=== PATIENT | male | born 1945 | race Caucasian/White ===

== ENCOUNTER → 2018-02-11 15:31 | Outpatient (CLI) | payer MEDICARE, SELFPAY ==
[2018-02-11 16:36] LABS: INR 3.2 (1.0-3.5); Prothrombin Time 30.4 sec (9.3-10.8)
[2018-02-11 17:18] LABS: Hemoglobin A1C 7.3 % (4.5-6.2)
== END ==
PROVIDERS: PCP Family Medicine; Visit Provider Family Medicine
DX: E11.9 Type 2 diabetes mellitus without complications (principal); I26.99 Other pulmonary embolism without acute cor pulmonale; Z79.01 Long term (current) use of anticoagulants
CPT/HCPCS: 36415; 83036; 85610

== ENCOUNTER → 2018-02-18 11:54 | Outpatient (CLI) | payer MEDICARE, SELFPAY ==
[2018-02-18 12:41] LABS: INR 2.5 (1.0-3.5); Prothrombin Time 23.3 sec (9.3-10.8)
== END ==
PROVIDERS: PCP Family Medicine; Visit Provider Family Medicine
DX: I26.99 Other pulmonary embolism without acute cor pulmonale (principal); Z79.01 Long term (current) use of anticoagulants
CPT/HCPCS: 36415; 85610

== ENCOUNTER 2018-05-06 13:40 | Emergency (ER) | payer MEDICARE, SELFPAY ==
[2018-05-06] VITALS (13 sets, daily range): BP systolic 100–131; BP diastolic 53–96; PULSE 79–85; RESP 10–29; TEMP 38.3–38.6; O2SAT 90–94
--- NOTE | 2018-05-06 13:57 | DI.RAD_ITS ---
SYMPTOMS/DIAGNOSIS: COUGH, FEVER PA AND LATERAL CHEST: A region of left lower lobe infiltration is demonstrated. The right lung is clear. There is no pleural effusion. The cardiovascular structures are intact in this patient who is status post CABG. SUMMARY: Findings consistent with a left lower lobe pneumonitis.
--- NOTE | 2018-05-06 14:09 | W.ED.GENAD ---
Discharge Plan Disposition Patient Disposition: HOME Condition: Stable Discharge Details Chief Complaint: SOB Clinical Impression: Community acquired pneumonia Primary Care Provider: Gianni Gannon ED Provider: Ashu Ravi Home Meds and New Rx's Prescriptions: New levofloxacin 750 mg tablet 750 mg PO DAILY Qty: 6 RF: 0 No Action metformin [Glucophage] 850 mg tablet 850 mg PO TID Qty: 270 RF: 4 magnesium oxide 400 mg (241.3 mg magnesium) tablet 400 mg PO DAILY Qty: 90 RF: 3 terazosin 1 mg capsule 1 mg PO .QHS Qty: 90 RF: 3 inhalational spacing device [Space Chamber Plus] 1 EACH spacer 1 ea Miscellaneous PRN Qty: 1 RF: 0 lancets [FreeStyle Lancets] 1 EACH misc 1 ea Sub-Q BID Qty: 100 RF: 4 potassium chloride [Klor-Con] 20 MEQ packet 20 meq PO BID RF: 0 nebulizers [Aeroeclipse Reusable BAN] 1 EACH misc 1 ea Miscellaneous DAILY PRNQty: 1 RF: 0 albuterol sulfate [ProAir HFA] 8.5 GM HFA aerosol inhaler 1 - 2 puff Inhalation Q6H PRN Qty: 2 RF: 3 fluticasone-salmeterol [Advair Diskus] 1 EACH blister with device 1 ea Inhalation BID Qty: 1 RF: 11 pen needle, diabetic 1 EACH needle 1 ea Sub-Q DIRECTED Qty: 300 RF: 4 albuterol sulfate 3 ML solution for nebulization 3 ml Inhalation Q4H PRNQty: 30 RF: 4 rosuvastatin [Crestor] 10 MG tablet 1 tab PO DAILY Qty: 90 RF: 4 warfarin [Coumadin] 5 MG tablet 10 mg PO as directed Qty: 180 RF: 3 Metoprolol Succinate 25 MG TAB.ER.24H 25 mg PO DAILY Qty: 90 RF: 3 lisinopril 20 MG tablet 20 mg PO DAILY Qty: 90 RF: 3 blood sugar diagnostic [FreeStyle Lite Strips] 1 EACH strip 1 ea Miscellaneous BID Qty: 180 RF: 1 furosemide 20 MG tablet 20 mg PO DAILY Qty: 90 RF: 3 fluticasone-salmeterol [Advair Diskus] 1 EACH blister with device 1 puff Inhalation BID RF: 0 tiotropium-olodaterol [Stiolto Respimat] 4 GM mist 2 puff Inhalation DAILY RF: 0 insulin glargine [Lantus Solostar U-100 Insulin] 100 UNIT/1 ML insulin pen 40 unit SQ HS Qty: 3 RF: 4 pantoprazole 20 MG tablet,delayed release (DR/EC) 20 mg PO DAILY@0730 Qty: 90 RF: 3 nitroglycerin [Nitrostat] 0.4 MG tablet, sublingual 1 tab Sublingual DIRECTED RF: 0 Discharge Instructions Instructions: Community Acquired Pneumonia (ED) Additional Instructions: you have a follow up appointment at your primary care office on 05/12 at 11am if you have worsening trouble breathing return to the emergency department Medical Decision Making 73 yo male comes in with cough for a week and fevers/chills for a few days. Denies chset pain or pressure, recent travel. Is noted to be febrile here though appears well systemically and is speaking in full setnences in no distress. Will evaluate for pna with xray, cbc lactate and obtain influenza swab labs show leukocytosis otherwise unremarkable, xray on my read shows small right infiltrate. Irecommended admission but pt declined as he feels well and can return if he is worsening. I arranged for f/u on 05/12 with his pcp's office and he was given strict return precautions as well Differential Diagnosis uri, influenza, pna Imaging Data Radiologic Study: Attestation: I personally reviewed and interpreted this imaging study as follows: Imaging: X-Ray Lab Data Lab results reviewed: Yes I reviewed the patient's lab results. ECG Data Attestation: I personally reviewed and interpreted this ECG (s) as follows: Prior ECG tracings: not available for review Interpretation: sinus rhythm, rate of 91, normal axis, HPI General Mode of arrival: ambulatory. Date/Time Provider Initiated Documentation: 05/06/18 13:49. Limitations to Documentation: no limitations. Information obtained by: patient. History of Present Illness 73 year old M presents to the emergency department with the chief complaint of cough, described as moderate, Patient started experiencing this week(s) (1) and it has been constant. No relieving factors improve symptom(s), No exacerbating factors reported . Patient notes fever/chills. Patient did receive the following treatments prior to arrival, none Related Data Home Medications Medication Instructions Recorded Confirmed inhalational spacing device [Space #1 03/13/14 03/26/18 Chamber Plus] lancets [FreeStyle Lancets] #100 ea 04/03/14 03/26/18 potassium chloride [Klor-Con] 20 meq PO BID packet 08/14/15 05/06/18 nebulizers [Aeroeclipse Reusable #1 ea 04/09/16 03/26/18 BAN] nitroglycerin [Nitrostat] 1 tab SUBLINGUAL DIRECTED 06/07/16 05/06/18 albuterol sulfate [ProAir HFA] 1 - 2 puff INHALATION Q6H PRN #2 01/06/17 05/06/18 inhaler fluticasone-salmeterol [Advair 1 ea INHALATION BID #1 disk 04/10/17 03/26/18 Diskus] pen needle, diabetic #300 ea 04/15/17 03/26/18 albuterol sulfate 3 ml INHALATION Q4H PRN #30 vial 05/04/17 05/06/18 rosuvastatin [Crestor] 1 tab PO DAILY #90 tab-cap 06/17/17 05/06/18 warfarin [Coumadin] 10 mg PO as directed #180 tab-cap 07/06/17 05/06/18 lisinopril 20 mg PO DAILY #90 tab-cap 08/07/17 05/06/18 blood sugar diagnostic [Freestyle #180 strip 08/12/17 03/26/18 Lite Strips] furosemide 20 mg PO DAILY #90 tab 08/12/17 05/06/18 fluticasone-salmeterol [Advair 1 puff INHALATION BID disk 09/25/17 05/06/18 500/50 Diskus] tiotropium-olodaterol [Stiolto 2 puff INHALATION DAILY 09/25/17 05/06/18 Respimat] insulin glargine [Lantus Solostar] 40 unit SQ HS #3 box 01/08/18 05/06/18 pantoprazole 20 mg PO DAILY@0730 #90 tablet. 02/22/18 05/06/18 magnesium oxide 400 mg (241.3 mg 400 mg PO DAILY #90 tab 03/26/18 05/06/18 magnesium) tablet metformin 850 mg tablet 850 mg PO TID #270 tab-cap 18 05/06/18 terazosin 1 mg capsule 1 mg PO .QHS #90 cap 18 05/06/18 levofloxacin 750 mg PO DAILY #6 tab 05/06/18 Previous Rx's Medication Instructions Recorded fluticasone-salmeterol [Advair 1 ea INHALATION BID #1 disk 04/10/17 Diskus] pen needle, diabetic #300 ea 04/15/17 rosuvastatin [Crestor] 1 tab PO DAILY #90 tab-cap 06/17/17 warfarin [Coumadin] 10 mg PO as directed #180 tab-cap 07/06/17 lisinopril 20 mg PO DAILY #90 tab-cap 08/07/17 blood sugar diagnostic [Freestyle #180 strip 08/12/17 Lite Strips] furosemide 20 mg PO DAILY #90 tab 08/12/17 insulin glargine [Lantus Solostar] 40 unit SQ HS #3 box 01/08/18 pantoprazole 20 mg PO DAILY@0730 #90 tablet. 02/22/18 magnesium oxide 400 mg (241.3 mg 400 mg PO DAILY #90 tab 03/26/18 magnesium) tablet metformin 850 mg tablet 850 mg PO TID #270 tab-cap 03/26/18 terazosin 1 mg capsule 1 mg PO .QHS #90 cap 03/26/18 levofloxacin 750 mg PO DAILY #6 tab 05/06/18 Allergies Allergy/AdvReac Type Severity Reaction Status Date / Time venom-honey bee Allergy Severe Swelling/Ed Verified 05/06/18 13:54 [bee venom (honey bee)] lida General Stated Complaint: SOB ODESSA: 2 Review of Systems Review of Systems All systems reviewed & are unremarkable except as noted in HPI and below Constitutional Reports chills and Reports fever(s) Eyes Denies loss of vision ENT Denies change in voice Cardiovascular Denies chest pain Gastrointestinal Denies abdominal pain, Denies nausea and Denies vomiting Genitourinary Denies dysuria Musculoskeletal Denies joint swelling Integumentary/Breasts Denies rash Neurologic Denies loss of vision Psychiatric Denies depression Endocrine Denies cold intolerance and Denies heat intolerance Allergic/Immunologic Denies urticaria PFSH Medical History BPH (benign prostatic hyperplasia) COPD (chronic obstructive pulmonary disease) Diabetes type 2, controlled Hypertension Prostate cancer Pulmonary embolus Social History Smoking/Tobacco Use Status: Current every day tobacco type: cigarettes passive smoking exposure: No second hand exposure: No alcohol intake: current alcohol intake frequency: holidays/special occasions only substance use type: does not use Surgical History Arthroplasty Colonoscopy - IV Sedation (~2006) Extraction of cataract (~07/2012) Prostate Biopsy (11/13/14) Repair of inguinal hernia (~2002) Exam Const General: no acute distress Orientation: alert HENMT Head: normal to inspection Ears: external ears normal General nose exam: external nose normal Mouth: moist mucous membranes Eyes General: appearance normal, both eyes and all related structures Neck Neck: normal visual inspection Resp Effort & Inspection: normal respiratory effort and able to speak in complete sentences Cardio Rate: regular rate Skin General skin exam: no rashes or lesions noted Neuro General: alert and oriented x3 Extrem General: normal to inspection Psych Mental Status: mental status grossly normal Course Vital Signs Temperature 38.6 C H 05/06/18 13:52 Pulse 85 05/06/18 13:52 Respiratory Rate 20 05/06/18 13:52 Blood Pressure 131/96 H 05/06/18 13:52 Pulse Oximetry 94 L 05/06/18 13:52 Temperature 38.6 C H 05/06/18 13:52 Temperature Source Temporal Artery Scan 05/06/18 13:52 Pulse 85 05/06/18 13:52 Respiratory Rate 20 05/06/18 13:52 Respiratory Effort Non-Labored 05/06/18 14:07 Blood Pressure 131/96 H 05/06/18 13:52 Blood Pressure Position Supine 05/06/18 13:52 Pulse Oximetry 94 L 05/06/18 13:52 Oxygen Delivery Method Room Air 05/06/18 13:52 Oxygen Flow Rate 0 05/06/18 13:52 Pain Level 0 05/06/18 13:52 Lab/Test Results Lab/Test Results: 05/06/18 14:00 Nasopharynx Influenza Types A,B Antigen - Pending 05/06/18 13:56 Blood Blood Culture - Pending 05/06/18 13:56 Blood Blood Culture - Pending
[2018-05-06 14:20] LABS: Lactate-non-spesis 1.3 mmol/L (0.6-1.4)
[2018-05-06 14:25] LABS: Abs Immature Grans 0.06 k/cumm (0.0-0.09); Absolute Basophil Count 0.03 k/cumm (0.0-0.2); Absolute Monocyte Count 1.95 k/cumm (0.11-0.7); Basophils % 0.2; Eosinophils % 0.8; HCT 32.4 % (40.0-50.0); HGB 10.3 g/dL (13.5-17.5); Immature Grans % 0.4; Lymphocytes % 11.8; Mean Corp. HGB Concentration 31.8 g/dL (32.0-36.0); Mean Corpuscular Hemoglobin 21.4 pg (27.0-33.0); Mean Corpuscular Volume 67.2 fL (80-95); Mean Platelet Volume 9.4 fL (8.0-11.0); Monocytes % 11.7; Neutrophils % 75.1; Platelet Count 317 x1000/uL (130-400); RBC 4.82 m/cumm (4.50-6.00); RBC Distribution Width 17.5 % (11.8-14.1); White Blood Cell Count 16.64 k/cumm (4.4-10.8)
[2018-05-06 14:29] LABS: Absolute Eosinophil Count 0.13 k/cumm (0.0-0.7); Absolute Lymphocyte Count 1.96 k/cumm (1.2-3.4)
[2018-05-06 14:35] LABS: ALT 17 U/L (12-78); AST 12 U/L (15-37); Albumin 3.2 g/dL (3.4-5.0); Alkaline Phosphatase 95 U/L (46-116); Anion Gap 9.6 mmol/L (3-11); BUN 16 mg/dL (7-18); Bilirubin, Direct 0.13 mg/dL (0.00-0.20); Bilirubin, Total 0.6 mg/dL (0.2-1.0); CO2 26.4 mmol/L (21.0-32.0); CREATININE 1.03 mg/dL (0.70-1.30); Calcium 8.3 mg/dL (8.5-10.1); Chloride 97 mmol/L (98-107); Glucose 107 mg/dL (70-100); Magnesium 1.3 mg/dL (1.8-2.4); Potassium 4.1 mmol/L (3.5-5.1); Sodium 133 mmol/L (136-145); Total Protein 6.8 g/dL (6.4-8.2)
[2018-05-06 14:38] LABS: Anisocytosis 1+; Basophilic Stippling Present; Diff Comment Agrees w/ Instrument; Hypochromasia 3+; Microcytosis 3+; Ovalocytes 2+; Polychromasia Present
[2018-05-06 14:39] LABS: Poikilocytes 1+
--- NOTE | 2018-05-06 14:49 | NUR.NOTE ---
Nursing Note: Appt. made for pt with Shyann Gonzalez NP at [facility], @ 11:00 am. Gianna Mejia.
[2018-05-06] MEDS: LEVOFLOXACIN 500 MG, LEVOFLOXACIN 250 MG 750 MG PO (14:55)
== END 2018-05-06 15:26 | disposition home or self-care (01) ==
PROVIDERS: Emergency Provider Emergency Medicine; PCP Family Medicine
DX: J18.9 Pneumonia, unspecified organism (principal); E11.9 Type 2 diabetes mellitus without complications; Z79.4 Long term (current) use of insulin; I10 Essential (primary) hypertension; J44.9 Chronic obstructive pulmonary disease, unspecified; F17.210 Nicotine dependence, cigarettes, uncomplicated; Z79.01 Long term (current) use of anticoagulants
CPT/HCPCS: 36415; 80053; 80076; 87040; 87449; 93005; 99285; 71046; 83605; 83735; 85025; 93010

== ENCOUNTER 2018-05-06 21:59 | Inpatient (IN) | payer MEDICARE, SELFPAY ==
[2018-05-06] VITALS (13 sets, daily range): BP systolic 99–119; BP diastolic 40–68; PULSE 87–95; RESP 14–32; TEMP 37.2; O2SAT 89–100
[2018-05-06] MEDS: Albuterol/Ipratropium 3 ML UPD VIAL (22:15)
--- NOTE | 2018-05-06 22:31 | ED.GENADUL_ITS ---
Discharge Plan Disposition Patient Disposition: [facility] INPATIENT Condition: Stable Discharge Details Chief Complaint: SOB Clinical Impression: Pneumonia, Hypoxia Reason For Visit: PNEUMONIA Admit Date/Time: 05/06/18 23:46 Admit Provider: Nato Mccormack Attending Provider: Nato Mccormack Primary Care Provider: Gianni Gannon ED Provider: Vickie Sharp Medical Decision Making 73yo M w/ a h/o COPD, tobacco smoker, DM, HTN, CAD, CHF with a complaint of cough and shortness of breath for the past month, worse over the past few days associated with fever and chills who was diagnosed with pneumonia here today but refused admission and was treated with PO levaquin returns for worsening shortness of breath. Denies chest pain. WBC count today on labs of 16. Chest x-ray noted a left lower lobe pneumonia. O2 sat 89% on RA. Pt mildly tachypneic but able to speak in full sentences and does not appear to be in acute respiratory distress. EKG notes a rate of 92, sinus, right bundle branch block, no acute ST elevation or depression, QTc 463. QRS 114. No acute change from Due to worsening symptoms, will replete labs and imaging. Will give a DuoNeb, followed by 5 mg albuterol neb, as well as 125 mg Solu-Medrol IV. Patient was already given a dose of p.o. Levaquin today and will hold on this at this time. Will admit patient for worsening respiratory status associated with pneumonia in a patient with multiple comorbidities for observation, IV antibiotics, IV steroids and continue neb treatment. 2310 --labs and imaging reviewed. White blood cell count 17. Hemoglobin 9.6, earlier today was 10.3. Sodium 131. Calcium 8.1. Magnesium 1.2. BNP 532. Troponin negative. Chest x-ray notes left lower lobe pneumonia but no other acute significant change from previous today. Will replete magnesium. 2330 -- d/w Dr. Mccormack - accepts pt for admission. 0005 -- Pt states he feels 50% better. Breath sounds improved. Declines another neb treatment. O2 sat on room air 95%. Patient states he has been on Coumadin since 2000 since diagnosed with a pulmonary embolism due to factor V Leyden. Patient states he has not missed any recent Coumadin doses. States he did miss his last INR check and is a month late. He denies any recent antibiotic use. Denies any recent hospital admissions in the past 3 months. INR therapeutic at 2.9. HPI General Mode of arrival: ambulatory . Date/Time Provider Initiated Documentation: 05/06/18 22:05 . Limitations to Documentation: no limitations . Information obtained by: patient . HPI Narrative: Patient is a 73-year-old male with a history of COPD, diabetes, pulmonary embolism in 2000 on Coumadin, history of factor V Leiden, CAD, CHF who presents with shortness of breath and cough for 1 month, worse recently. States his cough was productive but is now dry. He admits to recent fever and chills and fatigue. He states he has been eating normally. He denies chest pain. Patient was seen here earlier today for the same symptoms and was diagnosed with pneumonia and offered admission but refused. Patient is here tonight as his symptoms became worse over the past 2-hours. He did not use any neb treatments this evening when his symptoms became worse. He was given a dose of p.o. Levaquin here in the ED today. Past medical history: COPD, hypertension, diabetes, COPD, prostate cancer, CHF, BPH, Factor V Leiden Surgical history: Cataract surgery, Hernia repair Social history: Smokes tobacco, occasional alcohol, denies drugs Meds: Coumadin, See list Allergies: NKDA Related Data Home Medications Medication Instructions Recorded Confirmed inhalational spacing device [Space #1 03/13/14 05/06/18 Chamber Plus] lancets [FreeStyle Lancets] #100 ea 04/03/14 05/06/18 potassium chloride [Klor-Con] 20 meq PO BID packet 08/14/15 05/06/18 nebulizers [Aeroeclipse Reusable #1 ea 04/09/16 05/06/18 BAN] nitroglycerin [Nitrostat] 1 tab SUBLINGUAL DIRECTED 06/07/16 05/06/18 albuterol sulfate [ProAir HFA] 1 - 2 puff INHALATION Q6H PRN #2 01/06/17 inhaler fluticasone-salmeterol [Advair 1 ea INHALATION BID #1 disk 04/10/17 05/06/18 Diskus] pen needle, diabetic #300 ea 04/15/17 05/06/18 albuterol sulfate 3 ml INHALATION Q4H PRN #30 vial 05/04/17 05/06/18 rosuvastatin [Crestor] 1 tab PO DAILY #90 tab-cap 06/17/17 05/06/18 warfarin [Coumadin] 10 mg PO as directed #180 tab-cap 07/06/17 05/06/18 lisinopril 20 mg PO DAILY #90 tab-cap 08/07/17 05/06/18 blood sugar diagnostic [Freestyle #180 strip 08/12/17 05/06/18 Lite Strips] furosemide 20 mg PO DAILY #90 tab 08/12/17 05/06/18 fluticasone-salmeterol [Advair 1 puff INHALATION BID disk 09/25/17 05/06/18 500/50 Diskus] tiotropium-olodaterol [Stiolto 2 puff INHALATION DAILY 09/25/17 05/06/18 Respimat] insulin glargine [Lantus Solostar] 40 unit SQ HS #3 box 01/08/18 05/06/18 pantoprazole 20 mg PO DAILY@0730 #90 tablet.dr 02/22/18 05/06/18 magnesium oxide 400 mg (241.3 mg 400 mg PO DAILY #90 tab 03/26/18 05/06/18 magnesium) tablet metformin 850 mg tablet 850 mg PO TID #270 tab-cap 03/26/18 05/06/18 terazosin 1 mg capsule 1 mg PO .QHS #90 cap 03/26/18 05/06/18 levofloxacin 750 mg PO DAILY #6 tab 05/06/18 05/06/18 Previous Rx's Medication Instructions Recorded fluticasone-salmeterol [Advair 1 ea INHALATION BID #1 disk 04/10/17 Diskus] pen needle, diabetic #300 ea 04/15/17 rosuvastatin [Crestor] 1 tab PO DAILY #90 tab-cap 06/17/17 warfarin [Coumadin] 10 mg PO as directed #180 tab-cap 07/06/17 lisinopril 20 mg PO DAILY #90 tab-cap 08/07/17 blood sugar diagnostic [Freestyle #180 strip 08/12/17 Lite Strips] furosemide 20 mg PO DAILY #90 tab 08/12/17 insulin glargine [Lantus Solostar] 40 unit SQ HS #3 box 01/08/18 pantoprazole 20 mg PO DAILY@0730 #90 tablet. 02/22/18 magnesium oxide 400 mg (241.3 mg 400 mg PO DAILY #90 tab 03/26/18 magnesium) tablet metformin 850 mg tablet 850 mg PO TID #270 tab-cap 03/26/18 terazosin 1 mg capsule 1 mg PO .QHS #90 cap 03/26/18 levofloxacin 750 mg PO DAILY #6 tab 05/06/18 Allergies Allergy/AdvReac Type Severity Reaction Status Date / Time venom-honey bee Allergy Severe Swelling/Ed Verified 05/06/18 22:12 [bee venom (honey bee)] lida General Stated Complaint: SOB ODESSA: 3 Review of Systems Review of Systems All systems reviewed & are unremarkable except as noted in HPI and below Constitutional Denies chills, Denies excessive sweating, Denies fatigue, Reports fever(s), Denies weakness and Denies weight loss Eyes Reports system reviewed and no additional complaints, except as docu and Denies blurry vision ENT Denies vertigo, Denies dizziness, Denies otalgia, Denies nasal congestion, Denies sore throat and Denies throat swelling Cardiovascular Denies chest pain, Denies syncope, Denies rapid heart rate and Reports dyspnea Respiratory Reports cough and Reports dyspnea Gastrointestinal Denies abdominal pain, Denies diarrhea and Denies vomiting Genitourinary Denies hematuria, Denies dysuria and Denies flank pain Musculoskeletal Denies back pain and Denies joint swelling Integumentary/Breasts Denies lesions and Denies rash Neurologic Denies behavioral changes, Denies confusion, Denies vertigo, Denies dizziness, Denies syncope and Denies weakness Psychiatric Denies behavioral changes, Denies confusion and Denies depression Endocrine Denies excessive sweating and Denies fatigue Hematologic/Lymphatic Denies easy bruising and Denies lymphadenopathy Allergic/Immunologic Denies throat swelling [facility] Medical History BPH (benign prostatic hyperplasia) COPD (chronic obstructive pulmonary disease) Diabetes type 2, controlled Hypertension Prostate cancer Pulmonary embolus Social History Smoking/Tobacco Use Status: Current every day tobacco type: cigarettes passive smoking exposure: No second hand exposure: No alcohol intake: current alcohol intake frequency: holidays/special occasions only substance use type: does not use Surgical History Arthroplasty Colonoscopy - IV Sedation (~2006) Extraction of cataract (~07/2012) Prostate Biopsy (11/13/14) Repair of inguinal hernia (~2002) Exam Const General: cooperative and no acute distress Orientation: alert, awake and oriented x3 HENMT Head: normal to inspection Ears: hearing grossly normal bilaterally and external ears normal General nose exam: external nose normal Face and sinus: normal facial exam Eyes General: appearance normal, both eyes and all related structures Eyelids: eyelids normal EOM: EOM intact bilaterally Neck Neck: normal visual inspection Lymphatic: no lymphadenopathy noted Chest Chest: normal inspection of the chest Resp Effort & Inspection: normal respiratory effort and able to speak in complete sentences Auscultation: crackles (b/l bases, worse on Left), diminished lung sounds ( bilateral, worse at bases) and wheezes scattered wheezes Cardio Rate: regular rate Rhythm: regular rhythm GI Inspection: normal to inspection Palpation: soft, not firm, no guarding, no hepatosplenomegaly, no masses and nontender Auscultation: normal bowel sounds Skin General skin exam: no rashes or lesions noted Neuro General: alert and awake Cognition: normal cognition Speech: speech normal Gait: normal gait Motor: muscle tone normal throughout Sensory Exam: no sensory deficits noted Extrem General: normal to inspection, full ROM, normal capillary refill and no edema Psych Appearance: grossly normal Mental Status: mental status grossly normal Speech and Movement: speech and movement normal Affect: normal affect Thought Process: normal Course Laboratory Tests Range/Units 05/06/18 05/06/18 22:40 22:40 WBC (4.4-10.8) k/cumm 17.02 H RBC (4.50-6.00) m/cumm 4.53 Hgb (13.5-17.5) g/dL 9.6 L Hct (40.0-50.0) % 30.2 L MCV (80-95) fL 66.7 L MCH (27.0-33.0) pg 21.2 L MCHC (32.0-36.0) g/dL 31.8 L RDW (11.8-14.1) % 17.4 H Plt Count (130-400) x1000/uL 280 MPV (8.0-11.0) fL 9.6 Immature Gran % 0.3 Neutrophils % 72.7 Lymphocytes % 12.6 Monocytes % 13.7 Eosinophils % 0.6 Basophils % 0.1 Absolute Neutrophils (1.2-6.7) k/cumm 12.37 H Absolute Lymphocytes (1.2-3.4) k/cumm 2.14 Absolute Monocytes (0.11-0.7) k/cumm 2.33 H Absolute Eosinophils (0.0-0.7) k/cumm 0.10 Absolute Basophils (0.0-0.2) k/cumm 0.02 Differential Comment Rbc morph reviewed RBC Morphology See below Poikilocytosis 1+ Anisocytosis 2+ Microcytosis 3+ Sodium (136-145) mmol/L 131 L Potassium (3.5-5.1) mmol/L 4.3 Chloride (98-107) mmol/L 95 L Carbon Dioxide (21.0-32.0) mmol/L 24.8 Anion Gap (3-11) mmol/L 11.2 H BUN (7-18) mg/dL 21 H Creatinine (0.70-1.30) mg/dL 1.28 Estimated GFR/1.73 m2 (mL/min/1.73m2) 54.79 Glucose (70-100) mg/dL 153 H Calcium (8.5-10.1) mg/dL 8.1 L Magnesium (1.8-2.4) mg/dL 1.2 L Total Bilirubin (0.2-1.0) mg/dL 0.6 AST (15-37) U/L 12 L ALT (12-78) U/L 15 Alkaline Phosphatase (46-116) U/L 88 Troponin I (0.00-0.06) ng/mL < 0.02 NT-Pro-B Natriuret Pep ( - 299) pg/mL 532 H Total Protein (6.4-8.2) g/dL 6.4 Albumin (3.4-5.0) g/dL 2.9 L Vital Signs Temperature 99.0 F 05/06/18 22:09 Pulse 95 H 05/06/18 22:09 Respiratory Rate 20 05/06/18 22:09 Blood Pressure 119/68 05/06/18 22:09 Pulse Oximetry 89 L 05/06/18 22:09 Temperature 99.0 F 05/06/18 22:09 Temperature Source Temporal Artery Scan 05/06/18 22:09 Pulse 95 H 05/06/18 22:09 Respiratory Rate 20 05/06/18 22:09 Respiratory Effort 05/06/18 22:09 Blood Pressure 119/68 05/06/18 22:09 Blood Pressure Position Sitting 05/06/18 22:09 Pulse Oximetry 89 L 05/06/18 22:09 Oxygen Delivery Method Room Air 05/06/18 22:09 Oxygen Flow Rate 0 05/06/18 22:09 Pain Level 0 05/06/18 22:09
[2018-05-06] MEDS: Albuterol 2.5 MG/3 ML INH SOLN VIAL 5 MG UPD (22:36)
[2018-05-06] MEDS: methylPREDNISolone SUCC 125 MG VIAL IVP (22:36)
[2018-05-06 22:52] LABS: Abs Immature Grans 0.05 k/cumm (0.0-0.09); Absolute Basophil Count 0.02 k/cumm (0.0-0.2); Absolute Lymphocyte Count 2.14 k/cumm (1.2-3.4); Absolute Monocyte Count 2.33 k/cumm (0.11-0.7); Absolute Neutrophil Count 12.37 k/cumm (1.2-6.7); Basophils % 0.1; Eosinophils % 0.6; HCT 30.2 % (40.0-50.0); HGB 9.6 g/dL (13.5-17.5); Immature Grans % 0.3; Lymphocytes % 12.6; Mean Corp. HGB Concentration 31.8 g/dL (32.0-36.0); Mean Corpuscular Hemoglobin 21.2 pg (27.0-33.0); Mean Corpuscular Volume 66.7 fL (80-95); Mean Platelet Volume 9.6 fL (8.0-11.0); Monocytes % 13.7; Neutrophils % 72.7; Platelet Count 280 x1000/uL (130-400); RBC 4.53 m/cumm (4.50-6.00); RBC Distribution Width 17.4 % (11.8-14.1); White Blood Cell Count 17.02 k/cumm (4.4-10.8)
[2018-05-06 23:12] LABS: ALT 15 U/L (12-78); AST 12 U/L (15-37); Albumin 2.9 g/dL (3.4-5.0); Alkaline Phosphatase 88 U/L (46-116); Anion Gap 11.2 mmol/L (3-11); BUN 21 mg/dL (7-18); Bilirubin, Total 0.6 mg/dL (0.2-1.0); CO2 24.8 mmol/L (21.0-32.0); CREATININE 1.28 mg/dL (0.70-1.30); Calcium 8.1 mg/dL (8.5-10.1); Chloride 95 mmol/L (98-107); Estimated GFR 54.79 (mL/min/1.73m2); Glucose 153 mg/dL (70-100); Magnesium 1.2 mg/dL (1.8-2.4); NT-proBNP 532 pg/mL; Potassium 4.3 mmol/L (3.5-5.1); Sodium 131 mmol/L (136-145); Total Protein 6.4 g/dL (6.4-8.2); Troponin I < 0.02 ng/mL (0.00-0.06)
[2018-05-06 23:15] LABS: Anisocytosis 2+; Diff Comment RBC Morph Reviewed; Microcytosis 3+
[2018-05-06 23:16] LABS: Poikilocytes 1+
--- NOTE | 2018-05-06 23:20 | DI.RAD_ITS ---
SYMPTOMS/DIAGNOSIS: COUGH, INCREASING SHORTNESS OF BREATH, PNEUMONIA ON CXR, ? WORSENING PNEUMONIA CHEST X-RAY, FRONTAL AND LATERAL VIEWS: Comparison is 07/10/17 and 05/06/18. The heart size and pulmonary vasculature are stable. The sternal wires are in place. There is again seen an infiltrate in the left lower lobe. No effusions or pneumothoraces are identified. The lungs appear hyperinflated consistent with underlying COPD. Degenerative changes are seen in the spine. IMPRESSION: Stable left lower lobe pneumonia.
--- NOTE | 2018-05-06 23:28 | DI.VRAD_ITS ---
EXAM: XR Chest, 2 Views EXAM DATE/TIME: 05/06/2018 10:29 PM CLINICAL HISTORY: 73 years old, male; Signs and symptoms; Cough and shortness of breath; Prior surgery; Surgery date: 6+ months; Surgery type: Bypass 3 years ago; Patient HX: Very SOB TECHNIQUE: XR of the chest, 2 views. COMPARISON: CR XR CHEST 2V PA LATERAL 05/06/2018 2:26 PM FINDINGS: Lungs: Lungs are hyperinflated compatible with obstructive physiology with chronic pleural-parenchymal changes throughout. Bibasilar platelike atelectasis. Left lower lobe infiltrate suggest pneumonitis/pneumonia. Appearance similar to earlier same day exam. Pleural space: Unremarkable. No pleural effusion. No pneumothorax. Heart/Mediastinum: Median sternotomy wires and surgical clips from prior CABG Vasculature: Atherosclerotic calcification within the aorta without aneurysm. Bones/joints: Degenerative changes noted throughout the spine. IMPRESSION: Hyperinflation with suspected left lower lobe pneumonia/pneumonitis. Similar appearance to previous. Dictated and Authenticated by: Rudy Valentine MD. Ordering:YONI SILVERMAN MD
[2018-05-07] VITALS (70 sets, daily range): BP systolic 83–143; BP diastolic 37–66; PULSE 61–93; RESP 10–94; TEMP 35.8–36.3; O2SAT 92–99
[2018-05-07 01:22] LABS: INR 2.9 (1.0-3.5); PTT Activated 50.2 sec (21.0-31.4); Prothrombin Time 27.6 sec (9.3-10.8)
[2018-05-07] MEDS: MAGNESIUM SULFATE 2 GM/50 ML BAG IVPB (01:58)
--- NOTE | 2018-05-07 02:08 | W.PM.HP.N ---
Date of service: 05/07/18 Time of Service: 01:00 Assessment and Plan (1) Community acquired pneumonia: Current visit: No Status: Acute because of his warfarin, Levaquin is not the best choice d/t elevated INR. However he has no allergy to PCN/cephalosporin and therefore I am going to put him on Rocephin 2 gm IVPB daily along w/ doxycycline 100 mg bid to cover for atypicals. I have also added iv solumedrol along w/ his aerosol treatments. he indicated that he is up todate on his pnemonia vaccine and [facility] [place] [facility]. (2) Diabetes mellitus, type II, insulin dependent: Current visit: No Status: Acute continue home dose of metformin and monitor glucose AC/HS and cover w/ sliding scale insulin. continue his home dose of Lantus (3) COPD (chronic obstructive pulmonary disease): Current visit: No Status: Chronic continue his Advair Diskus and use DuoNeb treatments prn acute bronchospasm; treat COPD and pneumonia w/ antibiotics and steroids as outlined above History of Present Illness Chief Complaint: short of breath Narrative: 73 yr old male smoker w/ COPD, DM, HTN, CAD, CHF, remote PE but chronically anticoaguled w/ warfarin d/t Leiden Factor mutation, now presented earlier in the day to the ER w/ c/o of 1 month hx of having a cold in which he has had increased cough and worsening WALLER along w/ chills and sweats. He was seen in the ER by Dr. Ravi who gave him oral Levaquin and steroids and advised him to be admitted overnight for further treatment of pneumonia. Patient decided to return home but was only home for about one hour when he says that his dyspnea got worse and he was severely short of breath even at rest. He denies any chest pain or pressure. He has cough that has become productive of thick white mucous but no hemoptysis. He has felt feverish and complains of chills and sweats. CXR today demonstrated LLL infiltrates and COPD. Labs revealed leukocytosis of 17,000. He also has an anemia w/ HB of 9.6 gm with microcytic indices. His INR is therapeutic at 2.9. Troponin was negative and his BNP was eleavated at 532 however he has had no pedal edema and no signs of CHF on his CXR. He is now being admitted for treatment of his CAP and COPD. Further testing will be done in the a.m. regarding his anemia including iron studies, stool for O.B.. Review of Systems Constitutional Reports chills, Reports fatigue, Reports fever(s) and Reports night sweats Eyes Reports system reviewed and no additional complaints, except as docu ENT Reports system reviewed and no additional complaints, except as docu, Denies nasal congestion, Denies nasal discharge and Denies sore throat Cardiovascular Reports system reviewed and no additional complaints, except as docu, Denies chest pain, Denies chest pain with activity, Denies pedal edema, Denies edema, Denies palpitations, Reports dyspnea and Reports dyspnea on exertion Respiratory Reports change in phlegm color, Reports chest congestion, Reports cough, Denies hemoptysis, Reports excessive phlegm production, Reports dyspnea and Reports dyspnea on exertion Gastrointestinal Denies abdominal pain, Denies melena and Denies hematochezia Genitourinary Reports system reviewed and no additional complaints, except as docu Musculoskeletal Reports system reviewed and no additional complaints, except as docu Integumentary/Breasts Reports system reviewed and no additional complaints, except as docu Neurologic Reports system reviewed and no additional complaints, except as docu Psychiatric Reports system reviewed and no additional complaints, except as docu Endocrine Reports fatigue and Denies palpitations Hematologic/Lymphatic Reports easy bruising [facility] Medical History BPH (benign prostatic hyperplasia) COPD (chronic obstructive pulmonary disease) Diabetes type 2, controlled Hypertension Prostate cancer Pulmonary embolus Social History Smoking/Tobacco Use Status: Current every day tobacco type: cigarettes passive smoking exposure: No second hand exposure: No alcohol intake: current alcohol intake frequency: holidays/special occasions only substance use type: does not use Surgical History Arthroplasty Colonoscopy - IV Sedation (~2006) Extraction of cataract (~07/2012) Prostate Biopsy (11/13/14) Repair of inguinal hernia (~2002) Meds Home Medications Medication Instructions Recorded Confirmed Type inhalational spacing device [Space #1 03/13/14 05/06/18 History Chamber Plus] lancets [FreeStyle Lancets] #100 ea 10/06/14 11/08/18 History potassium chloride [Klor-Con] 20 meq PO BID packet 08/14/15 05/06/18 History nebulizers [Aeroeclipse Reusable #1 ea 04/09/16 05/06/18 History BAN] nitroglycerin [Nitrostat] 1 tab SUBLINGUAL DIRECTED 06/07/16 05/06/18 History albuterol sulfate [ProAir HFA] 1 - 2 puff INHALATION Q6H PRN #2 01/06/17 05/06/18 History inhaler pen needle, diabetic #300 ea 04/15/17 05/06/18 Rx albuterol sulfate 3 ml INHALATION Q4H PRN #30 vial 05/04/17 05/06/18 History rosuvastatin [Crestor] 1 tab PO DAILY #90 tab-cap 06/17/17 05/06/18 Rx Metoprolol Succinate 25 mg PO DAILY #90 tab-cap 07/06/17 05/06/18 Clinic warfarin [Coumadin] 10 mg PO as directed #180 tab-cap 07/06/17 05/06/18 Rx lisinopril 20 mg PO DAILY #90 tab-cap 08/07/17 05/06/18 Rx blood sugar diagnostic [FreeStyle #180 strip 08/12/17 05/06/18 Rx Lite Strips] furosemide 20 mg PO DAILY #90 tab 08/12/17 05/06/18 Rx fluticasone-salmeterol [Advair 1 puff INHALATION BID disk 09/25/17 05/06/18 History 500/50 Diskus] tiotropium-olodaterol [Stiolto 2 puff INHALATION DAILY 09/25/17 05/06/18 History Respimat] insulin glargine [Lantus Solostar 40 unit SQ HS #3 box 01/08/18 05/06/18 Rx U-100 Insulin] pantoprazole 20 mg PO DAILY@0730 #90 tablet. 02/22/18 05/06/18 Rx magnesium oxide 400 mg (241.3 mg 400 mg PO DAILY #90 tab 03/26/18 05/06/18 Rx magnesium) tablet metformin 850 mg tablet 850 mg PO TID #270 tab-cap 03/26/18 05/06/18 Rx terazosin 1 mg capsule 1 mg PO .QHS #90 cap 03/26/18 05/06/18 Rx dextromethorphan-guaifenesin 10 ml PO Q4H PRN PRN #200 ml 05/10/18 Rx nicotine 21 mg TRANSDERMAL DAILY PRN PRN 05/10/18 Rx #30 ea prednisone 50 mg PO DAILY #2 tab 05/10/18 Rx Allergies Allergy/AdvReac Type Severity Reaction Status Date / Time venom-honey bee Allergy Severe Swelling/Ed Verified 05/06/18 22:12 [bee venom (honey bee)] lida Exam Const General: cooperative, comfortable, no acute distress, well developed and ill appearing chronically Nutritional Appearance: overweight Orientation: alert, awake and oriented x3 HENMT Head: normal to inspection, no palpable skull fracture, normocephalic and atraumatic Ears: external ears normal and TM's normal bilaterally General nose exam: external nose normal Face and sinus: normal facial exam Eyes General: appearance normal, both eyes and all related structures Visual Rivera: normal visual rivera by confrontation Alignment and Position: alignment normal Periorbital: periorbital findings normal Eyelids: eyelids normal Conjunctivae: conjunctivae normal Sclera: sclerae normal Cornea: corneas normal Pupils: PERRL and normal by confrontation EOM: EOM intact bilaterally Neck Neck: normal visual inspection, full ROM, no lymphadenopathy and trachea midline Thyroid: thyroid normal Carotids: normal carotid upstroke Lymphatic: no lymphadenopathy noted Resp Effort & Inspection: normal respiratory effort, able to speak in complete sentences and cough Auscultation: rhonchi left lower and wheezes expiratory wheezes and scattered wheezes Cardio Jugular venous pressure: no JVD Palpation: normal PMI Rate: regular rate Rhythm: regular rhythm Heart Sounds: S1 normal, S2 normal, normal, physiologic split S2, no gallops and murmur systolic holo, blowing, harsh, III/, at the apex and at the left sternal border Bruits: no abdominal aortic bruits and no carotid bruits Pulses: normal peripheral pulses GI Inspection: obesity Palpation: soft, no hepatosplenomegaly, no guarding and nontender Percussion: normal to percussion Auscultation: normal bowel sounds Back/Spine/Pelvis Back: no CVA tenderness Cervical Spine: normal cervical lordosis Thoracic/Lumbar Spine: thoracic and lumbar spine normal to inspection Skin General skin exam: no rashes or lesions noted Neuro General: alert, awake, oriented x3, moves all extremities, normal light touch, pain and propioception and no focal motor deficits Cognition: normal cognition Speech: speech normal Motor: muscle tone normal throughout, strength 5/5 throughout and no movement abnormalities noted Sensory Exam: no sensory deficits noted Extrem General: normal to inspection, full ROM, normal capillary refill, no joint enlargement, no clubbing, cyanosis or edema, no pedal edema and no calf tenderness Psych Appearance: grossly normal and well kempt Mental Status: mental status grossly normal Speech and Movement: speech and movement normal Mood: congruent mood Affect: normal affect Attitude: cooperative Thought Process: normal Thought Content: normal Insight: insight good Judgment: judgment good Results Labs : 05/09/18 11:15 05/08/18 05:47 Laboratory Results - last 24 hr 05/06/18 05/06/18 05/07/18 22:40 22:40 00:01 WBC 17.02 H RBC 4.53 Hgb 9.6 L Hct 30.2 L MCV 66.7 L MCH 21.2 L MCHC 31.8 L RDW 17.4 H Plt Count 280 MPV 9.6 Immature Gran % 0.3 Neutrophils % 72.7 Lymphocytes % 12.6 Monocytes % 13.7 Eosinophils % 0.6 Basophils % 0.1 Absolute Neutrophils 12.37 H Absolute Lymphocytes 2.14 Absolute Monocytes 2.33 H Absolute Eosinophils 0.10 Absolute Basophils 0.02 Differential Comment Rbc morph reviewed RBC Morphology See below Poikilocytosis 1+ Anisocytosis 2+ Microcytosis 3+ PT 27.6 H INR 2.9 APTT 50.2 H Sodium 131 L Potassium 4.3 Chloride 95 L Carbon Dioxide 24.8 Anion Gap 11.2 H BUN 21 H Creatinine 1.28 Estimated GFR/1.73 m2 54.79 Glucose 153 H Calcium 8.1 L Magnesium 1.2 L Total Bilirubin 0.6 AST 12 L ALT 15 Alkaline Phosphatase 88 Troponin I < 0.02 NT-Pro-B Natriuret Pep 532 H Total Protein 6.4 Albumin 2.9 L Last Vital Signs Temp 37.2 C 05/06/18 22:09 Pulse 78 05/07/18 01:46 Resp 19 05/07/18 01:50 BP 125/47 L 05/07/18 01:46 Pulse Ox 96 05/07/18 01:50
[2018-05-07] MEDS: Doxycycline Hyclate 100 MG CAP PO (06:10)
[2018-05-07] MEDS: methylPREDNISolone SUCC 125 MG VIAL 80 MG IVP ×2 (06:11→14:43)
[2018-05-07] MEDS: Normal Saline 100 ML ×2 (06:13→06:14)
[2018-05-07] MEDS: cefTRIAXone 1 GM VIAL (06:14)
[2018-05-07 07:14] LABS: Abs Immature Grans 0.07 k/cumm (0.0-0.09); Absolute Basophil Count 0.01 k/cumm (0.0-0.2); Absolute Lymphocyte Count 0.89 k/cumm (1.2-3.4); Basophils % 0.1; HCT 29.6 % (40.0-50.0); HGB 9.6 g/dL (13.5-17.5); Immature Grans % 0.5; Lymphocytes % 6.3; Mean Corp. HGB Concentration 32.4 g/dL (32.0-36.0); Mean Corpuscular Volume 67.9 fL (80-95); Mean Platelet Volume 9.6 fL (8.0-11.0); Monocytes % 1.8; Neutrophils % 91.3; Platelet Count 272 x1000/uL (130-400); RBC 4.36 m/cumm (4.50-6.00); RBC Distribution Width 17.2 % (11.8-14.1); White Blood Cell Count 14.17 k/cumm (4.4-10.8)
[2018-05-07] MEDS: Normal Saline Flush 10 ML SYR IVP ×2 (07:16→21:46)
[2018-05-07 07:23] LABS: Absolute Monocyte Count 0.26 k/cumm (0.11-0.7); Absolute Neutrophil Count 12.94 k/cumm (1.2-6.7)
[2018-05-07 07:27] LABS: INR 3.2 (1.0-3.5); Prothrombin Time 30.1 sec (9.3-10.8)
[2018-05-07 07:34] LABS: Anion Gap 12.3 mmol/L (3-11); BUN 22 mg/dL (7-18); CO2 21.7 mmol/L (21.0-32.0); Calcium 8.2 mg/dL (8.5-10.1); Chloride 97 mmol/L (98-107); Estimated GFR 59.02 (mL/min/1.73m2); Glucose 280 mg/dL (70-100); Magnesium 1.9 mg/dL (1.8-2.4); Potassium 4.3 mmol/L (3.5-5.1); Sodium 131 mmol/L (136-145)
[2018-05-07 07:37] LABS: Troponin I < 0.02 ng/mL (0.00-0.06)
--- NOTE | 2018-05-07 07:41 | PDOC.CMIN ---
- If Service Date Differs Date of service: 05/07/18 Time of Service: 07:41 Care Management Initial Assess REASON FOR HOSPITALIZATION:: Pneumonia. PAST MEDICAL HISTORY/PAST SURGICAL HISTORY:: BPH, COPD, Diabetes type II, Hypertension, Prostate CA, PE. Surgical hx: Arthroplasty, colonoscopy, extraction of cataract, prostate biopsy, inguinal hernia repair. PREVIOUS FUNCTIONAL STATUS/SOCIAL/FAMILY SUPPORTS:: Rufino resides in [place] with his , Carol, their adult son, his girlfriend, and his two grandchildren. 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 Rufino reports that he is independent with his ADLs and though he had hip surgery several years ago and has a walker, he does not use any ambulatory devices. He reports that he did drive until last spring when his car went to the dump but he will be driving again as soon as prices on cars comes down. Presently, Rufino relies on his and children for transporation. CURRENT FUNCTIONAL STATUS:: Rufino is sitting in his chair in the ICU when visits this morning. He is engaged in conversation, makes good eye contact, and is talkative. One of Rufino's four sons is visiting at the time stops in. Rufino reports he is feeling ok and wants to go home. He uses a CPAP at home and his , Carol, has been asked to bring it to the hospital. He does not use home O2 during the days and he has not required supplemental O2 while at [facility]. Rufino had an ECHO this morning. He has been discharged from PT services. ADVANCE DIRECTIVES:: On file at [facility]. Carol Peña; Health Care Agent. Has patient been provided with information about the portal?: Yes Did the patient sign up for the portal?: No CODE STATUS:: Full Code INSURANCE COVERAGE / FINANCIAL ISSUES:: AARP, Medicare. CURRENT HOME/COMMUNITY SERVICES/EQUIPMENT:: No current home or community services. Rufino has a home CPAP. He owns a walker but does not use it. PRIMARY CARE PHYSICIAN:: Gianni Gannon. POTENTIAL DISCHARGE NEEDS:: Follow up appointment with PCP. PATIENT/FAMILY EDUCATION NEEDS:: Discharge education, any limitations, and follow up plan of care. Ask Me Three discussion. ANTICIPATED BARRIERS TO DISCHARGE:: No anticipated barriers to discharge. TRANSPORTATION:: Rufino will transport via private vehicle with his , Carol, or one of his sons. PLAN:: Rufino will discharge home when medically ready per MD. Anticipate patient will discharge with no services and follow up with his PCP. CM will continue offer support to patient and care team regarding discharge planning and disposition.
--- NOTE | 2018-05-07 07:46 | INITIAL_ITS ---
- If Service Date Differs Date of service: 05/07/18 Time of Service: 07:41 Care Management Initial Assess REASON FOR HOSPITALIZATION:: Pneumonia. PAST MEDICAL HISTORY/PAST SURGICAL HISTORY:: BPH, COPD, Diabetes type II, Hypertension, Prostate CA, PE. Surgical hx: Arthroplasty, colonoscopy, extraction of cataract, prostate biopsy, inguinal hernia repair. PREVIOUS FUNCTIONAL STATUS/SOCIAL/FAMILY SUPPORTS:: Rufino resides in [place] with his , Carol, their adult son, his girlfriend, and his two grandchildren. 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 Rufino reports that he is independent with his ADLs and though he had hip surgery several years ago and has a walker, he does not use any ambulatory devices. He reports that he did drive until last spring when his car went to the dump but he will be driving again as soon as prices on cars comes down. Presently, Rufino relies on his and children for transporation. CURRENT FUNCTIONAL STATUS:: Rufino is sitting in his chair in the ICU when visits this morning. He is engaged in conversation, makes good eye contact, and is talkative. One of Rufino's four sons is visiting at the time stops in. Rufino reports he is feeling ok and wants to go home. He uses a CPAP at home and his , Carol, has been asked to bring it to the hospital. He does not use home O2 during the days and he has not required supplemental O2 while at [facility]. Rufino had an ECHO this morning. He has been discharged from PT services. ADVANCE DIRECTIVES:: On file at [facility]. Carol Peña; Health Care Agent. Has patient been provided with information about the portal?: Yes Did the patient sign up for the portal?: No CODE STATUS:: Full Code INSURANCE COVERAGE / FINANCIAL ISSUES:: AARP, Medicare. CURRENT HOME/COMMUNITY SERVICES/EQUIPMENT:: No current home or community services. Rufino has a home CPAP. He owns a walker but does not use it. PRIMARY CARE PHYSICIAN:: Gianni Gannon. POTENTIAL DISCHARGE NEEDS:: Follow up appointment with PCP. PATIENT/FAMILY EDUCATION NEEDS:: Discharge education, any limitations, and follow up plan of care. Ask Me Three discussion. ANTICIPATED BARRIERS TO DISCHARGE:: No anticipated barriers to discharge. TRANSPORTATION:: Rufino will transport via private vehicle with his , Carol , or one of his sons. PLAN:: Rufino will discharge home when medically ready per MD. Anticipate patient will discharge with no services and follow up with his PCP. CM will continue offer support to patient and care team regarding discharge planning and disposition.
[2018-05-07] MEDS: Pantoprazole 20 MG TABCR PO (08:25)
[2018-05-07] MEDS: Rosuvastatin 10 MG TAB PO (08:25)
[2018-05-07] MEDS: Metoprolol CR 25 MG TABCR PO (08:25)
[2018-05-07] MEDS: Lisinopril 20 MG TAB PO (08:25)
[2018-05-07] MEDS: Magnesium Oxide 400 MG TAB PO ×2 (08:25→20:52)
[2018-05-07] MEDS: Furosemide 20 MG TAB PO (08:25)
[2018-05-07] MEDS: Budesonide/Formoterol 160/4.5 6 GM 60 PUFF INH IH ×2 (08:49→20:55)
--- NOTE | 2018-05-07 09:05 | PHARADMIT ---
Addendum entered by Haresh Echeverria III 05/09/18 09:28: Pharmacy Note Subjective MD determined blood culture, strep species was a contaminant. Vancomycin dc'd. Objective VS-OK H&H-pending INR-2.7 Wgt-96.9 kg Had BM yesterday. Assessment Vancomycin dc'd, IV steroids to Prednisone, Insulins adjusted by MD. Rocephin continues. Plan Watch INR for Warfarin restart Original Note: Addendum entered by Haresh Echeverria III 05/08/18 12:31: Pharmacy Note Subjective Community acquired Pneumonia, has COPD, CAD h/o PE Objective VS-OK, INR- 3.3 Na-133, K+4.5 SCr-1.06 WBC-25.8, FSBS-310 Wgt-98.2 kg No BM yet Assessment Vancomycin, Rocephin continues. Vanco trough in AM. Wargarin held, On IV steroids. Plan Watch for Warfarin restart. Original Note: Admission Pharmacy Clinical Review PNEUMONIA Code Status Full Code Current Weight Wgt-98 kg Renally Cleared and Narrow Therapeutic Index Meds CrCl~ 54 mL/min Meds-OK QTc Value / Action Taken QTc-463 (Lasix, BP Control, Fever BP- 103/51 Tmax-37.2C Electrolytes reviewed Na- 131 K+4.3 Mag- 1.9 DVT Prophylaxis Warfarin-Held Opiate Usage / Scheduled Bowel Regimen Ordered No Yes Plt/SCr for Heparin / Enoxaparin Plts- 272 SCr-1.20 INR for Warfarin inr-3.2 H/H stable, WBC/Bands H&H- 9.6/29.6 WBC- 14.17 Antibiotic appropriateness Rocephin, Doxycycline po Cultures and Sensitivities none Surgical ABX d/c within 24 hr na DM control / Insulin Dosing BG- 280 Lantus,Aspart Heart Failure (Check EF%) (VIMAL's, B-Block, Diuretics) Lisinopril. Toprol-XL, Lasix,NTG IV to PO Switch No Home Meds Reviewed Yes Home Meds Not Ordered Advair to Symbicort, Metformin, Stiolyo Comments
--- NOTE | 2018-05-07 09:29 | OTIE_ITS ---
Occupational Therapy Notes Inpatient Occupational Therapy Evaluation Date: 05/07/18 Referring Doctor:Monica Oviedo MD OT Orders: Eval and treat Precautions: Standard Precautions. PATIENT PROFILE/ADMITTING DIAGNOSIS: Pt is a 73 year old male admitted to [facility] for a dx of pneumonia. Past Medical History: Hx UTI, benign prostatis hyperplasia, CAD, COPD, HTN, hyperlipidemia, hypomagnesemia, hx of pulmonary embolism, CHF, DM II. Social History/Home Situation: Pt reports that he lives in a 13 bedroom farm house in [place] with his , son, daughter in law and two grandchildren ages 1 and 6. He reports that he has no stairs to enter the home and that his living space is on the first floor. His bathroom is a tub/shower combination which pt reports that he performs showers in the standing position. His PLOF for functional ADLs is that he is able to (I) perform dressing, grooming, bating, toileting. He reports that he doesn't feel like he will need OT services because he is still able to perform all of this, and can get assistance from his as needed. Pt presents at his baseline for ADLs in the hospital setting at this time. Equipment owned/DME: SUBJECTIVE: Pt was sitting in chair when OT arrived. He is agreeable to OT consult. OBJECTIVE: General Observation: Telemetry, (L) UE IV, Oxygen nasal canal Mental Status: A&Ox3 Pain: no c/o pain ROM: RUE AROM WNL L UE AROM WNL STRENGTH: RUE 5/5 throughout LUE 5/5 throughout SENSATION: Pt intact to light touch and sensation in (B) UE. Pt reports that he has performed his daily ADLs prior to OT consult but feels that he is (I) in them and his is there to assist him as needed. Dynamically pt is able to perform functional movements within normal limits, with (I) in touching (B) feet, back of his head, shoulders and reaching for items on his table and lifting items up off his table. BALANCE: Static sitting normal Dynamic Sitting normal SPECIAL TESTS: Daily Activity Limitations Standardized Measure [facility] AM -PAC ?6 clicks? Daily Activity Inpatient Short Form: Raw score: 23 Standardized score: 51.12 CMS score: 15.86 % CMS modifier: CI INFORMED CONSENT/EDUCATION: Pt instructed in purpose of OT Consult and plan of care. ASSESSMENT: Patient is a 73 year old male admitted to [facility] for pneumonia and seen for OT consult today in setting of hx UTI, benign prostatis hyperplasia, CAD, COPD, HTN, hyperlipidemia, hypomagnesemia, hx of pulmonary embolism, CHF, DM II. Through examination pt presents with ideal AROM, strength and (I) in ADL routine. He reports that he is at his baseline and able to perform ADLs without an issue and his and son who live in the home with him will help him as needed. Pt does not require skilled OT services at this time. OT recommends that pt return home when medically cleared. AMPAC score 23, CMS score 15.86% Patient is assessed as a Moderate 33621 complexity based on the following: History: See Above Examination: See Above Presentation: Evolving Decision Making: AMPAC score 23, CMS score 15.86% GOALS N/A PLAN OF CARE/TREATMENT PLAN: OT consult only DISCHARGE RECOMMENDATIONS Home when medically cleared. TREATMENT TIME/MINUTES/CODES 27 min IE, 09:00 G Codes in the area of self- : washing oneself, toileting, dressing, eating and drinking, current status GO [id number] CI projected status GO [id number]. Discharge status GO [id number] Radha Gilliland OTR/L
[2018-05-07 10:40] LABS: Bilirubin Negative (Negative); Blood Trace-intact (Negative); Clarity Clear; Glucose >=1000 mg/dL (Negative); Ketones Negative (Negative); Leukocyte Esterase Negative (Negative); Nitrite Negative (Negative); Specific Gravity <= 1.005 (1.005-1.025); Urobilinogen 0.2 EU/dL (Up TO 0.2); pH 5.5 (5-8)
[2018-05-07 10:53] LABS: Epithelial Cells Negative HPF (Negative); RBC 0-2 (0-2); WBC 0-2 HPF (0-5)
[2018-05-07 10:54] LABS: Bacteria Rare HPF (Negative); C & S Indicated? C&S Done As Ordered; Casts Negative LPF (Negative); Crystals Negative HPF (Negative); Mucus Negative (Negative); Other Cells Few Transitional (Negative)
--- NOTE | 2018-05-07 10:54 | MERGE_ITS ---
*[facility]* *[facility]* [address] [place] [address] Date of study: 05/07/2018 Transthoracic Echocardiography M-mode, complete 2D, complete spectral Doppler, and color Doppler *STUDY CONCLUSIONS* Impressions: No evidence of endocarditis. Although this cannot be completely excluded on the basis of this study. Summary: 1. Left ventricle: The cavity size was normal. Wall thickness was at the upper limits of normal. Systolic function was normal. The estimated ejection fraction was 55-60%. Wall motion was normal; there were no regional wall motion abnormalities. 2. Right ventricle: The cavity size was normal. Systolic function was normal. 3. Left atrium: The atrium was moderately dilated. 4. Aortic valve: Probably trileaflet; moderately thickened, moderately calcified leaflets. Valve mobility was restricted. Transvalvular velocity was increased. There was moderate stenosis. There was mild to moderate regurgitation. Peak velocity (S): 3.5m/sec. VTI ratio of LVOT to aortic valve: 0.47. Valve area (VTI): 1.3cm^2. 5. Inferior vena cava: The vessel was normal in size. The respirophasic diameter changes were in the normal range (greater than or equal to 50%), consistent with normal central venous pressure. *PATIENT PRESENTATION* Height: 177.8cm ((70in) ) S/D Pressure: 103 / 51 Weight: 98kg ((215.5lb) ) BSA: 2.23m^2 Test start time: 10:50 AM. Test stop time: 12:00 PM. PERFORMING Unknown SMELLER Jocelin Foy Yelena A REFERRING Kogan, Yelena A *PROCEDURE DATA* Procedure information: This study was interpreted by [facility]. Pertinent images and digital data are archived for permanent storage and are available for subsequent review. Comparison was made to the study of 08/11/2016. Study status: Routine. Transthoracic echocardiography. M-mode, complete 2D, complete spectral Doppler, and color Doppler. A Transthoracic Echocardiogram was performed. Scanning was performed from the parasternal, apical, subcostal, and suprasternal notch acoustic windows. Images were obtained using an [employer]Game[employer] SC 2000 cardiac ultrasound machine. Image quality was adequate. Study completion: The patient tolerated the procedure well. There were no complications. History: PMH: Positive blood cultures, r/o endocarditis *CARDIAC ANATOMY* Left ventricle: The cavity size was normal. Wall thickness was at the upper limits of normal. Systolic function was normal. The estimated ejection fraction was 55-60%. Wall motion was normal; there were no regional wall motion abnormalities. Aortic valve: Probably trileaflet; moderately thickened, moderately calcified leaflets. Valve mobility was restricted. Doppler: Transvalvular velocity was increased. There was moderate stenosis. There was mild to moderate regurgitation. VTI ratio of LVOT to aortic valve: 0.47. Valve area (VTI): 1.3cm^2. Indexed valve area (VTI): 0.6cm^2/m^2. Peak velocity ratio of LVOT to aortic valve: 0.39. Valve area (Vmax): 1cm^2. Indexed valve area (Vmax): 0.5cm^2/m^2. Mean velocity ratio of LVOT to aortic valve: 0.35. Valve area (Vmean): 0.9cm^2. Indexed valve area (Vmean): 0.4cm^2/m^2. Mean gradient (S): 28.4mm Hg. Peak gradient (S): 48mm Hg. Aorta: Aortic root: The aortic root was normal in size. Ascending aorta: The ascending aorta was normal in size. Mitral valve: Mildly calcified annulus. Mildly thickened leaflets. Mobility was not restricted. Doppler: Transvalvular velocity was within the normal range. There was no evidence for stenosis. There was trivial regurgitation. Valve area by pressure half-time: 4.3cm^2. Indexed valve area by pressure half-time: 1.9cm^2/m^2. Peak gradient (D): 5.8mm Hg. Left atrium: The atrium was moderately dilated. Right ventricle: The cavity size was normal. Systolic function was normal. Pulmonic valve: The pulmonary valve appears to be grossly normal. Doppler: Transvalvular velocity was within the normal range. There was no evidence for stenosis. There was no significant regurgitation. Tricuspid valve: Structurally normal valve. Doppler: Transvalvular velocity was within the normal range. There was no evidence for stenosis. There was trivial regurgitation. Pulmonary artery: The main pulmonary artery was normal-sized. Systolic pressure could not be accurately estimated. Right atrium: The atrium was dilated. Pericardium: There was no pericardial effusion. Systemic veins: Inferior vena cava: The vessel was normal in size. The respirophasic diameter changes were in the normal range (greater than or equal to 50%), consistent with normal central venous pressure. Measurements Left ventricle Value 08/11/2016 Reference LV ID, ED, PLAX 5.2 cm 5.1 3.5 - 6.0 LV ID, ES, PLAX 3.4 cm 3.1 2.1 - 4.0 LV PW thickness, ED, PLAX 1.0 cm 1.2 LV end-diastolic volume, 149 ml 1-p A2C LV ejection fraction, 1-p 57 % 64 A2C LV end-diastolic volume, 149 ml 1-p A4C LV ejection fraction, 1-p 52 % 63 A4C LV e', lateral 0.098 m/sec LV E/e', lateral 12 LV e', medial 0.088 m/sec LV E/e', medial 14 LV e', average 0.093 m/sec LV E/e', average 13 Ventricular septum Value 08/11/2016 Reference IVS thickness, ED, PLAX 1.1 cm 1.2 LVOT Value 08/11/2016 Reference LVOT ID, A-P 1.8 cm 1.9 LVOT area 2.7 cm^2 2.9 LVOT peak velocity, S 1.35 m/sec 1.34 LVOT mean velocity, S 0.87 m/sec LVOT VTI, S 33.0 cm 32.2 LVOT peak gradient, S 7.3 mm Hg 7.2 LVOT mean gradient, S 3.7 mm Hg 3.6 Stroke volume (SV), LVOT 88 ml DP Stroke index (SV/bsa), 40 ml/m^2 LVOT DP Aortic valve Value 08/11/2016 Reference Aortic valve peak 3.5 m/sec velocity, S Aortic valve mean 2.53 m/sec velocity, S Aortic valve VTI, S 70.0 cm Aortic mean gradient, S 28.4 mm Hg 22 Aortic peak gradient, S 48 mm Hg 43 VTI ratio, LVOT/AV 0.47 0.41 Aortic valve area, VTI 1.3 cm^2 1.2 Velocity ratio, peak, 0.39 LVOT/AV Aortic valve area, peak 1 cm^2 1.2 velocity Velocity ratio, mean, 0.35 LVOT/AV Aortic valve area, mean 0.9 cm^2 velocity Aortic valve area/bsa, 0.4 cm^2/m^2 mean velocity Aortic regurg deceleration 299 cm/s^2 355 Aortic regurg pressure 346 ms 266 half-time Aorta Value 08/11/2016 Reference Aortic root ID, ED 3.4 cm Ascending aorta ID, A-P, S 2.9 cm Left atrium Value 08/11/2016 Reference LA ID, A-P, ES 4.2 cm LA ID/bsa, A-P 1.9 cm/m^2 <=2.2 LA area, ES, A4C (H) 25.4 cm^2 22 8.8 - 23.4 LA area, ES, A2C 25 cm^2 LA volume, ES, 2-p 92 ml LA volume/bsa, ES, 2-p 41 ml/m^2 LA/aortic root ratio 1.25 1.19 Mitral valve Value 08/11/2016 Reference Mitral E-wave peak 1.21 m/sec 0.99 velocity Mitral A-wave peak 1.09 m/sec 0.68 velocity Mitral deceleration time 176 ms 150 - 230 Mitral pressure half-time 51 ms 48 Mitral peak gradient, D 5.8 mm Hg 3.9 Mitral E/A ratio, peak 1.11 1.45 Mitral valve area, PHT, DP 4.3 cm^2 4.6 Right atrium Value 08/11/2016 Reference RA area, ES, A4C (H) 20.3 cm^2 17 8.3 - 19.5 Legend: (L) and (H) yue values outside specified reference range. I have personally reviewed the images and have reviewed and edited the reported findings. Electronically signed by Sofia Lincoln 05/07/2018 12:50
--- NOTE | 2018-05-07 10:57 | PT.INDS ---
Date of service: 05/07/18 Time of Service: 10:57 PT Notes Date: 05/07/18 Referring Doctor: Monica Oviedo PT Orders: PT Consult: eval/treat Precautions: standard Patient Profile/Admitting Diagnosis: Patient is a 73 year old male admitted with pneumonia PMHX: prostate cancer, history of pulmonary embolus (2000), post-op congestive heart failure, post-op atrial fibrillation, coronary artery disease, chronic obstructive pulmonary disease, diabetes mellitus 2, hypertension, hyperlipidemia, colonoscopy (2014), history of tobacco use, history of falls, history of hypotensive syncope, urinary frequency, sepsis Social History/Home Situation: Patient lives in a 2 story home in [place] with his , son and grandson. He lives on the main floor with his while the rest of his family lives upstairs. There are no stairs to enter the home. Patient was independent with all ADLs and functional mobility with no device prior to his admission. 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 Equipment owned/DME: FWW, 2 single point canes, wheelchair SUBJECTIVE: Patient sitting in chair, alert and agreeable to PT consult. States his legs felt weak yesterday but they feel good today. OBJECTIVE Mental Status: A&Ox3 Pain: no complaints Vital Signs: SpO2 on room air Pre-ambulation: 98% ambulation: 94-95% ROM: RUE: AROM WNL L UE: AROM WNL R LE: AROM WNL L LE: AROM WNL STRENGTH: R UE: 5/5 throughout L UE: 5/5 throughout R LE: 5/5 throughout L LE: 5/5 throughout BED MOBILITY/TRANSFERS: Sit-stand: independent Stand-sit: independent GAIT: supervision gait with no device 100ft, pt demonstrates good pacing and energy conservation. ( see vital signs for 02 sats). Pt returned to chair after session completed. BALANCE: Static sitting: Normal Dynamic Sitting: Normal Static Standing: good Dynamic Standing: good SPECIAL TESTS: [facility] AM-PAC 6 clicks raw score 24, standardized 61.14, CMS 0% and modifier CH INFORMED CONSENT/EDUCATION: Patient was informed of purpose of PT Consult and plan of care and was in agreement with plan. ASSESSMENT: Patient is a 73 year old male admitted with pneumonia. Presents on evaluation at baseline of independent mobility gait with no device around unit, 02 sats 94-95% on room air with gait and 98% on room air at rest. Skilled PT services not indicated at this time as patient at baseline level of functional mobility. Pt is a low complexity [id number] history: see above examination: see above presentation: stable decision making: [facility] GOALS not applicable PLAN OF CARE/TREATMENT PLAN: PT eval only DISCHARGE RECOMMENDATIONS Home TREATMENT TIME/MINUTES/CODES 25 IE 10:50 G codes in the area of walking and moving around current status: S5740-PJ, projected status I9656-HQ with dicharge status M6737-XE based on [facility] scores Selena Zuniga PT
--- NOTE | 2018-05-07 11:08 | INDS_ITS ---
Date of service: 05/07/18 Time of Service: 10:57 PT Notes Date: 05/07/18 Referring Doctor: Monica Oviedo PT Orders: PT Consult: eval/treat Precautions: standard Patient Profile/Admitting Diagnosis: Patient is a 73 year old male admitted with pneumonia PMHX: prostate cancer, history of pulmonary embolus (2000), post-op congestive heart failure, post-op atrial fibrillation, coronary artery disease, chronic obstructive pulmonary disease, diabetes mellitus 2, hypertension, hyperlipidemia , colonoscopy (2014), history of tobacco use, history of falls, history of hypotensive syncope, urinary frequency, sepsis Social History/Home Situation: Patient lives in a 2 story home in [place] with his , son and grandson. He lives on the main floor with his while the rest of his family lives upstairs. There are no stairs to enter the home. Patient was independent with all ADLs and functional mobility with no device prior to his admission. 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 Equipment owned/DME: FWW, 2 single point canes, wheelchair SUBJECTIVE: Patient sitting in chair, alert and agreeable to PT consult. States his legs felt weak yesterday but they feel good today. OBJECTIVE Mental Status: A&Ox3 Pain: no complaints Vital Signs: SpO2 on room air Pre-ambulation: 98% ambulation: 94-95% ROM: RUE: AROM WNL L UE: AROM WNL R LE: AROM WNL L LE: AROM WNL STRENGTH: R UE: 5/5 throughout L UE: 5/5 throughout R LE: 5/5 throughout L LE: 5/5 throughout BED MOBILITY/TRANSFERS: Sit-stand: independent Stand-sit: independent GAIT: supervision gait with no device 100ft, pt demonstrates good pacing and energy conservation. ( see vital signs for 02 sats). Pt returned to chair after session completed. BALANCE: Static sitting: Normal Dynamic Sitting: Normal Static Standing: good Dynamic Standing: good SPECIAL TESTS: [facility] AM-PAC 6 clicks raw score 24, standardized 61.14, CMS 0% and modifier CH INFORMED CONSENT/EDUCATION: Patient was informed of purpose of PT Consult and plan of care and was in agreement with plan. ASSESSMENT: Patient is a 73 year old male admitted with pneumonia. Presents on evaluation at baseline of independent mobility gait with no device around unit, 02 sats 94-95% on room air with gait and 98% on room air at rest. Skilled PT services not indicated at this time as patient at baseline level of functional mobility. Pt is a low complexity [id number] history: see above examination: see above presentation: stable decision making: [facility] GOALS not applicable PLAN OF CARE/TREATMENT PLAN: PT eval only DISCHARGE RECOMMENDATIONS Home TREATMENT TIME/MINUTES/CODES 25 IE 10:50 G codes in the area of walking and moving around current status: I6690-[id number], projected status F0128-CE with dicharge status G5550-AT based on [facility] scores Selena Zuniga PT
[2018-05-07] MEDS: VANCOMYCIN 1,250 MG in Normal Saline 250 ML 167 MG IV (12:06)
[2018-05-07] MEDS: Insulin Aspart 300 UNITS/3 ML PEN SC ×3 (12:14→21:43)
[2018-05-07 14:03] LABS: C-Reactive Protein 20.71 mg/dL (0.0-0.3)
[2018-05-07 14:43] LABS: ESR 52 MM/HR (1-20)
--- NOTE | 2018-05-07 15:38 | CHAPLAIN ---
Rufino was sitting up in his chair when I visited. 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 He wasn't sure if any family members would in to visit. He is listed on our zoroastrianism roster as being [facility] of [facility] and said yes when I asked if he wanted me to let the pbx repairer there know he is here. Later in our conversation, Rufino said he hadn't ever met the pbx repairer, Rev. Jos Finn. I spoke with Rev. Finn later in the day. He is familiar with the [facility] family and will stop by to visit Rufino. Rufino seemed comfortable being here.
--- NOTE | 2018-05-07 18:03 | W.PM.PROGNOT ---
Date of Service Date of service: 05/07/18 Time of Service: 15:00 Assessment and Plan (1) Community acquired pneumonia: Current visit: No Status: Acute with sepsis and now positive blood culture (?contaminant vs real - awaiting speciation). Antibiotics upgraded to Vancomycin/rocephin. Doxycycline d/c'ed. Starting to taper solumedrol. Echo without any evidence of valvular pathology other than the known aortic stenosis. (2) COPD (chronic obstructive pulmonary disease): Current visit: No Status: Chronic in acute exacerbation due to above. Continue inhaled corticosteroids/long acting beta agonist, nebs; steroids are starting to be tapered. On PPI. (3) Diabetes mellitus, type II, insulin dependent: Current visit: No Status: Acute with steroid induced hyperglycemia. Continue basal insulin; I have added a sliding scale as well as scheduled prandial insulin. Metformin on hold. Long acting insulin will likely need titration. (4) CAD (coronary artery disease): Current visit: No Status: Chronic Stable. No evidence of ACS. (5) Personal history of pulmonary embolism: Current visit: No Status: Chronic Coumadin held tonight due to supratherapeutic INR. (6) Discharge planning issues: Current visit: Yes Status: Acute Full code (7) DVT prophylaxis: Current visit: Yes Status: Acute On therapeutic coumadin Subjective Interval history since last seen: Already feels a lot better. Breathing is better - still gets short of breath on exertion, but this is much better when he first came in. Continues to cough. Denies dizziness, chest pain, nausea. Exam Narrative Exam Narrative: General: Very pleasant elderly male, sitting in a chair, conversant, not wearing oxygen, not short of breath after multiple long sentences Neurological: A&Ox3, no focal deficits Psychiatric: appropriate speech pattern/content Skin: Intact HEENT: EOMI, MMM Cardiovascular: RRR, +JEF Lungs: wheezing on expiration B Gastrointestinal: abdomen soft, nontender, nondistended Extremities: no edema, clubbing or cyanosis of BLE's Objective Objective Clinical Data: Abnormal lab results 05/06/18 05/06/18 05/07/18 Range/Units 22:40 22:40 00:01 WBC 17.02 H (4.4-10.8) k/cumm RBC (4.50-6.00) m/cumm Hgb 9.6 L (13.5-17.5) g/dL Hct 30.2 L (40.0-50.0) % MCV 66.7 L (80-95) fL MCH 21.2 L (27.0-33.0) pg MCHC 31.8 L (32.0-36.0) g/dL RDW 17.4 H (11.8-14.1) % Absolute Neutrophils 12.37 H (1.2-6.7) k/cumm Absolute Lymphocytes (1.2-3.4) k/cumm Absolute Monocytes 2.33 H (0.11-0.7) k/cumm ESR (1-20) MM/HR PT 27.6 H (9.3-10.8) sec APTT 50.2 H (21.0-31.4) sec Sodium 131 L (136-145) mmol/L Chloride 95 L (98-107) mmol/L Anion Gap 11.2 H (3-11) mmol/L BUN 21 H (7-18) mg/dL Glucose 153 H (70-100) mg/dL Calcium 8.1 L (8.5-10.1) mg/dL Magnesium 1.2 L (1.8-2.4) mg/dL AST 12 L (15-37) U/L C-Reactive Protein (0.0-0.3) mg/dL NT-Pro-B Natriuret Pep 532 H ( - 299) pg/mL Albumin 2.9 L (3.4-5.0) g/dL Urine Blood (Negative) Urine Glucose (Negative) mg/dL 05/07/18 05/07/18 05/07/18 Range/Units 06:45 06:45 06:45 WBC 14.17 H (4.4-10.8) k/cumm RBC 4.36 L (4.50-6.00) m/cumm Hgb 9.6 L (13.5-17.5) g/dL Hct 29.6 L (40.0-50.0) % MCV 67.9 L (80-95) fL MCH 22.0 L (27.0-33.0) pg MCHC (32.0-36.0) g/dL RDW 17.2 H (11.8-14.1) % Absolute Neutrophils 12.94 H (1.2-6.7) k/cumm Absolute Lymphocytes 0.89 L (1.2-3.4) k/cumm Absolute Monocytes (0.11-0.7) k/cumm ESR (1-20) MM/HR PT 30.1 H (9.3-10.8) sec APTT (21.0-31.4) sec Sodium 131 L (136-145) mmol/L Chloride 97 L (98-107) mmol/L Anion Gap 12.3 H (3-11) mmol/L BUN 22 H (7-18) mg/dL Glucose 280 H D (70-100) mg/dL Calcium 8.2 L (8.5-10.1) mg/dL Magnesium (1.8-2.4) mg/dL AST (15-37) U/L C-Reactive Protein (0.0-0.3) mg/dL NT-Pro-B Natriuret Pep ( - 299) pg/mL Albumin (3.4-5.0) g/dL Urine Blood (Negative) Urine Glucose (Negative) mg/dL 05/07/18 05/07/18 05/07/18 Range/Units 10:20 13:44 13:44 WBC (4.4-10.8) k/cumm RBC (4.50-6.00) m/cumm Hgb (13.5-17.5) g/dL Hct (40.0-50.0) % MCV (80-95) fL MCH (27.0-33.0) pg MCHC (32.0-36.0) g/dL RDW (11.8-14.1) % Absolute Neutrophils (1.2-6.7) k/cumm Absolute Lymphocytes (1.2-3.4) k/cumm Absolute Monocytes (0.11-0.7) k/cumm ESR 52 H (1-20) MM/HR PT (9.3-10.8) sec APTT (21.0-31.4) sec Sodium (136-145) mmol/L Chloride (98-107) mmol/L Anion Gap (3-11) mmol/L BUN (7-18) mg/dL Glucose (70-100) mg/dL Calcium (8.5-10.1) mg/dL Magnesium (1.8-2.4) mg/dL AST (15-37) U/L C-Reactive Protein 20.71 H (0.0-0.3) mg/dL NT-Pro-B Natriuret Pep ( - 299) pg/mL Albumin (3.4-5.0) g/dL Urine Blood Trace-intact H (Negative) Urine Glucose >=1000 H (Negative) mg/dL Vital Signs Temperature 36.1 C L 05/07/18 16:00 Temperature Source Temporal Artery Scan 05/07/18 16:00 Pulse 61 05/07/18 15:44 Pulse Rhythm Regular 05/07/18 16:00 Pulse 62 05/07/18 16:00 Respiratory Rate 94 H 05/07/18 16:00 Respiratory Effort 05/07/18 16:00 Respiratory Depth Normal 05/07/18 16:00 Respiratory Pattern Normal 05/07/18 16:00 Blood Pressure 106/39 L 05/07/18 15:44 Blood Pressure Mean 56 05/07/18 15:44 Blood Pressure Position Sitting 05/06/18 22:09 Pulse Oximetry 95 05/07/18 15:44 Oxygen Delivery Method Room Air 05/07/18 16:00 Oxygen Flow Rate 0 05/07/18 16:00 Pain Level 0 05/07/18 16:00 Intake & Output 05/06/18 05/07/18 05/07/18 23:59 11:59 23:59 Intake Total 1291.667 / 1291.667 250 / 250 Output Total 1675 / 1675 700 / 700 Balance -383.333 / -383.333 -450 / -450 Weight 92.079 kg 98 kg Intake: IV 71.667 / 71.667 250 / 250 Oral 1220 / 1220 Output: Urine 1675 / 1675 700 / 700 Other: Urine Color Pale Pale Yellow Yellow Urine Appearance Clear Clear Urine Odor None None Voiding Methods Urinal Urinal Laboratory Results WBC 14.17 k/cumm (4.4-10.8) H 05/07/18 06:45 RBC 4.36 m/cumm (4.50-6.00) L 05/07/18 06:45 Hgb 9.6 g/dL (13.5-17.5) L 05/07/18 06:45 Hct 29.6 % (40.0-50.0) L 05/07/18 06:45 MCV 67.9 fL (80-95) L 05/07/18 06:45 MCH 22.0 pg (27.0-33.0) L 05/07/18 06:45 MCHC 32.4 g/dL (32.0-36.0) 05/07/18 06:45 RDW 17.2 % (11.8-14.1) H 05/07/18 06:45 Plt Count 272 x1000/uL (130-400) 05/07/18 06:45 MPV 9.6 fL (8.0-11.0) 05/07/18 06:45 Immature Gran % 0.5 05/07/18 06:45 Neutrophils % 91.3 05/07/18 06:45 Lymphocytes % 6.3 05/07/18 06:45 Monocytes % 1.8 05/07/18 06:45 Eosinophils % 0.0 05/07/18 06:45 Basophils % 0.1 05/07/18 06:45 Absolute Neutrophils 12.94 k/cumm (1.2-6.7) H 05/07/18 06:45 Absolute Lymphocytes 0.89 k/cumm (1.2-3.4) L 05/07/18 06:45 Absolute Monocytes 0.26 k/cumm (0.11-0.7) 05/07/18 06:45 Absolute Eosinophils 0.00 k/cumm (0.0-0.7) 05/07/18 06:45 Absolute Basophils 0.01 k/cumm (0.0-0.2) 05/07/18 06:45 Differential Comment Rbc morph reviewed 05/06/18 22:40 RBC Morphology See below 05/06/18 22:40 Poikilocytosis 1+ 05/06/18 22:40 Anisocytosis 2+ 05/06/18 22:40 Microcytosis 3+ 05/06/18 22:40 ESR 52 MM/HR (1-20) H 05/07/18 13:44 PT 30.1 sec (9.3-10.8) H 05/07/18 06:45 INR 3.2 (1.0-3.5) 05/07/18 06:45 APTT 50.2 sec (21.0-31.4) H 05/07/18 00:01 Sodium 131 mmol/L (136-145) L 05/07/18 06:45 Potassium 4.3 mmol/L (3.5-5.1) 05/07/18 06:45 Chloride 97 mmol/L (98-107) L 05/07/18 06:45 Carbon Dioxide 21.7 mmol/L (21.0-32.0) 05/07/18 06:45 Anion Gap 12.3 mmol/L (3-11) H 05/07/18 06:45 BUN 22 mg/dL (7-18) H 05/07/18 06:45 Creatinine 1.20 mg/dL (0.70-1.30) 05/07/18 06:45 Estimated GFR/1.73 m2 59.02 (mL/min/1.73m2) 05/07/18 06:45 Glucose 280 mg/dL (70-100) H D 05/07/18 06:45 Calcium 8.2 mg/dL (8.5-10.1) L 05/07/18 06:45 Magnesium 1.9 mg/dL (1.8-2.4) 05/07/18 06:45 Total Bilirubin 0.6 mg/dL (0.2-1.0) 05/06/18 22:40 AST 12 U/L (15-37) L 05/06/18 22:40 ALT 15 U/L (12-78) 05/06/18 22:40 Alkaline Phosphatase 88 U/L (46-116) 05/06/18 22:40 Troponin I < 0.02 ng/mL (0.00-0.06) 05/07/18 06:45 C-Reactive Protein 20.71 mg/dL (0.0-0.3) H 05/07/18 13:44 NT-Pro-B Natriuret Pep 532 pg/mL (-299) H 05/06/18 22:40 Total Protein 6.4 g/dL (6.4-8.2) 05/06/18 22:40 Albumin 2.9 g/dL (3.4-5.0) L 05/06/18 22:40 Urine Color Yellow (Yellow) 05/07/18 10:20 Urine Clarity Clear 05/07/18 10:20 Urine pH 5.5 (5-8) 05/07/18 10:20 Ur Specific [place] <= 1.005 (1.005-1.025) 05/07/18 10:20 Urine Protein Negative mg/dL (Negative) 05/07/18 10:20 Urine Ketones Negative mg/dL (Negative) 05/07/18 10:20 Urine Blood Trace-intact (Negative) H 05/07/18 10:20 Urine Nitrite Negative (Negative) 05/07/18 10:20 Urine Bilirubin Negative (Negative) 05/07/18 10:20 Urine Urobilinogen 0.2 EU/dL (Up TO 0.2) 05/07/18 10:20 Ur Leukocyte Esterase Negative (Negative) 05/07/18 10:20 Urine RBC 0-2 (0-2) 05/07/18 10:20 Urine WBC 0-2 HPF (0-5) 05/07/18 10:20 Ur Epithelial Cells Negative HPF (Negative) 05/07/18 10:20 Urine Crystals Negative HPF (Negative) 05/07/18 10:20 Urine Bacteria Rare HPF (Negative) 05/07/18 10:20 Urine Casts Negative LPF (Negative) 05/07/18 10:20 Urine Mucus Negative (Negative) 05/07/18 10:20 Urine Other Few transitional (Negative) 05/07/18 10:20 Ur Culture Indicated? C&s done as ordered 05/07/18 10:20 Urine Glucose >=1000 mg/dL (Negative) H 05/07/18 10:20 Blood cx 05/06/18: GPC in pairs in one anaerobic bottle (1 bottle out of 4)
[2018-05-07] MEDS: methylPREDNISolone SUCC 125 MG VIAL 60 MG IVP (21:42)
[2018-05-07] MEDS: Insulin Glargine 300 UNITS/3 ML PEN 40 UNITS SC (21:45)
[2018-05-07] MEDS: VANCOMYCIN 1,250 MG in Normal Saline 250 ML 250 MG IV (23:27)
[2018-05-08] VITALS (25 sets, daily range): BP systolic 110–137; BP diastolic 46–70; PULSE 58–80; RESP 13–29; TEMP 36–36.8; O2SAT 94–98
[2018-05-08] MEDS: methylPREDNISolone SUCC 125 MG VIAL 60 MG IVP ×3 (05:24→22:20)
[2018-05-08 06:12] LABS: Abs Immature Grans 0.13 k/cumm (0.0-0.09); Absolute Lymphocyte Count 1.21 k/cumm (1.2-3.4); HCT 29.6 % (40.0-50.0); HGB 9.4 g/dL (13.5-17.5); Immature Grans % 0.5; Lymphocytes % 4.7; Mean Corp. HGB Concentration 31.8 g/dL (32.0-36.0); Mean Corpuscular Hemoglobin 21.4 pg (27.0-33.0); Mean Corpuscular Volume 67.3 fL (80-95); Mean Platelet Volume 9.7 fL (8.0-11.0); Monocytes % 4.3; Neutrophils % 90.5; Platelet Count 299 x1000/uL (130-400); RBC Distribution Width 17.3 % (11.8-14.1)
[2018-05-08 06:14] LABS: Absolute Monocyte Count 1.11 k/cumm (0.11-0.7); Absolute Neutrophil Count 23.35 k/cumm (1.2-6.7)
[2018-05-08 06:20] LABS: Anion Gap 11.4 mmol/L (3-11); BUN 33 mg/dL (7-18); CO2 21.6 mmol/L (21.0-32.0); CREATININE 1.06 mg/dL (0.70-1.30); Calcium 8.3 mg/dL (8.5-10.1); Chloride 100 mmol/L (98-107); Glucose 293 mg/dL (70-100); Potassium 4.5 mmol/L (3.5-5.1); Sodium 133 mmol/L (136-145)
[2018-05-08 06:21] LABS: C-Reactive Protein 14.07 mg/dL (0.0-0.3); INR 3.3 (1.0-3.5); Magnesium 2.1 mg/dL (1.8-2.4); Prothrombin Time 31.3 sec (9.3-10.8)
[2018-05-08] MEDS: Pantoprazole 20 MG TABCR PO (06:40)
[2018-05-08 06:46] LABS: Diff Comment Agrees w/ Instrument
[2018-05-08 06:51] LABS: Hypochromasia 2+; Microcytosis 2+; Ovalocytes 2+
[2018-05-08 06:52] LABS: ESR 48 MM/HR (1-20)
[2018-05-08] MEDS: Budesonide/Formoterol 160/4.5 6 GM 60 PUFF INH IH ×3 (08:33→20:02)
[2018-05-08] MEDS: Rosuvastatin 10 MG TAB PO (09:09)
[2018-05-08] MEDS: Metoprolol CR 25 MG TABCR PO (09:10)
[2018-05-08] MEDS: Furosemide 20 MG TAB PO (09:10)
[2018-05-08] MEDS: Lisinopril 20 MG TAB PO (09:10)
[2018-05-08] MEDS: Magnesium Oxide 400 MG TAB PO ×2 (09:10→20:01)
[2018-05-08] MEDS: Insulin Aspart 300 UNITS/3 ML PEN SC ×7 (09:11→22:16)
--- NOTE | 2018-05-08 11:26 | W.PM.PROGNOT ---
Date of Service Date of service: 05/08/18 Time of Service: 11:26 Assessment and Plan (1) Community acquired pneumonia: Current visit: No Status: Acute Continue IV Vancomycin and Rocephin. Blood cultures growing strep species, possibly a contaminant. Sputum cultures pending. Solumedrol seems to be helping with wheezing and SOB. Currently on 60 mg IVP Q8H. Would then plan to lower to 40 mg IV Q8H. Could likely transition to oral prednisone tomorrow. ECHO showes normal LV function, moderate with peak velocity of 3.5 m/sec. Should repeat ECHO every 1-2 years or if symptomatic. (2) COPD (chronic obstructive pulmonary disease): Current visit: No Status: Chronic Continue inhaled corticosteroids/long acting beta agonist, nebs; steroids are starting to be tapered. On PPI. (3) Diabetes mellitus, type II, insulin dependent: Current visit: No Status: Acute Steroid induced hyperglycemia, improving some. Continue basal insulin, sliding scale and scheduled prandial insulin. Metformin on hold. (4) CAD (coronary artery disease): Current visit: No Status: Chronic Stable. No evidence of ACS. (5) Personal history of pulmonary embolism: Current visit: No Status: Chronic INR remains supra-therapeutic, warfarin on hold (6) Discharge planning issues: Current visit: Yes Status: Acute Full code. Will return home. (7) DVT prophylaxis: Current visit: Yes Status: Acute Coumadin currently being held. Will resume when INR is therapeutic. Subjective Patient reports: no new complaints, feels better and afebrile Interval history since last seen: Rufino is a pleasant 73-year-old gentleman with multiple medical comorbidities notable for diabetes, hypertension, CAD, CHF, remote history of PE chronically anticoagulated with Coumadin secondary to factor V Leiden mutation, COPD who is currently admitted due to worsening shortness of breath and left lower lobe infiltrate. Yesterday his antibiotic regimen was advanced from Rocephin and doxycycline to vancomycin and Rocephin due to evidence of sepsis and positive blood cultures. It remains unclear if blood cultures were positive due to contamination or not. Continue awaiting for speciation. Overall Rufino reports feeling significant improvement. Continues to have some wheezing, however this is significantly less. Is able to expectorate a good amount of sputum. Is moving around his room okay without significant shortness of breath. Has no other complaints or concerns. Exam Narrative Exam Narrative: General: Very pleasant elderly male, sitting in a chair, conversant, not wearing oxygen, able to speak without SOB. NAD. Neurological: A&Ox3, no focal deficits Psychiatric: appropriate speech pattern/content Skin: Intact HEENT: NC/AT. Conjunctiva clear, sclera non-icteric. PERRL. EOMI. MMM. Oropharynx clear. Neck supple, no JVD Cardiovascular: RRR, 2/6 systolic murmur heard best at R and L USB, radiates to carotids Lungs: Chest expansion symmetrical, respirations unlabored. Lungs with LLL crackles, scattered expiratory wheezing Gastrointestinal: abdomen soft, nontender, nondistended Extremities: no edema, clubbing or cyanosis of BLE's HENMT Head: normal to inspection, no palpable skull fracture, normocephalic and atraumatic Ears: hearing grossly normal bilaterally, external ears normal and TM's normal bilaterally General nose exam: external nose normal Face and sinus: normal facial exam Eyes General: appearance normal, both eyes and all related structures Visual Dodson: normal visual dodson by confrontation Alignment and Position: alignment normal Periorbital: periorbital findings normal Eyelids: eyelids normal Conjunctivae: conjunctivae normal Sclera: sclerae normal Cornea: corneas normal Pupils: PERRL and normal by confrontation EOM: EOM intact bilaterally Neck Neck: normal visual inspection, full ROM, no lymphadenopathy and trachea midline Thyroid: thyroid normal Carotids: normal carotid upstroke Lymphatic: no lymphadenopathy noted Chest Chest: normal inspection of the chest Resp Effort & Inspection: normal respiratory effort, able to speak in complete sentences and cough Auscultation: clear to auscultation bilaterally, crackles (b/l bases, worse on Left), diminished lung sounds (bilateral, worse at bases), rhonchi left lower and wheezes scattered wheezes Cardio Jugular venous pressure: no JVD Palpation: normal PMI Rate: regular rate Rhythm: regular rhythm Heart Sounds: S1 normal, S2 normal, normal, physiologic split S2, no gallops and murmur systolic Bruits: no abdominal aortic bruits and no carotid bruits Pulses: normal peripheral pulses GI Inspection: normal to inspection and obesity Palpation: soft, no hepatosplenomegaly, not firm, no guarding, no hepatosplenomegaly, no masses and nontender Percussion: normal to percussion Auscultation: normal bowel sounds Back/Spine/Pelvis Back: no CVA tenderness Cervical Spine: normal cervical lordosis Thoracic/Lumbar Spine: thoracic and lumbar spine normal to inspection Skin General skin exam: no rashes or lesions noted Neuro General: alert, awake, oriented x3, moves all extremities, normal light touch, pain and propioception and no focal motor deficits Cognition: normal cognition Speech: speech normal Gait: normal gait Motor: muscle tone normal throughout, strength 5/5 throughout and no movement abnormalities noted Sensory Exam: no sensory deficits noted Extrem General: normal to inspection, full ROM, normal capillary refill, no joint enlargement, no clubbing, cyanosis or edema, no pedal edema, no calf tenderness and no edema Psych Appearance: grossly normal and well kempt Mental Status: mental status grossly normal Speech and Movement: speech and movement normal Mood: congruent mood Affect: normal affect Attitude: cooperative Thought Process: normal Thought Content: normal Insight: insight good Judgment: judgment good Objective Objective Clinical Data: Abnormal lab results 05/07/18 05/07/18 05/08/18 Range/Units 13:44 13:44 05:47 WBC (4.4-10.8) k/cumm RBC (4.50-6.00) m/cumm Hgb (13.5-17.5) g/dL Hct (40.0-50.0) % MCV (80-95) fL MCH (27.0-33.0) pg MCHC (32.0-36.0) g/dL RDW (11.8-14.1) % Absolute Neutrophils (1.2-6.7) k/cumm Absolute Monocytes (0.11-0.7) k/cumm ESR 52 H (1-20) MM/HR PT 31.3 H (9.3-10.8) sec Sodium (136-145) mmol/L Anion Gap (3-11) mmol/L BUN (7-18) mg/dL Glucose (70-100) mg/dL Calcium (8.5-10.1) mg/dL C-Reactive Protein 20.71 H (0.0-0.3) mg/dL 05/08/18 05/08/18 05/08/18 Range/Units 05:47 05:47 05:47 WBC 25.80 H* D (4.4-10.8) k/cumm RBC 4.40 L (4.50-6.00) m/cumm Hgb 9.4 L (13.5-17.5) g/dL Hct 29.6 L (40.0-50.0) % MCV 67.3 L (80-95) fL MCH 21.4 L (27.0-33.0) pg MCHC 31.8 L (32.0-36.0) g/dL RDW 17.3 H (11.8-14.1) % Absolute Neutrophils 23.35 H (1.2-6.7) k/cumm Absolute Monocytes 1.11 H (0.11-0.7) k/cumm ESR 48 H (1-20) MM/HR PT (9.3-10.8) sec Sodium 133 L (136-145) mmol/L Anion Gap 11.4 H (3-11) mmol/L BUN 33 H D (7-18) mg/dL Glucose 293 H (70-100) mg/dL Calcium 8.3 L (8.5-10.1) mg/dL C-Reactive Protein 14.07 H (0.0-0.3) mg/dL Vital Signs Temperature 36.5 C 05/08/18 08:49 Temperature Source Temporal Artery Scan 05/08/18 08:49 Pulse 66 05/08/18 08:50 Pulse Rhythm Regular 05/08/18 08:49 Pulse 71 05/08/18 08:50 Respiratory Rate 19 05/08/18 08:50 Respiratory Effort 05/08/18 08:49 Respiratory Depth Normal 05/08/18 08:49 Respiratory Pattern Normal 05/08/18 08:49 Blood Pressure 110/70 05/08/18 08:50 Blood Pressure Mean 78 05/08/18 08:50 Blood Pressure Position Sitting 05/06/18 22:09 Pulse Oximetry 94 L 05/08/18 08:49 Oxygen Delivery Method Room Air 05/08/18 08:49 Oxygen Flow Rate 0 05/08/18 08:49 Pain Level 0 05/08/18 08:49 Intake & Output 05/07/18 05/07/18 05/08/18 11:59 23:59 11:59 Intake Total 1291.667 / 1291.667 250 / 250 1505 / 1505 Output Total 1675 / 1675 1675 / 1675 950 / 950 Balance -383.333 / -383.333 -1425 / -1425 555 / 555 Weight 98 kg 98.2 kg Intake: IV 71.667 / 71.667 250 / 250 25 / 25 Oral 1220 / 1220 1480 / 1480 Output: Urine 1675 / 1675 1675 / 1675 950 / 950 Other: Urine Color Pale Pale Yellow Yellow Yellow Urine Appearance Clear Clear Clear Urine Odor None None None Voiding Methods Urinal Urinal Urinal Laboratory Results WBC 25.80 k/cumm (4.4-10.8) H* D 05/08/18 05:47 RBC 4.40 m/cumm (4.50-6.00) L 05/08/18 05:47 Hgb 9.4 g/dL (13.5-17.5) L 05/08/18 05:47 Hct 29.6 % (40.0-50.0) L 05/08/18 05:47 MCV 67.3 fL (80-95) L 05/08/18 05:47 MCH 21.4 pg (27.0-33.0) L 05/08/18 05:47 MCHC 31.8 g/dL (32.0-36.0) L 05/08/18 05:47 RDW 17.3 % (11.8-14.1) H 05/08/18 05:47 Plt Count 299 x1000/uL (130-400) 05/08/18 05:47 MPV 9.7 fL (8.0-11.0) 05/08/18 05:47 Immature Gran % 0.5 05/08/18 05:47 Neutrophils % 90.5 05/08/18 05:47 Lymphocytes % 4.7 05/08/18 05:47 Monocytes % 4.3 05/08/18 05:47 Eosinophils % 0.0 05/08/18 05:47 Basophils % 0.0 05/08/18 05:47 Absolute Neutrophils 23.35 k/cumm (1.2-6.7) H 05/08/18 05:47 Absolute Lymphocytes 1.21 k/cumm (1.2-3.4) 05/08/18 05:47 Absolute Monocytes 1.11 k/cumm (0.11-0.7) H 05/08/18 05:47 Absolute Eosinophils 0.00 k/cumm (0.0-0.7) 05/08/18 05:47 Absolute Basophils 0.00 k/cumm (0.0-0.2) 05/08/18 05:47 Differential Comment Agrees w/ instrument 05/08/18 05:47 RBC Morphology See below 05/08/18 05:47 Hypochromasia 2+ 05/08/18 05:47 Poikilocytosis 1+ 05/06/18 22:40 Anisocytosis 2+ 05/06/18 22:40 Microcytosis 2+ 05/08/18 05:47 Ovalocytes 2+ 05/08/18 05:47 ESR 48 MM/HR (1-20) H 05/08/18 05:47 PT 31.3 sec (9.3-10.8) H 05/08/18 05:47 INR 3.3 (1.0-3.5) 05/08/18 05:47 APTT 50.2 sec (21.0-31.4) H 05/07/18 00:01 Sodium 133 mmol/L (136-145) L 05/08/18 05:47 Potassium 4.5 mmol/L (3.5-5.1) 05/08/18 05:47 Chloride 100 mmol/L (98-107) 05/08/18 05:47 Carbon Dioxide 21.6 mmol/L (21.0-32.0) 05/08/18 05:47 Anion Gap 11.4 mmol/L (3-11) H 05/08/18 05:47 BUN 33 mg/dL (7-18) H D 05/08/18 05:47 Creatinine 1.06 mg/dL (0.70-1.30) 05/08/18 05:47 Estimated GFR/1.73 m2 >= 60.00 (mL/min/1.73m2) 05/08/18 05:47 Glucose 293 mg/dL (70-100) H 05/08/18 05:47 Calcium 8.3 mg/dL (8.5-10.1) L 05/08/18 05:47 Magnesium 2.1 mg/dL (1.8-2.4) 05/08/18 05:47 Total Bilirubin 0.6 mg/dL (0.2-1.0) 05/06/18 22:40 AST 12 U/L (15-37) L 05/06/18 22:40 ALT 15 U/L (12-78) 05/06/18 22:40 Alkaline Phosphatase 88 U/L (46-116) 05/06/18 22:40 Troponin I < 0.02 ng/mL (0.00-0.06) 05/07/18 06:45 C-Reactive Protein 14.07 mg/dL (0.0-0.3) H 05/08/18 05:47 NT-Pro-B Natriuret Pep 532 pg/mL (-299) H 05/06/18 22:40 Total Protein 6.4 g/dL (6.4-8.2) 05/06/18 22:40 Albumin 2.9 g/dL (3.4-5.0) L 05/06/18 22:40 Urine Color Yellow (Yellow) 05/07/18 10:20 Urine Clarity Clear 05/07/18 10:20 Urine pH 5.5 (5-8) 05/07/18 10:20 Ur Specific [place] <= 1.005 (1.005-1.025) 05/07/18 10:20 Urine Protein Negative mg/dL (Negative) 05/07/18 10:20 Urine Ketones Negative mg/dL (Negative) 05/07/18 10:20 Urine Blood Trace-intact (Negative) H 05/07/18 10:20 Urine Nitrite Negative (Negative) 05/07/18 10:20 Urine Bilirubin Negative (Negative) 05/07/18 10:20 Urine Urobilinogen 0.2 EU/dL (Up TO 0.2) 05/07/18 10:20 Ur Leukocyte Esterase Negative (Negative) 05/07/18 10:20 Urine RBC 0-2 (0-2) 05/07/18 10:20 Urine WBC 0-2 HPF (0-5) 05/07/18 10:20 Ur Epithelial Cells Negative HPF (Negative) 05/07/18 10:20 Urine Crystals Negative HPF (Negative) 05/07/18 10:20 Urine Bacteria Rare HPF (Negative) 05/07/18 10:20 Urine Casts Negative LPF (Negative) 05/07/18 10:20 Urine Mucus Negative (Negative) 05/07/18 10:20 Urine Other Few transitional (Negative) 05/07/18 10:20 Ur Culture Indicated? C&s done as ordered 05/07/18 10:20 Urine Glucose >=1000 mg/dL (Negative) H 05/07/18 10:20
[2018-05-08] MEDS: VANCOMYCIN 1,250 MG in Normal Saline 250 ML 250 MG IV ×2 (12:21→23:59)
--- NOTE | 2018-05-08 13:39 | PDOC.CMPRO ---
Care Management Progress Note s/o: Casey was sitting up in his recliner watching TV. Smiling and talkative. States he feels much better. A: 73 y.o. male admitted for pneumonia. Receiving IV Antibiotics. Remains acute. P: Casey will return home when medically cleared for discharge. No home services needed at this time. Family will transport.
[2018-05-08] MEDS: Normal Saline Flush 10 ML SYR IVP (14:04)
[2018-05-08] MEDS: Insulin Glargine 300 UNITS/3 ML PEN 40 UNITS SC (22:18)
[2018-05-09] VITALS (15 sets, daily range): BP systolic 109–143; BP diastolic 54–67; PULSE 37–84; RESP 14–18; TEMP 36.1–36.8; O2SAT 95–97
[2018-05-09] MEDS: methylPREDNISolone SUCC 125 MG VIAL 60 MG IVP (05:39)
[2018-05-09 06:07] LABS: INR 2.7 (1.0-3.5); Prothrombin Time 25.4 sec (9.3-10.8)
[2018-05-09] MEDS: Pantoprazole 20 MG TABCR PO (06:48)
[2018-05-09] MEDS: Insulin Aspart 300 UNITS/3 ML PEN SC ×3 (07:57→12:12)
[2018-05-09] MEDS: Magnesium Oxide 400 MG TAB PO ×2 (08:10→19:57)
[2018-05-09] MEDS: Metoprolol CR 25 MG TABCR PO (08:10)
[2018-05-09] MEDS: Lisinopril 20 MG TAB PO (08:10)
[2018-05-09] MEDS: Rosuvastatin 10 MG TAB PO (08:10)
[2018-05-09] MEDS: Furosemide 20 MG TAB PO (08:10)
[2018-05-09] MEDS: Budesonide/Formoterol 160/4.5 6 GM 60 PUFF INH IH ×2 (08:59→19:59)
--- NOTE | 2018-05-09 09:20 | W.PM.PROGNOT ---
Date of Service Date of service: 05/09/18 Time of Service: 09:20 Assessment and Plan (1) Community acquired pneumonia: Current visit: No Status: Acute Continue IV Rocephin, stop vancomycin as blood cultures growing strep species. Not speciated yet, pneumococcus or possibly a contaminant. Sputum cultures not growing pathogens. If patient clinically worsens, would reconsider covering for MRSA. Blood cell count high yesterday morning, corresponding to steroid initiation. We will repeat it today. Clinically he is improving, so I do not think this is reflective of worsening infection. (2) COPD (chronic obstructive pulmonary disease): Current visit: No Status: Chronic Continue inhaled corticosteroids/long acting beta agonist, nebs; I am changing steroids to oral today. On PPI. (3) Diabetes mellitus, type II, insulin dependent: Current visit: No Status: Acute Steroid induced hyperglycemia, still quite pronounced over the last 24 hours. Increase basal insulin, sliding scale and scheduled prandial insulin and monitor blood sugars closely as overall steroid dose is going down at this point.. Metformin on hold. (4) CAD (coronary artery disease): Current visit: No Status: Chronic Stable. No evidence of ACS. (5) Personal history of pulmonary embolism: Current visit: No Status: Chronic INR now at goal, resume warfarin. (6) Discharge planning issues: Current visit: Yes Status: Acute Full code. Will return home. (7) DVT prophylaxis: Current visit: Yes Status: Acute Resuming warfarin Subjective Patient reports: feels better and tolerating a regular diet; denies diarrhea, nausea and fever Interval history since last seen: Mr. Peña states he is feeling a little better. His breathing is somewhat deeper, and he is spitting up more thick yellow sputum. He requests Mucinex, which works for him at home. He is eating well and has not been feverish overnight or this morning. Exam Narrative Exam Narrative: General: Very pleasant, sitting in a chair, conversant, not wearing oxygen, able to speak without SOB. NAD. Neurological: A&O, no focal deficits Psychiatric: appropriate speech pattern/content Skin: Intact, no rash HEENT: NC/AT. Conjunctiva clear, sclera non-icteric. PERRL. EOMI. MMM. Oropharynx clear. Neck supple, no JVD Cardiovascular: RRR, 2/6 systolic murmur heard best at R and L USB, radiates to carotids Lungs: Chest expansion symmetrical, respirations unlabored. Lungs clear (no crackles or expiratory wheezing) Gastrointestinal: abdomen soft, nontender, nondistended Extremities: no edema, clubbing or cyanosis of BLE's Objective Objective Clinical Data: Abnormal lab results 05/09/18 Range/Units 05:42 PT 25.4 H (9.3-10.8) sec Vital Signs Temperature 36.8 C 05/09/18 03:15 Temperature Source Temporal Artery Scan 05/09/18 03:15 Pulse 68 05/09/18 08:01 Pulse Rhythm Regular 05/09/18 08:18 Pulse 68 05/09/18 08:01 Respiratory Rate 18 05/09/18 08:01 Respiratory Effort 05/09/18 08:18 Respiratory Depth Normal 05/09/18 08:18 Respiratory Pattern Normal 05/09/18 08:18 Blood Pressure 136/54 L 05/09/18 08:01 Blood Pressure Mean 76 05/09/18 08:01 Blood Pressure Position Sitting 05/06/18 22:09 Pulse Oximetry 96 05/09/18 03:15 Oxygen Delivery Method Nasal Cannula 05/09/18 03:15 Oxygen Flow Rate 2 05/09/18 03:15 Pain Level 0 05/09/18 03:15 Intake & Output 05/08/18 05/08/18 05/09/18 11:59 23:59 11:59 Intake Total 1805 / 1805 1540 / 1540 250 / 250 Output Total 1400 / 1400 1100 / 1100 1200 / 1200 Balance 405 / 405 440 / 440 -950 / -950 Weight 98.2 kg 96.9 kg Intake: IV 325 / 325 280 / 280 250 / 250 Oral 1480 / 1480 1260 / 1260 Output: Urine 1400 / 1400 1100 / 1100 1200 / 1200 Other: Urine Color Yellow Yellow Yellow Urine Appearance Clear Clear Clear Urine Odor None Strong Normal Comment mixed with stool in the commode Stool Occult Blood Negative Negative Stool Size Small Small Stool Characteristics Soft Formed Voiding Methods Urinal Urinal Urinal Laboratory Results WBC 25.80 k/cumm (4.4-10.8) H* D 05/08/18 05:47 RBC 4.40 m/cumm (4.50-6.00) L 05/08/18 05:47 Hgb 9.4 g/dL (13.5-17.5) L 05/08/18 05:47 Hct 29.6 % (40.0-50.0) L 05/08/18 05:47 MCV 67.3 fL (80-95) L 05/08/18 05:47 MCH 21.4 pg (27.0-33.0) L 05/08/18 05:47 MCHC 31.8 g/dL (32.0-36.0) L 05/08/18 05:47 RDW 17.3 % (11.8-14.1) H 05/08/18 05:47 Plt Count 299 x1000/uL (130-400) 05/08/18 05:47 MPV 9.7 fL (8.0-11.0) 05/08/18 05:47 Immature Gran % 0.5 05/08/18 05:47 Neutrophils % 90.5 05/08/18 05:47 Lymphocytes % 4.7 05/08/18 05:47 Monocytes % 4.3 05/08/18 05:47 Eosinophils % 0.0 05/08/18 05:47 Basophils % 0.0 05/08/18 05:47 Absolute Neutrophils 23.35 k/cumm (1.2-6.7) H 05/08/18 05:47 Absolute Lymphocytes 1.21 k/cumm (1.2-3.4) 05/08/18 05:47 Absolute Monocytes 1.11 k/cumm (0.11-0.7) H 05/08/18 05:47 Absolute Eosinophils 0.00 k/cumm (0.0-0.7) 05/08/18 05:47 Absolute Basophils 0.00 k/cumm (0.0-0.2) 05/08/18 05:47 Differential Comment Agrees w/ instrument 05/08/18 05:47 RBC Morphology See below 05/08/18 05:47 Hypochromasia 2+ 05/08/18 05:47 Poikilocytosis 1+ 05/06/18 22:40 Anisocytosis 2+ 05/06/18 22:40 Microcytosis 2+ 05/08/18 05:47 Ovalocytes 2+ 05/08/18 05:47 ESR 48 MM/HR (1-20) H 05/08/18 05:47 PT 25.4 sec (9.3-10.8) H 05/09/18 05:42 INR 2.7 (1.0-3.5) D 05/09/18 05:42 APTT 50.2 sec (21.0-31.4) H 05/07/18 00:01 Sodium 133 mmol/L (136-145) L 05/08/18 05:47 Potassium 4.5 mmol/L (3.5-5.1) 05/08/18 05:47 Chloride 100 mmol/L (98-107) 05/08/18 05:47 Carbon Dioxide 21.6 mmol/L (21.0-32.0) 05/08/18 05:47 Anion Gap 11.4 mmol/L (3-11) H 05/08/18 05:47 BUN 33 mg/dL (7-18) H D 05/08/18 05:47 Creatinine 1.06 mg/dL (0.70-1.30) 05/08/18 05:47 Estimated GFR/1.73 m2 >= 60.00 (mL/min/1.73m2) 05/08/18 05:47 Glucose 293 mg/dL (70-100) H 05/08/18 05:47 Calcium 8.3 mg/dL (8.5-10.1) L 05/08/18 05:47 Magnesium 2.1 mg/dL (1.8-2.4) 05/08/18 05:47 Total Bilirubin 0.6 mg/dL (0.2-1.0) 05/06/18 22:40 AST 12 U/L (15-37) L 05/06/18 22:40 ALT 15 U/L (12-78) 05/06/18 22:40 Alkaline Phosphatase 88 U/L (46-116) 05/06/18 22:40 Troponin I < 0.02 ng/mL (0.00-0.06) 05/07/18 06:45 C-Reactive Protein 14.07 mg/dL (0.0-0.3) H 05/08/18 05:47 NT-Pro-B Natriuret Pep 532 pg/mL (-299) H 05/06/18 22:40 Total Protein 6.4 g/dL (6.4-8.2) 05/06/18 22:40 Albumin 2.9 g/dL (3.4-5.0) L 05/06/18 22:40 Urine Color Yellow (Yellow) 05/07/18 10:20 Urine Clarity Clear 05/07/18 10:20 Urine pH 5.5 (5-8) 05/07/18 10:20 Ur Specific [place] <= 1.005 (1.005-1.025) 05/07/18 10:20 Urine Protein Negative mg/dL (Negative) 05/07/18 10:20 Urine Ketones Negative mg/dL (Negative) 05/07/18 10:20 Urine Blood Trace-intact (Negative) H 05/07/18 10:20 Urine Nitrite Negative (Negative) 05/07/18 10:20 Urine Bilirubin Negative (Negative) 05/07/18 10:20 Urine Urobilinogen 0.2 EU/dL (Up TO 0.2) 05/07/18 10:20 Ur Leukocyte Esterase Negative (Negative) 05/07/18 10:20 Urine RBC 0-2 (0-2) 05/07/18 10:20 Urine WBC 0-2 HPF (0-5) 05/07/18 10:20 Ur Epithelial Cells Negative HPF (Negative) 05/07/18 10:20 Urine Crystals Negative HPF (Negative) 05/07/18 10:20 Urine Bacteria Rare HPF (Negative) 05/07/18 10:20 Urine Casts Negative LPF (Negative) 05/07/18 10:20 Urine Mucus Negative (Negative) 05/07/18 10:20 Urine Other Few transitional (Negative) 05/07/18 10:20 Ur Culture Indicated? C&s done as ordered 05/07/18 10:20 Urine Glucose >=1000 mg/dL (Negative) H 05/07/18 10:20 Vancomycin Trough Cancelled 05/08/18 11:00
--- NOTE | 2018-05-09 09:52 | PDOC.CMPRO ---
Care Management Progress Note S/O: Sitting up watching TV. Alert and cheerful. 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 Tested positive and received VA benefits for Agent [place] exposure. 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 States he took a loss because the prices had fallen so low for dairy cattle. Says he is hoping to get back home this week. Has all the equipment he needs at home including a new CPAP machine. A: 73 y.o. male admitted for pneumonia. Remains in acute status. Switching from IV Solumedrol to PO Prednisone today. P: Rufino will return home with no new services needed when medically cleared for discharge. Family will transport.
[2018-05-09 11:26] LABS: Absolute Lymphocyte Count 1.19 k/cumm (1.2-3.4); HCT 31.7 % (40.0-50.0); HGB 10.3 g/dL (13.5-17.5); Immature Grans % 0.4; Lymphocytes % 5.2; Mean Corp. HGB Concentration 32.5 g/dL (32.0-36.0); Mean Corpuscular Hemoglobin 21.9 pg (27.0-33.0); Mean Corpuscular Volume 67.3 fL (80-95); Mean Platelet Volume 9.6 fL (8.0-11.0); Monocytes % 3.4; RBC 4.71 m/cumm (4.50-6.00); RBC Distribution Width 17.6 % (11.8-14.1); White Blood Cell Count 22.89 k/cumm (4.4-10.8)
[2018-05-09 11:48] LABS: Absolute Monocyte Count 0.78 k/cumm (0.11-0.7); Absolute Neutrophil Count 20.83 k/cumm (1.2-6.7)
[2018-05-09 11:51] LABS: Anisocytosis 2+; Diff Comment Manual Differential; Platelet Count 337 x1000/uL (130-400)
[2018-05-09 11:52] LABS: Hypochromasia 2+; Microcytosis 2+; Ovalocytes 2+; Polychromasia Present
[2018-05-09 11:53] LABS: Poikilocytes 2+
[2018-05-09] MEDS: Insulin Aspart 300 UNITS/3 ML PEN 10 UNITS SC ×2 (12:11→17:02)
[2018-05-09] MEDS: WARFARIN 5 MG, WARFARIN 2.5 MG 7.5 MG PO (19:57)
[2018-05-09] MEDS: Normal Saline Flush 10 ML SYR IVP (19:57)
[2018-05-09] MEDS: guaiFENesin/D-METHORPHAN HB 5 ML CUP 10 ML PO (21:14)
[2018-05-09] MEDS: Insulin Glargine 300 UNITS/3 ML PEN 50 UNITS SC (21:15)
[2018-05-10] MEDS: Normal Saline Flush 10 ML SYR IVP (06:06)
[2018-05-10 07:01] LABS: INR 2.1 (1.0-3.5); Prothrombin Time 19.9 sec (9.3-10.8)
[2018-05-10 07:12] VITALS: BP 139/70; PULSE 56; RESP 19; TEMP 36; O2SAT 96
[2018-05-10 07:25] VITALS: PULSE 54
[2018-05-10 07:35] VITALS: PULSE 46
[2018-05-10] MEDS: Metoprolol CR 25 MG TABCR PO (07:49)
[2018-05-10] MEDS: Rosuvastatin 10 MG TAB PO (07:49)
[2018-05-10] MEDS: Magnesium Oxide 400 MG TAB PO (07:49)
[2018-05-10] MEDS: Furosemide 20 MG TAB PO (07:49)
[2018-05-10] MEDS: Lisinopril 20 MG TAB PO (07:50)
[2018-05-10] MEDS: Insulin Aspart 300 UNITS/3 ML PEN 10 UNITS SC ×2 (07:50→11:45)
[2018-05-10] MEDS: Pantoprazole 20 MG TABCR PO (07:50)
[2018-05-10] MEDS: guaiFENesin/D-METHORPHAN HB 5 ML CUP 10 ML PO (08:01)
[2018-05-10 08:45] VITALS: O2SAT 95
[2018-05-10] MEDS: Budesonide/Formoterol 160/4.5 6 GM 60 PUFF INH IH (08:45)
--- NOTE | 2018-05-10 10:20 | PDOC.CMPRO ---
- If Service Date Differs Date of service: 05/10/18 Time of Service: 10:20 Care Management Progress Note S/O: Casey is sitting on the edge of his bed when CM visits this morning. He is engaged in conversation, makes good eye contact and is talkative. Casey reports that he feels ready to go home and that the steroids they gave me made me sweat and feel better. Rufino continues to receive IV antibiotics and PO prednisone. A: 73 y.o. male admitted for pneumonia. P: Casey will return home when medically cleared for discharge. Anticipate patient will discharge with no services and follow up with his PCP. Casey will transport via private vehicle with his family. CM will continue to offer support to patient, family, and care team regarding discharge planning and disposition.
[2018-05-10 11:32] VITALS: BP 102/61; PULSE 63; RESP 20; TEMP 36.9; O2SAT 98
--- NOTE | 2018-05-10 13:35 | W.PM.DS.N ---
Date of service: 05/10/18 Time of Service: 13:36 DS: Diagnosis Discharge Diagnosis (1) Community acquired pneumonia: Status: Acute (2) COPD (chronic obstructive pulmonary disease): Status: Chronic (3) Diabetes mellitus, type II, insulin dependent: Status: Acute (4) CAD (coronary artery disease): Status: Chronic (5) Personal history of pulmonary embolism: Status: Chronic (6) Discharge planning issues: Status: Acute (7) DVT prophylaxis: Status: Acute Discharge Plan Disposition Condition: Stable Discharge Details Reason For Visit: PNEUMONIA Admit Date/Time: 05/08/18 10:30 Admit Provider: Nato Mccormack Attending Provider: Nato Mccormack Primary Care Provider: Gianni Gannon Hospital Course Hospital Course: 73-year-old male smoker history of coronary artery disease, CHF, type 2 diabetes, on Coumadin due to history of pulmonary embolus related to factor V Leiden mutation, and COPD who presented with fevers and cough for a month that had recently worsened. Chest x-ray was consistent with pneumonia in the left lower lobe. He was initially started on Levaquin, but this was changed to ceftriaxone and azithromycin due to his warfarin therapy. Steroids and bronchodilators were also used. He was transferred to oral steroids the day prior to discharge, continue to improve. He will finish a 5-day course of azithromycin and prednisone. But sugars were elevated on steroids. Increased insulin was given, but he was discharged at his home dose, to restart his metformin so as to avoid hypoglycemia. His warfarin was held after his INR increased, presumably secondary to the dose of levofloxacin he received. His INR came down to therapeutic, and he was discharged on his outpatient dose of 10 mg a day. Smoking cessation was emphasized and he was sent home with the patch. Home Meds and New Rx's Prescriptions: New dextromethorphan-guaifenesin 10-100 mg/5 mL Syrup 10 ml PO Q4H PRN PRNQty: 200 RF: 0 nicotine 21 mg/24 hr Patch 24 Hour 21 mg Transdermal DAILY PRN PRNQty: 30 RF: 2 prednisone 50 mg tablet 50 mg PO DAILY Qty: 2 RF: 0 azithromycin 250 mg tablet 250 mg PO DAILY 2 Days Qty: 2 RF: 0 Continue metformin [Glucophage] 850 mg tablet 850 mg PO TID Qty: 270 RF: 4 magnesium oxide 400 mg (241.3 mg magnesium) tablet 400 mg PO DAILY Qty: 90 RF: 3 terazosin 1 mg capsule 1 mg PO .QHS Qty: 90 RF: 3 inhalational spacing device [Space Chamber Plus] 1 EACH spacer 1 ea Miscellaneous PRN Qty: 1 RF: 0 lancets [FreeStyle Lancets] 1 EACH misc 1 ea Sub-Q BID Qty: 100 RF: 4 potassium chloride [Klor-Con] 20 MEQ packet 20 meq PO BID RF: 0 nebulizers [Aeroeclipse Reusable BAN] 1 EACH misc 1 ea Miscellaneous DAILY PRNQty: 1 RF: 0 albuterol sulfate [ProAir HFA] 8.5 GM HFA aerosol inhaler 1 - 2 puff Inhalation Q6H PRN Qty: 2 RF: 3 pen needle, diabetic 1 EACH needle 1 ea Sub-Q DIRECTED Qty: 300 RF: 4 albuterol sulfate 3 ML solution for nebulization 3 ml Inhalation Q4H PRNQty: 30 RF: 4 rosuvastatin [Crestor] 10 MG tablet 1 tab PO DAILY Qty: 90 RF: 4 warfarin [Coumadin] 5 MG tablet 10 mg PO as directed Qty: 180 RF: 3 Metoprolol Succinate 25 MG TAB.ER.24H 25 mg PO DAILY Qty: 90 RF: 3 lisinopril 20 MG tablet 20 mg PO DAILY Qty: 90 RF: 3 blood sugar diagnostic [FreeStyle Lite Strips] 1 EACH strip 1 ea Miscellaneous BID Qty: 180 RF: 1 furosemide 20 MG tablet 20 mg PO DAILY Qty: 90 RF: 3 fluticasone-salmeterol [Advair Diskus] 1 EACH blister with device 1 puff Inhalation BID RF: 0 tiotropium-olodaterol [Stiolto Respimat] 4 GM mist 2 puff Inhalation DAILY RF: 0 insulin glargine [Lantus Solostar U-100 Insulin] 100 UNIT/1 ML insulin pen 40 unit SQ HS Qty: 3 RF: 4 pantoprazole 20 MG tablet,delayed release (DR/EC) 20 mg PO DAILY@0730 Qty: 90 RF: 3 nitroglycerin [Nitrostat] 0.4 MG tablet, sublingual 1 tab Sublingual DIRECTED RF: 0 Discontinued fluticasone-salmeterol [Advair Diskus] 1 EACH blister with device 1 ea Inhalation BID Qty: 1 RF: 11 levofloxacin 750 mg tablet 750 mg PO DAILY Qty: 6 RF: 0 Discharge Instructions Instructions: Community Acquired Pneumonia (DC) Additional Instructions: chart picker your medication and take the prednisone and azithromycin tomorrow 05/11/18 and the next day Use your nebulizer as needed Activity:: Activity as Tolerated Equipment/Supplies:: No Equipment Needed Diet:: Carb Counting DS: Summary Time spent discussing smoking cessation with patient: 3 to 10 minutes Exam Narrative Exam Narrative: General: Very pleasant, sitting in a chair, conversant, not wearing oxygen, able to speak without SOB. NAD. Neurological: A&O, no focal deficits Psychiatric: appropriate speech pattern/content Skin: Intact, no rash HEENT: NC/AT. Conjunctiva clear, sclera non-icteric. PERRL. EOMI. MMM. Oropharynx clear. Neck supple, no JVD Cardiovascular: RRR, 2/6 systolic murmur heard best at R and L USB, radiates to carotids Lungs: Chest expansion symmetrical, respirations unlabored. Lungs without rales. Some slightly diffuse expiratory wheezing Gastrointestinal: abdomen soft, nontender, nondistended Extremities: no edema, clubbing or cyanosis of BLE's DS: Data Vitals/I&O Vitals and I&O: Vital Signs Temperature 36.9 C 05/10/18 11:32 Temperature Source Tympanic 05/10/18 11:32 Pulse 63 05/10/18 11:32 Pulse Rhythm Regular 05/10/18 07:55 Pulse 68 05/09/18 08:01 Respiratory Rate 20 05/10/18 11:32 Respiratory Effort Non-Labored 05/10/18 07:55 Respiratory Depth Normal 05/10/18 07:55 Respiratory Pattern Normal 05/10/18 07:55 Blood Pressure 102/61 05/10/18 11:32 Blood Pressure Mean 76 05/09/18 08:01 Blood Pressure Position Sitting 05/06/18 22:09 Pulse Oximetry 98 05/10/18 11:32 Oxygen Delivery Method Room Air 05/10/18 11:32 Oxygen Flow Rate 0 05/10/18 11:32 Pain Level 0 05/09/18 15:36 Intake & Output 05/09/18 05/10/18 05/10/18 23:59 11:59 23:59 Intake Total 1120 / 1120 150 / 150 Output Total 1300 / 1300 1450 / 1450 Balance -180 / -180 -1300 / -1300 Weight 96.2 kg Intake: IV 50 / 50 Oral 1120 / 1120 100 / 100 Output: Urine 1300 / 1300 1450 / 1450 Other: Urine Color Pale Yellow Yellow Urine Appearance Clear Clear Urine Odor None Voiding Methods Urinal Urinal Labs on day of discharge: Labs from last 24 hours 05/10/18 06:15 PT 19.9 H D INR 2.1 D Preliminary micro results at discharge 05/08/18 07:00 Sputum Culture - Preliminary Sputum Normal Yanet YEAST 05/07/18 13:44 Blood Culture - Preliminary Blood NO GROWTH 48 HOURS 05/07/18 13:37 Blood Culture - Preliminary Blood NO GROWTH 48 HOURS
[2018-05-10 14:00] VITALS: PULSE 64
--- NOTE | 2018-05-10 14:10 | PDOC.CMDIS ---
- If Service Date Differs Date of service: 05/10/18 Time of Service: 14:10 LACE Index Scoring Tool - Questions: Length of Stay (in days): 3 Acuity (Admit via E.D.?): Yes Comorbidities: Diabetes w/o Complication, Chronic Pulmonary Disease E.D. Visits: 2 - Answers: Total Score: 11 Risk of Readmission: High Risk Care Management Discharge Reason for Hospitalization: Pneumonia. Discharge Plan: Rufino will discharge home when medically ready per MD. Anticipate patient will discharge with no services and follow up with his PCP. Rufino will transport via private vehicle with his family. Patient/Family Education Needs: Discharge education, any limitations, and follow up plan of care. Ask Me Three discussion.
== END 2018-05-10 14:47 | disposition home or self-care (01) | DRG 190 ==
LOC: ER 05-07 01:47 → ICU 05-07 02:22 → MS 05-10 13:51 → ICU 06-16 09:56
PROVIDERS: Internal Medicine; Admitting Provider Internal Medicine; Emergency Provider Physician Assistant; PCP Family Medicine; Visit Provider Family Medicine
DX: J44.0 Chronic obstructive pulmonary disease with (acute) lower respiratory infection (principal); J18.9 Pneumonia, unspecified organism; D68.51 Activated protein C resistance; I25.10 Atherosclerotic heart disease of native coronary artery without angina pectoris; Z79.01 Long term (current) use of anticoagulants; Z86.711 Personal history of pulmonary embolism; R79.1 Abnormal coagulation profile; T36.8X5A Adverse effect of other systemic antibiotics, initial encounter; E11.65 Type 2 diabetes mellitus with hyperglycemia; T38.0X5A Adverse effect of glucocorticoids and synthetic analogues, initial encounter; Z79.84 Long term (current) use of oral hypoglycemic drugs; N40.0 Benign prostatic hyperplasia without lower urinary tract symptoms; I10 Essential (primary) hypertension; F17.210 Nicotine dependence, cigarettes, uncomplicated; I35.1 Nonrheumatic aortic (valve) insufficiency
CPT/HCPCS: 36410; 36415; 80048; 80053; 80076; 85652; 87040; 87449; 93005; 93306; 94640; 96365; 96375; 97161; 97166; 99223; 99232; 99233; 99239; 99285; NC; 71046; 80202; 81003; 81015; 82565; 83605; 83735; 83880; 84484; 85025; 85610; 85730; 86140; 87070; 87086; 87205; 93010; 94667; G0378; J0696; J2930; J7512; J7613; J7620

== ENCOUNTER 2018-05-14 13:31 | Outpatient (CLI) | payer MEDICARE, SELFPAY ==
[2018-05-14 14:03] LABS: Prothrombin Time 18.8 sec (9.3-10.8)
[2018-05-14 15:07] LABS: Hemoglobin A1C 7.9 % (4.5-6.2)
== END 2018-05-14 13:51 ==
PROVIDERS: PCP Family Medicine; Visit Provider Family Medicine
DX: E11.9 Type 2 diabetes mellitus without complications (principal); I26.99 Other pulmonary embolism without acute cor pulmonale; Z79.01 Long term (current) use of anticoagulants
CPT/HCPCS: 36415; 83036; 85610

== ENCOUNTER 2018-06-03 12:04 | Outpatient (CLI) | payer MEDICARE, SELFPAY ==
[2018-06-03 12:58] LABS: HCT 34.6 % (40.0-50.0)
[2018-06-03 13:04] LABS: HGB 10.6 g/dL (13.5-17.5); Mean Corp. HGB Concentration 30.6 g/dL (32.0-36.0); Mean Corpuscular Hemoglobin 20.9 pg (27.0-33.0); Mean Corpuscular Volume 68.4 fL (80-95); Mean Platelet Volume 9.2 fL (8.0-11.0); Platelet Count 321 x1000/uL (130-400); RBC 5.06 m/cumm (4.50-6.00); RBC Distribution Width 18.6 % (11.8-14.1); White Blood Cell Count 7.67 k/cumm (4.4-10.8)
[2018-06-03 13:23] LABS: Prothrombin Time 19.5 sec (9.3-10.8)
[2018-06-03 13:43] LABS: ALT 21 U/L (12-78); AST 13 U/L (15-37); Albumin 3.5 g/dL (3.4-5.0); Alkaline Phosphatase 101 U/L (46-116); Anion Gap 8.7 mmol/L (3-11); BUN 13 mg/dL (7-18); Bilirubin, Direct 0.09 mg/dL (0.00-0.20); Bilirubin, Total 0.3 mg/dL (0.2-1.0); CO2 28.3 mmol/L (21.0-32.0); CREATININE 0.84 mg/dL (0.70-1.30); Calcium 8.4 mg/dL (8.5-10.1); Chloride 104 mmol/L (98-107); Glucose 90 mg/dL (70-100); Potassium 4.5 mmol/L (3.5-5.1); Sodium 141 mmol/L (136-145); Total Protein 6.3 g/dL (6.4-8.2)
== END 2018-06-03 12:24 ==
PROVIDERS: Internal Medicine; PCP Family Medicine; Visit Provider Family Medicine
DX: I26.99 Other pulmonary embolism without acute cor pulmonale (principal); Z79.01 Long term (current) use of anticoagulants; G47.61 Periodic limb movement disorder
CPT/HCPCS: 36415; 80048; 80076; 85027; 82728; 83540; 83550; 85610

== ENCOUNTER 2018-06-17 01:19 | Outpatient (CLI) | payer MEDICARE, SELFPAY ==
--- NOTE | 2018-06-17 10:20 | DI.RAD_ITS ---
SYMPTOM/DIAGNOSIS: F/U LLL INFILTRATE, J44.9, COPD PA AND LATERAL CHEST: The lungs are free of infiltrate. There is no pleural effusion. The cardiovascular structures are intact. The patient is status post median sternotomy in connection with a CABG procedure. Atherosclerotic changes involving the aorta are noted. There is no evidence of a hilar or mediastinal mass, or adenopathy. SUMMARY: No evidence of acute cardiopulmonary disease.
== END 2018-06-17 01:39 ==
PROVIDERS: PCP Family Medicine; Visit Provider Internal Medicine
DX: J44.9 Chronic obstructive pulmonary disease, unspecified (principal); R91.8 Other nonspecific abnormal finding of lung field; Z95.1 Presence of aortocoronary bypass graft
CPT/HCPCS: 71046

== ENCOUNTER 2018-06-23 00:20 | Outpatient (CLI) | payer MEDICARE, SELFPAY ==
--- NOTE | 2018-06-23 13:09 | DI.RAD_ITS ---
SYMPTOMS/DIAGNOSIS: F/U LEFT LOWER LOBE INFILTRATE, J44.9, COPD PA AND LATERAL CHEST: There are multiple sternal sutures and mediastinal vascular clips consistent with previous CABG surgery. Lungs appear generally clear. Cardiac size is within normal limits. No pleural effusion is seen. CONCLUSION: No evidence of acute disease.
== END 2018-06-23 00:40 ==
PROVIDERS: PCP Family Medicine; Visit Provider Internal Medicine
DX: J44.9 Chronic obstructive pulmonary disease, unspecified (principal); Z95.1 Presence of aortocoronary bypass graft
CPT/HCPCS: 71046

== ENCOUNTER 2018-06-25 11:16 | Outpatient (CLI) | payer MEDICARE, SELFPAY ==
[2018-06-25 13:22] LABS: Iron 22 ug/dL (50-175)
[2018-06-25 13:28] LABS: Hemoglobin A1C 8.3 % (4.5-6.2)
[2018-06-25 13:36] LABS: Ferritin 10 ng/mL (8-388)
[2018-07-01 14:09] LABS: Testosterone, Free 8.42 ng/dL (3.08-11.3); Testosterone, Total 351 ng/dL (240-950)
== END 2018-06-25 11:36 ==
PROVIDERS: PCP Family Medicine; Visit Provider Family Medicine
DX: D64.9 Anemia, unspecified (principal); E11.9 Type 2 diabetes mellitus without complications; R53.83 Other fatigue
CPT/HCPCS: 36415; 84402; 84403; 82728; 83036; 83540

== ENCOUNTER 2018-06-27 07:04 | Inpatient (IN) | payer MEDICARE, SELFPAY ==
[2018-06-27] VITALS (52 sets, daily range): BP systolic 82–123; BP diastolic 38–86; PULSE 66–99; RESP 4–34; TEMP 36.1–37.9; O2SAT 91–97
--- NOTE | 2018-06-27 07:39 | ED.GENADUL_ITS ---
Discharge Plan Disposition Patient Disposition: [facility] INPATIENT Condition: Serious Discharge Details Chief Complaint: SOB Clinical Impression: COPD exacerbation, Influenza A, Bronchitis, Hypomagnesemia Primary Care Provider: Gianni Gannon ED Provider: Braulio Heredia Home Meds and New Rx's Prescriptions: No Action furosemide 20 mg tablet 20 mg PO DAILY Qty: 90 RF: 3 Stiolto Respimat 2.5-2.5 mcg/actuation mist 2 puff Inhalation DAILY Qty: 4 RF: 11 Advair Diskus 500-50 mcg/dose blister with device 1 inh Inhalation BID Qty: 60 RF: 5 metoprolol succinate 25 mg tablet extended release 24 hr 25 mg PO DAILY Qty: 90 RF: 3 rosuvastatin [Crestor] 10 mg tablet 10 mg PO DAILY Qty: 90 RF: 4 warfarin [Coumadin] 5 mg tablet 10 mg PO as directed Qty: 180 RF: 3 metformin [Glucophage] 850 mg tablet 850 mg PO TID Qty: 270 RF: 4 magnesium oxide 400 mg (241.3 mg magnesium) tablet 400 mg PO DAILY Qty: 90 RF: 3 terazosin 1 mg capsule 1 mg PO .QHS Qty: 90 RF: 3 Space Chamber Plus 1 EACH spacer 1 ea Miscellaneous PRN Qty: 1 RF: 0 lancets [FreeStyle Lancets] 1 EACH misc 1 ea Sub-Q BID Qty: 100 RF: 4 potassium chloride [Klor-Con] 20 MEQ packet 20 meq PO BID RF: 0 Aeroeclipse Reusable BAN 1 EACH misc 1 ea Miscellaneous DAILY PRNQty: 1 RF: 0 ProAir HFA 8.5 GM HFA aerosol inhaler 1 - 2 puff Inhalation Q6H PRN Qty: 2 RF: 3 pen needle, diabetic 1 EACH needle 1 ea Sub-Q DIRECTED Qty: 300 RF: 4 lisinopril 20 MG tablet 20 mg PO DAILY Qty: 90 RF: 3 Lantus Solostar U-100 Insulin 100 UNIT/1 ML insulin pen 40 unit SQ HS Qty: 3 RF: 4 pantoprazole 20 MG tablet,delayed release (DR/EC) 20 mg PO DAILY@0730 Qty: 90 RF: 3 albuterol sulfate 2.5 mg /3 mL (0.083 %) solution for nebulization 2.5 mg Inhalation Q4H PRN (Reason: bronchospasm) Qty: 30 RF: 5 ferrous sulfate 325 mg (65 mg iron) tablet 325 mg PO BID Qty: 180 RF: 3 FreeStyle Lite Strips strip 1 ea Miscellaneous BID Qty: 180 RF: 3 nitroglycerin [Nitrostat] 0.4 MG tablet, sublingual 1 tab Sublingual DIRECTED RF: 0 dextromethorphan-guaifenesin 10-100 mg/5 mL Syrup 10 ml PO Q4H PRN PRNQty: 200 RF: 0 Medical Decision Making <Ashu Ravi MD - Last Filed: 06/27/18 07:42> 73 yo male with hx of PE on coumadin, hld, copd and continued smoker, dm, who comes in with 2 days of worsening productive cough and general weakness and chills and does have a fever here. Denies chest pain, abd pain, rashes, recent travel, headaches, neck pain/stiffness. Is speaking in full sentences but has diffuse wheezing on exam, will treat as copd exacerbation with nebs and steroids and also abx given increased cough. Will obtain chest xray to eval for infiltrate and also eval for influenza. pt will be signed out to oncoming provider Dr. Heredia pending lab work and imaging and ultimate disposition Differential Diagnosis copd exacerbation, pna, influenza HPI <Ashu Ravi MD - Last Filed: 06/27/18 07:42> General Mode of arrival: wheelchair . Date/Time Provider Initiated Documentation: 06/27/18 07:07 . Limitations to Documentation: no limitations . Information obtained by: patient . History of Present Illness 73 year old M presents to the emergency department with the chief complaint of cough and general weakness, described as moderate, with intensity rated at 6. Patient reports no radiation. Patient started experiencing this day(s) (2) and it has been constant. No relieving factors improve symptom(s), No exacerbating factors reported . Patient notes fever/chills. Patient did receive the following treatments prior to arrival, none Related Data Home Medications Medication Instructions Recorded Confirmed Space Chamber Plus #1 03/13/14 06/25/18 lancets [FreeStyle Lancets] #100 ea 04/03/14 06/25/18 potassium chloride [Klor-Con] 20 meq PO BID packet 08/14/15 06/27/18 Aeroeclipse Reusable BAN #1 ea 04/09/16 06/25/18 nitroglycerin [Nitrostat] 1 tab SUBLINGUAL DIRECTED 06/07/16 06/27/18 ProAir HFA 1 - 2 puff INHALATION Q6H PRN #2 01/06/17 06/27/18 inhaler pen needle, diabetic #300 ea 04/15/17 06/25/18 lisinopril 20 mg PO DAILY #90 tab-cap 08/07/17 06/27/18 Lantus Solostar U-100 Insulin 40 unit SQ HS #3 box 01/08/18 06/27/18 pantoprazole 20 mg PO DAILY@0730 #90 tablet. 02/22/18 06/27/18 magnesium oxide 400 mg (241.3 mg 400 mg PO DAILY #90 tab 03/26/18 06/27/18 magnesium) tablet metformin 850 mg tablet 850 mg PO TID #270 tab-cap 03/26/18 06/27/18 terazosin 1 mg capsule 1 mg PO .QHS #90 cap 03/26/18 06/27/18 dextromethorphan-guaifenesin 10 ml PO Q4H PRN PRN #200 ml 05/10/18 06/27/18 fluticasone 500 mcg-salmeterol 50 1 inh INHALATION BID #60 each 05/14/18 06/27/18 mcg/dose blistr powdr for inhalation metoprolol succinate ER 25 mg 25 mg PO DAILY #90 tab 05/14/18 06/27/18 tablet,extended release 24 hr rosuvastatin 10 mg tablet 10 mg PO DAILY #90 tab-cap 05/14/18 06/27/18 warfarin 5 mg tablet 10 mg PO as directed #180 tab-cap 05/14/18 06/27/18 albuterol sulfate 2.5 mg/3 mL 2.5 mg INHALATION Q4H PRN #30 vial 05/25/18 06/27/18 (0.083 %) solution for nebulization blood sugar diagnostic strips #180 strip 06/25/18 ferrous sulfate 325 mg (65 mg 325 mg PO BID #180 tab 06/25/18 06/27/18 iron) tablet furosemide 20 mg tablet 20 mg PO DAILY #90 tab 06/25/18 06/27/18 tiotropium 2.5 mcg-olodaterol 2.5 2 puff INHALATION DAILY #4 gm 06/25/18 1 mcg/actuation mist for inhalation Previous Rx's Medication Instructions Recorded pen needle, diabetic #300 ea 04/15/17 lisinopril 20 mg PO DAILY #90 tab-cap 08/07/17 Lantus Solostar U-100 Insulin 40 unit SQ HS #3 box 01/08/18 pantoprazole 20 mg PO DAILY@0730 #90 tablet. 02/22/18 magnesium oxide 400 mg (241.3 mg 400 mg PO DAILY #90 tab 03/26/18 magnesium) tablet metformin 850 mg tablet 850 mg PO TID #270 tab-cap 03/26/18 terazosin 1 mg capsule 1 mg PO .QHS #90 cap 03/26/18 dextromethorphan-guaifenesin 10 ml PO Q4H PRN PRN #200 ml 05/10/18 fluticasone 500 mcg-salmeterol 50 1 inh INHALATION BID #60 each 05/14/18 mcg/dose blistr powdr for inhalation metoprolol succinate ER 25 mg 25 mg PO DAILY #90 tab 05/14/18 tablet,extended release 24 hr rosuvastatin 10 mg tablet 10 mg PO DAILY #90 tab-cap 05/14/18 warfarin 5 mg tablet 10 mg PO as directed #180 tab-cap 05/14/18 albuterol sulfate 2.5 mg/3 mL 2.5 mg INHALATION Q4H PRN #30 vial 05/25/18 (0.083 %) solution for nebulization blood sugar diagnostic strips #180 strip 06/25/18 ferrous sulfate 325 mg (65 mg 325 mg PO BID #180 tab 06/25/18 iron) tablet furosemide 20 mg tablet 20 mg PO DAILY #90 tab 06/25/18 tiotropium 2.5 mcg-olodaterol 2.5 2 puff INHALATION DAILY #4 gm 06/25/18 mcg/actuation mist for inhalation Allergies Allergy/AdvReac Type Severity Reaction Status Date / Time venom-honey bee Allergy Severe Swelling/Ed Verified 06/25/18 10:47 [bee venom (honey bee)] lida General Stated Complaint: SOB ODESSA: 2 Review of Systems <Ashu Ravi MD - Last Filed: 06/27/18 07:42> Review of Systems All systems reviewed & are unremarkable except as noted in HPI and below Eyes Denies loss of vision ENT Denies change in voice Cardiovascular Denies chest pain Gastrointestinal Denies abdominal pain, Denies nausea and Denies vomiting Genitourinary Denies dysuria Integumentary/Breasts Denies rash Neurologic Denies loss of vision Endocrine Denies cold intolerance PFSH <Ashu Ravi MD - Last Filed: 06/27/18 07:42> Medical History BPH (benign prostatic hyperplasia) COPD (chronic obstructive pulmonary disease) Diabetes type 2, controlled Hypertension Prostate cancer Pulmonary embolus Social History Smoking/Tobacco Use Status: Current every day tobacco type: cigarettes passive smoking exposure: No second hand exposure: No alcohol intake: current alcohol intake frequency: holidays/special occasions only substance use type: does not use Exam <Ashu Ravi MD - Last Filed: 06/27/18 07:42> Const General: no acute distress Orientation: alert [facility] Head: normal to inspection Ears: external ears normal General nose exam: external nose normal Mouth: moist mucous membranes Eyes General: appearance normal, both eyes and all related structures Neck Neck: normal visual inspection Resp Effort & Inspection: normal respiratory effort and able to speak in complete sentences Cardio Rate: regular rate Skin General skin exam: no rashes or lesions noted Neuro General: alert and oriented x3 Extrem General: normal to inspection Psych Mental Status: mental status grossly normal Course <Ashu Ravi MD - Last Filed: 06/27/18 07:42> Vital Signs Temperature 37.9 C H 06/27/18 07:24 Pulse 98 H 06/27/18 07:24 Respiratory Rate 20 06/27/18 07:24 Blood Pressure 93/68 L 06/27/18 07:24 Pulse Oximetry 95 06/27/18 07:24 Temperature 37.9 C H 06/27/18 07:24 Temperature Source Temporal Artery Scan 06/27/18 07:24 Pulse 98 H 06/27/18 07:24 Respiratory Rate 20 06/27/18 07:24 Blood Pressure 93/68 L 06/27/18 07:24 Blood Pressure Position Sitting 06/27/18 07:24 Pulse Oximetry 95 06/27/18 07:24 Oxygen Delivery Method Room Air 06/27/18 07:24 Oxygen Flow Rate 0 06/27/18 07:24 Pain Level 0 06/27/18 07:24 Lab/Test Results Lab/Test Results: 06/27/18 07:29 Blood Blood Culture - Pending 06/27/18 07:29 Blood Blood Culture - Pending Sign Out <Ashu Ravi MD - Last Filed: 06/27/18 07:42> Sign Out Data: Sign Out Comment: follow up on imaging results, response to meds and lab work Last updated by Ashu Ravi MD at 06/27/18 07:43 Post-Handoff Eval: 10:40 -- Received signout at 9am, plan to follow-up diagnostics and reassess. Labs reviewed: +Flu A. Tamiflu 75mg given. Hypomag noted - will give mag 2g IV. cxr reviewed and interpreted by radiology: Bronchitis, right basilar discoid atelectasis. No consolidation. Patient reassessed at 10a. He was hypotensive with SBP in 80s but feeling much better. Additional 1L IVF bolus given and patient reassessed and improved with SBP 110s. Care transitioned to Dr. Jaffe who accepts the patient in admission.
[2018-06-27] MEDS: Normal Saline 1,000 ML 1000 ML IV ×2 (07:40→09:59)
[2018-06-27] MEDS: methylPREDNISolone SUCC 125 MG VIAL IVP (07:45)
[2018-06-27] MEDS: Acetaminophen 500 MG TAB 1000 MG PO (07:45)
[2018-06-27 07:50] LABS: Lactate-non-spesis 1.4 mmol/L (0.6-1.4)
[2018-06-27] MEDS: Albuterol/Ipratropium 3 ML UPD VIAL UPD ×2 (07:50→14:20)
[2018-06-27 07:51] LABS: Abs Immature Grans 0.03 k/cumm (0.0-0.09); Absolute Basophil Count 0.05 k/cumm (0.0-0.2); Absolute Eosinophil Count 0.01 k/cumm (0.0-0.7); Absolute Lymphocyte Count 1.54 k/cumm (1.2-3.4); Absolute Monocyte Count 1.45 k/cumm (0.11-0.7); Absolute Neutrophil Count 5.06 k/cumm (1.2-6.7); Basophils % 0.6; Eosinophils % 0.1; HCT 31.6 % (40.0-50.0); HGB 10.1 g/dL (13.5-17.5); Immature Grans % 0.4; Lymphocytes % 18.9; Mean Corpuscular Hemoglobin 21.7 pg (27.0-33.0); Mean Corpuscular Volume 67.8 fL (80-95); Mean Platelet Volume 9.2 fL (8.0-11.0); Monocytes % 17.8; Neutrophils % 62.2; Platelet Count 243 x1000/uL (130-400); RBC 4.66 m/cumm (4.50-6.00); RBC Distribution Width 18.5 % (11.8-14.1); White Blood Cell Count 8.14 k/cumm (4.4-10.8)
[2018-06-27 08:02] LABS: ALT 23 U/L (12-78); AST 21 U/L (15-37); Albumin 3.3 g/dL (3.4-5.0); Alkaline Phosphatase 92 U/L (46-116); Anion Gap 10.1 mmol/L (3-11); BUN 18 mg/dL (7-18); Bilirubin, Total 0.3 mg/dL (0.2-1.0); CO2 24.9 mmol/L (21.0-32.0); Calcium 8.4 mg/dL (8.5-10.1); Chloride 96 mmol/L (98-107); Glucose 116 mg/dL (70-100); Magnesium 1.3 mg/dL (1.8-2.4); Potassium 4.1 mmol/L (3.5-5.1); Sodium 131 mmol/L (136-145); Total Protein 6.6 g/dL (6.4-8.2)
[2018-06-27 08:06] LABS: Anisocytosis 2+; Diff Comment RBC Morph Reviewed; Hypochromasia 3+; Microcytosis 3+; Ovalocytes 2+; Poikilocytes 1+; Polychromasia Present
[2018-06-27 08:08] LABS: INR 1.8 (1.0-3.5); PTT Activated 32.4 sec (21.0-31.4); Prothrombin Time 17.8 sec (9.3-11.0)
[2018-06-27] MEDS: AZITHROMYCIN 500 MG in Normal Saline 250 ML 250 MG IVPB (08:45)
[2018-06-27 08:55] LABS: Bilirubin Negative (Negative); Blood Negative (Negative); Clarity Clear; Glucose Negative (Negative); Ketones Negative (Negative); Leukocyte Esterase Negative (Negative); Nitrite Negative (Negative); Specific Gravity 1.015 (1.005-1.025); Urobilinogen 0.2 EU/dL (Up TO 0.2); pH 5.5 (5-8)
--- NOTE | 2018-06-27 08:58 | DI.RAD_ITS ---
SYMPTOM/DIAGNOSIS: COUGH, FEVER PA AND LATERAL CHEST: The heart size is normal. The patient is status post CABG. There is minimal linear atelectasis at the right lung base. No infiltrate, effusion or pulmonary edema is seen. IMPRESSION: No acute abnormality.
--- NOTE | 2018-06-27 09:13 | DI.VRAD_ITS ---
EXAM: XR Chest, 2 Views EXAM DATE/TIME: 06/27/2018 7:30 AM CLINICAL HISTORY: 73 years old, male; Signs and symptoms; Cough and fever; Patient HX: Cough, fever. TECHNIQUE: XR of the chest, 2 views. COMPARISON: CR XR CHEST 2V PA LATERAL 06/23/2018 1:03 PM FINDINGS: Lungs: There is bilateral bronchial wall thickening compatible with bronchitis given the history. No focal peripheral lung consolidation, air bronchogram formation, or silhouette sign. There is right basilar discoid atelectasis. Pleural space: No pleural effusion or pneumothorax. Heart/Mediastinum: The heart is not enlarged. Prior CABG. The mediastinal contours are normal. Bones/joints: Prior median sternotomy. No acute osseous abnormality. IMPRESSION: 1. Bronchitis. 2. Right basilar discoid atelectasis. Dictated and Authenticated by: Thor Tinajero MD. Ordering:MORGAN Wakefield MD
[2018-06-27] MEDS: Oseltamivir 75 MG CAP PO ×2 (09:50→20:53)
[2018-06-27] MEDS: MAGNESIUM SULFATE 2 GM/50 ML BAG IVPB (09:54)
--- NOTE | 2018-06-27 12:48 | W.PM.HP.N ---
Date of service: 06/27/18 Time of Service: 12:48 Assessment and Plan (1) Influenza A: Current visit: Yes Status: Acute Rapid influenza screen positive for influenza A. Started on Tamiflu. With his underlying respiratory problems, COPD, CHF, there is concern he may decompensate from a respiratory point of view. Currently satting well on room air. Mild wheezes. He appears well compensated. (2) Other pulmonary embolism and infarction: Current visit: Yes Status: Chronic INR is 1.8. Continue on warfarin. No evidence of recurrent PE (3) Hyponatremia: Current visit: Yes Status: Chronic Chronic hyponatremia. His sodium is 131. He appears well compensated (4) History of tobacco use: Current visit: Yes Status: Acute Ongoing tobacco use 5-10 cigarettes/day. Strongly encouraged to quit smoking. (5) Diabetes mellitus: Current visit: Yes Status: Deleted Blood sugar 160 in the emergency room. Holding his metformin. Continue correction insulin dosing and monitor sugars closely. (6) Chronic obstructive lung disease: Current visit: Yes Status: Chronic Mild wheezing. No real evidence of respiratory decompensation at this time. Holding on steroids because of underlying diabetes. Continue with updrafts and Pulmicort nebs. (7) Anticoagulated on warfarin: Current visit: Yes Status: Chronic Continue on warfarin (8) CAD (coronary artery disease): Current visit: No Status: Chronic No chest pain. No evidence of congestive heart failure causing any respiratory compromise. (9) Aortic stenosis: Current visit: Yes Status: Chronic He has a murmur of aortic stenosis but appears well compensated. (10) Discharge planning issues: Current visit: Yes Status: Acute We discussed CODE STATUS. He has not given it much thought. He would like an attempt at CPR and resuscitation but does not want to be a vegetable. We will keep him as a full code. His would be his agent. History of Present Illness Chief Complaint: Influenza A/COPD exacerbation/CHF Narrative: This is a 73-year-old man who lives at home in [place] with his . He describes a 2-day history of worsening productive cough and generalized weakness. Yesterday he was bedridden with severe body ache weakness and stomach upset. He has had some low-grade fevers. He was hospitalized in April 2018 with a community acquired pneumonia. He has recently been diagnosed with mild aortic stenosis. In the emergency room rapid flu was positive for influenza A, the chest x-ray showed some right basilar discoid atelectasis. He was started on Tamiflu with updrafts. He did not require oxygen supplementation. Steroids were held because of his history of diabetes. Review of Systems Constitutional Reports chills, Denies excessive sweating, Reports fever(s), Denies frequent falls, Denies headache(s), Reports night sweats and Reports weakness Comments: Sick for the past 2 days. ENT Denies headache(s) and Denies throat swelling Cardiovascular Denies chest pain, Denies edema, Denies dyspnea, Denies dyspnea on exertion and Denies orthopnea Respiratory Reports cough (Productive of some grayish to green sputum), Denies dyspnea and Denies dyspnea on exertion Gastrointestinal Denies diarrhea, Denies nausea and Denies vomiting Comments: [place] sick to his stomach yesterday but better today Genitourinary Reports change in libido (Problems with impotence), Denies urinary frequency and Denies urinary incontinence Musculoskeletal Denies back pain, Denies deformity and Reports muscle weakness Integumentary/Breasts Denies rash, Denies sores and Denies wounds Neurologic Denies confusion, Denies frequent falls, Denies headache(s) and Reports weakness Psychiatric Reports change in libido (Problems with impotence), Denies confusion, Denies depression and Denies suicidal ideation Endocrine Reports change in libido (Problems with impotence) and Denies excessive sweating Hematologic/Lymphatic Denies easy bleeding and Denies easy bruising Allergic/Immunologic Denies urticaria and Denies throat swelling [facility] Medical History BPH (benign prostatic hyperplasia) COPD (chronic obstructive pulmonary disease) Diabetes type 2, controlled Hypertension Prostate cancer Pulmonary embolus Social History household members: spouse and children Smoking/Tobacco Use Status: Current every day tobacco type: cigarettes passive smoking exposure: No second hand exposure: No alcohol intake: current alcohol intake frequency: holidays/special occasions only details: History of heavy alcohol use substance use type: does not use additional social history: , lives on a farm in [place]. His youngest son lives with him as well as 2 grandchildren. 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 Meds Home Medications Medication Instructions Recorded Confirmed Type Space Chamber Plus #1 03/13/14 06/25/18 History lancets [FreeStyle Lancets] #100 ea 04/03/14 06/25/18 History potassium chloride [Klor-Con] 20 meq PO BID packet 08/14/15 06/27/18 History Aeroeclipse Reusable BAN #1 ea 04/09/16 06/25/18 History nitroglycerin [Nitrostat] 1 tab SUBLINGUAL DIRECTED 06/07/16 06/27/18 History ProAir HFA 1 - 2 puff INHALATION Q6H PRN #2 01/06/17 06/27/18 History inhaler pen needle, diabetic #300 ea 04/15/17 06/25/18 Rx lisinopril 20 mg PO DAILY #90 tab-cap 08/07/17 06/27/18 Rx Lantus Solostar U-100 Insulin 40 unit SQ HS #3 box 01/08/18 06/27/18 Rx pantoprazole 20 mg PO DAILY@0730 #90 tablet.dr 02/22/18 06/27/18 Rx magnesium oxide 400 mg (241.3 mg 400 mg PO DAILY #90 tab 03/26/18 06/27/18 Rx magnesium) tablet metformin 850 mg tablet 850 mg PO TID #270 tab-cap 03/26/18 06/27/18 Rx terazosin 1 mg capsule 1 mg PO .QHS #90 cap 03/26/18 06/27/18 Rx dextromethorphan-guaifenesin 10 ml PO Q4H PRN PRN #200 ml 05/10/18 06/27/18 Rx fluticasone 500 mcg-salmeterol 50 1 inh INHALATION BID #60 each 05/14/18 06/27/18 Rx mcg/dose blistr powdr for inhalation metoprolol succinate ER 25 mg 25 mg PO DAILY #90 tab 05/14/18 06/27/18 Rx tablet,extended release 24 hr rosuvastatin 10 mg tablet 10 mg PO DAILY #90 tab-cap 05/14/18 06/27/18 Rx warfarin 5 mg tablet 10 mg PO as directed #180 tab-cap 05/14/18 06/27/18 Rx albuterol sulfate 2.5 mg/3 mL 2.5 mg INHALATION Q4H PRN #30 vial 05/25/18 06/27/18 Rx (0.083 %) solution for nebulization blood sugar diagnostic strips #180 strip 06/25/18 Rx ferrous sulfate 325 mg (65 mg 325 mg PO BID #180 tab 06/25/18 06/27/18 Rx iron) tablet furosemide 20 mg tablet 20 mg PO DAILY #90 tab 06/25/18 06/27/18 Rx tiotropium 2.5 mcg-olodaterol 2.5 2 puff INHALATION DAILY #4 gm 06/25/18 06/27/18 Rx mcg/actuation mist for inhalation Allergies Allergy/AdvReac Type Severity Reaction Status Date / Time venom-honey bee Allergy Severe Swelling/Ed Verified 06/25/18 10:47 [bee venom (honey bee)] lida Exam Narrative Exam Narrative: Generally pleasant in no apparent Const General: cooperative, comfortable and no acute distress Nutritional Appearance: obese Orientation: alert, awake and oriented x3 HENMT Head: normal to inspection Ears: hearing grossly normal bilaterally General nose exam: external nose normal Face and sinus: face symmetric Mouth: oropharynx normal Eyes General: appearance normal, both eyes and all related structures Neck Neck: normal visual inspection Thyroid: symmetrical Carotids: normal carotid upstroke Lymphatic: no lymphadenopathy noted Chest Chest: normal inspection of the chest Resp Effort & Inspection: normal respiratory effort Auscultation: clear to auscultation bilaterally and wheezes (Mild diffuse wheezes) Cardio Jugular venous pressure: no JVD Rate: regular rate Rhythm: regular rhythm Heart Sounds: S1 normal, S2 normal and murmur (3/6 harsh systolic murmur right upper sternal) GI Inspection: normal to inspection Palpation: soft, no hepatosplenomegaly and nontender Auscultation: normal bowel sounds Male General Exam: Yes normal external exam Back/Spine/Pelvis Back: no CVA tenderness Cervical Spine: normal cervical lordosis Thoracic/Lumbar Spine: thoracic and lumbar spine normal to inspection Skin General skin exam: no rashes or lesions noted Wounds: no wounds Neuro General: alert, awake, oriented x3, moves all extremities and no focal motor deficits Cranial Nerves: CN's II-XI intact bilaterally Cognition: normal cognition Speech: speech normal Extrem General: normal to inspection and no clubbing, cyanosis or edema Psych Appearance: grossly normal Mental Status: mental status grossly normal Speech and Movement: speech and movement normal Mood: congruent mood Affect: normal affect Attitude: cooperative Thought Process: normal Thought Content: normal Insight: insight good Results Imaging Chest x-ray: image reviewed (Generally clear, official reading questions right basilar discoid atelectasis) Labs : 06/27/18 07:40 06/27/18 07:40 Laboratory Results - last 24 hr 06/27/18 06/27/18 06/27/18 07:40 07:40 07:40 WBC 8.14 RBC 4.66 Hgb 10.1 L Hct 31.6 L MCV 67.8 L MCH 21.7 L MCHC 32.0 RDW 18.5 H Plt Count 243 MPV 9.2 Immature Gran % 0.4 Neutrophils % 62.2 Lymphocytes % 18.9 Monocytes % 17.8 Eosinophils % 0.1 Basophils % 0.6 Absolute Neutrophils 5.06 Absolute Lymphocytes 1.54 Absolute Monocytes 1.45 H Absolute Eosinophils 0.01 Absolute Basophils 0.05 Differential Comment Rbc morph reviewed RBC Morphology See below Polychromasia Present Hypochromasia 3+ Poikilocytosis 1+ Anisocytosis 2+ Microcytosis 3+ Ovalocytes 2+ PT INR APTT Sodium 131 L Potassium 4.1 Chloride 96 L Carbon Dioxide 24.9 Anion Gap 10.1 BUN 18 Creatinine 1.10 Estimated GFR/1.73 m2 >= 60.00 Glucose 116 H Lactate 1.4 Calcium 8.4 L Magnesium 1.3 L Total Bilirubin 0.3 AST 21 ALT 23 Alkaline Phosphatase 92 Total Protein 6.6 Albumin 3.3 L Urine Color Urine Clarity Urine pH Ur Specific [place] Urine Protein Urine Ketones Urine Blood Urine Nitrite Urine Bilirubin Urine Urobilinogen Ur Leukocyte Esterase Urine Glucose 06/27/18 06/27/18 07:40 08:50 WBC RBC Hgb Hct MCV MCH MCHC RDW Plt Count MPV Immature Gran % Neutrophils % Lymphocytes % Monocytes % Eosinophils % Basophils % Absolute Neutrophils Absolute Lymphocytes Absolute Monocytes Absolute Eosinophils Absolute Basophils Differential Comment RBC Morphology Polychromasia Hypochromasia Poikilocytosis Anisocytosis Microcytosis Ovalocytes PT 17.8 H INR 1.8 APTT 32.4 H Sodium Potassium Chloride Carbon Dioxide Anion Gap BUN Creatinine Estimated GFR/1.73 m2 Glucose Lactate Calcium Magnesium Total Bilirubin AST ALT Alkaline Phosphatase Total Protein Albumin Urine Color Yellow Urine Clarity Clear Urine pH 5.5 Ur Specific [place] 1.015 Urine Protein Negative Urine Ketones Negative Urine Blood Negative Urine Nitrite Negative Urine Bilirubin Negative Urine Urobilinogen 0.2 Ur Leukocyte Esterase Negative Urine Glucose Negative Last Vital Signs Temp 36.1 C L 06/27/18 12:06 Pulse 76 06/27/18 12:06 Resp 22 06/27/18 12:06 BP 112/51 L 06/27/18 12:06 Pulse Ox 94 L 06/27/18 12:06
[2018-06-27] MEDS: Insulin Aspart 300 UNITS/3 ML PEN SC ×2 (13:08→17:26)
[2018-06-27] MEDS: Lactobacillus Acidophilus CAP 1 CAP PO ×2 (13:09→20:53)
[2018-06-27] MEDS: Budesonide/Formoterol 160/4.5 6 GM 60 PUFF INH IH (20:51)
[2018-06-27] MEDS: Budesonide 0.5 MG/2 ML UPD VIAL UPD (20:52)
[2018-06-27] MEDS: Ferrous Sulfate 325 MG TAB PO (20:52)
[2018-06-27] MEDS: Warfarin 5 MG TAB 10 MG PO (20:53)
[2018-06-27] MEDS: Potassium Chloride Liquid 20 MEQ PKT PO (20:56)
[2018-06-27] MEDS: Insulin Glargine 300 UNITS/3 ML PEN 40 UNITS SC (20:57)
[2018-06-28 00:14] VITALS: BP 115/60; PULSE 67; RESP 20; TEMP 36; O2SAT 93
[2018-06-28 07:34] LABS: Abs Immature Grans 0.03 k/cumm (0.0-0.09); Absolute Basophil Count 0.01 k/cumm (0.0-0.2); Absolute Neutrophil Count 6.57 k/cumm (1.2-6.7); Basophils % 0.1; HCT 30.3 % (40.0-50.0); HGB 9.5 g/dL (13.5-17.5); Immature Grans % 0.3; Lymphocytes % 15.6; Mean Corp. HGB Concentration 31.4 g/dL (32.0-36.0); Mean Corpuscular Hemoglobin 21.3 pg (27.0-33.0); Mean Corpuscular Volume 67.9 fL (80-95); Mean Platelet Volume 9.5 fL (8.0-11.0); Monocytes % 15.6; Neutrophils % 68.4; RBC 4.46 m/cumm (4.50-6.00); RBC Distribution Width 18.9 % (11.8-14.1); White Blood Cell Count 9.61 k/cumm (4.4-10.8)
[2018-06-28 07:40] VITALS: BP 126/68; PULSE 73; RESP 20; TEMP 36; O2SAT 92
[2018-06-28 07:48] LABS: Anion Gap 9.9 mmol/L (3-11); BUN 24 mg/dL (7-18); CO2 24.1 mmol/L (21.0-32.0); CREATININE 0.86 mg/dL (0.70-1.30); Calcium 8.2 mg/dL (8.5-10.1); Chloride 104 mmol/L (98-107); Glucose 143 mg/dL (70-100); Potassium 4.4 mmol/L (3.5-5.1); Sodium 138 mmol/L (136-145)
[2018-06-28 07:50] LABS: INR 1.8 (1.0-3.5); Platelet Count 246 x1000/uL (130-400); Prothrombin Time 18.4 sec (9.3-11.0)
[2018-06-28] MEDS: Pantoprazole 20 MG TABCR PO (08:01)
[2018-06-28] MEDS: Magnesium Oxide 400 MG TAB PO (08:01)
[2018-06-28] MEDS: Lactobacillus Acidophilus CAP 1 CAP PO ×3 (08:01→20:44)
[2018-06-28] MEDS: Metoprolol CR 25 MG TABCR PO (08:01)
[2018-06-28] MEDS: Lisinopril 20 MG TAB PO (08:01)
[2018-06-28] MEDS: Furosemide 20 MG TAB PO (08:01)
[2018-06-28] MEDS: Oseltamivir 75 MG CAP PO ×2 (08:01→20:45)
[2018-06-28] MEDS: Ferrous Sulfate 325 MG TAB PO ×2 (08:01→20:46)
[2018-06-28] MEDS: Rosuvastatin 10 MG TAB PO (08:01)
[2018-06-28] MEDS: Normal Saline Flush 10 ML SYR IVP (08:02)
[2018-06-28] MEDS: Potassium Chloride Liquid 20 MEQ PKT PO ×2 (08:02→20:46)
--- NOTE | 2018-06-28 08:04 | PDOC.CMIN ---
- If Service Date Differs Date of service: 06/28/18 Time of Service: 08:04 Care Management Initial Assess REASON FOR HOSPITALIZATION:: Influenza, bronchitis, pneumonia. PAST MEDICAL HISTORY/PAST SURGICAL HISTORY:: BPH, CAD, COPD, UTI hx., diabetes type II, essential hypertension, HCAP, hyperlipidemia, hyponatremia, impotence of organic origin, osteoarthritis, PE, prostate CA. Surgical hx: arthroplasty, colonoscopy, extraction of cataract, CABG, prostate biopsy, inguinial hernia repair, WINTER (2017). PREVIOUS FUNCTIONAL STATUS/SOCIAL/FAMILY SUPPORTS:: Rufino resides in [place] with his , Carol, their adult son, his girlfriend, and his two grandchildren. 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 Rufino reports that he is independent with his ADLs and though he had hip surgery several years ago and has a walker, he does not use any ambulatory devices. He reports that he did drive until last spring when his car went to the dump but he will be driving again as soon as prices on cars comes down. Presently, Rufino relies on his and children for transporation. CURRENT FUNCTIONAL STATUS:: Rufino is sitting on the edge of his bed when visits this afternoon. He is engaged in conversation, makes good eye contact, and is talkative. Rufino is upbeat and very personable and reports that he is feeling better than yesterday but remains SOB. He is sating 92% on RA and is receiving IV antibiotics and a 5 day course of Tamiflu. Rufino admits that he continues to smoke (at home). His , Carol, will be bringing his home CPAP in for him as he reports that hospital's equipment is too cumbersome. ADVANCE DIRECTIVES:: On file at [facility]. Health Care Agent: Carol Peña. Has patient been provided with information about the portal?: Yes Did the patient sign up for the portal?: No CODE STATUS:: Full Code INSURANCE COVERAGE / FINANCIAL ISSUES:: AARP [employer], Medicare. CURRENT HOME/COMMUNITY SERVICES/EQUIPMENT:: CPAP. PRIMARY CARE PHYSICIAN:: Gianni Gannon. POTENTIAL DISCHARGE NEEDS:: Follow up appointment with PCP. PATIENT/FAMILY EDUCATION NEEDS:: Discharge education, any limitations, and follow up plan of care. Ask Me Three discussion. ANTICIPATED BARRIERS TO DISCHARGE:: No anticipated barriers to discharge. TRANSPORTATION:: Rufino will transport via private vehicle with family. PLAN:: Rufino will discharge home when medically ready per MD. Anticipate patient will discharge with no services and follow up with his PCP. CM will continue to offer support to patient and care team regarding discharge planning and disposition.
[2018-06-28] MEDS: AZITHROMYCIN 500 MG in Normal Saline 250 ML 250 MG IVPB (08:07)
--- NOTE | 2018-06-28 08:14 | INITIAL_ITS ---
- If Service Date Differs Date of service: 06/28/18 Time of Service: 08:04 Care Management Initial Assess REASON FOR HOSPITALIZATION:: Influenza, bronchitis, pneumonia. PAST MEDICAL HISTORY/PAST SURGICAL HISTORY:: BPH, CAD, COPD, UTI hx., diabetes type II, essential hypertension, HCAP, hyperlipidemia, hyponatremia, impotence of organic origin, osteoarthritis, PE, prostate CA. Surgical hx: arthroplasty, colonoscopy, extraction of cataract, CABG, prostate biopsy, inguinial hernia repair, WINTER (2017). PREVIOUS FUNCTIONAL STATUS/SOCIAL/FAMILY SUPPORTS:: Rufino resides in [place] with his , Carol, their adult son, his girlfriend, and his two grandchildren. 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 Rufino reports that he is independent with his ADLs and though he had hip surgery several years ago and has a walker, he does not use any ambulatory devices. He reports that he did drive until last spring when his car went to the dump but he will be driving again as soon as prices on cars comes down. Presently, Rufino relies on his and children for transporation. CURRENT FUNCTIONAL STATUS:: Rufino is sitting on the edge of his bed when visits this afternoon. He is engaged in conversation, makes good eye contact, and is talkative. Rufino is upbeat and very personable and reports that he is feeling better than yesterday but remains SOB. He is sating 92% on RA and is receiving IV antibiotics and a 5 day course of Tamiflu. Rufino admits that he continues to smoke (at home). His , Carol, will be bringing his home CPAP in for him as he reports that hospital's equipment is too cumbersome. ADVANCE DIRECTIVES:: On file at [facility]. Health Care Agent: Carol Peña. Has patient been provided with information about the portal?: Yes Did the patient sign up for the portal?: No CODE STATUS:: Full Code INSURANCE COVERAGE / FINANCIAL ISSUES:: AARP [employer], Medicare. CURRENT HOME/COMMUNITY SERVICES/EQUIPMENT:: CPAP. PRIMARY CARE PHYSICIAN:: Gianni Gannon. POTENTIAL DISCHARGE NEEDS:: Follow up appointment with PCP. PATIENT/FAMILY EDUCATION NEEDS:: Discharge education, any limitations, and follow up plan of care. Ask Me Three discussion. ANTICIPATED BARRIERS TO DISCHARGE:: No anticipated barriers to discharge. TRANSPORTATION:: Rufino will transport via private vehicle with family. PLAN:: Rufino will discharge home when medically ready per MD. Anticipate patient will discharge with no services and follow up with his PCP. CM will continue to offer support to patient and care team regarding discharge planning and disposition.
[2018-06-28] MEDS: Budesonide/Formoterol 160/4.5 6 GM 60 PUFF INH IH ×2 (09:55→20:44)
[2018-06-28] MEDS: Budesonide 0.5 MG/2 ML UPD VIAL UPD ×2 (10:26→20:46)
[2018-06-28 15:58] VITALS: BP 113/60; PULSE 66; RESP 20; TEMP 36.4; O2SAT 93
--- NOTE | 2018-06-28 16:06 | W.INDIABCONS ---
Date of service: 06/28/18 Time of Service: 16:06 Diabetes Inpatient Consult DESCRIPTION/ASSESSMENT: Appreciate diabetes consult for Mr. Peña who is hospitalized with Influenza A complicated by chronic COPD and CHF. A1c 8.3 up from the 7's throughout 2018. Blood sugars here today 132-137, at admission yesterday 160-292 taking 40units Glargine and moderate mealtime insulin correction. He had 25grams carbohydrate at the one meal recorded. He states he manages his diabetes with 40u Glargine and Metformin 850 TID. States his blood sugars are well controlled at home testing a few times a week. He states his PCP is pleased with his control. 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 He does admit to food indiscretions that are reflected in hyperglycemia and is able to identify this as a problem. INTERVENTION: Since being treated for the flu his blood sugars have corrected well and are at goal with basal insulin. No further intervention suggested at this time. PLAN: Will follow blood sugars and he knows to call if he has concerns re: his diabetes self management. Time Spent in Nutritional Counseling and Treatment: 20 minutes face to face inpatient No charge
--- NOTE | 2018-06-28 16:07 | PHARADMIT ---
Admission Pharmacy Clinical Review Influenza, bronchitis Code Status Full Code Current Weight 97.35 kg Renally Cleared and Narrow Therapeutic Index Meds Crcl ~76.00 mL/min current meds okay QTc Value / Action Taken n/a BP Control, Fever BP 113/60 afebrile Electrolytes reviewed within normal limits DVT Prophylaxis on warfarin Opiate Usage / Scheduled Bowel Regimen Ordered no/prn Plt/SCr for Heparin / Enoxaparin plt 246 SCr 0.86 INR for Warfarin INR 1.8 H/H stable, WBC/Bands h/h 9.5/30.3 wbc 9.61 Antibiotic appropriateness azithromycin Cultures and Sensitivities blood cultures no growth at 24 hours rapid flu positive for Flu A Surgical ABX d/c within 24 hr n/a DM control / Insulin Dosing BG 143 scheduled glargine and sliding scale aspart Heart Failure (Check EF%) (VIMAL's, B-Block, Diuretics) furosemide, lisinopril, metoprolol, IV to PO Switch n/a Home Meds Reviewed -multiple long acting beta2 agonists should be avoided due to risk for toxicity -tiotopium may increase the ulcerogenic effect of potassium chloride Home Meds Not Ordered albuterol (has duonebs ordered), advair (has symbicort ordered), metformin Comments MD aware of multiple beta2 agonists ordered/duplicate respiratory meds and plans on looking at those has oseltamivir ordered
[2018-06-28] MEDS: Insulin Aspart 300 UNITS/3 ML PEN SC (16:50)
--- NOTE | 2018-06-28 19:10 | W.PM.PROGNOT ---
Date of Service Date of service: 06/28/18 Time of Service: 19:21 Assessment and Plan (1) Influenza A: (2) Other pulmonary embolism and infarction: (3) Hyponatremia: (4) History of tobacco use: (5) Diabetes mellitus: (6) Chronic obstructive lung disease: (7) CAD (coronary artery disease): Appears quiescent. Continue beta-keenan, as needed nitroglycerin, and high potency statin. Also on VIMAL inhibitor therapy. No aspirin in the setting of chronic anticoagulation with Coumadin (8) Aortic stenosis: Noted. Last echo in April shows moderate stenosis, with a normal LVEF.
[2018-06-28] MEDS: Warfarin 5 MG TAB 10 MG PO (20:45)
[2018-06-28 20:55] VITALS: BP 117/66; PULSE 62; RESP 18; TEMP 36.2; O2SAT 94
[2018-06-28] MEDS: guaiFENesin/D-METHORPHAN HB 5 ML CUP 10 ML PO (21:05)
[2018-06-28] MEDS: Insulin Glargine 300 UNITS/3 ML PEN 40 UNITS SC (21:06)
[2018-06-29 00:09] VITALS: BP 103/63; PULSE 57; RESP 20; TEMP 36; O2SAT 93
[2018-06-29] MEDS: Budesonide/Formoterol 160/4.5 6 GM 60 PUFF INH IH (07:33)
[2018-06-29 07:45] VITALS: BP 127/67; PULSE 61; RESP 18; TEMP 36.6; O2SAT 94
[2018-06-29] MEDS: Potassium Chloride Liquid 20 MEQ PKT PO (08:01)
[2018-06-29] MEDS: AZITHROMYCIN 500 MG in Normal Saline 250 ML 250 MG IVPB (08:01)
[2018-06-29] MEDS: Rosuvastatin 10 MG TAB PO (08:02)
[2018-06-29] MEDS: Pantoprazole 20 MG TABCR PO (08:02)
[2018-06-29] MEDS: Metoprolol CR 25 MG TABCR PO (08:02)
[2018-06-29] MEDS: Lisinopril 20 MG TAB PO (08:02)
[2018-06-29] MEDS: Oseltamivir 75 MG CAP PO (08:02)
[2018-06-29] MEDS: Furosemide 20 MG TAB PO (08:02)
[2018-06-29] MEDS: Magnesium Oxide 400 MG TAB PO ×2 (08:02→11:08)
[2018-06-29] MEDS: Lactobacillus Acidophilus CAP 1 CAP PO ×2 (08:02→13:34)
[2018-06-29] MEDS: Ferrous Sulfate 325 MG TAB PO (08:02)
[2018-06-29] MEDS: Normal Saline Flush 10 ML SYR IVP (08:03)
[2018-06-29 08:23] LABS: Abs Immature Grans 0.02 k/cumm (0.0-0.09); Absolute Basophil Count 0.03 k/cumm (0.0-0.2); Absolute Eosinophil Count 0.11 k/cumm (0.0-0.7); Absolute Lymphocyte Count 1.57 k/cumm (1.2-3.4); Absolute Monocyte Count 1.05 k/cumm (0.11-0.7); Basophils % 0.4; Eosinophils % 1.6; HCT 30.1 % (40.0-50.0); HGB 9.6 g/dL (13.5-17.5); Immature Grans % 0.3; Lymphocytes % 22.2; Mean Corp. HGB Concentration 31.9 g/dL (32.0-36.0); Mean Corpuscular Hemoglobin 21.8 pg (27.0-33.0); Mean Corpuscular Volume 68.4 fL (80-95); Mean Platelet Volume 9.7 fL (8.0-11.0); Monocytes % 14.8; Neutrophils % 60.7; Platelet Count 232 x1000/uL (130-400); RBC Distribution Width 18.9 % (11.8-14.1); White Blood Cell Count 7.08 k/cumm (4.4-10.8)
[2018-06-29 08:35] LABS: Anion Gap 10.3 mmol/L (3-11); BUN 21 mg/dL (7-18); CO2 24.7 mmol/L (21.0-32.0); CREATININE 0.89 mg/dL (0.70-1.30); Calcium 8.2 mg/dL (8.5-10.1); Chloride 103 mmol/L (98-107); Glucose 67 mg/dL (70-100); Magnesium 1.7 mg/dL (1.8-2.4); Potassium 3.9 mmol/L (3.5-5.1); Sodium 138 mmol/L (136-145)
[2018-06-29 08:40] LABS: INR 2.1 (1.0-3.5); Prothrombin Time 20.9 sec (9.3-11.0)
[2018-06-29] MEDS: Potassium Chloride 10 MEQ TABCR PO (11:08)
--- NOTE | 2018-06-29 13:55 | DSE_ITS ---
Date of service: 06/29/18 Time of Service: 13:50 DS: Diagnosis Discharge Diagnosis (1) Influenza A: Status: Acute (2) Diabetes mellitus: Status: Deleted (3) Chronic obstructive lung disease: Status: Chronic Discharge Plan Disposition Patient Disposition: HOME Condition: Serious Discharge Details Reason For Visit: INFLUENZA, BRONCHITIS Admit Date/Time: 06/27/18 10:21 Admit Provider: Sincere Jaffe Attending Provider: Sincere Jaffe Primary Care Provider: Gianni Gannon Hospital Course Hospital Course: CC: Dyspnea HPI: Influenza A/COPD exacerbation/CHF Narrative: This is a 73-year-old man who lives at home in [place] with his . He describes a 2-day history of worsening productive cough and generalized weakness. Yesterday he was bedridden with severe body ache weakness and stomach upset. He has had some low-grade fevers. He was hospitalized in April 2018 with a community acquired pneumonia. He has recently been diagnosed with mild aortic stenosis. In the emergency room rapid flu was positive for influenza A, the chest x-ray showed some right basilar discoid atelectasis. He was started on Tamiflu with updrafts. He did not require oxygen supplementation. He was referred for admission. Hospital Course: 1. Influenza - Currently on Tamiflu, with three days left in treatment. Vastly improved both subjectively and clinically. Was also initiated on Azithromycin due to concurrent 'bronchitis' - will conclude a short course. Continue to avoid steroids as adjunct in setting of active influenza infection. 2. Hx PE - Continue on home regimen of coumadin. INR therapeutic. 3. Hyponatremia - Mild, chronic, and unchanged, in setting of chronic underlying pulmonary disease. 4. COPD - Minimal wheezing essentially resolved. Continue home inhaler therapy. 5. CAD - Appears quiescent. Continue beta-keenan, as needed nitroglycerin, and high potency statin. Also on VIMAL inhibitor therapy. No aspirin in the setting of chronic anticoagulation with Coumadin. 6. DM - Continue Metformin, Insulin. Home Meds and New Rx's Prescriptions: New oseltamivir [Tamiflu] 75 mg Capsule 75 mg PO BID Qty: 6 RF: 0 azithromycin 250 mg tablet 250 mg PO DAILY Qty: 3 RF: 0 Continued furosemide 20 mg tablet 20 mg PO DAILY Qty: 90 RF: 3 Stiolto Respimat 2.5-2.5 mcg/actuation mist 2 puff Inhalation DAILY Qty: 4 RF: 11 Advair Diskus 500-50 mcg/dose blister with device 1 inh Inhalation BID Qty: 60 RF: 5 metoprolol succinate 25 mg tablet extended release 24 hr 25 mg PO DAILY Qty: 90 RF: 3 rosuvastatin [Crestor] 10 mg tablet 10 mg PO DAILY Qty: 90 RF: 4 warfarin [Coumadin] 5 mg tablet 10 mg PO as directed Qty: 180 RF: 3 metformin [Glucophage] 850 mg tablet 850 mg PO TID Qty: 270 RF: 4 magnesium oxide 400 mg (241.3 mg magnesium) tablet 400 mg PO DAILY Qty: 90 RF: 3 terazosin 1 mg capsule 1 mg PO .QHS Qty: 90 RF: 3 Space Chamber Plus 1 EACH spacer 1 ea Miscellaneous PRN Qty: 1 RF: 0 lancets [FreeStyle Lancets] 1 EACH misc 1 ea Sub-Q BID Qty: 100 RF: 4 potassium chloride [Klor-Con] 20 MEQ packet 20 meq PO BID RF: 0 Aeroeclipse Reusable BAN 1 EACH misc 1 ea Miscellaneous DAILY PRNQty: 1 RF: 0 ProAir HFA 8.5 GM HFA aerosol inhaler 1 - 2 puff Inhalation Q6H PRN Qty: 2 RF: 3 pen needle, diabetic 1 EACH needle 1 ea Sub-Q DIRECTED Qty: 300 RF: 4 lisinopril 20 MG tablet 20 mg PO DAILY Qty: 90 RF: 3 Lantus Solostar U-100 Insulin 100 UNIT/1 ML insulin pen 40 unit SQ HS Qty: 3 RF: 4 pantoprazole 20 MG tablet,delayed release (DR/EC) 20 mg PO DAILY@0730 Qty: 90 RF: 3 albuterol sulfate 2.5 mg /3 mL (0.083 %) solution for nebulization 2.5 mg Inhalation Q4H PRN (Reason: bronchospasm) Qty: 30 RF: 5 ferrous sulfate 325 mg (65 mg iron) tablet 325 mg PO BID Qty: 180 RF: 3 FreeStyle Lite Strips strip 1 ea Miscellaneous BID Qty: 180 RF: 3 nitroglycerin [Nitrostat] 0.4 MG tablet, sublingual 1 tab Sublingual DIRECTED RF: 0 dextromethorphan-guaifenesin 10-100 mg/5 mL Syrup 10 ml PO Q4H PRN PRNQty: 200 RF: 0 Discharge Instructions Additional Instructions: Please see you primary care physician in one week Activity:: No strenuous activity Equipment/Supplies:: No Equipment Needed Diet:: Carb Counting Discharge Orders Discharge Orders: Discharge Order (Routine); Ordered 06/29/18 Ordered By: Sincere Jaffe Exam Narrative Exam Narrative: General: Patient appears comfortable, AAOX3, NAD Neck: Supple CV: Regular, nontachycardic, S1S2, No rubs, murmurs, or gallops. Pulmonary: Diminished breath sounds with mild diffuse wheezing, but overall with good air entry Abdomen: + Bowel Sounds, soft, nontender, nondistended Vascular: No lower extremity edema Psych: Normal mood and affect. General: Patient appears comfortable, AAOX3, NAD DS: Data Vitals/I&O Vitals and I&O: Vital Signs Temperature 36.6 C 06/29/18 07:45 Temperature Source Tympanic 06/29/18 07:45 Pulse 61 06/29/18 07:45 Pulse Rhythm Regular 06/29/18 08:00 Pulse 66 06/27/18 11:40 Respiratory Rate 18 06/29/18 07:45 Respiratory Effort 06/29/18 08:00 Respiratory Depth Normal 06/29/18 08:00 Respiratory Pattern Normal 06/29/18 08:00 Blood Pressure 127/67 06/29/18 07:45 Blood Pressure Mean 69 06/27/18 11:30 Blood Pressure Position Sitting 06/27/18 07:24 Pulse Oximetry 94 L 06/29/18 07:45 Oxygen Delivery Method Room Air 06/29/18 07:45 Oxygen Flow Rate 0 06/29/18 07:45 Pain Level 0 06/29/18 07:45 Comment 06/27/18 12:00 Intake & Output 06/28/18 06/29/18 06/29/18 23:59 11:59 23:59 Intake Total 1200 / 1950 1710 / 1710 Output Total 1200 / 1200 Balance 1200 / 1850 510 / 510 Intake: IV 270 / 270 Oral 1200 / 1680 1440 / 1440 Output: Urine 1200 / 1200 Other: Urine Color Yellow Urine Appearance Clear Comment Pt voids independently in bathroom. Pt voids independently in bathroom. Voiding Methods Toilet Completed studies during hospitalization [Text1]: EXAM: XR Chest, 2 Views EXAM DATE/TIME: 06/27/2018 7:30 AM CLINICAL HISTORY: 73 years old, male; Signs and symptoms; Cough and fever; Patient HX: Cough, fever. TECHNIQUE: XR of the chest, 2 views. COMPARISON: CR XR CHEST 2V PA LATERAL 06/23/2018 1:03 PM FINDINGS: Lungs: There is bilateral bronchial wall thickening compatible with bronchitis given the history. No focal peripheral lung consolidation, air bronchogram formation, or silhouette sign. There is right basilar discoid atelectasis. Pleural space: No pleural effusion or pneumothorax. Heart/Mediastinum: The heart is not enlarged. Prior CABG. The mediastinal contours are normal. Bones/joints: Prior median sternotomy. No acute osseous abnormality. IMPRESSION: 1. Bronchitis. 2. Right basilar discoid atelectasis. R chest 2V PA & lateral SYMPTOM/DIAGNOSIS: COUGH, FEVER PA AND LATERAL CHEST: 06/27/2018 The heart size is normal. The patient is status post CABG. There is minimal linear atelectasis at the right lung base. No infiltrate, effusion or pulmonary edema is seen. IMPRESSION: No acute abnormality. Labs on day of discharge: Labs from last 24 hours 06/29/18 06/29/18 06/29/18 07:22 07:22 07:22 WBC 7.08 RBC 4.40 L Hgb 9.6 L Hct 30.1 L MCV 68.4 L MCH 21.8 L MCHC 31.9 L RDW 18.9 H Plt Count 232 MPV 9.7 Immature Gran % 0.3 Neutrophils % 60.7 Lymphocytes % 22.2 Monocytes % 14.8 Eosinophils % 1.6 Basophils % 0.4 Absolute Neutrophils 4.30 Absolute Lymphocytes 1.57 Absolute Monocytes 1.05 H Absolute Eosinophils 0.11 Absolute Basophils 0.03 PT 20.9 H INR 2.1 Sodium 138 Potassium 3.9 Chloride 103 Carbon Dioxide 24.7 Anion Gap 10.3 BUN 21 H Creatinine 0.89 Estimated GFR/1.73 m2 >= 60.00 Glucose 67 L D Calcium 8.2 L Magnesium 1.7 L Preliminary micro results at discharge 12/30/18 08:14 Blood Culture - Preliminary Blood NO GROWTH 48 HOURS 06/27/18 07:40 Blood Culture - Preliminary Blood NO GROWTH 48 HOURS [facility], [facility] Medical History Influenza A (Acute ~06/27/18) Prostate cancer (Resolved) 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) Osteoarthritis of right hip (Resolved 03/12/17) Impotence of organic origin (Chronic) Hyponatremia (Chronic 04/13/17) Hyperlipidemia (Chronic) History of tobacco use (Acute) HCAP (healthcare-associated pneumonia) (Resolved 04/17/17) Essential hypertension (Chronic 07/26/12) Chronic obstructive lung disease (Chronic) Benign prostatic hyperplasia without lower urinary tract symptoms (Chronic) Anticoagulated on warfarin (Chronic) Discharge planning issues (Acute) Complicated UTI (urinary tract infection) (Resolved 10/25/15) CAD (coronary artery disease) (Chronic) HTN (hypertension) (Chronic) Hyperlipidemia (Chronic) BPH (benign prostatic hyperplasia) COPD (chronic obstructive pulmonary disease) Diabetes type 2, controlled Hypertension Prostate cancer Pulmonary embolus Surgical History H/O surgical procedure (Chronic) Arthroplasty Colonoscopy - IV Sedation (~2006) Extraction of cataract (~07/2012) Prostate Biopsy (11/13/14) Repair of inguinal hernia (~2002) Social History household members: spouse and children Smoking/Tobacco Use Status: Current every day tobacco type: cigarettes passive smoking exposure: No second hand exposure: No alcohol intake: current alcohol intake frequency: holidays/special occasions only details: History of heavy alcohol use substance use type: does not use additional social history: , [place] in [place]. His youngest son lives with him as well as 2 grandchildren. 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
--- NOTE | 2018-06-29 14:30 | PDOC.CMDIS ---
- If Service Date Differs Date of service: 06/29/18 Time of Service: 14:30 LACE Index Scoring Tool - Questions: Length of Stay (in days): 4 - 6 E.D. Visits: 3 Care Management Discharge Reason for Hospitalization: Influenza, bronchitis, pneumonia. Discharge Plan: Rufino is being discharged home today he will follow up with primary care. CM requested he make an apppointment for follow up with as today is a holiday. He feels that he is ready for discharge. He states he slept well last evening. He understand he will be discharged on tamiflu and antibiotics CM reviewed importance of completing medication even if he feels better. He will transport home via private car with son at time of discharge. Patient/Family Education Needs: Discharge education, limitations and follow up plan of care including ask me three discussion and self management. Services Needed at Discharge: DME Agency
== END 2018-06-29 15:57 | disposition home or self-care (01) | DRG 153 ==
LOC: ER 11:14 → MS 11:54
PROVIDERS: Emergency Medicine; Admitting Provider Internal Medicine; Emergency Provider Student in an Organized Health Care Education/Training Program; PCP Family Medicine; Visit Provider Internal Medicine
DX: J11.1 Influenza due to unidentified influenza virus with other respiratory manifestations (principal); J98.11 Atelectasis; E87.1 Hypo-osmolality and hyponatremia; J20.9 Acute bronchitis, unspecified; J44.9 Chronic obstructive pulmonary disease, unspecified; F17.210 Nicotine dependence, cigarettes, uncomplicated; E83.42 Hypomagnesemia; E11.9 Type 2 diabetes mellitus without complications; Z79.4 Long term (current) use of insulin; I11.0 Hypertensive heart disease with heart failure; I50.9 Heart failure, unspecified; I25.10 Atherosclerotic heart disease of native coronary artery without angina pectoris; E78.5 Hyperlipidemia, unspecified; I35.0 Nonrheumatic aortic (valve) stenosis; Z86.711 Personal history of pulmonary embolism; Z79.01 Long term (current) use of anticoagulants; Z71.3 Dietary counseling and surveillance
CPT/HCPCS: 36415; 36416; 80048; 80053; 82962; 87040; 87449; 94640; 96361; 96365; 96366; 96367; 96375; 99222; 99233; 99239; 99285; 71046; 81003; 83605; 83735; 85025; 85610; 85730; 94660; J0456; J2930; J7620; J7626

== ENCOUNTER 2018-08-04 09:47 | Outpatient (CLI) | payer MEDICARE, SELFPAY ==
[2018-08-04 10:31] LABS: INR 2.9 (0.9-1.1); Prothrombin Time 29.7 sec (9.3-11.0)
== END 2018-08-04 10:07 ==
PROVIDERS: PCP Family Medicine; Visit Provider Family Medicine
DX: I26.99 Other pulmonary embolism without acute cor pulmonale (principal); Z79.01 Long term (current) use of anticoagulants
CPT/HCPCS: 36415; 85610

== ENCOUNTER 2018-09-14 12:01 | Outpatient (CLI) | payer MEDICARE, SELFPAY ==
[2018-09-14 12:50] LABS: INR 1.5 (0.9-1.1); Prothrombin Time 15.2 sec (9.3-11.0)
== END 2018-09-14 12:21 ==
PROVIDERS: PCP Family Medicine; Visit Provider Family Medicine
DX: I26.99 Other pulmonary embolism without acute cor pulmonale (principal); Z79.01 Long term (current) use of anticoagulants
CPT/HCPCS: 36415; 85610

== ENCOUNTER 2018-09-22 12:37 | Outpatient (CLI) | payer MEDICARE, SELFPAY ==
[2018-09-22 13:12] LABS: Prothrombin Time 30.4 sec (9.3-11.0)
== END 2018-09-22 12:57 ==
PROVIDERS: Family Medicine; PCP Family Medicine; Visit Provider Family Medicine
DX: I26.99 Other pulmonary embolism without acute cor pulmonale (principal); Z79.01 Long term (current) use of anticoagulants
CPT/HCPCS: 36415; 85610

== ENCOUNTER 2018-09-23 00:19 | Outpatient (CLI) | payer MEDICARE, SELFPAY ==
--- NOTE | 2018-09-23 13:50 | DI.CTLCSR_ITS ---
SYMPTOMS/DIAGNOSIS: CURRENT SMOKER, F17.210, COPD, J44.[address] FOR LUNG CANCER SCREENING: The examination was carried out according to the usual protocol. Emphysematous changes are noted in the lungs. No nodules are identified. There is no infiltrate or pleural effusion. The heart is not enlarged. Note is made of coronary artery calcification in this patient who is status post CABG. There is no pericardial effusion. There is no evidence of gross adenopathy. There are atherosclerotic changes involving the aorta without evidence of an aneurysm. SUMMARY: No pulmonary nodules are identified in this patient with COPD. Follow-up surveillance with a repeat chest CT in one year is recommended. Lung-RAD Category: 1- Negative Lung- RAD Management of Findings: Continue annual LDCT screening in 12 months
== END 2018-09-23 00:39 ==
PROVIDERS: PCP Family Medicine; Visit Provider Internal Medicine
DX: Z12.2 Encounter for screening for malignant neoplasm of respiratory organs (principal); F17.210 Nicotine dependence, cigarettes, uncomplicated; J44.9 Chronic obstructive pulmonary disease, unspecified; Z95.1 Presence of aortocoronary bypass graft
CPT/HCPCS: G0297

== ENCOUNTER 2018-10-01 14:48 | Emergency (ER) | payer MEDICARE, SELFPAY ==
[2018-10-01] VITALS (22 sets, daily range): BP systolic 110–142; BP diastolic 47–68; PULSE 56–72; RESP 12–22; TEMP 36.7–37; O2SAT 93–98
--- NOTE | 2018-10-01 15:16 | ED.GENADUL_ITS ---
Discharge Plan Disposition Patient Disposition: HOME Condition: Improving Discharge Details Chief Complaint: SOB Clinical Impression: COPD with acute exacerbation Primary Care Provider: Gianni Gannon ED Provider: Vickie Sharp Home Meds and New Rx's Prescriptions: New prednisone 20 mg tablet See Rx Instructions .ROUTE .COMPLEX Qty: 12 RF: 0 doxycycline hyclate 100 mg tablet 100 mg PO BID 7 Days Qty: 14 RF: 0 Continued furosemide 20 mg tablet 20 mg PO DAILY Qty: 90 RF: 3 Stiolto Respimat 2.5-2.5 mcg/actuation mist 2 puff Inhalation DAILY Qty: 4 RF: 11 fluticasone propion-salmeterol [Advair Diskus] 500-50 mcg/dose blister with device 1 inh Inhalation BID Qty: 60 RF: 5 metoprolol succinate 25 mg tablet extended release 24 hr 25 mg PO DAILY Qty: 90 RF: 3 rosuvastatin [Crestor] 10 mg tablet 10 mg PO DAILY Qty: 90 RF: 4 warfarin [Coumadin] 5 mg tablet 10 mg PO as directed Qty: 180 RF: 3 metformin [Glucophage] 850 mg tablet 850 mg PO TID Qty: 270 RF: 4 magnesium oxide 400 mg (241.3 mg magnesium) tablet 400 mg PO DAILY Qty: 90 RF: 3 terazosin 1 mg capsule 1 mg PO .QHS Qty: 90 RF: 3 Space Chamber Plus 1 EACH spacer 1 ea Miscellaneous PRN Qty: 1 RF: 0 lancets [FreeStyle Lancets] 1 EACH misc 1 ea Sub-Q BID Qty: 100 RF: 4 potassium chloride [Klor-Con] 20 MEQ packet 20 meq PO BID RF: 0 Aeroeclipse Reusable BAN 1 EACH misc 1 ea Miscellaneous DAILY PRNQty: 1 RF: 0 albuterol sulfate [ProAir HFA] 8.5 GM HFA aerosol inhaler 1 - 2 puff Inhalation Q6H PRN Qty: 2 RF: 3 pen needle, diabetic 1 EACH needle 1 ea Sub-Q DIRECTED Qty: 300 RF: 4 Lantus Solostar U-100 Insulin 100 UNIT/1 ML insulin pen 40 unit SQ HS Qty: 3 RF: 4 pantoprazole 20 MG tablet,delayed release (DR/EC) 20 mg PO DAILY@0730 Qty: 90 RF: 3 albuterol sulfate 2.5 mg /3 mL (0.083 %) solution for nebulization 2.5 mg Inhalation Q4H PRN (Reason: bronchospasm) Qty: 30 RF: 5 ferrous sulfate 325 mg (65 mg iron) tablet 325 mg PO BID Qty: 180 RF: 3 FreeStyle Lite Strips strip 1 ea Miscellaneous BID Qty: 180 RF: 3 lisinopril 20 mg tablet 20 mg PO DAILY Qty: 90 RF: 3 nitroglycerin [Nitrostat] 0.4 MG tablet, sublingual 1 tab Sublingual DIRECTED RF: 0 Discharge Instructions Instructions: COPD (Chronic Obstructive Pulmonary Disease) (ED) Additional Instructions: Use your inhalers that you have at home as needed and directed. Take the steroids until finished. If you have no relief or worsening of symptoms in the next 2 days, you may start the antibiotics. Follow-up with your primary care doctor next week for reevaluation and for recheck of your INR in the next 1-2 weeks. Return immediately to the emergency department with any worsening or new concerning symptoms. Discharge Data Discharge Physician: Vickie Sharp Medical Decision Making 73-year-old male with a history of cough with green sputum and shortness of breath for the past 3 days. He denies fevers or chest pain. Vitals within normal limits. Oxygen saturation 96-97% on room air. Patient is speaking in full sentences and in no respiratory distress. Minimal scattered wheezing throughout. No rhonchi or rales.. Due to patient's age and history, will do a cardiac workup, chest x-ray, and give DuoNeb and solu-medrol. EKG notes a rate of 61, sinus, right bundle branch block and no acute ST findings. 1615 --patient feels better after DuoNeb. Oxygen saturation 96% on room air. He has scattered wheezing throughout but improvement in breath sounds. He is declining any further neb treatment at this time. Labs and imaging reviewed. White blood cell count 11. Magnesium 1.6. Troponin negative. BNP 328. INR 3.2. Patient states he has been taking his Coumadin as directed. 1720 -- CXR negative. Patient feels much better and is declined to go home. Will patient has plenty of his inhalers at home. We will send home with a prescription for prednisone. Will also send home with a prescription for antibiotics due to his history of COPD and complaint of green sputum. He is instructed to call his primary care doctor on Thursday to schedule a follow-up appointment for reevaluation and for recheck of his INR in the next 1-2 weeks. Medical Records Medical records reviewed: Yes I reviewed the patient's medical records. Imaging Data Radiologic Study: Radiologist's impression: XR Chest, 2 Views EXAM DATE/TIME: 10/01/2018 4:20 PM FINDINGS: Lungs: Status post CABG. Mildly hyperexpanded lungs consistent with COPD. No pulmonary consolidation. Pleural space: No pleural effusion or pneumothorax. Heart/Mediastinum: Unremarkable. No cardiomegaly. Bones/joints: Unremarkable. IMPRESSION: No acute abnormality. Lab Data Lab results reviewed: Yes I reviewed the patient's lab results. Laboratory Tests Range/Units 10/01/18 10/01/18 10/01/18 15:05 15:05 15:05 WBC (4.4-10.8) k/cumm 11.73 H RBC (4.50-6.00) m/cumm 5.05 Hgb (13.5-17.5) g/dL 11.1 L Hct (40.0-50.0) % 35.4 L MCV (80-95) fL 70.1 L MCH (27.0-33.0) pg 22.0 L MCHC (32.0-36.0) g/dL 31.4 L RDW (11.8-14.1) % 21.1 H Plt Count (130-400) x1000/uL 328 MPV (8.0-11.0) fL 9.6 Immature Gran % 0.5 Neutrophils % 64.0 Lymphocytes % 22.7 Monocytes % 9.9 Eosinophils % 2.7 Basophils % 0.2 Absolute Neutrophils (1.2-6.7) k/cumm 7.51 H Absolute Lymphocytes (1.2-3.4) k/cumm 2.66 Absolute Monocytes (0.11-0.7) k/cumm 1.16 H Absolute Eosinophils (0.0-0.7) k/cumm 0.32 Absolute Basophils (0.0-0.2) k/cumm 0.02 Differential Comment Rbc morph reviewed RBC Morphology See below Anisocytosis 2+ Microcytosis 2+ PT (9.3-11.0) sec 32.6 H INR (0.9-1.1) 3.2 H APTT (21.0-31.4) sec 41.1 H Sodium (136-145) mmol/L 136 Potassium (3.5-5.1) mmol/L 4.3 Chloride (98-107) mmol/L 100 Carbon Dioxide (21.0-32.0) mmol/L 27.0 Anion Gap (3-11) mmol/L 9.0 BUN (7-18) mg/dL 12 Creatinine (0.70-1.30) mg/dL 0.94 Estimated GFR/1.73 m2 (mL/min/1.73m2) >= 60.00 Glucose (70-100) mg/dL 122 H Calcium (8.5-10.1) mg/dL 8.3 L Magnesium (1.8-2.4) mg/dL 1.6 L Total Bilirubin (0.2-1.0) mg/dL 0.3 AST (15-37) U/L 12 L ALT (12-78) U/L 19 Alkaline Phosphatase (46-116) U/L 108 Troponin I (0.00-0.06) ng/mL < 0.02 NT-Pro-B Natriuret Pep ( - 299) pg/mL 328 H Total Protein (6.4-8.2) g/dL 6.8 Albumin (3.4-5.0) g/dL 3.4 ECG Data Attestation: I personally reviewed and interpreted this ECG (s) as follows: Interpretation: Rate of 61, sinus. First-degree AV block. Right bundle branch block seen in previous EKG. QTc 409. QRS 112. HPI General Mode of arrival: ambulatory . Date/Time Provider Initiated Documentation: 10/01/18 14:55 . Limitations to Documentation: no limitations . Information obtained by: patient . HPI Narrative: Patient is a 73-year-old male with history of diabetes, COPD, CAD, hypertension, hyperlipidemia, pulmonary embolism on Coumadin who presents with cough and shortness of breath the past 3 days. He admits to minimal green sputum. He states he has been eating and drinking normally. He admits to good urine output. He does admit to occasional diarrhea which has been watery and brown for the past week. He states he was admitted here in June for pneumonia and that was the last time he was on steroids and antibiotics. He denies any fever, vomiting or chest pain. Related Data Home Medications Medication Instructions Recorded Confirmed Space Chamber Plus #1 03/13/14 09/24/18 lancets [FreeStyle Lancets] #100 ea 04/03/14 09/24/18 potassium chloride [Klor-Con] 20 meq PO BID packet 08/14/15 09/24/18 Aeroeclipse Reusable BAN #1 ea 04/09/16 09/24/18 nitroglycerin [Nitrostat] 1 tab SUBLINGUAL DIRECTED 06/07/16 09/24/18 albuterol sulfate [ProAir HFA] 1 - 2 puff INHALATION Q6H PRN #2 01/06/17 09/24/18 inhaler pen needle, diabetic #300 ea 04/15/17 09/24/18 Lantus Solostar U-100 Insulin 40 unit SQ HS #3 box 01/08/18 09/24/18 pantoprazole 20 mg PO DAILY@0730 #90 tablet.dr 02/22/18 09/24/18 magnesium oxide 400 mg (241.3 mg 400 mg PO DAILY #90 tab 03/26/18 09/24/18 magnesium) tablet metformin 850 mg tablet 850 mg PO TID #270 tab-cap 03/26/18 09/24/18 terazosin 1 mg capsule 1 mg PO .QHS #90 cap 03/26/18 09/24/18 fluticasone 500 mcg-salmeterol 50 1 inh INHALATION BID #60 each 05/14/18 09/24/18 mcg/dose blistr powdr for inhalation metoprolol succinate ER 25 mg 25 mg PO DAILY #90 tab 05/14/18 09/24/18 tablet,extended release 24 hr rosuvastatin 10 mg tablet 10 mg PO DAILY #90 tab-cap 05/14/18 09/24/18 warfarin 5 mg tablet 10 mg PO as directed #180 tab-cap 05/14/18 09/24/18 albuterol sulfate 2.5 mg/3 mL 2.5 mg INHALATION Q4H PRN #30 vial 05/25/18 09/24/18 (0.083 %) solution for nebulization blood sugar diagnostic strips #180 strip 06/25/18 09/24/18 ferrous sulfate 325 mg (65 mg 325 mg PO BID #180 tab 06/25/18 09/24/18 iron) tablet furosemide 20 mg tablet 20 mg PO DAILY #90 tab 06/25/18 09/24/18 tiotropium 2.5 mcg-olodaterol 2.5 2 puff INHALATION DAILY #4 gm 06/25/18 09/24/18 mcg/actuation mist for inhalation lisinopril 20 mg tablet 20 mg PO DAILY #90 tab-cap 08/24/18 09/24/18 doxycycline hyclate 100 mg PO BID 7 Days #14 tab 10/01/18 prednisone See Rx Instructions .ROUTE 10/01/18 .COMPLEX #12 tab Previous Rx's Medication Instructions Recorded pen needle, diabetic #300 ea 04/15/17 Lantus Solostar U-100 Insulin 40 unit SQ HS #3 box 01/08/18 pantoprazole 20 mg PO DAILY@0730 #90 tablet. 02/22/18 magnesium oxide 400 mg (241.3 mg 400 mg PO DAILY #90 tab 03/26/18 magnesium) tablet metformin 850 mg tablet 850 mg PO TID #270 tab-cap 03/26/18 terazosin 1 mg capsule 1 mg PO .QHS #90 cap 03/26/18 fluticasone 500 mcg-salmeterol 50 1 inh INHALATION BID #60 each 05/14/18 mcg/dose blistr powdr for inhalation metoprolol succinate ER 25 mg 25 mg PO DAILY #90 tab 05/14/18 tablet,extended release 24 hr rosuvastatin 10 mg tablet 10 mg PO DAILY #90 tab-cap 05/14/18 warfarin 5 mg tablet 10 mg PO as directed #180 tab-cap 05/14/18 albuterol sulfate 2.5 mg/3 mL 2.5 mg INHALATION Q4H PRN #30 vial 05/25/18 (0.083 %) solution for nebulization blood sugar diagnostic strips #180 strip 06/25/18 ferrous sulfate 325 mg (65 mg 325 mg PO BID #180 tab 06/25/18 iron) tablet furosemide 20 mg tablet 20 mg PO DAILY #90 tab 06/25/18 tiotropium 2.5 mcg-olodaterol 2.5 2 puff INHALATION DAILY #4 gm 06/25/18 mcg/actuation mist for inhalation lisinopril 20 mg tablet 20 mg PO DAILY #90 tab-cap 08/24/18 doxycycline hyclate 100 mg PO BID 7 Days #14 tab 10/01/18 prednisone See Rx Instructions .ROUTE 10/01/18 .COMPLEX #12 tab Allergies Allergy/AdvReac Type Severity Reaction Status Date / Time venom-honey bee Allergy Severe Swelling/Ed Verified 09/24/18 12:54 [bee venom (honey bee)] lida General Stated Complaint: SOB ODESSA: 2 Review of Systems Review of Systems All systems reviewed & are unremarkable except as noted in HPI and below Constitutional Reports as per HPI, Denies chills and Denies fever(s) Eyes Denies blurry vision ENT Denies dizziness, Denies sore throat and Denies throat swelling Cardiovascular Denies chest pain and Reports dyspnea Respiratory Reports cough and Reports dyspnea Gastrointestinal Denies abdominal pain, Denies diarrhea and Denies vomiting Genitourinary Denies hematuria and Denies dysuria Musculoskeletal Denies back pain and Denies numbness Integumentary/Breasts Denies lesions and Denies rash Neurologic Denies dizziness, Denies focal weakness and Denies numbness Allergic/Immunologic Denies throat swelling [facility] Medical History Influenza A (Acute ~06/27/18) Prostate cancer (Resolved) 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) Osteoarthritis of right hip (Resolved 03/12/17) Impotence of organic origin (Chronic) Hyponatremia (Chronic 04/13/17) Hyperlipidemia (Chronic) History of tobacco use (Acute) HCAP (healthcare-associated pneumonia) (Resolved 04/17/17) Essential hypertension (Chronic 07/26/12) Chronic obstructive lung disease (Chronic) Benign prostatic hyperplasia without lower urinary tract symptoms (Chronic) Anticoagulated on warfarin (Chronic) Discharge planning issues (Acute) Complicated UTI (urinary tract infection) (Resolved 10/25/15) CAD (coronary artery disease) (Chronic) HTN (hypertension) (Chronic) Hyperlipidemia (Chronic) BPH (benign prostatic hyperplasia) COPD (chronic obstructive pulmonary disease) Diabetes type 2, controlled Hypertension Prostate cancer Pulmonary embolus Surgical History H/O surgical procedure (Chronic) Arthroplasty Colonoscopy - IV Sedation (~2006) Extraction of cataract (~07/2012) Prostate Biopsy (11/13/14) Repair of inguinal hernia (~2002) Social History Smoking/Tobacco Use Status: Current every day Tobacco Type: cigarettes Second Hand Exposure: No Alcohol Intake: current Alcohol Intake frequency: holidays/special occasions only Details: History of heavy alcohol use Drug use: Never Substance use type: does not use Household members: spouse and children Do you feel safe in your relationship?: Yes Additional Social history: , lives on [place] in [place]. His youngest son lives with him as well as 2 grandchildren. 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 Exam Const General: cooperative and no acute distress Orientation: alert, awake and oriented x3 HENMT Head: normal to inspection Ears: hearing grossly normal bilaterally, external ears normal and TM's normal bilaterally General nose exam: external nose normal Face and sinus: normal facial exam Mouth: oral mucosae normal Teeth and gingiva: dentition normal Throat: posterior oropharynx normal Eyes General: appearance normal, both eyes and all related structures Eyelids: eyelids normal EOM: EOM intact bilaterally Neck Neck: normal visual inspection Lymphatic: no lymphadenopathy noted Chest Chest: normal inspection of the chest Resp Effort & Inspection: normal respiratory effort and able to speak in complete sentences Auscultation: no crackles, no rales, no rhonchi and wheezes scattered wheezes Cardio Rate: regular rate Rhythm: regular rhythm GI Inspection: normal to inspection Palpation: soft, not firm, no guarding, no hepatosplenomegaly, no masses and nontender Auscultation: normal bowel sounds Skin General skin exam: no rashes or lesions noted Neuro General: alert and awake Cognition: normal cognition Speech: speech normal Gait: normal gait Motor: muscle tone normal throughout Sensory Exam: no sensory deficits noted Extrem General: no edema Psych Appearance: grossly normal Mental Status: mental status grossly normal Speech and Movement: speech and movement normal Affect: normal affect Thought Process: normal Course Vital Signs Temperature 98.6 F 10/01/18 14:56 Pulse 72 10/01/18 14:56 Respiratory Rate 15 10/01/18 14:56 Blood Pressure 142/62 H 10/01/18 14:56 Pulse Oximetry 98 10/01/18 14:56 Temperature 98.6 F 10/01/18 14:56 Temperature Source Skin 10/01/18 14:56 Pulse 72 10/01/18 14:56 Respiratory Rate 15 10/01/18 14:56 Blood Pressure 142/62 H 10/01/18 14:56 Pulse Oximetry 98 10/01/18 14:56 Oxygen Delivery Method Room Air 10/01/18 14:56 Oxygen Flow Rate 0 10/01/18 14:56 Pain Level 0 10/01/18 14:56
[2018-10-01] MEDS: methylPREDNISolone SUCC 125 MG VIAL IVP (15:30)
[2018-10-01] MEDS: Albuterol/Ipratropium 3 ML UPD VIAL UPD (15:31)
[2018-10-01] MEDS: Normal Saline Flush 10 ML SYR IVP (15:31)
[2018-10-01 15:35] LABS: Abs Immature Grans 0.06 k/cumm (0.0-0.09); Absolute Basophil Count 0.02 k/cumm (0.0-0.2); Absolute Eosinophil Count 0.32 k/cumm (0.0-0.7); Absolute Lymphocyte Count 2.66 k/cumm (1.2-3.4); Absolute Monocyte Count 1.16 k/cumm (0.11-0.7); Absolute Neutrophil Count 7.51 k/cumm (1.2-6.7); Basophils % 0.2; Eosinophils % 2.7; HCT 35.4 % (40.0-50.0); HGB 11.1 g/dL (13.5-17.5); Immature Grans % 0.5; Lymphocytes % 22.7; Mean Corp. HGB Concentration 31.4 g/dL (32.0-36.0); Mean Corpuscular Volume 70.1 fL (80-95); Mean Platelet Volume 9.6 fL (8.0-11.0); Monocytes % 9.9; Platelet Count 328 x1000/uL (130-400); RBC 5.05 m/cumm (4.50-6.00); RBC Distribution Width 21.1 % (11.8-14.1); White Blood Cell Count 11.73 k/cumm (4.4-10.8)
[2018-10-01 15:54] LABS: ALT 19 U/L (12-78); AST 12 U/L (15-37); Albumin 3.4 g/dL (3.4-5.0); Alkaline Phosphatase 108 U/L (46-116); BUN 12 mg/dL (7-18); Bilirubin, Total 0.3 mg/dL (0.2-1.0); CREATININE 0.94 mg/dL (0.70-1.30); Calcium 8.3 mg/dL (8.5-10.1); Chloride 100 mmol/L (98-107); Glucose 122 mg/dL (70-100); Magnesium 1.6 mg/dL (1.8-2.4); NT-proBNP 328 pg/mL; Potassium 4.3 mmol/L (3.5-5.1); Sodium 136 mmol/L (136-145); Total Protein 6.8 g/dL (6.4-8.2)
[2018-10-01 15:56] LABS: Troponin I < 0.02 ng/mL (0.00-0.06)
[2018-10-01 16:02] LABS: Anisocytosis 2+; Diff Comment RBC Morph Reviewed
[2018-10-01 16:04] LABS: Microcytosis 2+
--- NOTE | 2018-10-01 16:19 | DI.RAD_ITS ---
SYMPTOM/DIAGNOSIS: COUGH, SOB PA AND LATERAL CHEST: Comparison is made with 06/27/18. Heart size is within normal limits. The patient is status post CABG. Pulmonary vasculature is within normal limits. The lungs are hyperinflated with flattened diaphragms suggesting underlying COPD. No focal infiltrates, effusions or pneumothoraces are identified. Age appropriate degenerative changes are seen in the spine. IMPRESSION: No acute pulmonary process.
--- NOTE | 2018-10-01 16:29 | DI.VRAD_ITS ---
EXAM: XR Chest, 2 Views EXAM DATE/TIME: 10/01/2018 4:20 PM CLINICAL HISTORY: 73 years old, male; Signs and symptoms; Other: Cough, SOB, R/O acute disease; Prior surgery; Surgery date: 6+ months TECHNIQUE: Imaging protocol: XR of the chest, 2 views. COMPARISON: CR XR CHEST 2V PA LATERAL 06/27/2018 8:53 AM FINDINGS: Lungs: Status post CABG. Mildly hyperexpanded lungs consistent with COPD. No pulmonary consolidation. Pleural space: No pleural effusion or pneumothorax. Heart/Mediastinum: Unremarkable. No cardiomegaly. Bones/joints: Unremarkable. IMPRESSION: No acute abnormality. Dictated and Authenticated by: Nando Shipman MD. Ordering:YONI Johntson MD
[2018-10-01 16:47] LABS: INR 3.2 (0.9-1.1); PTT Activated 41.1 sec (21.0-31.4); Prothrombin Time 32.6 sec (9.3-11.0)
== END 2018-10-01 17:52 | disposition home or self-care (01) ==
PROVIDERS: Emergency Provider Physician Assistant; PCP Family Medicine
DX: J44.1 Chronic obstructive pulmonary disease with (acute) exacerbation (principal); I45.10 Unspecified right bundle-branch block; I44.0 Atrioventricular block, first degree; I10 Essential (primary) hypertension; E11.9 Type 2 diabetes mellitus without complications; F17.210 Nicotine dependence, cigarettes, uncomplicated; Z79.01 Long term (current) use of anticoagulants; Z79.4 Long term (current) use of insulin
CPT/HCPCS: 36415; 80053; 93005; 94640; 96374; 99285; 71046; 83735; 83880; 84484; 85025; 85610; 85730; 93010; J2930; J7620

== ENCOUNTER 2018-10-05 12:32 | Outpatient (CLI) | payer MEDICARE, SELFPAY ==
[2018-10-05 13:04] LABS: Hemoglobin A1C 7.7 % (4.5-6.2)
[2018-10-05 13:09] LABS: Prothrombin Time 43.1 sec (9.3-11.0)
[2018-10-05 13:58] LABS: INR 4.2 (0.9-1.1)
== END 2018-10-05 12:52 ==
PROVIDERS: Family Medicine; PCP Family Medicine; Visit Provider Family Medicine
DX: E11.9 Type 2 diabetes mellitus without complications (principal); I26.99 Other pulmonary embolism without acute cor pulmonale; Z79.01 Long term (current) use of anticoagulants
CPT/HCPCS: 36415; 83036; 85610

== ENCOUNTER 2018-10-13 13:40 | Outpatient (CLI) | payer MEDICARE, SELFPAY ==
[2018-10-13 14:31] LABS: INR 1.1 (0.9-1.1)
== END 2018-10-13 14:00 ==
PROVIDERS: PCP Family Medicine; Visit Provider Family Medicine
DX: I48.91 Unspecified atrial fibrillation (principal); Z79.01 Long term (current) use of anticoagulants
CPT/HCPCS: 36415; 85610

== ENCOUNTER 2018-10-19 08:38 | Outpatient (CLI) | payer MEDICARE, SELFPAY ==
[2018-10-19 11:31] LABS: Abs Immature Grans 0.05 k/cumm (0.0-0.09); Absolute Basophil Count 0.05 k/cumm (0.0-0.2); Absolute Eosinophil Count 0.36 k/cumm (0.0-0.7); Absolute Lymphocyte Count 3.15 k/cumm (1.2-3.4); Absolute Monocyte Count 0.96 k/cumm (0.11-0.7); Absolute Neutrophil Count 5.98 k/cumm (1.2-6.7); Basophils % 0.5; Eosinophils % 3.4; HCT 39.8 % (40.0-50.0); HGB 12.8 g/dL (13.5-17.5); Immature Grans % 0.5; Lymphocytes % 29.9; Mean Corp. HGB Concentration 32.2 g/dL (32.0-36.0); Mean Corpuscular Hemoglobin 23.4 pg (27.0-33.0); Mean Corpuscular Volume 72.9 fL (80-95); Mean Platelet Volume 9.3 fL (8.0-11.0); Monocytes % 9.1; Neutrophils % 56.6; RBC 5.46 m/cumm (4.50-6.00); White Blood Cell Count 10.55 k/cumm (4.4-10.8)
[2018-10-19 11:53] LABS: Anisocytosis 2+; Diff Comment RBC Morph Reviewed; Microcytosis 2+; Ovalocytes 2+; Poikilocytes 1+; Polychromasia Present
[2018-10-19 11:58] LABS: Platelet Count 248 x1000/uL (130-400)
[2018-10-19 12:29] LABS: ALT 16 U/L (12-78); AST 12 U/L (15-37); Albumin 3.6 g/dL (3.4-5.0); Alkaline Phosphatase 103 U/L (46-116); Anion Gap 13.1 mmol/L (3-11); BUN 14 mg/dL (7-18); Bilirubin, Total 0.3 mg/dL (0.2-1.0); CO2 22.9 mmol/L (21.0-32.0); Calcium 8.3 mg/dL (8.5-10.1); Chloride 102 mmol/L (98-107); Glucose 233 mg/dL (70-100); Potassium 4.3 mmol/L (3.5-5.1); Sodium 138 mmol/L (136-145); Total Protein 6.9 g/dL (6.4-8.2)
[2018-10-20 09:12] LABS: PSA, Diagnostic <0.1 ng/ml (0-6.5)
[2018-10-21 16:37] LABS: Testosterone, Total 352 ng/dL (240-950)
== END 2018-10-19 08:58 ==
PROVIDERS: PCP Family Medicine; Visit Provider Nurse Practitioner
DX: C61 Malignant neoplasm of prostate (principal)
CPT/HCPCS: 36415; 80053; 84403; 84153; 85025

== ENCOUNTER 2018-10-25 13:40 | Outpatient (CLI) | payer MEDICARE, SELFPAY ==
[2018-10-25 14:17] LABS: INR 2.3 (0.9-1.1)
== END 2018-10-25 14:00 ==
PROVIDERS: PCP Family Medicine; Visit Provider Family Medicine
DX: I26.99 Other pulmonary embolism without acute cor pulmonale (principal); Z79.01 Long term (current) use of anticoagulants
CPT/HCPCS: 36415; 85610

== ENCOUNTER 2018-11-01 12:43 | Outpatient (CLI) | payer MEDICARE, SELFPAY ==
[2018-11-01 14:19] LABS: Prothrombin Time 19.8 sec (9.3-11.0)
== END 2018-11-01 13:03 ==
PROVIDERS: PCP Family Medicine; Visit Provider Family Medicine
DX: I26.99 Other pulmonary embolism without acute cor pulmonale (principal); Z79.01 Long term (current) use of anticoagulants
CPT/HCPCS: 36415; 85610

== ENCOUNTER 2019-02-07 12:49 | Outpatient (CLI) | payer MEDICARE, SELFPAY ==
[2019-02-07 14:09] LABS: INR 1.7 (0.9-1.1); Prothrombin Time 16.6 sec (9.3-11.0)
== END 2019-02-07 13:09 ==
PROVIDERS: Family Medicine; PCP Family Medicine; Visit Provider Family Medicine
DX: I26.99 Other pulmonary embolism without acute cor pulmonale (principal); Z79.01 Long term (current) use of anticoagulants
CPT/HCPCS: 36415; 85610

== ENCOUNTER 2019-03-18 00:08 | Observation (INO) | payer MEDICARE, SELFPAY ==
[2019-03-18] VITALS (44 sets, daily range): BP systolic 93–142; BP diastolic 47–76; PULSE 61–90; RESP 4–25; TEMP 36.6–37.5; O2SAT 91–98
--- NOTE | 2019-03-18 00:27 | ED.GENADUL_ITS ---
Discharge Plan Disposition Patient Disposition: [facility] INPATIENT Condition: Fair Discharge Details Chief Complaint: GenMedical Clinical Impression: Unsteady gait, Dizziness, nonspecific Primary Care Provider: Gianni Gannon ED Provider: Shaan Sorensen Home Meds and New Rx's Prescriptions: No Action furosemide 20 mg tablet 20 mg PO DAILY Qty: 90 RF: 3 Stiolto Respimat 2.5-2.5 mcg/actuation mist 2 puff Inhalation DAILY Qty: 4 RF: 11 metoprolol succinate 25 mg tablet extended release 24 hr 25 mg PO DAILY Qty: 90 RF: 3 rosuvastatin [Crestor] 10 mg tablet 10 mg PO DAILY Qty: 90 RF: 4 warfarin [Coumadin] 5 mg tablet 10 mg PO as directed Qty: 180 RF: 3 oxybutynin chloride 5 mg tablet extended release 24hr 5 mg PO DAILY Qty: 30 RF: 2 albuterol sulfate [ProAir HFA] 90 mcg/actuation HFA aerosol inhaler 1 - 2 puff Inhalation Q6H PRN Qty: 2 RF: 2 Lantus Solostar U-100 Insulin 100 unit/mL (3 mL) insulin pen 40 unit subcut HS Qty: 3 RF: 4 magnesium oxide 400 mg (241.3 mg magnesium) tablet 400 mg PO DAILY Qty: 90 RF: 3 metformin [Glucophage] 850 mg tablet 850 mg PO TID Qty: 270 RF: 4 pantoprazole 20 mg tablet,delayed release (DR/EC) 20 mg PO DAILY@0730 Qty: 90 RF: 3 potassium chloride [Klor-Con] 20 mEq packet 20 meq PO BID Qty: 180 RF: 3 terazosin 1 mg capsule 1 mg PO .QHS Qty: 90 RF: 3 (DME) Space Chamber Plus 1 EACH spacer 1 ea Miscellaneous PRN Qty: 1 RF: 0 (DME) lancets [FreeStyle Lancets] 1 EACH misc 1 ea Sub-Q BID Qty: 100 RF: 4 (DME) Aeroeclipse Reusable BAN 1 EACH misc 1 ea Miscellaneous DAILY Qty: 1 RF: 0 (DME) pen needle, diabetic 1 EACH needle 1 ea Sub-Q DIRECTED Qty: 300 RF: 4 albuterol sulfate 2.5 mg /3 mL (0.083 %) solution for nebulization 2.5 mg Inhalation Q4H PRN (Reason: bronchospasm) Qty: 30 RF: 5 ferrous sulfate 325 mg (65 mg iron) tablet 325 mg PO BID Qty: 180 RF: 3 (DME) FreeStyle Lite Strips strip 1 ea Miscellaneous BID Qty: 180 RF: 3 lisinopril 20 mg tablet 20 mg PO DAILY Qty: 90 RF: 3 fluticasone propion-salmeterol [Advair Diskus] 500-50 mcg/dose blister with device 1 inh Inhalation BID Qty: 60 RF: 11 nitroglycerin [Nitrostat] 0.4 MG tablet, sublingual 1 tab Sublingual DIRECTED RF: 0 Medical Decision Making Elderly male presenting with what appears to be complaints of posterior circulation symptoms. Currently states he is feeling better. I do not detect any focal deficits here. I would give him an NIH score of 0. He does have diffuse wheezing throughout but reports chronic respiratory problems and out of inhalers for couple of days. Is not his chief complaint but will address with a DuoNeb. His EKG is sinus rhythm. 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 We will establish IV and get laboratory studies. Will get a noncontrast head CT. If creatinine normal will pursue CTA of the brain and neck. We will give fluids. The other possibility is that this was more related to near syncope as opposed to vertigo. He sounds like he has a significant murmur. Reportedly followed by the [place] for cardiology. Will attempt to get records and an ECHO report. 03:30 - Patient's labs with normal hemoglobin. WBC elevated to 14. Initial sodium reported as 154 with chloride of 116. NS stopped and 1/2 NS started but repeat sodium sent. This came back at 140 so assume the first sodium was lab error. INR is therapeutic. Troponin is negative. CT head is negative. CXR is negative. Patient sent back for CTA of head/neck. This shows some stenosis of the carotids but otherwise okay. At this point need to decide if this was posterior circulation symptoms or near syncope symptoms. Difficult to tease out because patient not a great historian. He has by ECHO in 2018 described as moderate. Doubt he has progressed to critical but should get ECHO. Should get MRI to rule out posterior circulation stroke. Would like to admit for testing in morning. Will discuss with hospitalist. 4:10 - Patient accepted for observation admission to [facility]. He remains stable here in department. Medical Records Medical records reviewed: Yes I reviewed the patient's medical records. Lab Data Lab results reviewed: Yes I reviewed the patient's lab results. ECG Data Attestation: I personally reviewed and interpreted this ECG (s) as follows: Prior ECG tracings: available for review Interpretation: Normal sinus rhythm at 70. Incomplete right bundle branch block. Normal axis. Nonspecific ST changes. No significant change from previous. HPI General Mode of arrival: ambulatory . Date/Time Provider Initiated Documentation: 03/18/19 00:23 . Limitations to Documentation: no limitations . Information obtained by: patient and RN notes reviewed . HPI Narrative: Patient presents to ED tonight because of difficulty ambulating, feeling off balance, blurry vision. Patient is a poor historian. He tends to be a little tangential at times and not direct to the point. However, it would appear that about an hour and a half prior to coming to ED he had get up to get something to eat and drink. He had difficulty ambulating and felt very off balance. He does not describe true vertigo. He just had difficulty walking but did not feel weak on one side or the other. He did not have double vision. He did feel that his vision was blurry and not right. He denies having headache. He denies having chest pain or pressure. He has chronic shortness of breath and cough. It is a little bit worse because he has been out of his inhaler for a couple of days. He felt off mentally today with difficulty remembering things and just being a little bit slow. He has diabetes and does not check his sugar regularly. He is also on Coumadin but has not had his INR checked anytime in the recent past. He denies any black or bloody stool or active bleeding. He re ports having trouble even while he was here trying to walk in and almost falling over backwards while signing and out of access. Related Data Home Medications Medication Instructions Recorded Confirmed Space Chamber Plus #1 03/13/14 12/28/18 lancets [FreeStyle Lancets] #100 ea 04/03/14 12/28/18 Aeroeclipse Reusable BAN #1 ea 04/09/16 12/28/18 nitroglycerin [Nitrostat] 1 tab SUBLINGUAL DIRECTED 06/07/16 03/18/19 pen needle, diabetic #300 ea 04/15/17 12/28/18 metoprolol succinate 25 mg 25 mg PO DAILY #90 tab 05/14/18 03/18/19 tablet,extended release 24 hr rosuvastatin 10 mg tablet 10 mg PO DAILY #90 tab-cap 05/14/18 03/18/19 warfarin 5 mg tablet 10 mg PO as directed #180 tab-cap 05/14/18 03/18/19 albuterol sulfate 2.5 mg INHALATION Q4H PRN #30 vial 05/25/18 03/18/19 blood sugar diagnostic #180 strip 06/25/18 12/28/18 ferrous sulfate 325 mg (65 mg 325 mg PO BID #180 tab 06/25/18 03/18/19 iron) tablet furosemide 20 mg tablet 20 mg PO DAILY #90 tab 06/25/18 03/18/19 tiotropium 2.5 mcg-olodaterol 2.5 2 puff INHALATION DAILY #4 gm 06/25/18 03/18/19 mcg/actuation mist for inhalation lisinopril 20 mg tablet 20 mg PO DAILY #90 tab-cap 08/24/18 03/18/19 albuterol sulfate 90 mcg/actuation 1 - 2 puff INHALATION Q6H PRN #2 12/28/18 03/18/19 aerosol inhaler inhaler insulin glargine 100 unit/mL (3 40 unit SUBCUT HS #3 box 12/28/18 03/18/19 mL) subcutaneous pen magnesium oxide 400 mg (241.3 mg 400 mg PO DAILY #90 tab 12/28/18 03/18/19 magnesium) tablet metformin 850 mg tablet 850 mg PO TID #270 tab-cap 12/28/18 03/18/19 oxybutynin chloride 5 mg 5 mg PO DAILY #30 tab 12/28/18 03/18/19 tablet,extended release 24 hr pantoprazole 20 mg tablet,delayed 20 mg PO DAILY@0730 #90 tablet. 12/28/18 03/18/19 release potassium chloride 20 mEq oral 20 meq PO BID #180 packet 12/28/18 03/18/19 packet terazosin 1 mg capsule 1 mg PO .QHS #90 cap 12/28/18 03/18/19 fluticasone 500 mcg-salmeterol 50 1 inh INHALATION BID #60 each 12/31/18 03/18/19 mcg/dose blistr powdr for inhalation Previous Rx's Medication Instructions Recorded pen needle, diabetic #300 ea 04/15/17 metoprolol succinate 25 mg 25 mg PO DAILY #90 tab 05/14/18 tablet,extended release 24 hr rosuvastatin 10 mg tablet 10 mg PO DAILY #90 tab-cap 05/14/18 warfarin 5 mg tablet 10 mg PO as directed #180 tab-cap 05/14/18 albuterol sulfate 2.5 mg INHALATION Q4H PRN #30 vial 05/25/18 blood sugar diagnostic #180 strip 06/25/18 ferrous sulfate 325 mg (65 mg 325 mg PO BID #180 tab 06/25/18 iron) tablet furosemide 20 mg tablet 20 mg PO DAILY #90 tab 06/25/18 tiotropium 2.5 mcg-olodaterol 2.5 2 puff INHALATION DAILY #4 gm 06/25/18 mcg/actuation mist for inhalation lisinopril 20 mg tablet 20 mg PO DAILY #90 tab-cap 08/24/18 albuterol sulfate 90 mcg/actuation 1 - 2 puff INHALATION Q6H PRN #2 12/28/18 aerosol inhaler inhaler insulin glargine 100 unit/mL (3 40 unit SUBCUT HS #3 box 12/28/18 mL) subcutaneous pen magnesium oxide 400 mg (241.3 mg 400 mg PO DAILY #90 tab 12/28/18 magnesium) tablet metformin 850 mg tablet 850 mg PO TID #270 tab-cap 12/28/18 oxybutynin chloride 5 mg 5 mg PO DAILY #30 tab 12/28/18 tablet,extended release 24 hr pantoprazole 20 mg tablet,delayed 20 mg PO DAILY@0730 #90 tablet. 12/28/18 release potassium chloride 20 mEq oral 20 meq PO BID #180 packet 12/28/18 packet terazosin 1 mg capsule 1 mg PO .QHS #90 cap 12/28/18 fluticasone 500 mcg-salmeterol 50 1 inh INHALATION BID #60 each 12/31/18 mcg/dose blistr powdr for inhalation Allergies Allergy/AdvReac Type Severity Reaction Status Date / Time venom-honey bee Allergy Severe Swelling/Ed Verified 03/18/19 00:24 [bee venom (honey bee)] lida General Stated Complaint: GenMedical ODESSA: 3 Review of Systems Review of Systems Narrative: 04/11 Review of Systems completed and is negative except as stated above in HPI (Systems reviewed: Const, Eyes, ENT, Resp, CV, GI, , MSK, Skin, Neuro) [facility] Social History Smoking/Tobacco Use Status: Current every day Tobacco Type: cigarettes Smoking packs per day: 0.5 Smoking cigarettes per day: 10.0 Second Hand Exposure: No Alcohol Intake: current Alcohol Intake frequency: holidays/special occasions only Details: History of heavy alcohol use Drug use: Never Substance use type: does not use Household members: spouse and children Do you feel safe at home: Yes Do you feel safe in your relationship?: Yes Additional Social history: , lives on [place] farm in [place]. His youngest son lives with him as well as 2 grandchildren. 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 Exam Narrative Exam Narrative: Vitals: Afebrile with normal vital signs and room air pulse symmetry. Const: Obese elderly male in NAD. HEENT: NC/AT. Normal facial exam. Eyes: PERRL and EOMI with no nystagmus. VF in tact to confrontation. Neck: Supple. Trachea midline. Lungs: Normal respiratory effort. Lungs with diffuse wheeze throughout. Cor: RRR with high pitch type murmur. Good radial pulses. GI: Soft. NT/ND. No guarding or rebound. Neuro: A+O x 3. CN II - XII in tact. Normal speech, strength, sensation, FTN /HTS testing, cognition. NIH is 0. Ext: No C/C/E. No deformity or tenderness. Skin: Warm and dry without rash. Course Vital Signs Vital signs: Vital Signs Temperature 98.4 F 03/18/19 00:13 Pulse 88 03/18/19 00:13 Respiratory Rate 18 03/18/19 00:13 Blood Pressure 118/61 03/18/19 00:13 Pulse Oximetry 96 03/18/19 00:13 Temperature 98.4 F 03/18/19 00:13 Temperature Source Skin 03/18/19 00:13 Pulse 88 03/18/19 00:13 Respiratory Rate 18 09/20/19 00:13 Blood Pressure 118/61 03/18/19 00:13 Blood Pressure Position Sitting 03/18/19 00:13 Pulse Oximetry 96 03/18/19 00:13 Oxygen Delivery Method Room Air 03/18/19 00:13 Oxygen Flow Rate 0 03/18/19 00:13 Pain Level 0 03/18/19 00:13
[2019-03-18 01:21] LABS: Abs Immature Grans 0.07 k/cumm (0.0-0.09); Absolute Basophil Count 0.03 k/cumm (0.0-0.2); Absolute Eosinophil Count 0.24 k/cumm (0.0-0.7); Absolute Lymphocyte Count 0.94 k/cumm (1.2-3.4); Absolute Monocyte Count 1.36 k/cumm (0.11-0.7); Absolute Neutrophil Count 11.56 k/cumm (1.2-6.7); Basophils % 0.2; Eosinophils % 1.7; HCT 41.1 % (40.0-50.0); HGB 14.1 g/dL (13.5-17.5); Immature Grans % 0.5; Lymphocytes % 6.6; Mean Corp. HGB Concentration 34.3 g/dL (32.0-36.0); Mean Corpuscular Hemoglobin 27.8 pg (27.0-33.0); Mean Corpuscular Volume 81.1 fL (80-95); Mean Platelet Volume 9.4 fL (8.0-11.0); Monocytes % 9.6; Neutrophils % 81.4; Platelet Count 247 x1000/uL (130-400); RBC 5.07 m/cumm (4.50-6.00); RBC Distribution Width 15.7 % (11.8-14.1)
--- NOTE | 2019-03-18 01:28 | DI.RAD_ITS ---
EXAM: XR CHEST 2V PA LATERAL INDICATION: cough, SOB. COMPARISON: XR CHEST 2V PA LATERAL from 10/01/2018 TECHNIQUE: 2D digital imaging was performed. FINDINGS: The lungs are well expanded and free of infiltrate. There is no pleural effusion. The cardiovascular structures are intact with note made of status post CABG. IMPRESSION: No acute abnormality is identified.
[2019-03-18 01:34] LABS: INR 2.9 (0.9-1.1); Prothrombin Time 28.5 sec (9.3-11.0)
[2019-03-18 01:36] LABS: ALT 19 U/L (16-63); AST 12 U/L (15-37); Albumin 3.6 g/dL (3.4-5.0); Alkaline Phosphatase 92 U/L (46-116); Anion Gap 12.5 mmol/L (3-11); BUN 21 mg/dL (7-18); Bilirubin, Total 0.4 mg/dL (0.2-1.0); CO2 25.5 mmol/L (21.0-32.0); CREATININE 1.08 mg/dL (0.70-1.30); Calcium 8.5 mg/dL (8.5-10.1); Chloride 116 mmol/L (98-107); Glucose 88 mg/dL (70-100); Magnesium 1.6 mg/dL (1.8-2.4); Potassium 4.4 mmol/L (3.5-5.1); Sodium 154 mmol/L (136-145); Total Protein 6.7 g/dL (6.4-8.2); Troponin I < 0.05 ng/mL (0.00-0.06)
--- NOTE | 2019-03-18 01:40 | DI.CT_ITS ---
EXAM: CT HEAD - STROKE PROTOCOL CLINICAL HISTORY: trouble walking; off balance. TECHNIQUE: A noncontrast enhanced cranial CT was carried out according to the usual protocol. COMPARISON: HEAD WITHOUT CONTRAST from 07/24/2013 FINDINGS: Atrophic changes and evidence of small vessel disease are noted. There is no evidence of a mass. The re is no evidence of an intra or extra-axial hemorrhage. The ventricles are normal. There is no sku ll fracture. Note is made of scattered mucosal thickening in the paranasal sinuses. Mastoid air cells are unremarkable. The soft tissues are unremarkable. IMPRESSION: No acute abnormality is demonstrated.
--- NOTE | 2019-03-18 01:46 | DI.VRAD_ITS ---
PROCEDURE INFORMATION: Exam: CT Head Without Contrast Exam date and time: 03/18/2019 12:52 AM Clinical history: 74 years old, male; Walking, difficulty; Additional info: Trouble walking, off balance TECHNIQUE: Imaging protocol: Computed tomography of the head without contrast. Radiation optimization: All CT scans at this facility use at least one of these dose optimization techniques: automated exposure control; mA and/or kV adjustment per patient size (includes targeted exams where dose is matched to clinical indication); or iterative reconstruction. Other technique: STROKE PROTOCOL was implemented. COMPARISON: CT HEAD WITHOUT CONTRAST 07/24/2013 8:57 PM FINDINGS: Brain: Generalized atrophy and chronic white matter ischemic changes. There is no mass, acute hemorrhage or acute infarct. Ventricles: Normal. No ventriculomegaly. Bones/joints: Unremarkable. No acute fracture. Sinuses: There is scattered mucosal thickening in the paranasal sinuses. Mastoid air cells: Visualized mastoid air cells are well aerated. Soft tissues: Unremarkable. IMPRESSION: No acute abnormality. ASSESSMENT: ASPECTS (Nika Stroke Program Early CT Score) is 10. Dictated and Authenticated by: Nayeli Bernal MD. Ordering:KATHERINE Garduno MD
--- NOTE | 2019-03-18 01:47 | DI.VRAD_ITS ---
PROCEDURE INFORMATION: Exam: XR Chest, 2 Views Exam date and time: 03/18/2019 12:52 AM Clinical history: 74 years old, male; Cough and shortness of breath; Prior surgery; Surgery date: 6+ months; Additional info: Trouble walking, off balance TECHNIQUE: Imaging protocol: XR of the chest Views: 2 views. COMPARISON: CR XR CHEST 2V PA LATERAL 10/01/2018 4:07 PM FINDINGS: Lungs: Hyperinflation and interstitial changes consistent with COPD, without focal consolidation or mass. Pleural space: Unremarkable. No pleural effusion. No pneumothorax. Heart/Mediastinum: Unremarkable. No cardiomegaly. Bones/joints: There are sternal wires consistent with previous sternotomy incision. IMPRESSION: No acute abnormality. Dictated and Authenticated by: Nayeli Bernal MD. Ordering:KATHERINE Garduno MD
[2019-03-18] MEDS: Albuterol/Ipratropium 3 ML UPD VIAL UPD (01:49)
[2019-03-18] MEDS: SODIUM CHLORIDE 0.45% 1,000 ML 125 ML IV (02:02)
[2019-03-18 02:07] LABS: Sodium 140 mmol/L (136-145)
--- NOTE | 2019-03-18 03:04 | DI.CT_ITS ---
EXAM: CT BRAIN NECK CTA CLINICAL HISTORY: unsteady gait; off balance. TECHNIQUE: The examination was carried out according to the usual protocol with intravenous injectio n of 85 cc of Omnipaque 350. COMPARISON: No exams were available for comparison FINDINGS: Internal carotid artery is unremarkable with no significant stenosis. No evidence of an aneurysm. Ant erior, middle and posterior cerebral arteries are unremarkable. The right common carotid artery is unremarkable. There are atherosclerotic changes involving the hawa gin of the right internal carotid artery resulting in a 50 percent stenosis. The right external keane tid artery is unremarkable. The right vertebral artery is unremarkable. Left common carotid artery is unremarkable. There are atherosclerotic changes involving the origin o f the left internal carotid artery resulting in approximately 50 percent stenosis. External carotid artery is unremarkable. Left vertebral artery is unremarkable. Evaluation of the bony structures reveals no evidence of a fracture. No soft tissue abnormality is se en. IMPRESSION: Atherosclerotic changes involving the origins of the internal carotid artery bilaterally results in a pproximately 50 percent stenosis.
[2019-03-18] MEDS: Omnipaque 350 MG/ML 100 ML BTL IJ (03:11)
--- NOTE | 2019-03-18 03:19 | DI.VRAD_ITS ---
PROCEDURE INFORMATION: Exam: CT Angiography Head With Contrast Exam date and time: 03/18/2019 1:48 AM Clinical history: 74 years old, male; Other: Unsteady gait, off balance TECHNIQUE: Imaging protocol: Computed tomography angiography of the head with intravenous contrast. 3D rendering: MIP reconstructed images were created and reviewed. Radiation optimization: All CT scans at this facility use at least one of these dose optimization techniques: automated exposure control; mA and/or kV adjustment per patient size (includes targeted exams where dose is matched to clinical indication); or iterative reconstruction. Contrast material: [id number]; Contrast volume: 85 ml; Contrast route: IV LAC 18G; COMPARISON: CT HEAD - STROKE PROTOCOL 03/18/2019 1:34 AM FINDINGS: Right internal carotid artery: Intracranial segment is patent with no significant stenosis. No aneurysm. Right anterior cerebral artery: No occlusion or significant stenosis. No aneurysm. Right middle cerebral artery: No occlusion or significant stenosis. No aneurysm. Right posterior cerebral artery: No occlusion or significant stenosis. No aneurysm. Right vertebral artery: No occlusion or significant stenosis. No aneurysm. Left internal carotid artery: Intracranial segment is patent with no significant stenosis. No aneurysm. Left anterior cerebral artery: No occlusion or significant stenosis. No aneurysm. Left middle cerebral artery: No occlusion or significant stenosis. No aneurysm. Left posterior cerebral artery: No occlusion or significant stenosis. No aneurysm. Left vertebral artery: No occlusion or significant stenosis. No aneurysm. Basilar artery: No occlusion or significant stenosis. No aneurysm. IMPRESSION: No significant stenosis or aneurysm. PROCEDURE INFORMATION: Exam: CT Angiography Neck With Contrast Exam date and time: 03/18/2019 1:48 AM Clinical history: 74 years old, male; Other: Unsteady gait, off balance TECHNIQUE: Imaging protocol: Computed tomographic angiography images of the neck with intravenous contrast using CT angiography protocol. 3D rendering: MIP reconstructed images were created and reviewed. Radiation optimization: All CT scans at this facility use at least one of these dose optimization techniques: automated exposure control; mA and/or kV adjustment per patient size (includes targeted exams where dose is matched to clinical indication); or iterative reconstruction. COMPARISON: CT HEAD - STROKE PROTOCOL 03/18/2019 1:34 AM FINDINGS: VASCULATURE: Right common carotid artery: No stenosis. No dissection or occlusion. Right internal carotid artery: Atherosclerotic disease involving the origin of the right internal carotid artery resulting in approximately 50% stenosis. Right external carotid artery: No occlusion or stenosis of the origin. Right vertebral artery: No stenosis. No dissection or occlusion. Left common carotid artery: No stenosis. No dissection or occlusion. Left internal carotid artery: Atherosclerotic disease involving the origin of the left internal carotid artery resulting in approximately 50% stenosis. Left external carotid artery: No occlusion or stenosis of the origin. Left vertebral artery: No stenosis. No dissection or occlusion. Food debris within the midesophagus. NECK: Bones/joints: No acute fracture. Soft tissues: Normal. No significant soft tissue swelling. IMPRESSION: 1. 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 2. Food debris within the midesophagus. Correlate clinically for gastroesophageal reflux. COMMENT: Reference per NASCET criteria for degree of stenosis: Mild: less than 50% stenosis. Moderate: 50-69% stenosis. Severe: 70-94% stenosis. Near occlusion: 95-99% stenosis. Dictated and Authenticated by: José Saldaña MD. Ordering:KATHERINE Garduno MD
--- NOTE | 2019-03-18 06:53 | NUR.NOTE ---
Patient admitted to the med-surg unit with history of dizziness, weakness and sweating profusely while at home last pm. He was taken to the hospital by his sister subsequently admitted for further assessment. Patient is conscious alert and rational. Denies any chest pain, dizziness, or pain at the moment. State he has a productive coughing since he walked in the rain a couple days ago. He has been producing some rakan, yellowish thick mucus secretions. Lungs sounds clear and dim to the right, no wheezing heard presently but state he got updraft in the ER. Pt state he is known to have COPD but he has been out of his medications for a couple days now. He has a murmur which he state he is aware of. His vitals signs were done and charted. Telemetry was applied as per order. Bed alarms initiated for safety. Pt oriented to room.
--- NOTE | 2019-03-18 06:59 | HPE_ITS ---
Date of service: 03/18/19 Time of Service: 07:00 Assessment and Plan Assessment and plan (1) Gait instability: Status: Acute Assessment and plan: This has resolved and may have been related to his transient hypotension or may have been a posterior circulation TIA. He has no posterior circulation aneurysm nor stenosis however he has 50% bilateral narrowing of his internal carotids at their origins and has aortic stenosis. If he was dehydrated and had significant hypotension he could have compromised his circulation enough to cause symptoms of dizziness/lightheadedness which is what he is describing. He had no focal loss of motor function in his legs or arms and his vision was blurry but not a visual scotomata or loss of vision. I will complete his workup for potential TIA w/ checking carotid US and getting MRI of brain and I will withold his lasix for now. We will monitor him for arrythmias and check orthostatic bp and check his echo for progression of his A.S. (2) Dizziness: Status: Acute Assessment and plan: as above (3) Aortic stenosis: Status: Chronic Assessment and plan: check follow up echo which he was due for this month. He has follow up with Dr. Hein at the [facility] in [place], [place] on . Qualifiers: Cardiac valve disease etiology: etiology unspecified Qualified Code(s): I35.0 - Nonrheumatic aortic (valve) stenosis (4) Diabetes mellitus, type II, insulin dependent: Status: Acute Assessment and plan: hold metformin for now since he had the contrast for his CTA. Will cover with sliding scale insulin and his usual Lantus dose. (5) Essential hypertension: Status: Chronic Assessment and plan: hold lasix and give gently fluid hydration. otherwise continue his other bp meds (lisinopril) and monitor his orthostatics. (6) Chronic obstructive lung disease: Status: Chronic Assessment and plan: will change his Advair to Symbicort while he is hospitalized and use Combivent instead of his tiotropium/olodaterol. Qualifiers: COPD type: emphysema Emphysema type: unspecified Qualified Code(s): J43.9 - Emphysema, unspecified History of Present Illness History of Present Illness Chief Complaint: lightheadedness, gait instability Narrative: 74-year-old male with a past medical history significant for type 2 diabetes mellitus requiring insulin, essential hypertension, coronary artery disease, status post four-vessel bypass graft in 2016, history of pulmonary embolism and Leyden factor V mutation, COPD, obstructive sleep apnea for which he wears CPAP. Patient presented emergency department with acute e pisode of lightheadedness blurred vision and gait instability. Yesterday he had been working on his trailer and notes he was feeling fatigued and forgetful but had no chest pain and no unusual dyspnea. He has COPD and does get dyspneic with moderate physical activity. He had his dinner last night and gone to bed but got up around 11 pm to get a snack. While drinking a couple glasses of milk in his kitchen he felt very lightheaded and weak and felt like his legs can give out from under him. He had no headache and no paresthesias or paraparesis. He walked to the bedroom about 40 feet and noticed that he was having trouble walking straight and staggered into the bedroom. There is no vertigo symptoms. After he laid down he broke out in a cold sweat and told his he did not feel well. She checked his blood pressure and got a blood pressure of 105/50 and repeated and got another reading of 106/55. At one they decided bring him to the emergency department. While in the ER he was having trouble standing up at the admission desk and had to hold onto the counter. Work-up in the emergency room included routine labs including CBC, CMP, troponin as well as a chest x-ray and a noncontrast CT of the brain and a CT angiogram of the neck and the brain. EKG demonstrated normal sinus rhythm at a rate of 70 bpm with evidence of an old inferior infarct and a right bundle branch block which are not new and have been described on previous EKG from October 01, 2018. Laboratory studies include a CBC that showed elevated white count 14,200 with no anemia his hemoglobin 14 g hematocrit 41% normal platelet count 2 47,000. CMP on admission showed an elevated sodium of 154 but this was repeated and found to be 140 potassium is normal at 4.4 chloride was elevated 116 BUN was slightly elevated 21 with a creatinine 1.08. Magnesium is low at 1.6 LFTs were normal and troponin high was less than 0.05. INR was therapeutic at 2.9. CT of the brain without contrast showed no acute abnormality he has generalized atrophy and chronic white matter ischemic changes. Chest x-ray showed no acute abnormalities. He has hyperinflation and chronic interstitial changes consistent with COPD. CTA of the brain showed no significant stenosis or aneurysm and CTA of the neck showed 50% stenosis at the origins of the right and the left internal carotid arteries. He is now being admitted for evaluation of his transient blurred vision and lightheadedness and gait instability for possible posterior circulation TIA versus transient hypotension causing his dizziness. He has known aortic stenos is for which he sees a director of resource development at the [facility] yearly and is scheduled for March 28 to see his director of resource development Dr. Hein. We will get an echocardiogram was here to see if there is been progression of his aortic stenosis. Review of Systems Review of Systems ROS Unobtainable: All systems reviewed & are unremarkable except as noted in HPI and below Constitutional Constitutional: Reports as per HPI Cardiovascular Cardiovascular: Reports as per HPI Respiratory Respiratory: Reports as per HPI Neurologic Neurologic: Reports as per HPI [facility] Medical History Anticoagulated on warfarin (Chronic) PE; INR goal 2-3 Benign prostatic hyperplasia without lower urinary tract symptoms (Chronic) CAD (coronary artery disease) (Chronic) a. s/p CABG x 4 07/04/2015 b. 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 colonoscopy 05/2015 Prostate Biopsy (11/13/14) Repair of inguinal hernia (~2002) Social History (Updated 03/18/19 @ 08:34 by Nato Mccormack) Smoking/Tobacco Use Status: Current every day Tobacco Type: cigarettes Smoking packs per day: 0.5 Smoking cigarettes per day: 10.0 Second Hand Exposure: No Alcohol Intake: current Alcohol Intake frequency: holidays/special occasions only Details: History of heavy alcohol use Drug use: Never Substance use type: does not use Household members: spouse and children Do you feel safe at home: Yes Do you feel safe in your relationship?: Yes Additional Social history: , lives on [place] farm in [place]. His youngest son lives with him as well as 2 grandchildren. 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 Meds Home Medications and Allergies Home Medications Medication Instructions Recorded Confirmed Type Space Chamber Plus #1 03/13/14 12/28/18 History lancets [FreeStyle Lancets] #100 ea 04/03/14 12/28/18 History Aeroeclipse Reusable BAN #1 ea 04/09/16 12/28/18 History nitroglycerin [Nitrostat] 1 tab SUBLINGUAL DIRECTED 06/07/16 03/18/19 History pen needle, diabetic #300 ea 04/15/17 12/28/18 Rx metoprolol succinate 25 mg 25 mg PO DAILY #90 tab 05/14/18 03/18/19 Rx tablet,extended release 24 hr rosuvastatin 10 mg tablet 10 mg PO DAILY #90 tab-cap 05/14/18 03/18/19 Rx warfarin 5 mg tablet 10 mg PO as directed #180 tab-cap 05/14/18 03/18/19 Rx albuterol sulfate 2.5 mg INHALATION Q4H PRN #30 vial 05/25/18 03/18/19 Rx blood sugar diagnostic #180 strip 06/25/18 12/28/18 Rx ferrous sulfate 325 mg (65 mg 325 mg PO BID #180 tab 06/25/18 03/18/19 Rx iron) tablet furosemide 20 mg tablet 20 mg PO DAILY #90 tab 06/25/18 03/18/19 Rx tiotropium 2.5 mcg-olodaterol 2.5 2 puff INHALATION DAILY #4 gm 06/25/18 03/18/19 Rx mcg/actuation mist for inhalation lisinopril 20 mg tablet 20 mg PO DAILY #90 tab-cap 08/24/18 03/18/19 Rx albuterol sulfate 90 mcg/actuation 1 - 2 puff INHALATION Q6H PRN #2 12/28/18 03/18/19 Rx aerosol inhaler inhaler insulin glargine 100 unit/mL (3 40 unit SUBCUT HS #3 box 12/28/18 03/18/19 Rx mL) subcutaneous pen magnesium oxide 400 mg (241.3 mg 400 mg PO DAILY #90 tab 12/28/18 03/18/19 Rx magnesium) tablet metformin 850 mg tablet 850 mg PO TID #270 tab-cap 12/28/18 03/18/19 Rx oxybutynin chloride 5 mg 5 mg PO DAILY #30 tab 12/28/18 03/18/19 Rx tablet,extended release 24 hr pantoprazole 20 mg tablet,delayed 20 mg PO DAILY@0730 #90 tablet. 12/28/18 03/18/19 Rx release potassium chloride 20 mEq oral 20 meq PO BID #180 packet 12/28/18 03/18/19 Rx packet terazosin 1 mg capsule 1 mg PO .QHS #90 cap 12/28/18 03/18/19 Rx fluticasone 500 mcg-salmeterol 50 1 inh INHALATION BID #60 each 12/31/18 03/18/19 Rx mcg/dose blistr powdr for inhalation Allergies Allergy/AdvReac Type Severity Reaction Status Date / Time venom-honey bee Allergy Severe Swelling/Ed Verified 03/18/19 00:24 [bee venom (honey bee)] lida Exam Const General: cooperative, healthy appearing, comfortable and no acute distress Nutritional Appearance: overweight Orientation: alert, awake and oriented x3 HENMT Head: normal to inspection, no palpable skull fracture, normocephalic and atraumatic Mouth: oral mucosae normal, lip normal, tongue normal and oropharynx normal Teeth and gingiva: dentures Eyes General: appearance normal, both eyes and all related structures Visual Rivera: normal visual rivera by confrontation Alignment and Position: alignment normal Periorbital: periorbital findings normal Eyelids: eyelids normal Conjunctivae: conjunctivae normal Sclera: sclerae normal Cornea: corneas normal Pupils: PERRL, normal by confrontation and accommodation normal EOM: EOM intact bilaterally Direct ophthalmoscopy: normal light reflex Neck Neck: normal visual inspection, full ROM, no lymphadenopathy, trachea midline, supple and no JVD Thyroid: thyroid normal Carotids: delayed carotid upstroke and bruit bilaterally Lymphatic: no lymphadenopathy noted Chest Chest: normal inspection of the chest and normal palpation of entire chest wall Resp Effort & Inspection: normal respiratory effort and able to speak in complete sentences Auscultation: wheezes expiratory wheezes and scattered wheezes Percussion: percussion normal Cardio Jugular venous pressure: no JVD Palpation: normal PMI Rate: regular rate Rhythm: regular rhythm Heart Sounds: S1 normal, abnormal opening sounds fixed, split S2 and murmur systolic early, crescendo, III/, with radiation to the carotids and at the base Bruits: no abdominal aortic bruits and carotid bruit bilaterally Pulses: femoral pulses present bilaterally 3+, popliteal pulses present bilaterally 3+, posterior tibial pulses not present and dorsalis pedis pulses not present GI Inspection: normal to inspection and obesity Palpation: soft and no hepatosplenomegaly Percussion: normal to percussion Auscultation: normal bowel sounds Rectal Exam: deferred Back/Spine/Pelvis Cervical Spine: normal cervical lordosis Thoracic/Lumbar Spine: thoracic and lumbar spine normal to inspection Neuro General: alert, awake, oriented x3, moves all extremities, no focal motor deficits, CN's II-XI intact bilaterally and decrease sensation to monofilament Cranial Nerves: CN's II-XI intact bilaterally Cognition: normal cognition Speech: speech normal Motor: muscle tone normal throughout, strength 5/5 throughout, no pronator drift, no movement abnormalities noted and no fasciculations Sensory Exam: lower extremity bilateral light-touch abnormal (marked decrease in sensation over both feet) Plantar Reflexes: Downgoing: bilateral Coordination: [id number] test normal, [id number] test normal, rapid alternating movement UE normal and rapid alternating movement LE normal Pupils: Normal pupillary reactivity/response: bilateral Extrem General: full ROM, no joint enlargement, no clubbing, cyanosis or edema and amputation noted Other: left (distal left 2nd toe) Left lower extremity: foot Details: abnormal to inspection Details: other (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 Pleural space: Unrem arkable. No pleural effusion. No pneumothorax. Heart/Mediastinum: Unremarkable. No cardiomegaly. Bones/joint) Additional studies: COMPARISON: CT HEAD WITHOUT CONTRAST 07/24/2013 8:57 PM FINDINGS: Brain: Generalized atrophy and chronic white matter ischemic changes. There is no mass, acute hemorrhage or acute infarct. Ventricles: Normal. No ventriculomegaly. Bones/joints: Unremarkable. No acute fracture. Sinuses: There is scattered mucosal thickening in the paranasal sinuses. Mastoid air cells: Visualized mastoid air cells are well aerated. Soft tissues: Unremarkable. IMPRESSION: No acute abnormality. ASSESSMENT: ASPECTS ([place] Stroke Program Early CT Score) is 10. Dictated and Authenticated by: Nayeli Bernal MD. Imaging Studies: PROCEDURE INFORMATION: Exam: CT Angiography Head With Contrast Exam date and time: 03/18/2019 1:48 AM Clinical history: 74 years old, male; Other: Unsteady gait, off balance TECHNIQUE: Imaging protocol: Computed tomography angiography of the head with intravenous contrast. 3D rendering: MIP reconstructed images were created and reviewed. Radiation optimization: All CT scans at this facility use at least one of these dose optimization techniques: automated exposure control; mA and/or kV adjustment per patient size (includes targeted exams where dose is matched to clinical indication); or iterative reconstruction. Contrast material: [id number]; Contrast volume: 85 ml; Contrast route: IV LAC 18G; COMPARISON: CT HEAD - STROKE PROTOCOL 03/18/2019 1:34 AM FINDINGS: Right internal carotid artery: Intracranial segment is patent with no significant stenosis. No aneurysm. Right anterior cerebral artery: No occlusion or significant stenosis. No aneurysm. Right middle cerebral artery: No occlusion or significant stenosis. No aneurysm. Right posterior cerebral artery: No occlusion or significant stenosis. No aneurysm. Right vertebral artery: No occlusion or significant stenosis. No aneurysm. Left internal carotid artery: Intracranial segment is patent with no significant stenosis. No aneurysm. Left anterior cerebral artery: No occlusion or significant stenosis. No aneurysm. Left middle cerebral artery: No occlusion or significant stenosis. No aneurysm. Left posterior cerebral artery: No occlusion or significant stenosis. No aneurysm. Left vertebral artery: No occlusion or significant stenosis. No aneurysm. Basilar artery: No occlusion or significant stenosis. No aneurysm. IMPRESSION: No significant stenosis or aneurysm. COMPARISON: CT HEAD - STROKE PROTOCOL 03/18/2019 1:34 AM FINDINGS: VASCULATURE: Right common carotid artery: No stenosis. No dissection or occlusion. Right internal carotid artery: Atherosclerotic disease involving the origin of the right internal carotid artery resulting in approximately 50% stenosis. Right external carotid artery: No occlusion or stenosis of the origin. Right vertebral artery: No stenosis. No dissection or occlusion. Left common carotid artery: No stenosis. No dissection or occlusion. Left internal carotid artery: Atherosclerotic disease involving the origin of the left internal carotid artery resulting in approximately 50% stenosis. Left external carotid artery: No occlusion or stenosis of the origin. Left vertebral artery: No stenosis. No dissection or occlusion. Food debris within the midesophagus. NECK: Bones/joints: No acute fracture. Soft tissues: Normal. No significant soft tissue swelling. IMPRESSION: 1. 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 2. Food debris within the midesophagus. Correlate clinically for gastroesophageal reflux. COMMENT: Reference per NASCET criteria for degree of stenosis: Mild: less than 50% stenosis. Moderate: 50-69% stenosis. Severe: 70-94% stenosis. Near occlusion: 95-99% stenosis. Dictated and Authenticated by: José Saldaña MD. Labs Result diagrams: 03/18/19 01:10 03/18/19 01:50 Labs: Laboratory Results - last 24 hr 03/18/19 03/18/19 03/18/19 01:10 01:10 01:10 WBC 14.20 H RBC 5.07 Hgb 14.1 Hct 41.1 MCV 81.1 MCH 27.8 MCHC 34.3 RDW 15.7 H Plt Count 247 MPV 9.4 Immature Gran % 0.5 Neutrophils % 81.4 Lymphocytes % 6.6 Monocytes % 9.6 Eosinophils % 1.7 Basophils % 0.2 Absolute Neutrophils 11.56 H Absolute Lymphocytes 0.94 L Absolute Monocytes 1.36 H Absolute Eosinophils 0.24 Absolute Basophils 0.03 PT 28.5 H INR 2.9 H Sodium 154 H Potassium 4.4 Chloride 116 H Carbon Dioxide 25.5 Anion Gap 12.5 H BUN 21 H Creatinine 1.08 Estimated GFR/1.73 m2 >= 60.00 Glucose 88 Calcium 8.5 Magnesium 1.6 L Total Bilirubin 0.4 AST 12 L ALT 19 Alkaline Phosphatase 92 Troponin I < 0.05 Total Protein 6.7 Albumin 3.6 03/18/19 01:50 WBC RBC Hgb Hct MCV MCH MCHC RDW Plt Count MPV Immature Gran % Neutrophils % Lymphocytes % Monocytes % Eosinophils % Basophils % Absolute Neutrophils Absolute Lymphocytes Absolute Monocytes Absolute Eosinophils Absolute Basophils PT INR Sodium 140 D Potassium Chloride Carbon Dioxide Anion Gap BUN Creatinine Estimated GFR/1.73 m2 Glucose Calcium Magnesium Total Bilirubin AST ALT Alkaline Phosphatase Troponin I Total Protein Albumin Last Vital Signs Temp 36.8 C 03/18/19 05:36 Pulse 82 03/18/19 05:44 Resp 20 03/18/19 05:36 BP 142/73 H 03/18/19 05:36 Pulse Ox 95 03/18/19 05:36
[2019-03-18] MEDS: Lisinopril 20 MG TAB PO (07:54)
[2019-03-18] MEDS: Oxybutynin-CR 5 MG TABCR PO (07:54)
[2019-03-18] MEDS: Magnesium Oxide 400 MG TAB PO (07:54)
[2019-03-18] MEDS: Furosemide 20 MG TAB PO (07:55)
[2019-03-18] MEDS: Ferrous Sulfate 325 MG TAB PO (07:55)
[2019-03-18] MEDS: Pantoprazole 20 MG TABCR PO (07:55)
[2019-03-18] MEDS: Metoprolol CR 25 MG TABCR PO (07:55)
--- NOTE | 2019-03-18 08:04 | DI.US_ITS ---
EXAM: US CAROTID CLINICAL HISTORY: dizziness, carotid stenosis. TECHNIQUE: Ultrasound performed using standard protocol. COMPARISON: Cardiac from 05/07/2018 FINDINGS: [id number] PLAQUE FORMATION IS NOTED IN THE RIGHT CAROTID BULB AND TAKEOFF OF THE INTERNAL AND EXTERNAL CAROTID ARTERY. MODERATE PLAQUE IN THE LEFT CAROTID BULB PROXIMAL CAROTID ARTERY. PLAQUE IS ALSO NOTED IN THE LEFT PROXIMAL EXTERNAL CAROTID ARTERY. THERE IS BILATERAL ANTEGRADE FLOW IN THE VERTEBRALS. ELEVATED VELOCITIES ARE NOTED IN BOTH INTERNAL CAROTID ARTERIES AND THE FINDINGS WOULD B E CONSISTENT WITH MODERATE CAROTID STENOSIS. DATA REPOSITORY
[2019-03-18 08:31] LABS: Calculated LDL 52 mg/dL; Cholesterol 107 mg/dL (50-200); HDL Cholesterol 23 mg/dL (40-60); Triglyceride 163 mg/dL (30-150)
[2019-03-18] MEDS: Budesonide/Formoterol 160/4.5 6 GM 60 PUFF INH IH (09:42)
[2019-03-18] MEDS: Potassium Chloride 20 MEQ TABCR PO (09:53)
[2019-03-18] MEDS: MAGNESIUM SULFATE 2 GM/50 ML BAG IVPB (09:57)
[2019-03-18] MEDS: Normal Saline Flush 10 ML SYR IVP (11:45)
--- NOTE | 2019-03-18 12:20 | MERGE_ITS ---
*[facility]* * Cardiology* [address] [place] [address] Date of study: 03/18/2019 Transthoracic Echocardiography M-mode, complete 2D, complete spectral Doppler, and color Doppler *STUDY CONCLUSIONS* Summary: 1. Left ventricle: The cavity size was normal. Wall thickness was normal. Systolic function was normal. The estimated ejection fraction was 55-60%. Wall motion was normal; there were no regional wall motion abnormalities. 2. Right ventricle: The cavity size was normal. Systolic function was normal. 3. Left atrium: The atrium was mildly dilated. 4. Aortic valve: Trileaflet; severely thickened, moderately calcified leaflets. Valve mobility was restricted. Transvalvular velocity was increased. There was moderate to severe stenosis. There was mild regurgitation. Peak velocity (S): 4m/sec. VTI ratio of LVOT to aortic valve: 0.41. Valve area (VTI): 1.2cm^2. 5. Inferior vena cava: The vessel was patent and normal in size. The respirophasic diameter changes were in the normal range (greater than or equal to 50%), consistent with normal central venous pressure. *PATIENT PRESENTATION* Height: 180.3cm (71in ) S/D Pressure: 133 / 76 Weight: 91.6kg (201.6lb ) BSA: 2.16m^2 Test start time: 12:20 PM. Test stop time: 01:20 PM. PERFORMING [facility] CONSULTING Storm Mccormack ORDERING Storm Mccormack REFERRING Storm Mccormack [employer] SPECIALIST Nallely Sofy, RT (R)(CT), RD *PROCEDURE DATA* Procedure information: This study was interpreted by [facility]. Pertinent images and digital data are archived for permanent storage and are available for subsequent review. No prior study was available for comparison. Study status: Routine. Transthoracic echocardiography. M-mode, complete 2D, complete spectral Doppler, and color Doppler. A Transthoracic Echocardiogram was performed. Scanning was performed from the parasternal, apical, subcostal, and suprasternal notch acoustic windows. Images were obtained using an [id number] cardiac ultrasound machine. Image quality was adequate. Study completion: The patient tolerated the procedure well. There were no complications. History: PMH: Aortic stenosis dizziness. *CARDIAC ANATOMY* Left ventricle: The cavity size was normal. Wall thickness was normal. Systolic function was normal. The estimated ejection fraction was 55-60%. Wall motion was normal; there were no regional wall motion abnormalities. Findings consistent with diastolic dysfunction. There was no evidence of elevated ventricular filling pressure by Doppler parameters. Aortic valve: Trileaflet; severely thickened, moderately calcified leaflets. Valve mobility was restricted. Doppler: Transvalvular velocity was increased. There was moderate to severe stenosis. There was mild regurgitation. VTI ratio of LVOT to aortic valve: 0.41. Valve area (VTI): 1.2cm^2. Indexed valve area (VTI): 0.5cm^2/m^2. Peak velocity ratio of LVOT to aortic valve: 0.34. Valve area (Vmax): 1cm^2. Indexed valve area (Vmax): 0.5cm^2/m^2. Mean velocity ratio of LVOT to aortic valve: 0.37. Valve area (Vmean): 1.1cm^2. Indexed valve area (Vmean): 0.5cm^2/m^2. Mean gradient (S): 34.3mm Hg. Peak gradient (S): 65.5mm Hg. Aorta: Aortic root: The aortic root was normal in size. Ascending aorta: The ascending aorta was normal in size. Mitral valve: Mildly calcified annulus. Mildly thickened leaflets. Mobility was not restricted. Doppler: Transvalvular velocity was within the normal range. There was no evidence for stenosis. There was trivial regurgitation. Valve area by pressure half-time: 4.7cm^2. Indexed valve area by pressure half-time: 2.2cm^2/m^2. Peak gradient (D): 4.1mm Hg. Left atrium: The atrium was mildly dilated. Right ventricle: The cavity size was normal. Systolic function was normal. Pulmonic valve: The pulmonary valve appears to be grossly normal. Doppler: Transvalvular velocity was within the normal range. There was no evidence for stenosis. There was no significant regurgitation. Tricuspid valve: Structurally normal valve. Doppler: Transvalvular velocity was within the normal range. There was no evidence for stenosis. There was trivial regurgitation. Pulmonary artery: Poorly visualized. Systolic pressure could not be accurately estimated. Right atrium: The atrium was normal in size. Pericardium: There was no pericardial effusion. Systemic veins: Inferior vena cava: Well visualized. The vessel was patent and normal in size. The respirophasic diameter changes were in the normal range (greater than or equal to 50%), consistent with normal central venous pressure. Baseline ECG: Normal sinus rhythm. Measurements Left ventricle Value 05/07/2018 Reference LV ID, ED, PLAX 6.0 cm 5.2 3.5 - 6.0 LV ID, ES, PLAX 3.7 cm 3.4 2.1 - 4.0 LV PW thickness, ED, PLAX 1.0 cm 1.0 LV end-diastolic volume, 128 ml 149 1-p A2C LV end-diastolic volume, 106 ml 149 1-p A4C LV ejection fraction, 1-p 60 % 52 A4C LV e', lateral 0.101 m/sec 0.098 LV E/e', lateral 10 12 LV e', medial 0.09 m/sec 0.088 LV E/e', medial 11 14 LV e', average 0.096 m/sec 0.093 LV E/e', average 11 13 Ventricular septum Value 05/07/2018 Reference IVS thickness, ED, PLAX 0.9 cm 1.1 LVOT Value 05/07/2018 Reference LVOT ID, A-P 1.9 cm 1.8 LVOT area 2.9 cm^2 2.7 LVOT peak velocity, S 1.38 m/sec 1.35 LVOT mean velocity, S 1.02 m/sec 0.87 LVOT VTI, S 38.7 cm 33.0 LVOT peak gradient, S 7.6 mm Hg 7.3 LVOT mean gradient, S 4.5 mm Hg 3.7 Stroke volume (SV), LVOT 113 ml 88 DP Stroke index (SV/bsa), 52 ml/m^2 40 LVOT DP Aortic valve Value 05/07/2018 Reference Aortic valve peak 4 m/sec 3.5 velocity, S Aortic valve mean 2.7 m/sec 2.5 velocity, S Aortic valve VTI, S 95.0 cm 70.0 Aortic mean gradient, S 34.3 mm Hg 28.4 Aortic peak gradient, S 65.5 mm Hg 48 VTI ratio, LVOT/AV 0.41 0.47 Aortic valve area, VTI 1.2 cm^2 1.3 Velocity ratio, peak, 0.34 0.39 LVOT/AV Aortic valve area, peak 1 cm^2 1 velocity Velocity ratio, mean, 0.37 0.35 LVOT/AV Aortic valve area, mean 1.1 cm^2 0.9 velocity Aortic valve area/bsa, 0.5 cm^2/m^2 0.4 mean velocity Aorta Value 05/07/2018 Reference Aortic root ID, ED 3.1 cm 3.4 Ascending aorta ID, A-P, S 3.6 cm 2.9 Left atrium Value 05/07/2018 Reference LA ID, A-P, ES 3.6 cm 4.2 LA ID/bsa, A-P 1.7 cm/m^2 1.9 <=2.2 LA volume/bsa, ES, 1-p A4C 36 ml/m^2 LA volume, ES, 2-p 77 ml 92 LA volume/bsa, ES, 2-p 36 ml/m^2 41 LA/aortic root ratio 1.17 1.25 Mitral valve Value 05/07/2018 Reference Mitral E-wave peak 1.02 m/sec 1.21 velocity Mitral A-wave peak 0.56 m/sec 1.09 velocity Mitral deceleration time 161 ms 176 150 - 230 Mitral pressure half-time 47 ms 51 Mitral peak gradient, D 4.1 mm Hg 5.8 Mitral E/A ratio, peak 1.83 1.11 Mitral valve area, PHT, DP 4.7 cm^2 4.3 Pulmonary veins Value 05/07/2018 Reference Pulmonary vein peak 0.43 m/sec velocity, S Pulmonary vein peak 0.72 m/sec velocity, D Pulmonary vein velocity 0.59 ratio, peak, S/D Tricuspid valve Value 05/07/2018 Reference Tricuspid regurg peak 2.3 m/sec velocity Tricuspid peak RV-RA 22 mm Hg gradient Right atrium Value 05/07/2018 Reference RA area, ES, A4C 18.3 cm^2 20.3 8.3 - 19.5 Legend: (L) and (H) yue values outside specified reference range. I have personally reviewed the images and have reviewed and edited the reported findings. Electronically signed by Sofia Lincoln 03/18/2019 14:13
--- NOTE | 2019-03-18 12:27 | DI.MRI_ITS ---
EXAM: MR BRAIN WO CLINICAL HISTORY: dizziness, gait imbalance; r/o post. TIA. TECHNIQUE: Multiplanar multisequence MRI was performed. COMPARISON: No exams were available for comparison FINDINGS: Brain MRI was performed according to the usual protocol. There is moderate generalized cerebral atro phy and there are patchy areas of abnormal signal in periventricular white matter consistent with vanessa rovascular ischemic changes. No other significant signal abnormality identified in the brain. Diffu sushma-weighted imaging shows no evidence of infarction. Susceptibility weighted imaging shows no evid ence of hemorrhage. The orbital and temporal bone structures appear intact as does the pituitary. T here is normal flow void in the [id number] vasculature. IMPRESSION: Cerebral atrophy and microvascular ischemic changes. No evidence of acute process.
[2019-03-18] MEDS: Ipratropium/Albuterol 4 GM 120 PUFF INH IH ×2 (13:52→16:36)
--- NOTE | 2019-03-18 16:11 | DSE_ITS ---
Date of service: 03/18/19 Time of Service: 16:12 DS: Diagnosis Discharge Diagnosis (1) Gait instability: Status: Acute (2) Dizziness: Status: Acute (3) Aortic stenosis: Status: Chronic (4) Diabetes mellitus, type II, insulin dependent: Status: Acute (5) Essential hypertension: Status: Chronic (6) Chronic obstructive lung disease: Status: Chronic Discharge Plan Disposition Patient Disposition: HOME Condition: Stable Discharge Details Chief Complaint: GenMedical Clinical Impression: Unsteady gait, Dizziness, nonspecific Reason For Visit: UNSTEADY GAIT; LIGHTHEADEDNESS Admit Date/Time: 03/18/19 04:07 Admit Provider: Nato Mccormack Attending Provider: Nato Mccormack Primary Care Provider: Gianni Gannon ED Provider: Shaan Sorensen Hospital Course Hospital Course: Chief Complaint: Weakness, unsteady gait. Hospital Course: Very pleasant 74-year-old man with a past medical history significant for CAD with a prior CABG x4, FVL with a history of PE on anticoagulation, insulin- dependent diabetic, hypertension, GREGORY, and known aortic stenosis, admitted overnight last night with complaints of weakness and unsteady gait. For detailed review of the patient's admitting presentation please see history and physical performed by Dr. Storm Mccormack on 03/18. Briefly the patient presented to the ED with reported weakness, unsteady gait, and bouts of what he described as lightheadedness and forgetfulness. Following admission he also reported that he had essentially not eaten throughout the entirety of the day, and other than nursing a small soda had not drank any fluids either. At the time of his presentation he was found to be hypotensive. Following hospitalization he underwent testing with a chest x-ray that was interpreted as negative for acute abnormality, CT of the head that was negative for acute pathology, and a subsequent CTA of the head and neck that showed an approximate 50% stenosis bilaterally in his internal carotid arteries. Subsequent carotid ultrasound showed moderate bilateral stenosis. Given concern regarding a posterior circulation CVA an MRI of the brain was also obtained and negative for acute process. As the patient has a known history of aortic stenosis and echo was performed to ensure lack of progression to critical , a nd imaging showed evidence of moderate to severe stenosis with mild regurgitation. LVEF was intact, and RV function was determined to be normal as well. Following hydration Mr. Peña reports no further symptoms, and has been ambulating throughout the day without any difficulty. He is being discharged in stable condition and essentially back to his baseline. Of note, his exam this morning was consistent with some mild wheezing, and given his tobacco history he very likely has an acute exacerbation of his underlying COPD. A quick steroid taper is also being prescribed at time of discharge. Please also note that at time of admission Mr. Peña was noted to have a mild leukocytosis. Imaging without any evidence of infection, and the patient had no complaints of dysuria, and he remained afebrile through his hospitalization. Also important to note that hemoglobin was equally higher than baseline, including a value that was normal at 14 but previously at 11-12, and a BUN to creatinine ratio of approximately 20 indicating that the findings may have been related to dehydration. Home Meds and New Rx's Prescriptions: New prednisone 10 mg tablet 10 mg PO DAILY Qty: 18 RF: 0 Continued furosemide 20 mg tablet 20 mg PO DAILY Qty: 90 RF: 3 Stiolto Respimat 2.5-2.5 mcg/actuation mist 2 puff Inhalation DAILY Qty: 4 RF: 11 metoprolol succinate 25 mg tablet extended release 24 hr 25 mg PO DAILY Qty: 90 RF: 3 rosuvastatin [Crestor] 10 mg tablet 10 mg PO DAILY Qty: 90 RF: 4 warfarin [Coumadin] 5 mg tablet 10 mg PO as directed Qty: 180 RF: 3 oxybutynin chloride 5 mg tablet extended release 24hr 5 mg PO DAILY Qty: 30 RF: 2 albuterol sulfate [ProAir HFA] 90 mcg/actuation HFA aerosol inhaler 1 - 2 puff Inhalation Q6H PRN Qty: 2 RF: 2 Lantus Solostar U-100 Insulin 100 unit/mL (3 mL) insulin pen 40 unit subcut HS Qty: 3 RF: 4 magnesium oxide 400 mg (241.3 mg magnesium) tablet 400 mg PO DAILY Qty: 90 RF: 3 metformin [Glucophage] 850 mg tablet 850 mg PO TID Qty: 270 RF: 4 pantoprazole 20 mg tablet,delayed release (DR/EC) 20 mg PO DAILY@0730 Qty: 90 RF: 3 potassium chloride [Klor-Con] 20 mEq packet 20 meq PO BID Qty: 180 RF: 3 terazosin 1 mg capsule 1 mg PO .QHS Qty: 90 RF: 3 (DME) Space Chamber Plus 1 EACH spacer 1 ea Miscellaneous PRN Qty: 1 RF: 0 (DME) lancets [FreeStyle Lancets] 1 EACH misc 1 ea Sub-Q BID Qty: 100 RF: 4 (DME) Aeroeclipse Reusable BAN 1 EACH misc 1 ea Miscellaneous DAILY Qty: 1 RF: 0 (DME) pen needle, diabetic 1 EACH needle 1 ea Sub-Q DIRECTED Qty: 300 RF: 4 albuterol sulfate 2.5 mg /3 mL (0.083 %) solution for nebulization 2.5 mg Inhalation Q4H PRN (Reason: bronchospasm) Qty: 30 RF: 5 ferrous sulfate 325 mg (65 mg iron) tablet 325 mg PO BID Qty: 180 RF: 3 (DME) FreeStyle Lite Strips strip 1 ea Miscellaneous BID Qty: 180 RF: 3 lisinopril 20 mg tablet 20 mg PO DAILY Qty: 90 RF: 3 fluticasone propion-salmeterol [Advair Diskus] 500-50 mcg/dose blister with device 1 inh Inhalation BID Qty: 60 RF: 11 nitroglycerin [Nitrostat] 0.4 MG tablet, sublingual 1 tab Sublingual DIRECTED RF: 0 Discharge Instructions Stand Alone Forms: Nursing Discharge Form Referrals: Gianni Gannon [Primary Care Provider] - 03/22/19 10:00 am Activity:: No strenuous activity Equipment/Supplies:: No Equipment Needed Diet:: Carb Counting Discharge Orders Discharge Orders: Discharge Order (Routine); Ordered 03/18/19 Ordered By: Sincere Jaffe DS: Summary Status at Discharge Functional status at discharge: independent ambulation Overall status at discharge: patient is back to baseline Mental Status: mental status grossly normal Speech and Movement: speech and movement normal Mood: congruent mood Affect: normal affect Exam Narrative Exam Narrative: General: Patient appears comfortable, AAOX3, NAD Neck: Supple CV: Regular, nontachycardic, S1S2, No rubs, murmurs, or gallops. Pulmonary: Mild diffuse wheezing worse at the bases, no crackles or rhonchi. Abdomen: + Bowel Sounds, soft, nontender, nondistended Vascular: No lower extremity edema Neurologic: CN II-XII grossly intact. No focal deficits. Psych: Normal mood and affect. Psych Mental Status: mental status grossly normal Speech and Movement: speech and movement normal Mood: congruent mood Affect: normal affect DS: Data Vitals/I&O Vitals and I&O: Vital Signs Temperature 36.6 C 03/18/19 11:00 Temperature Source Tympanic 03/18/19 11:00 Pulse 77 03/18/19 16:04 Pulse Rhythm Regular 03/18/19 10:04 Pulse 73 03/18/19 04:40 Respiratory Rate 19 03/18/19 11:00 Respiratory Effort Non-Labored 03/18/19 10:04 Respiratory Depth Normal 03/18/19 10:04 Respiratory Pattern Normal 03/18/19 10:04 Blood Pressure 129/73 03/18/19 11:00 Blood Pressure Mean 71 03/18/19 04:31 Blood Pressure Position Sitting 03/18/19 00:13 Pulse Oximetry 96 03/18/19 11:00 Oxygen Delivery Method Room Air 03/18/19 11:00 Oxygen Flow Rate 0 03/18/19 11:00 Pain Level 0 03/18/19 11:00 Intake & Output 03/17/19 03/18/19 03/18/19 23:59 11:59 23:59 Intake Total 742.500 / 742.500 Output Total 800 / 800 Balance -57.500 / -57.500 Weight 92.079 kg Intake: IV 742.500 / 742.500 Output: Urine 800 / 800 Other: Urine Color Pale Yellow Urine Appearance Clear Urine Odor Normal Voiding Methods Urinal Data Completed and Pending Completed studies during hospitalization [Text1]: Exam(s) a US:US echocardiogram Date of study: 03/18/2019 Transthoracic Echocardiography M-mode, complete 2D, complete spectral Doppler, and color Doppler *STUDY CONCLUSIONS* Summary: 1. Left ventricle: The cavity size was normal. Wall thickness was normal. Systolic function was normal. The estimated ejection fraction was 55-60%. Wall motion was normal; there were no regional wall motion abnormalities. 2. Right ventricle: The cavity size was normal. Systolic function was normal. 3. Left atrium: The atrium was mildly dilated. 4. Aortic valve: Trileaflet; severely thickened, moderately calcified leaflets. Valve mobility was restricted. Transvalvular velocity was increased. There was moderate to severe stenosis. There was mild regurgitation. Peak velocity (S): 4m/sec. VTI ratio of LVOT to aortic valve: 0.41. Valve area (VTI): 1.2cm^2. 5. Inferior vena cava: The vessel was patent and normal in size. The respirophasic diameter changes were in the normal range (greater than or equal to 50%), consistent with normal central venous pressure. Exam(s) a MRI:MR brain wo EXAM: MR BRAIN WO CLINICAL HISTORY: dizziness, gait imbalance; r/o post. TIA. TECHNIQUE: Multiplanar multisequence MRI was performed. COMPARISON: No exams were available for comparison FINDINGS: Brain MRI was performed according to the usual protocol. There is moderate generalized cerebral atrophy and there are patchy areas of abnormal signal in periventricular white matter consistent with microvascular ischemic changes. No other significant signal abnormality identified in the brain. Diffusion- weighted imaging shows no evidence of infarction. Susceptibility weighted imaging shows no evidence of hemorrhage. The orbital and temporal bone structures appear intact as does the pituitary. There is normal flow void in the [id number] vasculature. IMPRESSION: Cerebral atrophy and microvascular ischemic changes. No evidence of acute process. --------- Exam(s) PROCEDURE INFORMATION: Exam: CT Angiography Head With Contrast Exam date and time: 03/18/2019 1:48 AM Clinical history: 74 years old, male; Other: Unsteady gait, off balance TECHNIQUE: Imaging protocol: Computed tomography angiography of the head with intravenous contrast. 3D rendering: MIP reconstructed images were created and reviewed. Radiation optimization: All CT scans at this facility use at least one of these dose optimization techniques: automated exposure control; mA and/or kV adjustment per patient size (includes targeted exams where dose is matched to clinical indication); or iterative reconstruction. Contrast material: [id number]; Contrast volume: 85 ml; Contrast route: IV LAC 18G; COMPARISON: CT HEAD - STROKE PROTOCOL 03/18/2019 1:34 AM FINDINGS: Right internal carotid artery: Intracranial segment is patent with no significant stenosis. No aneurysm. Right anterior cerebral artery: No occlusion or significant stenosis. No aneurysm. Right middle cerebral artery: No occlusion or significant stenosis. No aneurysm. Right posterior cerebral artery: No occlusion or significant stenosis. No aneurysm. Right vertebral artery: No occlusion or significant stenosis. No aneurysm. Left internal carotid artery: Intracranial segment is patent with no significant stenosis. No aneurysm. Left anterior cerebral artery: No occlusion or significant stenosis. No aneurysm. Left middle cerebral artery: No occlusion or significant stenosis. No aneurysm. Left posterior cerebral artery: No occlusion or significant stenosis. No aneurysm. Left vertebral artery: No occlusion or significant stenosis. No aneurysm. Basilar artery: No occlusion or significant stenosis. No aneurysm. IMPRESSION: No significant stenosis or aneurysm. PROCEDURE INFORMATION: Exam: CT Angiography Neck With Contrast Exam date and time: 03/18/2019 1:48 AM Clinical history: 74 years old, male; Other: Unsteady gait, off balance TECHNIQUE: Imaging protocol: Computed tomographic angiography images of the neck with intravenous contrast using CT angiography protocol. 3D rendering: MIP reconstructed images were created and reviewed. Radiation optimization: All CT scans at this facility use at least one of these dose optimization techniques: automated exposure control; mA and/or kV adjustment per patient size (includes targeted exams where dose is matched to clinical indication); or iterative reconstruction. COMPARISON: CT HEAD - STROKE PROTOCOL 03/18/2019 1:34 AM FINDINGS: VASCULATURE: Right common carotid artery: No stenosis. No dissection or occlusion. Right internal carotid artery: Atherosclerotic disease involving the origin of the right internal carotid artery resulting in approximately 50% stenosis. Right external carotid artery: No occlusion or stenosis of the origin. Right vertebral artery: No stenosis. No dissection or occlusion. Left common carotid artery: No stenosis. No dissection or occlusion. Left internal carotid artery: Atherosclerotic disease involving the origin of the left internal carotid artery resulting in approximately 50% stenosis. Left external carotid artery: No occlusion or stenosis of the origin. Left vertebral artery: No stenosis. No dissection or occlusion. Food debris within the midesophagus. NECK: Bones/joints: No acute fracture. Soft tissues: Normal. No significant soft tissue swelling. IMPRESSION: 1. 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 2. Food debris within the midesophagus. Correlate clinically for gastroesophageal reflux. COMMENT: Reference per NASCET criteria for degree of stenosis: Mild: less than 50% stenosis. Moderate: 50-69% stenosis. Severe: 70-94% stenosis. Near occlusion: 95-99% stenosis. --------- Exam(s) PROCEDURE INFORMATION: Exam: CT Head Without Contrast Exam date and time: 03/18/2019 12:52 AM Clinical history: 74 years old, male; Walking, difficulty; Additional info: Trouble walking, off balance TECHNIQUE: Imaging protocol: Computed tomography of the head without contrast. Radiation optimization: All CT scans at this facility use at least one of these dose optimization techniques: automated exposure control; mA and/or kV adjustment per patient size (includes targeted exams where dose is matched to clinical indication); or iterative reconstruction. Other technique: STROKE PROTOCOL was implemented. COMPARISON: CT HEAD WITHOUT CONTRAST 07/24/2013 8:57 PM FINDINGS: Brain: Generalized atrophy and chronic white matter ischemic changes. There is no mass, acute hemorrhage or acute infarct. Ventricles: Normal. No ventriculomegaly. Bones/joints: Unremarkable. No acute fracture. Sinuses: There is scattered mucosal thickening in the paranasal sinuses. Mastoid air cells: Visualized mastoid air cells are well aerated. Soft tissues: Unremarkable. IMPRESSION: No acute abnormality. -------- Exam(s) PROCEDURE INFORMATION: Exam: XR Chest, 2 Views Exam date and time: 03/18/2019 12:52 AM Clinical history: 74 years old, male; Cough and shortness of breath; Prior surgery; Surgery date: 6+ months; Additional info: Trouble walking, off balance TECHNIQUE: Imaging protocol: XR of the chest Views: 2 views. COMPARISON: CR XR CHEST 2V PA LATERAL 10/01/2018 4:07 PM FINDINGS: Lungs: Hyperinflation and interstitial changes consistent with COPD, without focal consolidation or mass. Pleural space: Unremarkable. No pleural effusion. No pneumothorax. Heart/Mediastinum: Unremarkable. No cardiomegaly. Bones/joints: There are sternal wires consistent with previous sternotomy incision. IMPRESSION: No acute abnormality. Labs on day of discharge: Labs from last 24 hours 03/18/19 03/18/19 03/18/19 01:50 01:10 01:10 WBC RBC Hgb Hct MCV MCH MCHC RDW Plt Count MPV Immature Gran % Neutrophils % Lymphocytes % Monocytes % Eosinophils % Basophils % Absolute Neutrophils Absolute Lymphocytes Absolute Monocytes Absolute Eosinophils Absolute Basophils PT INR Sodium 140 D Potassium Chloride Carbon Dioxide Anion Gap BUN Creatinine Estimated GFR/1.73 m2 Glucose Hemoglobin A1c 7.0 H Calcium Magnesium Total Bilirubin AST ALT Alkaline Phosphatase Troponin I Total Protein Albumin Triglycerides 163 H Total Cholesterol 107 LDL Cholesterol, Calc 52 HDL Cholesterol 23 L 03/18/19 03/18/19 03/18/19 01:10 01:10 01:10 WBC 14.20 H RBC 5.07 Hgb 14.1 Hct 41.1 MCV 81.1 MCH 27.8 MCHC 34.3 RDW 15.7 H Plt Count 247 MPV 9.4 Immature Gran % 0.5 Neutrophils % 81.4 Lymphocytes % 6.6 Monocytes % 9.6 Eosinophils % 1.7 Basophils % 0.2 Absolute Neutrophils 11.56 H Absolute Lymphocytes 0.94 L Absolute Monocytes 1.36 H Absolute Eosinophils 0.24 Absolute Basophils 0.03 PT 28.5 H INR 2.9 H Sodium 154 H Potassium 4.4 Chloride 116 H Carbon Dioxide 25.5 Anion Gap 12.5 H BUN 21 H Creatinine 1.08 Estimated GFR/1.73 m2 >= 60.00 Glucose 88 Hemoglobin A1c Calcium 8.5 Magnesium 1.6 L Total Bilirubin 0.4 AST 12 L ALT 19 Alkaline Phosphatase 92 Troponin I < 0.05 Total Protein 6.7 Albumin 3.6 Triglycerides Total Cholesterol LDL Cholesterol, Calc HDL Cholesterol [facility] Medical History Anticoagulated on warfarin (Chronic) PE; INR goal 2-3 Benign prostatic hyperplasia without lower urinary tract symptoms (Chronic) CAD (coronary artery disease) (Chronic) a. s/p CABG x 4 07/04/2015 b. 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 colonoscopy 05/2015 Prostate Biopsy (11/13/14) Repair of inguinal hernia (~2002) Social History Smoking/Tobacco Use Status: Current every day Tobacco Type: cigarettes Smoking packs per day: 0.5 Smoking cigarettes per day: 10.0 Second Hand Exposure: No Alcohol Intake: current Alcohol Intake frequency: holidays/special occasions only Details: History of heavy alcohol use Drug use: Never Substance use type: does not use Household members: spouse and children Do you feel safe at home: Yes Do you feel safe in your relationship?: Yes Additional Social history: , lives on a farm in [place]. His youngest son lives with him as well as 2 grandchildren. 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
[2019-03-18] MEDS: Insulin Aspart 300 UNITS/3 ML PEN SC ×2 (17:13)
--- NOTE | 2019-03-18 17:23 | INITIAL_ITS ---
- If Service Date Differs Date of service: 03/18/19 Time of Service: 17:23 Care Management Initial Assess REASON FOR HOSPITALIZATION:: Unsteady Gait, Dizziness PAST MEDICAL HISTORY/PAST SURGICAL HISTORY:: Medical History. Anticoagulated on warfarin (Chronic). PE; INR goal 2-3. Benign prostatic hyperplasia without lower urinary tract symptoms (Chronic). CAD (coronary artery disease) (Chronic). a. s/p CABG x 4 07/04/2015. b. postoperative CHF. Chronic obstructive lung disease (Chronic). PFTs: 09/13: mod-sev disease, no response to bronchodilators. oxygen requiring 08/20/16. Diabetes type 2, controlled. Essential hypertension (Chronic 07/26/12). History of tobacco use (Acute). quit in 2001 but now continues to smoke 5 a day-2013. Hyperlipidemia (Chronic). Hyponatremia (Chronic 04/13/17). Impotence of organic origin (Chronic). we wi ll check your testosterone. Osteoarthritis of right hip (Resolved 03/12/17). [place], [facility] [place] 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 chronic anticoagulation. Prostate cancer (Resolved). 07/09/16 [facility] [place]; S/P RADIATION AND [place]. Surgical History. Arthroplasty. [facility] [place]. Colonoscopy - IV Sedation (~2006). Extraction of cataract (~07/2012). B/L REPAIR. H/O surgical procedure (Chronic). a. CABG x 4, 07/04/2015. b. colonoscopy 05/2015. Prostate Biopsy (11/13/14). Repair of inguinal hernia (~2002) PREVIOUS FUNCTIONAL STATUS/SOCIAL/FAMILY SUPPORTS:: Rufino lives on a farm in [place] with his , Carol, his son and two of his grandchildren. 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 He is independent at baseline. CURRENT FUNCTIONAL STATUS:: Rufino was sitting up in his bed during the visit with CM. He was pleasant and engaging in conversation. He stated that he had been in testing all day and was happy to have had his lunch when he returned to his room. He reported that the provider had told him the plan was to go home after all of the testing was complete. CM asked if he had any trouble getting his medication, which he reported that he did not, and his had just picked up his inhalers today. CM also asked if he would like information on smoking cessation, which he declined. He stated that he would try to quit smoking on his own, but that he would reach out if he needed help. Rufino was agreeable to the plan to return home. ADVANCE DIRECTIVES:: On file. Carol, his , is his agent. Has patient been provided with information about the portal?: Yes Did the patient sign up for the portal?: No CODE STATUS:: Full Code INSURANCE COVERAGE / FINANCIAL ISSUES:: [facility] CURRENT HOME/COMMUNITY SERVICES/EQUIPMENT:: Rufino has previously received support from the [employer], but is not currently receiving services. PRIMARY CARE PHYSICIAN:: Gianni Gannon POTENTIAL DISCHARGE NEEDS:: Evaluations for further needs, follow up appointments. PATIENT/FAMILY EDUCATION NEEDS:: Review of community based supports, discharge plan, discussion of self care needs upon discharge, including 'Ask Me Three' ANTICIPATED BARRIERS TO DISCHARGE:: None identified at this time TRANSPORTATION:: Rufino will be driven home by his , Carol via private vehicle. PLAN:: Rufino will return home when medically cleared with no additional services. Follow up appointments for continued care. His , Carol will bring him home via private car.
--- NOTE | 2019-03-18 18:01 | PDOC.CMDIS ---
- If Service Date Differs Date of service: 03/18/19 Time of Service: 18:01 LACE Index Scoring Tool - Questions: Length of Stay (in days): 1 Acuity (Admit via E.D.?): Yes Comorbidities: Diabetes w/o Complication E.D. Visits: 2 - Answers: Total Score: 7 Risk of Readmission: Low Risk Care Management Discharge Reason for Hospitalization: Unsteady Gait, Dizziness Discharge Plan: Rufino will return home with no additional services. He will have follow up appointments for continued care. His , Carol, will bring him home via private vehicle. Patient/Family Education Needs: Review discharge instructions, discussion of self care needs including Ask Me Three
== END 2019-03-18 17:32 | disposition home or self-care (01) ==
LOC: ER 04:35 → MS 05:16
PROVIDERS: Admitting Provider Internal Medicine; Emergency Provider Emergency Medicine; PCP Family Medicine; Visit Provider Internal Medicine
DX: R26.81 Unsteadiness on feet (principal); R42 Dizziness and giddiness; H53.8 Other visual disturbances; I35.2 Nonrheumatic aortic (valve) stenosis with insufficiency; I95.9 Hypotension, unspecified; E11.9 Type 2 diabetes mellitus without complications; Z79.4 Long term (current) use of insulin; I10 Essential (primary) hypertension; J44.9 Chronic obstructive pulmonary disease, unspecified; Z86.718 Personal history of other venous thrombosis and embolism; Z79.01 Long term (current) use of anticoagulants
CPT/HCPCS: 36415; 70496; 70498; 80053; 80061; 93005; 93306; 94640; 96360; 96361; 99217; 99220; 99285; 70450; 70551; 71046; 83036; 83735; 84295; 84484; 85025; 85610; 93010; 93880; 99236; G0378; J3490; J7620

== ENCOUNTER 2019-04-29 12:32 | Outpatient (CLI) | payer MEDICARE, SELFPAY ==
[2019-04-29 13:02] LABS: Abs Immature Grans 0.06 k/cumm (0.0-0.09); Absolute Basophil Count 0.03 k/cumm (0.0-0.2); Absolute Lymphocyte Count 2.63 k/cumm (1.2-3.4); Absolute Monocyte Count 0.83 k/cumm (0.11-0.7); Absolute Neutrophil Count 4.41 k/cumm (1.2-6.7); Basophils % 0.4; Eosinophils % 2.5; HCT 42.1 % (40.0-50.0); HGB 14.1 g/dL (13.5-17.5); Immature Grans % 0.7; Lymphocytes % 32.2; Mean Corp. HGB Concentration 33.5 g/dL (32.0-36.0); Mean Corpuscular Volume 83.7 fL (80-95); Mean Platelet Volume 9.2 fL (8.0-11.0); Monocytes % 10.2; Platelet Count 281 x1000/uL (130-400); RBC 5.03 m/cumm (4.50-6.00); RBC Distribution Width 15.3 % (11.8-14.1); White Blood Cell Count 8.16 k/cumm (4.4-10.8)
[2019-04-29 13:17] LABS: ALT 20 U/L (16-63); AST 9 U/L (15-37); Albumin 3.5 g/dL (3.4-5.0); Alkaline Phosphatase 95 U/L (46-116); Anion Gap 7.1 mmol/L (3-11); BUN 10 mg/dL (7-18); Bilirubin, Total 0.2 mg/dL (0.2-1.0); CO2 26.9 mmol/L (21.0-32.0); CREATININE 0.87 mg/dL (0.70-1.30); Calcium 8.2 mg/dL (8.5-10.1); Chloride 107 mmol/L (98-107); Glucose 169 mg/dL (70-100); Potassium 4.5 mmol/L (3.5-5.1); Sodium 141 mmol/L (136-145); Total Protein 6.1 g/dL (6.4-8.2)
[2019-04-29 13:43] LABS: INR 1.7 (0.9-1.1); Prothrombin Time 16.6 sec (9.3-11.0)
[2019-05-02 11:09] LABS: PSA, Diagnostic <0.1 ng/ml (0-6.5)
== END 2019-04-29 12:52 ==
PROVIDERS: Family Medicine; PCP Family Medicine; Visit Provider Nurse Practitioner Family
DX: C61 Malignant neoplasm of prostate (principal); I26.99 Other pulmonary embolism without acute cor pulmonale; Z79.01 Long term (current) use of anticoagulants
CPT/HCPCS: 36415; 80053; 84153; 85025; 85610

== ENCOUNTER 2019-05-25 14:03 | Outpatient (CLI) | payer MEDICARE, SELFPAY ==
[2019-05-25 14:46] LABS: INR 2.3 (0.9-1.1); Prothrombin Time 22.9 sec (9.3-11.0)
== END 2019-05-25 14:23 ==
PROVIDERS: PCP Family Medicine; Visit Provider Family Medicine
DX: I26.99 Other pulmonary embolism without acute cor pulmonale (principal); Z79.01 Long term (current) use of anticoagulants
CPT/HCPCS: 36415; 85610

== ENCOUNTER 2019-07-06 11:11 | Outpatient (CLI) | payer MEDICARE, SELFPAY ==
[2019-07-06 13:07] LABS: Hemoglobin A1C 6.8 % (3.8-5.6)
[2019-07-06 13:14] LABS: Prothrombin Time 20.1 sec (9.3-11.0)
== END 2019-07-06 11:31 ==
PROVIDERS: Family Medicine; PCP Family Medicine; Visit Provider Family Medicine
DX: R73.9 Hyperglycemia, unspecified (principal); I26.99 Other pulmonary embolism without acute cor pulmonale; Z79.01 Long term (current) use of anticoagulants
CPT/HCPCS: 36415; 83036; 85610

== ENCOUNTER 2019-08-26 13:40 | Outpatient (CLI) | payer MEDICARE, SELFPAY ==
[2019-08-26 14:19] LABS: INR 1.4 (0.9-1.1); Prothrombin Time 13.8 sec (9.3-11.0)
== END 2019-08-26 14:00 ==
PROVIDERS: PCP Family Medicine; Visit Provider Family Medicine
DX: I26.99 Other pulmonary embolism without acute cor pulmonale (principal); Z79.01 Long term (current) use of anticoagulants
CPT/HCPCS: 36415; 85610

== ENCOUNTER 2019-11-18 04:07 | Outpatient (CLI) | payer MEDICARE, SELFPAY ==
[2019-11-18 10:22] LABS: INR 2.7 (0.9-1.1); Prothrombin Time 26.2 sec (9.3-11.0)
[2019-11-22 14:47] LABS: PSA, Ultrasensitive 0.06 ng/mL (<= 6.5)
[2019-11-24 07:51] LABS: Testosterone, Total 370 ng/dL (240-950)
== END 2019-11-18 04:27 ==
PROVIDERS: Nurse Practitioner Family; PCP Family Medicine; Visit Provider Internal Medicine Hematology & Oncology
DX: C61 Malignant neoplasm of prostate (principal); I25.10 Atherosclerotic heart disease of native coronary artery without angina pectoris; Z79.01 Long term (current) use of anticoagulants
CPT/HCPCS: 36415; 84153; 84403; 85610

== ENCOUNTER 2020-04-13 10:53 | Outpatient (CLI) | payer MEDICARE, SELFPAY ==
[2020-04-13 12:48] LABS: Hemoglobin A1C 7.1 % (<5.7); INR 3.4 (0.9-1.1); Prothrombin Time 33.5 sec (9.3-11.0)
== END 2020-04-13 11:13 ==
PROVIDERS: PCP Family Medicine; Visit Provider Family Medicine
DX: E11.65 Type 2 diabetes mellitus with hyperglycemia (principal); I26.99 Other pulmonary embolism without acute cor pulmonale; Z79.01 Long term (current) use of anticoagulants
CPT/HCPCS: 36415; 83036; 85610

== ENCOUNTER 2020-05-03 01:15 | Outpatient (CLI) | payer MEDICARE, SELFPAY ==
[2020-05-03 12:38] LABS: INR 2.1 (0.9-1.1); Prothrombin Time 20.3 sec (9.3-11.0)
== END 2020-05-03 01:35 ==
PROVIDERS: PCP Family Medicine; Visit Provider Family Medicine
DX: I26.99 Other pulmonary embolism without acute cor pulmonale (principal); Z79.01 Long term (current) use of anticoagulants
CPT/HCPCS: 36415; 85610

== ENCOUNTER 2020-05-15 01:51 | Outpatient (CLI) | payer MEDICARE, SELFPAY ==
[2020-05-15 11:59] LABS: INR 1.3 (0.9-1.1); Prothrombin Time 13.4 sec (9.3-11.0)
[2020-05-16 16:21] LABS: PSA, Ultrasensitive 0.05 ng/mL (<= 6.5)
== END 2020-05-15 02:11 ==
PROVIDERS: Family Medicine; PCP Family Medicine; Visit Provider Nurse Practitioner Family
DX: C61 Malignant neoplasm of prostate (principal); I26.99 Other pulmonary embolism without acute cor pulmonale; Z79.01 Long term (current) use of anticoagulants
CPT/HCPCS: 36415; 84153; 85610

== ENCOUNTER 2020-05-22 04:05 | Outpatient (CLI) | payer MEDICARE, SELFPAY ==
[2020-05-22 10:21] LABS: INR 3.5 (0.9-1.1); Prothrombin Time 34.1 sec (9.3-11.0)
== END 2020-05-22 04:25 ==
PROVIDERS: PCP Family Medicine; Visit Provider Family Medicine
DX: I26.99 Other pulmonary embolism without acute cor pulmonale (principal); Z79.01 Long term (current) use of anticoagulants
CPT/HCPCS: 36415; 85610

== ENCOUNTER 2020-06-05 02:33 | Outpatient (CLI) | payer MEDICARE, SELFPAY ==
--- NOTE | 2020-06-05 08:15 | DI.CTLCSR_ITS ---
EXAM: CT CHEST LUNG CANCER SCREEN CLINICAL HISTORY: Screening for lung cancer,CURRENT SMOKER, F17.210 TECHNIQUE: CT examination of the chest was performed utilizing low-dose lung cancer screening protoc ol. COMPARISON: CT CT CHEST LUNG CANCER SCREEN from 09/23/2018 FINDINGS: Images obtained through the upper abdomen show unremarkable appearance of visualized portions of the liver, spleen, pancreas, adrenals, and kidneys with an incidental cyst There is no mediastinal or hilar adenopathy. Mediastinal vascular structures appear intact by noncon trast criteria. Tracheobronchial tree appears intact. No pleural effusion or pleural-based mass. The lungs are predominantly clear except for mild emphysematous changes.. There are mixed linear and nodular radiodensities in the posterior aspect of the right lung apex, the largest an irregular 10 m illimeter in diameter nodule. These nodules appear unchanged in comparison with prior examination of September 23, 2018. IMPRESSION: Stable right apical pulmonary nodules. Lung RADS Cat 2 - Benign Appearance / Behavior: Nodules with a very low likelihood of becoming a clin ically active cancer due to size or lack of growth Continue annual screening with LD CT in 12 months. RADIATION DOSE DELIVERED: LINK-TO-SR Total DLP 99.7mGy.cm Total DLP
== END 2020-06-05 02:53 ==
PROVIDERS: PCP Family Medicine; Visit Provider Family Medicine
DX: F17.210 Nicotine dependence, cigarettes, uncomplicated (principal); R91.8 Other nonspecific abnormal finding of lung field
CPT/HCPCS: G0297

== ENCOUNTER 2020-08-03 10:32 | Outpatient (CLI) | payer MEDICARE, SELFPAY ==
[2020-08-03 12:52] LABS: Prothrombin Time 19.9 sec (9.3-11.0)
== END 2020-08-03 10:33 | disposition home or self-care (01) ==
LOC: LOS 10:33
PROVIDERS: PCP Family Medicine; Visit Provider Family Medicine
DX: I25.10 Atherosclerotic heart disease of native coronary artery without angina pectoris (principal); Z79.01 Long term (current) use of anticoagulants
CPT/HCPCS: 36415; 85610

== ENCOUNTER 2021-05-29 02:45 | Outpatient (CLI) | payer MEDICARE, SELFPAY ==
[2021-05-29 10:45] LABS: INR 3.9 (0.9-1.1); Prothrombin Time 37.8 sec (9.3-11.0)
[2021-05-29 10:50] LABS: Hemoglobin A1C 6.9 % (<5.7)
[2021-05-29 11:45] LABS: COMMENT (LAB VIEW ONLY) 57.06 mg/dL; Microalb ug/mg Crea 74.1 ug/mg Cr
[2021-05-29 11:46] LABS: ALT 24 U/L (16-63); AST 15 U/L (15-37); Albumin 3.8 g/dL (3.4-5.0); Alkaline Phosphatase 96 U/L (46-116); Anion Gap 10.1 mmol/L (3-11); BUN 15 mg/dL (7-18); Bilirubin, Total 0.3 mg/dL (0.2-1.0); CO2 26.9 mmol/L (21.0-32.0); Calcium 8.6 mg/dL (8.5-10.1); Calculated LDL 68 mg/dL (<100); Chloride 102 mmol/L (98-107); Cholesterol 135 mg/dL (<200); Glucose 182 mg/dL (74-106); HDL Cholesterol 30 mg/dL (40-60); Potassium 4.5 mmol/L (3.5-5.1); Sodium 139 mmol/L (136-145); Total Protein 6.5 g/dL (6.4-8.2); Triglyceride 187 mg/dL (<150)
[2021-05-30 14:49] LABS: PSA, Ultrasensitive 0.05 ng/mL (<= 6.5)
== END 2021-05-29 02:46 | disposition home or self-care (01) ==
LOC: LBO 02:45
PROVIDERS: Family Medicine; Nurse Practitioner Family; PCP Family Medicine; Visit Provider Family Medicine
DX: Z79.01 Long term (current) use of anticoagulants; C61 Malignant neoplasm of prostate; I10 Essential (primary) hypertension; E11.9 Type 2 diabetes mellitus without complications
CPT/HCPCS: 36415; 80053; 80061; 84153; 82043; 82570; 83036; 85610

== ENCOUNTER 2021-06-05 12:25 | Outpatient (CLI) | payer MEDICARE, SELFPAY ==
[2021-06-05 12:23] LABS: INR 1.4 (0.9-1.1); Prothrombin Time 14.2 sec (9.3-11.0)
[2021-06-05 13:47] LABS: HCT 46.5 % (40.0-50.0); HGB 15.3 g/dL (13.5-17.5); MCH 27.8 pg (27.0-33.0); MCHC 32.9 % (32.0-36.0); MCV 84.4 fL (80-95); MPV 10.2 fL (8.0-11.0); Platelet Count 245 10^3/uL (130-400); RBC 5.51 10^6/uL (4.36-5.78); RDW 14.6 % (11.8-14.1); RDW-SD 44.8 fL; WBC 11.17 10^3/uL (4.4-10.8)
[2021-06-05 23:28] LABS: PSA, Screening <0.1 ng/mL (0.0-6.5)
== END 2021-06-05 12:26 | disposition home or self-care (01) ==
LOC: LBO 12:29
PROVIDERS: Family Medicine; PCP Family Medicine; Visit Provider Family Medicine
DX: R53.83 Other fatigue; Z79.01 Long term (current) use of anticoagulants; Z12.5 Encounter for screening for malignant neoplasm of prostate
CPT/HCPCS: 36415; 84153; 85027; 85610

== ENCOUNTER 2021-06-17 03:19 | Outpatient (CLI) | payer MEDICARE, SELFPAY ==
[2021-06-17 13:20] LABS: Prothrombin Time 19.3 sec (9.3-11.0)
[2021-06-17 13:25] LABS: INR 1.9 (0.9-1.1)
== END 2021-06-17 03:20 | disposition home or self-care (01) ==
LOC: LBO 03:19
PROVIDERS: PCP Family Medicine; Visit Provider Family Medicine
DX: I26.99 Other pulmonary embolism without acute cor pulmonale (principal); Z79.01 Long term (current) use of anticoagulants
CPT/HCPCS: 36415; 85610

== ENCOUNTER 2021-07-25 03:41 | Outpatient (CLI) | payer MEDICARE, SELFPAY ==
[2021-07-25 12:01] LABS: INR 3.7 (0.9-1.1); Prothrombin Time 35.7 sec (9.3-11.0)
== END 2021-07-25 03:42 | disposition home or self-care (01) ==
PROVIDERS: PCP Family Medicine; Visit Provider Family Medicine
DX: Z79.01 Long term (current) use of anticoagulants (principal); I26.99 Other pulmonary embolism without acute cor pulmonale
CPT/HCPCS: 36415; 85610

== ENCOUNTER 2021-08-15 02:39 | Outpatient (CLI) | payer MEDICARE, SELFPAY ==
[2021-08-15 14:25] LABS: Prothrombin Time 19.4 sec (9.3-11.0)
== END 2021-08-15 02:40 | disposition home or self-care (01) ==
LOC: LBO 02:39
PROVIDERS: PCP Family Medicine; Visit Provider Family Medicine
DX: Z79.01 Long term (current) use of anticoagulants (principal); I26.99 Other pulmonary embolism without acute cor pulmonale
CPT/HCPCS: 36415; 85610

== ENCOUNTER 2021-12-04 03:49 | Outpatient (CLI) | payer MEDICARE, SELFPAY ==
[2021-12-04 14:46] LABS: Abs Immature Grans 0.04 10^3/uL (0.0-0.06); Absolute Basophil Count 0.05 10^3/uL (0.0-0.2); Absolute Eosinophil Count 0.28 10^3/uL (0.0-0.7); Absolute Lymphocyte Count 3.18 10^3/uL (1.2-3.4); Absolute Monocyte Count 0.83 10^3/uL (0.1-0.8); Absolute Neutrophil Count 6.36 10^3/uL (1.2-6.7); Basophils % 0.5; Eosinophils % 2.6; HCT 43.2 % (40.0-50.0); HGB 14.9 g/dL (13.5-17.5); Immature Grans % 0.4; Lymphocytes % 29.6; MCH 28.4 pg (27.0-33.0); MCHC 34.5 % (32.0-36.0); MCV 82 fL (80-95); MPV 9.1 fL (8.0-11.0); Monocytes % 7.7; Neutrophils % 59.2; Platelet Count 269 10^3/uL (130-400); RBC 5.25 10^6/uL (4.36-5.78); RDW 14.4 % (11.8-14.1); RDW-SD 42.9 fL; WBC 10.74 10^3/uL (4.4-10.8)
[2021-12-04 15:29] LABS: ALT 19 U/L (16-63); AST 7 U/L (15-37); Albumin 3.7 g/dL (3.4-5.0); Alkaline Phosphatase 92 U/L (46-116); Anion Gap 11.5 mmol/L (3-11); BUN 9 mg/dL (7-18); Bilirubin, Total 0.4 mg/dL (0.2-1.0); CO2 24.5 mmol/L (21.0-32.0); CREATININE 0.9 mg/dL (0.70-1.30); Calcium 8.6 mg/dL (8.5-10.1); Chloride 100 mmol/L (98-107); Glucose 129 mg/dL (74-106); Potassium 4.1 mmol/L (3.5-5.1); Sodium 136 mmol/L (136-145); Total Protein 6.9 g/dL (6.4-8.2)
[2021-12-05 18:11] LABS: PSA, Ultrasensitive 0.04 ng/mL (<= 6.5)
[2021-12-07 01:43] LABS: Testosterone, Total 467 ng/dL (240-950)
== END 2021-12-04 03:50 | disposition home or self-care (01) ==
LOC: LBO 03:49
PROVIDERS: PCP Family Medicine; Visit Provider Nurse Practitioner Family
DX: C61 Malignant neoplasm of prostate (principal)
CPT/HCPCS: 36415; 80053; 84153; 84403; 85025

== ENCOUNTER 2022-06-27 09:16 | Observation (INO) | payer OTHER, SELFPAY ==
[2022-06-27] VITALS (19 sets, daily range): BP systolic 100–158; BP diastolic 50–80; PULSE 67–89; RESP 4–31; TEMP 36.5–38.2; O2SAT 93–99
--- NOTE | 2022-06-27 09:15 | RT.EKG_ITS ---
APPROVED REPORT Exam: Resting ECG Reason for Exam: Dyspnea Patient Location: E HR:91 bpm ECG Measurements Heart Rate 91 AXIS DC 164 P 0 QRSd 122 QRS 27 QT 492 T 75 QTc 607 Conclusion Sinus rhythm...normal P axis, V-rate 60- 99 Nonspecific intraventricular conduction delay...QRSd >115mS, not LBBB/RBBB Inferior infarct, old...Q >35mS, II III aVF Prolonged QT interval...QTc >500mS sinus rhythm, normal axis, prolonged qt, RBBB, non ischemic
--- NOTE | 2022-06-27 09:45 | DI.RAD_ITS ---
Exam(s) XR CHEST 2V PA LATERAL EXAM: XR CHEST 2V PA LATERAL CLINICAL HISTORY: cough, fever TECHNIQUE: 2D digital imaging was performed. COMPARISON: CR,XR XR CHEST 2V PA LATERAL from 03/18/2019 FINDINGS: Exam is limited by technique. HEART: Normal size. Status post CABG. Aorta: Not dilated. PULMONARY VASCULATURE: Normal. LUNGS: Mild basilar fibrotic changes. No infiltrates visible. PLEURAL SPACE: No pleural effusion or pneumothorax. BONE:Degenerative changes of both shoulders. Sternal wires. IMPRESSION: No acute abnormality. DATA REPOSITORY: RADIATION DOSE DELIVERED:
--- NOTE | 2022-06-27 09:52 | DI.CT_ITS ---
Exam(s) CT HEAD CERVICAL SPINE WO EXAM: CT HEAD CERVICAL SPINE WO CLINICAL HISTORY: fall, [place]. TECHNIQUE: Imaging Protocol: Axial computed tomography images with coronal and sagittal reformatted images were created and reviewed COMPARISON: CT CT HEAD - STROKE PROTOCOL from 03/18/2019 FINDINGS: Head CT Ventricles and Extra axial spaces: Normal in size and morphology for the patient's age. Hemorrhage: None. Cerebral parenchyma: Atrophy and white matter changes of small vessel disease. Midline shift: None. Brainstem/Cerebellum: Normal. Calvarium: Normal. Visualized Paranasal sinuses/Mastoids: Clear. Cervical Spine CT BONES: Vertebral body heights are maintained. Alignment is normal. There is no evidence of acute frac ture. Degenerative disc changes and facet degenerative changes are seen . SOFT TISSUES: No paraspinal hematoma. The airway appears intact. No pneumothorax is seen at the lung apices. IMPRESSION: Head CT: No acute abnormality. C-spine CT: Degenerative changes, no acute abnormality. RADIATION DOSE DELIVERED: 1,544.45mGy.cm Total DLP DATA REPOSITORY: All CT scans at this facility are submitted to the National Radiology Data Registry (NRDR) Dose Index Registry (DIR) with the [employer] (ACR). RADIATION OPTIMIZATION: All CT scans at this facility use at least one of these dose optimization te chniques: automated exposure control; mA and/or kV adjustment per patient size (includes targeted exa ms where dose is matched to clinical indication); or iterative reconstruction.
--- NOTE | 2022-06-27 09:55 | ED.GENADUL_ITS ---
Discharge Plan Disposition Patient Disposition: Admit to [facility] Condition: Stable Discharge Details Clinical Impression: Respiratory failure, COPD (chronic obstructive pulmonary disease), Influenza A, Acute hyponatremia, Weakness, Elevated troponin Primary Care Provider: Gianni Gannon ED Provider: Genna Gorman Home Meds and New Rx's Prescriptions: No Action (DME) blood-glucose meter [FreeStyle Lite Meter] Kit See Rx Instructions .ROUTE .MEDSUPPLY Qty: 1 0RF Rx Instructions: test once/day warfarin 2.5 mg tablet 2.5 mg PO DAILY Qty: 90 3RF Protocol: Dose Management Condition: Thursday Dose/Route: 10 mg Instruction: 2 x 5 mg tablets Condition: Thursday Dose/Route: 12.5 mg Instruction: 1 x 2.5 mg tablet, 2 x 5 mg tablets Condition: Thursday Dose/Route: 12.5 mg Instruction: 1 x 2.5 mg tablet, 2 x 5 mg tablets Condition: Thursday Dose/Route: 10 mg Instruction: 2 x 5 mg tablets Condition: Dose/Route: 10 mg Instruction: 2 x 5 mg tablets Condition: Thursday Dose/Route: 10 mg Instruction: 2 x 5 mg tablets Condition: Thursday Dose/Route: 10 mg Instruction: 2 x 5 mg tablets Protocol Text: Adjustment Start Date: 06/26/22 INR Value: 2.6 INR Date: 06/26/22 Recheck Date: 07/10/22 Rx Instructions: take as directed based on INR (DME) FreeStyle Lite Strips Strip 1 ea Miscellaneous BID Qty: 180 3RF Rx Instructions: DX:E11.9 test twice/daily nitroglycerin [Nitrostat] 0.4 mg tablet, sublingual 0.4 mg Sublingual DIRECTED Qty: 7 0RF insulin glargine [Lantus Solostar U-100 Insulin] 100 unit/mL (3 mL) insulin pen 10 unit subcut HS albuterol sulfate 2.5 mg /3 mL (0.083 %) solution for nebulization 2.5 mg Inhalation Q4H PRN (Reason: bronchospasm) Qty: 50 5RF (DME) Space Chamber Plus 1 EACH spacer 1 ea Miscellaneous PRN Qty: 1 Label Comments: not using (DME) lancets [FreeStyle Lancets] 1 EACH misc 1 ea Sub-Q BID Qty: 100 Rx Instructions: DX:250. (DME) nebulizers [Aeroeclipse Reusable BAN] 1 EACH misc 1 ea Miscellaneous DAILY Qty: 1 (DME) C-pap Qty: 1 (DME) pen needle, diabetic 31 gauge x 1/3 needle 1 ea Sub-Q DIRECTED Qty: 300 4RF Rx Instructions: inject TID albuterol sulfate [ProAir HFA] 90 mcg/actuation HFA aerosol inhaler 1 - 2 puff Inhalation Q6H PRN Qty: 2 2RF fluticasone propion-salmeterol [Advair Diskus] 500-50 mcg/dose blister with device 1 inh Inhalation BID Qty: 60 11RF lisinopril 20 mg tablet 20 mg PO DAILY Qty: 90 1RF metformin 850 mg tablet 850 mg PO BID Qty: 270 3RF Label Comments: 1700 mg in am and 850 mg in the saray--05/06/18 er Rx Instructions: dose reduced to BID due to diarrhea 11/16/19 metoprolol succinate 25 mg tablet extended release 24 hr 25 mg PO DAILY Qty: 90 2RF pantoprazole 20 mg tablet,delayed release (DR/EC) 20 mg PO DAILY@0730 Qty: 90 2RF rosuvastatin [Crestor] 10 mg tablet 10 mg PO DAILY Qty: 90 3RF Stiolto Respimat 2.5-2.5 mcg/actuation mist 2 puff IH DAILY Qty: 4 11RF terazosin 1 mg capsule 1 mg PO .QHS Qty: 90 1RF tamsulosin 0.4 mg capsule 0.4 mg PO DAILY Qty: 90 3RF Rx Instructions: Per [facility] ferrous sulfate 325 mg (65 mg iron) tablet 325 mg PO BID Qty: 180 3RF Rx Instructions: start with one/day for first week, then increase to BID magnesium oxide 400 mg (241.3 mg magnesium) tablet 400 mg PO DAILY Qty: 90 3RF warfarin 5 mg tablet 10 mg PO as directed Qty: 180 3RF Protocol: Dose Management Condition: Thursday Dose/Route: 10 mg Instruction: 2 x 5 mg tablets Condition: Thursday Dose/Route: 12.5 mg Instruction: 1 x 2.5 mg tablet, 2 x 5 mg tablets Condition: Thursday Dose/Route: 12.5 mg Instruction: 1 x 2.5 mg tablet, 2 x 5 mg tablets Condition: Thursday Dose/Route: 10 mg Instruction: 2 x 5 mg tablets Condition: Dose/Route: 10 mg Instruction: 2 x 5 mg tablets Condition: Thursday Dose/Route: 10 mg Instruction: 2 x 5 mg tablets Condition: Thursday Dose/Route: 10 mg Instruction: 2 x 5 mg tablets Protocol Text: Adjustment Start Date: 06/26/22 INR Value: 2.6 INR Date: 06/26/22 Recheck Date: 07/10/22 Rx Instructions: 10mg Thursday thru Thursday 5mg on Sundays Medical Decision Making This 77-year-old gentleman presents with shock and weakness, fall this morning secondary to weakness Presents in respiratory distress, no hypoxia at rest, but even with speech desats to approximately 88% Oxygen placed, 1.5 L at 94% Received 2 DuoNeb's, Solu-Medrol Chest x-ray clear BNP elevated at 1600, no overt evidence of CHF at time of my clinical assessment Labs are stable for patient Influenza A positive Tamiflu initiated Remains tachypneic and wheezy but slightly improved Troponin elevated initially 136, likely secondary to strain from illness, repeat troponin 114 EKG without acute change Patient is appropriately anticoagulated on Coumadin, as levels 3.1, will not give additional aspirin or antiplatelet therapy at this time CT head was ordered secondary to fall and head injury in the presence of anticoagulation which does not show acute abnormality per radiology interpretation my review Case was discussed with Dr. Somers who will admit patient to his service HPI General Date/Time Provider Initiated Documentation: 06/27/22 09:22 . HPI Narrative: This 77-year-old gentleman with history of coronary artery disease, pulmonary embolism, chronic anticoagulation on Coumadin, COPD who presents with reports of shortness of breath, nausea and vomiting, and fall today after losing his balance, hitting his head. INR was 1.6 yesterday per patient. Denies any current chest discomfort. States he feels mildly more short of breath and usual. Denies any calf pain or swelling. Reports chills and subjective fever. Denies known sick contacts. Related Data Home Medications Medication Instructions Recorded Confirmed inhalational spacing device (Space ##1 03/13/14 06/27/22 Chamber Plus) lancets 28 gauge (FreeStyle #100 ea 04/03/14 06/27/22 Lancets) nebulizers (Aeroeclipse Reusable #1 ea 04/09/16 06/27/22 Breath Actuated Nebulizer) C-pap #1 ea 04/05/19 06/27/22 blood sugar diagnostic (FreeStyle #180 strips 04/06/19 06/27/22 Lite Strips) pen needle, diabetic 31 gauge x #300 ea 05/30/20 06/27/22 1/3 blood-glucose meter (FreeStyle #1 ea 06/06/20 06/27/22 Lite Meter kit) albuterol sulfate 90 mcg/actuation 1 - 2 puff inhalation Q6H PRN ##2 02/10/22 06/27/22 aerosol inhaler (ProAir HFA) fluticasone 500 mcg-salmeterol 50 1 inh inhalation BID #60 ea 02/10/22 06/27/22 mcg/dose blistr powdr for inhalation (Advair Diskus) lisinopril 20 mg tablet 20 mg PO DAILY #90 tab-caps 02/10/22 06/27/22 metformin 850 mg tablet 850 mg PO BID #270 tab-caps 02/10/22 06/27/22 metoprolol succinate 25 mg 25 mg PO DAILY #90 tabs 02/10/22 06/27/22 tablet,extended release 24 hr pantoprazole 20 mg tablet,delayed 20 mg PO DAILY@0730 ##90 02/10/22 06/27/22 release rosuvastatin 10 mg tablet (Crestor) 10 mg PO DAILY #90 tab-caps 02/10/22 06/27/22 tamsulosin 0.4 mg capsule 0.4 mg PO DAILY #90 caps 02/10/22 06/27/22 terazosin 1 mg capsule 1 mg PO .QHS #90 caps 02/10/22 06/27/22 tiotropium 2.5 mcg-olodaterol 2.5 2 puff inhalation DAILY #4 grams 02/10/22 06/27/22 mcg/actuation mist for inhalation (Stiolto Respimat) nitroglycerin 0.4 mg sublingual 0.4 mg sublingual DIRECTED #7 03/07/22 06/27/22 tablet (Nitrostat) tabs albuterol sulfate 2.5 mg/3 mL 2.5 mg (3 mL) inhalation Q4H PRN 03/14/22 06/27/22 (0.083 %) solution for nebulization bronchospasm #50 vials ferrous sulfate 325 mg (65 mg 325 mg PO BID #180 tabs 03/19/22 06/27/22 iron) tablet warfarin 2.5 mg tablet 2.5 mg PO DAILY #90 tabs 04/11/22 06/27/22 insulin glargine 100 unit/mL (3 10 unit subcut HS 05/09/22 06/27/22 mL) subcutaneous pen (Lantus Solostar U-100 Insulin) magnesium oxide 400 mg (241.3 mg 400 mg PO DAILY #90 tabs 06/09/22 06/27/22 magnesium) tablet warfarin 5 mg tablet 10 mg PO as directed #180 tab-caps 06/09/22 06/27/22 Previous Rx's Medication Instructions Recorded blood sugar diagnostic (FreeStyle #180 strips 04/06/19 Lite Strips) pen needle, diabetic 31 gauge x #300 ea 05/30/20 1/ blood-glucose meter (FreeStyle #1 ea 06/06/20 Lite Meter kit) albuterol sulfate 90 mcg/actuation 1 - 2 puff inhalation Q6H PRN ##2 02/10/22 aerosol inhaler (ProAir HFA) fluticasone 500 mcg-salmeterol 50 1 inh inhalation BID #60 ea 02/10/22 mcg/dose blistr powdr for inhalation (Advair Diskus) lisinopril 20 mg tablet 20 mg PO DAILY #90 tab-caps 02/10/22 metformin 850 mg tablet 850 mg PO BID #270 tab-caps 02/10/22 metoprolol succinate 25 mg 25 mg PO DAILY #90 tabs 02/10/22 tablet,extended release 24 hr pantoprazole 20 mg tablet,delayed 20 mg PO DAILY@0730 ##90 02/10/22 release rosuvastatin 10 mg tablet (Crestor) 10 mg PO DAILY #90 tab-caps 02/10/22 tamsulosin 0.4 mg capsule 0.4 mg PO DAILY #90 caps 02/10/22 terazosin 1 mg capsule 1 mg PO .QHS #90 caps 02/10/22 tiotropium 2.5 mcg-olodaterol 2.5 2 puff inhalation DAILY #4 grams 02/10/22 mcg/actuation mist for inhalation (Stiolto Respimat) nitroglycerin 0.4 mg sublingual 0.4 mg sublingual DIRECTED #7 03/07/22 tablet (Nitrostat) tabs albuterol sulfate 2.5 mg/3 mL 2.5 mg (3 mL) inhalation Q4H PRN 03/14/22 (0.083 %) solution for nebulization bronchospasm #50 vials ferrous sulfate 325 mg (65 mg 325 mg PO BID #180 tabs 03/19/22 iron) tablet warfarin 2.5 mg tablet 2.5 mg PO DAILY #90 tabs 04/11/22 magnesium oxide 400 mg (241.3 mg 400 mg PO DAILY #90 tabs 06/09/22 magnesium) tablet warfarin 5 mg tablet 10 mg PO as directed #180 tab-caps 06/09/22 Allergies Allergy/AdvReac Type Severity Reaction Status Date / Time venom-honey bee Allergy Severe Swelling/Ed Verified 06/26/22 15:47 [bee venom (honey bee)] lida General Stated Complaint: [facility] ODESSA: 3 Review of Systems All systems reviewed & are unremarkable except as noted in HPI and below PFSH All Active Problems (Updated 06/27/22 @ 14:53 by RENE Henriquez) Respiratory failure (Acute) COPD (chronic obstructive pulmonary disease) (Chronic) Influenza A (Acute) Acute hyponatremia (Acute) Weakness (Acute) Elevated troponin (Acute) CAD (coronary artery disease) (Chronic) a. 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 Valve mobility was restricted. Transvalvular velocity was increased. There was moderate to severe stenosis. There was mild regurgitation. Peak velocity (S): 4m/sec. VTI ratio of LVOT to aortic valve: 0.41. Valve area (VTI): 1.2cm^2. 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 colonoscopy 05/2015 History of cataract removal with insertion of prosthetic lens History of prostate biopsy S/P total right hip arthroplasty Status post inguinal hernia repair Social History (Updated 05/15/22 @ 13:36 by Ashlie Brown) Smoking/Tobacco Use Status: Current every day Tobacco Type: cigarettes Smoking packs per day: 0.5 Smoking cigarettes per day: 10.0 Tobacco: How many years used: 63 Quit status: not considering quitting Second Hand Exposure: No Smoking risk assessment performed?: Yes Alcohol Intake: never Details: History of heavy alcohol use Drug use: Never Substance use type: does not use Household members: spouse and children Do you feel safe at home: Yes Do you feel safe in your relationship?: Yes Additional Social history: , lives on [place] farm in [place]. His youngest son lives with him as well as 2 grandchildren. 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 Exam Const General: cooperative and frail appearing HENMT Head: normal to inspection Mouth: oral mucosae normal Other: Uvula midline, moist mucous membranes Eyes Pupils: PERRL EOM: EOM intact bilaterally Resp Effort & Inspection: audible wheezes and tachypneic Cardio Rate: regular rate Rhythm: regular rhythm GI Inspection: normal to inspection Skin General skin exam: no rashes or lesions noted Neuro General: patient alert and patient oriented x3 Course Vital Signs Vital signs: Vital Signs Temperature 38 C H 06/27/22 09:24 Pulse 89 06/27/22 09:24 Pulse Oximetry 93 06/27/22 09:24 Temperature 38 C H 06/27/22 09:24 Temperature Source Tympanic 06/27/22 09:24 Pulse 89 06/27/22 09:24 Pulse Oximetry 93 06/27/22 09:24 Oxygen Delivery Method Room Air 06/27/22 09:24 Oxygen Flow Rate 0 06/27/22 09:24 Lab/Test Results Lab/Test Results: 06/27/22 09:37 Blood Blood Culture - Pending Critical Care Time Critical Care Time Critical Care Time: Yes Total Critical Care Time: 45 Attestation: Patient requiring oxygen supplementation for acute respiratory failure in the presence of inflammation, diagnostic imaging and interpretation, diagnostic lab interpretation and admission to the hospital, DuoNeb administration for bronco dilation and IV steroids
[2022-06-27] MEDS: Acetaminophen 325 MG TAB 650 MG PO (09:58)
[2022-06-27] MEDS: Albuterol/Ipratropium 3 ML UPD VIAL UPD (09:59)
[2022-06-27] MEDS: methylPREDNISolone SUCC 125 MG VIAL 80 MG IVP (10:01)
[2022-06-27 10:12] LABS: Abs Immature Grans 0.04 10^3/uL (0.0-0.06); Absolute Basophil Count 0.04 10^3/uL (0.0-0.2); Absolute Eosinophil Count 0.04 10^3/uL (0.0-0.7); Absolute Lymphocyte Count 1.33 10^3/uL (1.2-3.4); Absolute Monocyte Count 0.73 10^3/uL (0.1-0.8); Absolute Neutrophil Count 6.04 10^3/uL (1.2-6.7); Basophils % 0.5; Eosinophils % 0.5; HCT 38.1 % (40.0-50.0); HGB 12.8 g/dL (13.5-17.5); Immature Grans % 0.5; Lymphocytes % 16.2; MCH 26.6 pg (27.0-33.0); MCHC 33.6 % (32.0-36.0); MCV 79 fL (80-95); MPV 8.7 fL (8.0-11.0); Monocytes % 8.9; Neutrophils % 73.4; Platelet Count 188 10^3/uL (130-400); RBC 4.82 10^6/uL (4.36-5.78); RDW 14.5 % (11.8-14.1); RDW-SD 41.8 fL; WBC 8.22 10^3/uL (4.4-10.8)
[2022-06-27 10:25] LABS: INR 3.1 (0.9-1.1); Prothrombin Time 29.3 sec (9.3-11.0)
[2022-06-27] MEDS: Albuterol 2.5 MG/3 ML INH SOLN VIAL UPD ×2 (10:28→19:44)
[2022-06-27 10:31] LABS: Bilirubin Negative (Negative); Blood Moderate (Negative); Clarity Clear (Clear); Glucose Negative (Negative); Ketones 15 mg/dL (Negative); Leukocyte Esterase Negative (Negative); Nitrite Negative (Negative); Specific Gravity 1.025 (1.005-1.025); Urobilinogen 0.2 EU/dL (Up TO 0.2)
[2022-06-27 10:38] LABS: ALT 14 U/L (16-63); AST 28 U/L (15-37); Albumin 3.4 g/dL (3.4-5.0); Alkaline Phosphatase 74 U/L (46-116); Anion Gap 8.8 mmol/L (3-11); BUN 14 mg/dL (7-18); Bilirubin, Total 0.5 mg/dL (0.2-1.0); CO2 24.2 mmol/L (21.0-32.0); Calcium 8.2 mg/dL (8.5-10.1); Chloride 93 mmol/L (98-107); Estimated GFR 76.56 (mL/min/1.73m2); Glucose 116 mg/dL (74-106); NT-proBNP 1947 pg/mL (<300); Potassium 4.1 mmol/L (3.5-5.1); Sodium 126 mmol/L (136-145); Total Protein 6.7 g/dL (6.4-8.2)
[2022-06-27 10:39] LABS: Troponin I 136 ng/L (<or=60)
[2022-06-27 10:41] LABS: Bacteria Negative HPF (Negative); C & S Indicated? No; Casts Negative LPF (Negative); Crystals Negative HPF (Negative); Epithelial Cells Rare HPF (Negative); Mucus Trace (Negative); WBC 0-2 HPF (0-5)
[2022-06-27 10:47] LABS: Procalcitonin 0.1 ng/mL
[2022-06-27] MEDS: Normal Saline 500 ML IV (10:57)
--- NOTE | 2022-06-27 11:45 | RT.EKG_ITS ---
APPROVED REPORT Exam: Resting ECG Reason for Exam: chest pain Patient Location: E HR:86 bpm ECG Measurements Heart Rate 86 AXIS NE 253 P 61 QRSd 135 QRS 10 QT 401 T 46 QTc 482 Conclusion Sinus rhythm...normal P axis, V-rate 60- 99 Prolonged NE interval...NE >220, V-rate 50- 90 Nonspecific intraventricular conduction delay...QRSd >115mS, not LBBB/RBBB Inferior infarct, old...Q >35mS, II III aVF sinus rhythm normal axis, prolonged NE, RBBB
[2022-06-27 12:38] LABS: Troponin I 114 ng/L (<or=60)
[2022-06-27] MEDS: Oseltamivir 75 MG CAP PO ×2 (14:04→19:44)
[2022-06-27 14:53] LABS: Source Nasal/Nares
[2022-06-27 15:27] LABS: COVID-19 PCR Negative (Negative)
--- NOTE | 2022-06-27 17:44 | W.PM.HP.N ---
Date of service: 06/27/22 Time of Service: 17:00 Assessment and Plan Assessment and plan (1) Gait instability: Status: Deleted Assessment and plan: Earlier this year he did not have posterior circulation aneurysm nor stenosis however he has 50% bilateral narrowing of his internal carotids at their origins and has aortic stenosis. He fell this saray after feeling weak - will have PT eval (2) Aortic stenosis: Status: Chronic Assessment and plan: He had an echo at the [facility] - a couple of months ago, we do not have the results - will ask [facility] to fax results Qualifiers: Cardiac valve disease etiology: etiology unspecified Qualified Code(s): I35.0 - Nonrheumatic aortic (valve) stenosis (3) Diabetes mellitus, type II, insulin dependent: Status: Deleted Assessment and plan: Continue Metformin (4) Essential hypertension: Status: Chronic Assessment and plan: Continue his home bp meds (lisinopril) and monitor his orthostatics. (5) Chronic obstructive lung disease: Status: Chronic Assessment and plan: Continue inhalers/nebulizers, check SPO2 Nebulizers as needed for diff breathing; wheezing Qualifiers: COPD type: emphysema Emphysema type: unspecified Qualified Code(s): J43.9 - Emphysema, unspecified (6) Influenza A: Status: Acute Assessment and plan: Start Tamiflu, monitor VS, temp currently afebrile (7) Acute hyponatremia: Status: Acute Assessment and plan: Sodium 126 - rec'd NS 500 ml bolus in ED - 125 m/h recheck 06/28 (8) Elevated troponin: Status: Acute Assessment and plan: #1 - 136, #2 - 114 (9) Anticoagulated on warfarin: Status: Chronic Assessment and plan: INR 3.1 - continue home regime - monitor (10) DVT prophylaxis: Status: Acute Assessment and plan: On Warfarin (11) Discharge planning issues: Status: Acute Assessment and plan: Home possibly HH Discussed with Dr Mccormack History of Present Illness History of Present Illness Chief Complaint: Shortness of breath, nausea & vomiting Narrative: This 77-year-old male patient with a past medical history of coronary artery disease, pulmonary embolism, chronic anticoagulation on Coumadin, COPD who presented to the [facility] emergency department with reports of shortness of breath, nausea and vomiting, and fall today after losing his balance, hitting his head, he denies LOC.? INR was 2.6 yesterday, 06/26/2022 per patient and PCP chart.? Patient denied any chest discomfort.? Patient stated he felt mildly short of breath. Patient denied any calf pain or swelling.? He did report some chills and subjective fever.? He denied sick contacts. He was tested @ PCP yesterday, 06.26.22, for Covid and Flu; both negative. He presented to the ED in respiratory distress, no hypoxia at rest, but with talking he desated to about 88%. He was placed on oxygen @ 1.5 lpm and his SPO2 increased to 94%. He received 2 DuoNeb's, Solu-Medrol in the ED. Chest x-ray clear; BNP elevated, Influenza A positive, Tamiflu initiated. He remained tachypneic and wheezy, but was improving. His Troponin was initially elevated @ 136, likely secondary to strain from illness, repeat troponin 114. EKG without acute change per ED MD. Patient is anticoagulated on Coumadin, as levels 3.1. CT head was ordered secondary to fall and head injury in the presence of anticoagulation which does not show acute abnormality per radiology interpretation. Patient is placed on the medical floor on observation status. Review of Systems All systems reviewed & are unremarkable except as noted in HPI and below PFSH All Active Problems (Updated 06/27/22 @ 18:29 by Shannon Montilla NP) Discharge planning issues (Acute) DVT prophylaxis (Acute) Respiratory failure (Acute) COPD (chronic obstructive pulmonary disease) (Chronic) Influenza A (Acute) Acute hyponatremia (Acute) Weakness (Acute) Elevated troponin (Acute) CAD (coronary artery disease) (Chronic) a. 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 Valve mobility was restricted. Transvalvular velocity was increased. There was moderate to severe stenosis. There was mild regurgitation. Peak velocity (S): 4m/sec. VTI ratio of LVOT to aortic valve: 0.41. Valve area (VTI): 1.2cm^2. 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 colonoscopy 05/2015 History of cataract removal with insertion of prosthetic lens History of prostate biopsy S/P total right hip arthroplasty Status post inguinal hernia repair Social History (Updated 05/15/22 @ 13:36 by Ashlie Brown) Smoking/Tobacco Use Status: Current every day Tobacco Type: cigarettes Smoking packs per day: 0.5 Smoking cigarettes per day: 10.0 Tobacco: How many years used: 65 Quit status: not considering quitting Second Hand Exposure: No Smoking risk assessment performed?: Yes Alcohol Intake: never Details: History of heavy alcohol use Drug use: Never Substance use type: does not use Household members: spouse and children Do you feel safe at home: Yes Do you feel safe in your relationship?: Yes Additional Social history: , lives [place] in [place]. His youngest son lives with him as well as 2 grandchildren. 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 Meds Allergies and Home Medications Allergies Allergy/AdvReac Type Severity Reaction Status Date / Time venom-honey bee Allergy Severe Swelling/Ed Verified 06/26/22 15:47 [bee venom (honey bee)] lida Home Medications Medication Instructions Recorded Confirmed Type inhalational spacing device (Space ##1 03/13/14 06/27/22 History Chamber Plus) lancets 28 gauge (FreeStyle #100 ea 04/03/14 06/27/22 History Lancets) nebulizers (Aeroeclipse Reusable #1 ea 04/09/16 06/27/22 History Breath Actuated Nebulizer) C-pap #1 ea 04/05/19 06/27/22 History blood sugar diagnostic (FreeStyle #180 strips 04/06/19 06/27/22 Rx Lite Strips) pen needle, diabetic 31 gauge x #300 ea 05/30/20 06/27/22 Rx 1/3 blood-glucose meter (FreeStyle #1 ea 06/06/20 06/27/22 Rx Lite Meter kit) albuterol sulfate 90 mcg/actuation 1 - 2 puff inhalation Q6H PRN ##2 02/10/22 06/27/22 Rx aerosol inhaler (ProAir HFA) fluticasone 500 mcg-salmeterol 50 1 inh inhalation BID #60 ea 02/10/22 06/27/22 Rx mcg/dose blistr powdr for inhalation (Advair Diskus) lisinopril 20 mg tablet 20 mg PO DAILY #90 tab-caps 02/10/22 06/27/22 Rx metformin 850 mg tablet 850 mg PO BID #270 tab-caps 02/10/22 06/27/22 Rx metoprolol succinate 25 mg 25 mg PO DAILY #90 tabs 02/10/22 06/27/22 Rx tablet,extended release 24 hr pantoprazole 20 mg tablet,delayed 20 mg PO DAILY@0730 ##90 02/10/22 06/27/22 Rx release rosuvastatin 10 mg tablet (Crestor) 10 mg PO DAILY #90 tab-caps 02/10/22 06/27/22 Rx tamsulosin 0.4 mg capsule 0.4 mg PO DAILY #90 caps 02/10/22 06/27/22 Rx terazosin 1 mg capsule 1 mg PO .QHS #90 caps 02/10/22 06/27/22 Rx tiotropium 2.5 mcg-olodaterol 2.5 2 puff inhalation DAILY #4 grams 02/10/22 06/27/22 Rx mcg/actuation mist for inhalation (Stiolto Respimat) nitroglycerin 0.4 mg sublingual 0.4 mg sublingual DIRECTED #7 03/07/22 06/27/22 Rx tablet (Nitrostat) tabs albuterol sulfate 2.5 mg/3 mL 2.5 mg (3 mL) inhalation Q4H PRN 03/14/22 06/27/22 Rx (0.083 %) solution for nebulization bronchospasm #50 vials ferrous sulfate 325 mg (65 mg 325 mg PO BID #180 tabs 03/19/22 06/27/22 Rx iron) tablet warfarin 2.5 mg tablet 2.5 mg PO DAILY #90 tabs 04/11/22 06/27/22 Rx insulin glargine 100 unit/mL (3 10 unit subcut HS 05/09/22 06/27/22 History mL) subcutaneous pen (Lantus Solostar U-100 Insulin) magnesium oxide 400 mg (241.3 mg 400 mg PO DAILY #90 tabs 06/09/22 06/27/22 Rx magnesium) tablet warfarin 5 mg tablet 10 mg PO as directed #180 tab-caps 06/09/22 06/27/22 Rx benzonatate 100 mg capsule 100 mg PO BID-TID PRN #20 caps 06/28/22 Rx furosemide 20 mg tablet 20 mg PO DAILY #30 tabs 06/28/22 Rx oseltamivir 75 mg capsule 75 mg PO BID #8 caps 06/28/22 Rx prednisone 20 mg tablet 40 mg PO DAILY #10 tabs 06/28/22 Rx Exam Const General: cooperative and frail appearing [facility] Head: normal to inspection Mouth: oral mucosae normal Other: Uvula midline, moist mucous membranes Eyes Pupils: PERRL EOM: EOM intact bilaterally Resp Effort & Inspection: audible wheezes and tachypneic Cardio Rate: regular rate Rhythm: regular rhythm GI Inspection: normal to inspection Skin General skin exam: no rashes or lesions noted Neuro General: patient alert and patient oriented x3 Results Labs Result diagrams: 06/28/22 06:05 06/28/22 06:05 Labs: Laboratory Results - last 24 hr 06/27/22 06/27/22 06/27/22 09:55 09:55 09:55 WBC 8.22 RBC 4.82 Hgb 12.8 L Hct 38.1 L MCV 79 L MCH 26.6 L MCHC 33.6 RDW 14.5 H Plt Count 188 MPV 8.7 Immature Gran % 0.5 Neutrophils % 73.4 Lymphocytes % 16.2 Monocytes % 8.9 Eosinophils % 0.5 Basophils % 0.5 Nucleated RBC % 0.0 Absolute Neutrophils 6.04 Absolute Lymphocytes 1.33 Absolute Monocytes 0.73 Absolute Eosinophils 0.04 Absolute Basophils 0.04 PT INR VBG Lactate 1.0 Sodium 126 L Potassium 4.1 Chloride 93 L Carbon Dioxide 24.2 Anion Gap 8.8 BUN 14 Creatinine 1.0 Est GFR (CKD-EPI 2020) 76.56 Glucose 116 H Calcium 8.2 L Total Bilirubin 0.5 AST 28 ALT 14 L Alkaline Phosphatase 74 Troponin I 136 H* NT-Pro-B Natriuret Pep 1947 H Total Protein 6.7 Albumin 3.4 Procalcitonin Urine Color Urine Clarity Urine pH Ur Specific [place] Urine Protein Urine Ketones Urine Blood Urine Nitrite Urine Bilirubin Urine Urobilinogen Ur Leukocyte Esterase Urine RBC Urine WBC Ur Epithelial Cells Urine Crystals Urine Bacteria Urine Casts Urine Mucus Ur Culture Indicated? Urine Glucose COVID-19 Source SARS-CoV-2 (PCR) 06/27/22 06/27/22 06/27/22 09:55 09:55 10:24 WBC RBC Hgb Hct MCV MCH MCHC RDW Plt Count MPV Immature Gran % Neutrophils % Lymphocytes % Monocytes % Eosinophils % Basophils % Nucleated RBC % Absolute Neutrophils Absolute Lymphocytes Absolute Monocytes Absolute Eosinophils Absolute Basophils PT 29.3 H INR 3.1 H VBG Lactate Sodium Potassium Chloride Carbon Dioxide Anion Gap BUN Creatinine Est GFR (CKD-EPI 2020) Glucose Calcium Total Bilirubin AST ALT Alkaline Phosphatase Troponin I NT-Pro-B Natriuret Pep Total Protein Albumin Procalcitonin 0.1 Urine Color Yellow Urine Clarity Clear Urine pH 6.0 Ur Specific [place] 1.025 Urine Protein 100 H Urine Ketones 15 H Urine Blood Moderate H Urine Nitrite Negative Urine Bilirubin Negative Urine Urobilinogen 0.2 Ur Leukocyte Esterase Negative Urine RBC 3-5 H Urine WBC 0-2 Ur Epithelial Cells Rare Urine Crystals Negative Urine Bacteria Negative Urine Casts Negative Urine Mucus Trace Ur Culture Indicated? No Urine Glucose Negative COVID-19 Source SARS-CoV-2 (PCR) 06/27/22 06/27/22 12:08 14:48 WBC RBC Hgb Hct MCV MCH MCHC RDW Plt Count MPV Immature Gran % Neutrophils % Lymphocytes % Monocytes % Eosinophils % Basophils % Nucleated RBC % Absolute Neutrophils Absolute Lymphocytes Absolute Monocytes Absolute Eosinophils Absolute Basophils PT INR VBG Lactate Sodium Potassium Chloride Carbon Dioxide Anion Gap BUN Creatinine Est GFR (CKD-EPI 2020) Glucose Calcium Total Bilirubin AST ALT Alkaline Phosphatase Troponin I 114 H* NT-Pro-B Natriuret Pep Total Protein Albumin Procalcitonin Urine Color Urine Clarity Urine pH Ur Specific [place] Urine Protein Urine Ketones Urine Blood Urine Nitrite Urine Bilirubin Urine Urobilinogen Ur Leukocyte Esterase Urine RBC Urine WBC Ur Epithelial Cells Urine Crystals Urine Bacteria Urine Casts Urine Mucus Ur Culture Indicated? Urine Glucose COVID-19 Source Nasal/Nares SARS-CoV-2 (PCR) Negative Last Vital Signs Temp 36.5 C 06/27/22 15:11 Pulse 87 06/27/22 15:11 Resp 26 H 06/27/22 15:11 BP 158/80 H 06/27/22 15:11 Pulse Ox 95 06/27/22 15:11
[2022-06-27] MEDS: metFORMIN 850 MG TAB PO (18:05)
[2022-06-27] MEDS: Ferrous Sulfate 325 MG TAB PO (19:44)
[2022-06-27] MEDS: Budesonide/Formoterol 160/4.5 6 GM 60 PUFF INH IH (19:44)
[2022-06-27] MEDS: Warfarin 5 MG TAB 10 MG PO (20:04)
[2022-06-27] MEDS: Acetaminophen 325 MG TAB PO (20:05)
[2022-06-27] MEDS: Furosemide 20 MG/2 ML VIAL IVP (20:06)
[2022-06-27] MEDS: Insulin Aspart 300 UNITS/3 ML PEN SC (22:25)
[2022-06-27] MEDS: Insulin Glargine 300 UNITS/3 ML PEN 10 UNITS SC (22:27)
[2022-06-28] VITALS (7 sets, daily range): BP systolic 106–127; BP diastolic 60–61; PULSE 59–72; RESP 18–24; TEMP 36.2–37.1; O2SAT 93–98
--- NOTE | 2022-06-28 00:26 | TELEP.MEDREC ---
Date of service: 06/28/22 Time of Service: 00:26 Telepharmacy Home Med Rec Allergies Allergies: venom-honey bee [bee venom (honey bee)] Allergy (Severe, Verified 06/26/22 15:47) Swelling/Edema Additional Notes Additional Notes: Telepharmacy called med surge room but patient was already asleep. Telepharmacy also called patient's at home, but noone picked up. We left a voicemail to call us back. It has been more than 6 hours and we have not heard back. Recommended Changes Attestation: The home medication list is now updated to the best of my knowledge and is ready to be reconciled by the provider. Please contact [facility]ist at for any questions.
[2022-06-28 06:37] LABS: BUN 18 mg/dL (7-18); CREATININE 0.9 mg/dL (0.70-1.30); Calcium 8.3 mg/dL (8.5-10.1); Chloride 100 mmol/L (98-107); Estimated GFR 86.88 (mL/min/1.73m2); Glucose 149 mg/dL (74-106); Magnesium 1.9 mg/dL (1.8-2.4); Potassium 4.2 mmol/L (3.5-5.1); Sodium 134 mmol/L (136-145)
[2022-06-28 06:42] LABS: Abs Immature Grans 0.08 10^3/uL (0.0-0.06); Basophils % 0.1; Eosinophils % 0.6; HCT 38.2 % (40.0-50.0); HGB 12.7 g/dL (13.5-17.5); Immature Grans % 0.6; Lymphocytes % 10.1; MCH 26.2 pg (27.0-33.0); MCHC 33.2 % (32.0-36.0); MCV 79 fL (80-95); MPV 9.1 fL (8.0-11.0); Monocytes % 7.7; Neutrophils % 80.9; Platelet Count 180 10^3/uL (130-400); RBC 4.85 10^6/uL (4.36-5.78); RDW 14.5 % (11.8-14.1); RDW-SD 41.4 fL
[2022-06-28 06:45] LABS: Absolute Basophil Count 0.01 10^3/uL (0.0-0.2); Absolute Eosinophil Count 0.08 10^3/uL (0.0-0.7); Absolute Lymphocyte Count 1.42 10^3/uL (1.2-3.4); Absolute Monocyte Count 1.09 10^3/uL (0.1-0.8); Absolute Neutrophil Count 11.41 10^3/uL (1.2-6.7)
[2022-06-28 06:46] LABS: INR 4.2 (0.9-1.1)
[2022-06-28] MEDS: Furosemide 20 MG/2 ML VIAL IVP (07:36)
[2022-06-28] MEDS: Normal Saline Flush 10 ML SYR IVP (07:37)
[2022-06-28] MEDS: Pantoprazole 20 MG TABCR PO (07:37)
[2022-06-28] MEDS: metFORMIN 850 MG TAB PO (07:38)
[2022-06-28] MEDS: Budesonide/Formoterol 160/4.5 6 GM 60 PUFF INH IH (07:38)
[2022-06-28] MEDS: Tamsulosin 0.4 MG CAPCR PO (07:55)
[2022-06-28] MEDS: Lisinopril 20 MG TAB PO (07:55)
[2022-06-28] MEDS: Magnesium Oxide 400 MG TAB PO (07:55)
[2022-06-28] MEDS: Ferrous Sulfate 325 MG TAB PO (07:56)
[2022-06-28] MEDS: predniSONE 20 MG TAB 40 MG PO (07:56)
[2022-06-28] MEDS: Metoprolol CR 25 MG TABCR PO (07:56)
[2022-06-28] MEDS: Tiotropium/Olodaterol 10 PUFF INHALER 2 PUFF IH (07:57)
[2022-06-28] MEDS: Oseltamivir 75 MG CAP PO (07:57)
[2022-06-28] MEDS: Insulin Aspart 300 UNITS/3 ML PEN SC (11:41)
--- NOTE | 2022-06-28 12:17 | W.PM.DS.N ---
Date of service: 06/28/22 Time of Service: 12:17 DS: Diagnosis Discharge Diagnosis (1) Aortic stenosis: Status: Chronic (2) Essential hypertension: Status: Chronic (3) Chronic obstructive lung disease: Status: Chronic (4) Influenza A: Status: Acute (5) Acute hyponatremia: Status: Acute (6) Elevated troponin: Status: Acute (7) Anticoagulated on warfarin: Status: Chronic (8) DVT prophylaxis: Status: Acute (9) Discharge planning issues: Status: Acute Discharge Plan Disposition Patient Disposition: Home Condition: Improving Discharge Details Reason For Visit: Influenza A Admit Date/Time: 06/27/22 14:16 Admit Provider: Nato Mccormack Attending Provider: Nato Mccormack Primary Care Provider: Gianni Gannon Hospital Course Hospital Course: This 77-year-old male patient with a past medical history of coronary artery disease, pulmonary embolism, chronic anticoagulation on Coumadin, COPD who presented to the [facility] emergency department with reports of shortness of breath, nausea and vomiting, and fall today after losing his balance, hitting his head, he denies LOC.? INR was 2.6 yesterday, 06/26/2022 per patient and PCP chart.? Patient denied any chest discomfort.? Patient stated he felt mildly short of breath. Patient denied any calf pain or swelling.? He did report some chills and subjective fever.? He denied sick contacts.? He was tested @ PCP yesterday, 06.26.22, for Covid and Flu; both negative. He presented to the ED in respiratory distress, no hypoxia at rest, but with talking he desated to about 88%.? He was placed on oxygen @ 1.5 lpm and his SPO2 increased to 94%. He received 2 DuoNeb's, Solu-Medrol in the ED. Chest x-ray clear; BNP elevated, Influenza A positive, Tamiflu initiated. He remained tachypneic and wheezy, but was improving.? His Troponin was initially elevated @ 136, likely secondary to strain from illness, repeat troponin 114. EKG without acute change per ED MD.? Patient is anticoagulated on Coumadin, as levels 3.1. CT head was ordered secondary to fall and head injury in the presence of anticoagulation which does not show acute abnormality per radiology interpretation. Sodium was 126.? Patient was placed on the medical floor on observation status. His lungs had some rales and he was given furosemide. Overnight he did well, diuresed, afebrile, no oxygen requirement, speaking in full sentences. He denied pain, nausea, no vomiting or diarrhea. Hyponatremia resolved, with sodium of 134. His INR was 4.2 on day of discharge. He was told to hold his evening coumadin dose for the night of discharge and then resume his usual scheculed. He was feeling better, afebrile, vital signs stable and was discharged to home with his - with 5 days of Tamiflu and prednisone as well as starting furosemide 20 mg daily. He will follow up with PCP for repeat INR early next week and repeat labs to check his electrolytes. He is in agreement with with this plan. Discussed with Dr Mccormack. Home Meds and New Rx's Prescriptions: New oseltamivir 75 mg Capsule 75 mg PO BID Qty: 8 0RF prednisone 20 mg Tablet 40 mg PO DAILY Qty: 10 0RF furosemide 20 mg tablet 20 mg PO DAILY Qty: 30 0RF benzonatate 100 mg capsule 100 mg PO BID-TID PRNQty: 20 0RF Continued (DME) blood-glucose meter [FreeStyle Lite Meter] Kit See Rx Instructions .ROUTE .MEDSUPPLY Qty: 1 0RF Rx Instructions: test once/day warfarin 2.5 mg tablet 2.5 mg PO DAILY Qty: 90 3RF Protocol: Dose Management Condition: Thursday Dose/Route: 10 mg Instruction: 2 x 5 mg tablets Condition: Thursday Dose/Route: 12.5 mg Instruction: 1 x 2.5 mg tablet, 2 x 5 mg tablets Condition: Thursday Dose/Route: 12.5 mg Instruction: 1 x 2.5 mg tablet, 2 x 5 mg tablets Condition: Thursday Dose/Route: 10 mg Instruction: 2 x 5 mg tablets Condition: Dose/Route: 10 mg Instruction: 2 x 5 mg tablets Condition: Thursday Dose/Route: 10 mg Instruction: 2 x 5 mg tablets Condition: Thursday Dose/Route: 10 mg Instruction: 2 x 5 mg tablets Protocol Text: Adjustment Start Date: 06/26/22 INR Value: 2.6 INR Date: 06/26/22 Recheck Date: 07/10/22 Rx Instructions: take as directed based on INR (DME) FreeStyle Lite Strips Strip 1 ea Miscellaneous BID Qty: 180 3RF Rx Instructions: DX:E11.9 test twice/daily nitroglycerin [Nitrostat] 0.4 mg tablet, sublingual 0.4 mg Sublingual DIRECTED Qty: 7 0RF insulin glargine [Lantus Solostar U-100 Insulin] 100 unit/mL (3 mL) insulin pen 10 unit subcut HS albuterol sulfate 2.5 mg /3 mL (0.083 %) solution for nebulization 2.5 mg Inhalation Q4H PRN (Reason: bronchospasm) Qty: 50 5RF (DME) Space Chamber Plus 1 EACH spacer 1 ea Miscellaneous PRN Qty: 1 Label Comments: not using (DME) lancets [FreeStyle Lancets] 1 EACH misc 1 ea Sub-Q BID Qty: 100 Rx Instructions: DX:250. (DME) nebulizers [Aeroeclipse Reusable BAN] 1 EACH misc 1 ea Miscellaneous DAILY Qty: 1 (DME) C-pap Qty: 1 (DME) pen needle, diabetic 31 gauge x 1/3 needle 1 ea Sub-Q DIRECTED Qty: 300 4RF Rx Instructions: inject TID albuterol sulfate [ProAir HFA] 90 mcg/actuation HFA aerosol inhaler 1 - 2 puff Inhalation Q6H PRN Qty: 2 2RF fluticasone propion-salmeterol [Advair Diskus] 500-50 mcg/dose blister with device 1 inh Inhalation BID Qty: 60 11RF lisinopril 20 mg tablet 20 mg PO DAILY Qty: 90 1RF metformin 850 mg tablet 850 mg PO BID Qty: 270 3RF Label Comments: 1700 mg in am and 850 mg in the saray--05/06/18 er Rx Instructions: dose reduced to BID due to diarrhea 11/16/19 metoprolol succinate 25 mg tablet extended release 24 hr 25 mg PO DAILY Qty: 90 2RF pantoprazole 20 mg tablet,delayed release (DR/EC) 20 mg PO DAILY@0730 Qty: 90 2RF rosuvastatin [Crestor] 10 mg tablet 10 mg PO DAILY Qty: 90 3RF Stiolto Respimat 2.5-2.5 mcg/actuation mist 2 puff IH DAILY Qty: 4 11RF terazosin 1 mg capsule 1 mg PO .QHS Qty: 90 1RF tamsulosin 0.4 mg capsule 0.4 mg PO DAILY Qty: 90 3RF Rx Instructions: Per [facility] [place] ferrous sulfate 325 mg (65 mg iron) tablet 325 mg PO BID Qty: 180 3RF Rx Instructions: start with one/day for first week, then increase to BID magnesium oxide 400 mg (241.3 mg magnesium) tablet 400 mg PO DAILY Qty: 90 3RF warfarin 5 mg tablet 10 mg PO as directed Qty: 180 3RF Protocol: Dose Management Condition: Thursday Dose/Route: 10 mg Instruction: 2 x 5 mg tablets Condition: Thursday Dose/Route: 12.5 mg Instruction: 1 x 2.5 mg tablet, 2 x 5 mg tablets Condition: Thursday Dose/Route: 12.5 mg Instruction: 1 x 2.5 mg tablet, 2 x 5 mg tablets Condition: Thursday Dose/Route: 10 mg Instruction: 2 x 5 mg tablets Condition: Dose/Route: 10 mg Instruction: 2 x 5 mg tablets Condition: Thursday Dose/Route: 10 mg Instruction: 2 x 5 mg tablets Condition: Thursday Dose/Route: 10 mg Instruction: 2 x 5 mg tablets Protocol Text: Adjustment Start Date: 06/26/22 INR Value: 2.6 INR Date: 06/26/22 Recheck Date: 07/10/22 Rx Instructions: 10mg Thursday thru Thursday 5mg on Sundays Discharge Instructions Instructions: Benzonatate (By mouth), Furosemide (By mouth), Prednisone (By mouth), Influenza (DC) Additional Instructions: Take Tamiflu for 5 days. Do not take Warfarin (Coumadin) tonight. Resume usually dosing tomorrow. See your PCP and have INR checked early next week at their office. We have ordered a blood test for you to check your sodium level. You can have that done next week. Stand Alone Forms: Nursing Discharge Form Referrals: Gianni Gannon MD [Primary Care Provider] - (Please call Thursday to make an Appointment in the next week next week to check NA (ordered OP) and INR) Activity:: Activity as Tolerated Equipment/Supplies:: No Equipment Needed Diet:: Low Sodium Discharge Orders Discharge Orders: Discharge Order (Routine); Ordered 06/28/22 Ordered By: Shannon Montilla Other Ambulatory Orders: Basic Metabolic Panel (Routine) Timeframe: [id number] Location: None Selected Ordered By: Shannon Montilla Discharge Data Discharge Date/Time-TO BE ENTERED AT DEPARTURE: 06/28/22 14:15 DS: Summary Time Spent with Patient providing and/or coordinating discharge services: Greater than 30 minutes Status at Discharge Functional status at discharge: independent ambulation Overall status at discharge: patient is progressing back to baseline Mental Status: mental status grossly normal Speech and Movement: speech and movement normal Mood: congruent mood Affect: normal affect Exam Const General: cooperative and frail appearing HENMT Head: normal to inspection Mouth: oral mucosae normal Other: Uvula midline, moist mucous membranes Eyes Pupils: PERRL EOM: EOM intact bilaterally Resp Effort & Inspection: normal respiratory effort and able to speak in complete sentences Auscultation: clear to auscultation bilaterally Cardio Rate: regular rate Rhythm: regular rhythm GI Inspection: normal to inspection Skin General skin exam: no rashes or lesions noted Neuro General: patient alert and patient oriented x3 Psych Mental Status: mental status grossly normal Speech and Movement: speech and movement normal Mood: congruent mood Affect: normal affect DS: Data Vitals/I&O Vitals and I&O: Vital Signs Temperature 37.1 C 06/28/22 11:01 Temperature Source Tympanic 06/28/22 11:01 Pulse 64 06/28/22 11:01 Pulse Rhythm Regular 06/28/22 09:38 Pulse 79 06/27/22 13:45 Respiratory Rate 18 06/28/22 11:01 Respiratory Effort 06/28/22 09:38 Respiratory Depth Normal 06/28/22 09:38 Respiratory Pattern Normal 06/28/22 09:38 Blood Pressure 107/60 06/28/22 11:01 Blood Pressure Mean 72 06/27/22 13:45 Pulse Oximetry 96 06/28/22 11:01 Oxygen Delivery Method Nasal Cannula 06/28/22 11:01 Oxygen Flow Rate 2 06/28/22 11:01 Fraction of Inspired Oxygen (FIO2) 2 06/27/22 19:35 Pain Level 0 06/28/22 03:29 Intake & Output 06/27/22 06/28/22 06/28/22 23:59 11:59 23:59 Intake Total 740 / 760 360 / 360 Output Total 800 / 800 975 / 975 Balance -60 / -40 -615 / -615 Weight 88.3 kg Intake: IV 500 / 520 Oral 240 / 240 360 / 360 Output: Urine 800 / 800 975 / 975 Other: Urine Color Straw Pale Urine Appearance Clear Clear Urine Odor Normal Comment bedside urinal emptied. Stool Size Small Moderate Stool Characteristics Soft Soft Black Brown Voiding Methods Urinal Urinal Data Completed and Pending Labs on day of discharge: Labs from last 24 hours 06/28/22 06/28/22 06/28/22 06:05 06:05 06:05 WBC 14.10 H RBC 4.85 Hgb 12.7 L Hct 38.2 L MCV 79 L MCH 26.2 L MCHC 33.2 RDW 14.5 H Plt Count 180 MPV 9.1 Immature Gran % 0.6 Neutrophils % 80.9 Lymphocytes % 10.1 Monocytes % 7.7 Eosinophils % 0.6 Basophils % 0.1 Nucleated RBC % 0.0 Absolute Neutrophils 11.41 H Absolute Lymphocytes 1.42 Absolute Monocytes 1.09 H Absolute Eosinophils 0.08 Absolute Basophils 0.01 PT 39.0 H INR 4.2 H* Sodium 134 L Potassium 4.2 Chloride 100 Carbon Dioxide 26.0 Anion Gap 8.0 BUN 18 Creatinine 0.9 Est GFR (CKD-EPI 2020) 86.88 Glucose 149 H Calcium 8.3 L Magnesium 1.9 Troponin I COVID-19 Source SARS-CoV-2 (PCR) 06/27/22 06/27/22 14:48 12:08 WBC RBC Hgb Hct MCV MCH MCHC RDW Plt Count MPV Immature Gran % Neutrophils % Lymphocytes % Monocytes % Eosinophils % Basophils % Nucleated RBC % Absolute Neutrophils Absolute Lymphocytes Absolute Monocytes Absolute Eosinophils Absolute Basophils PT INR Sodium Potassium Chloride Carbon Dioxide Anion Gap BUN Creatinine Est GFR (CKD-EPI 2020) Glucose Calcium Magnesium Troponin I 114 H* COVID-19 Source Nasal/Nares SARS-CoV-2 (PCR) Negative 06/27/22 10:40 Blood Blood Culture - Pending Preliminary micro results at discharge 06/27/22 09:55 Blood Culture - Preliminary Blood NO GROWTH 24 HOURS 06/27/22 10:40 Blood Culture - Pending Blood PFSH All Active Problems (Updated 06/27/22 @ 18:29 by Shannon Montilla NP) Discharge planning issues (Acute) DVT prophylaxis (Acute) Respiratory failure (Acute) COPD (chronic obstructive pulmonary disease) (Chronic) Influenza A (Acute) Acute hyponatremia (Acute) Weakness (Acute) Elevated troponin (Acute) CAD (coronary artery disease) (Chronic) a. 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 Valve mobility was restricted. Transvalvular velocity was increased. There was moderate to severe stenosis. There was mild regurgitation. Peak velocity (S): 4m/sec. VTI ratio of LVOT to aortic valve: 0.41. Valve area (VTI): 1.2cm^2. 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 colonoscopy 05/2015 History of cataract removal with insertion of prosthetic lens History of prostate biopsy S/P total right hip arthroplasty Status post inguinal hernia repair Social History (Updated 05/15/22 @ 13:36 by Ashlie Brown) Smoking/Tobacco Use Status: Current every day Tobacco Type: cigarettes Smoking packs per day: 0.5 Smoking cigarettes per day: 10.0 Tobacco: How many years used: 63 Quit status: not considering quitting Second Hand Exposure: No Smoking risk assessment performed?: Yes Alcohol Intake: never Details: History of heavy alcohol use Drug use: Never Substance use type: does not use Household members: spouse and children Do you feel safe at home: Yes Do you feel safe in your relationship?: Yes Additional Social history: , lives [place] in [place]. His youngest son lives with him as well as 2 grandchildren. 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
== END 2022-06-28 14:15 | disposition home or self-care (01) ==
LOC: ER 14:53 → MS 15:10
PROVIDERS: Nurse Practitioner Family; Admitting Provider Internal Medicine; Emergency Provider Physician Assistant; PCP Family Medicine; Visit Provider Internal Medicine
DX: J10.1 Influenza due to other identified influenza virus with other respiratory manifestations (principal); E87.1 Hypo-osmolality and hyponatremia; J96.00 Acute respiratory failure, unspecified whether with hypoxia or hypercapnia; R26.81 Unsteadiness on feet; J43.9 Emphysema, unspecified; R11.2 Nausea with vomiting, unspecified; I35.0 Nonrheumatic aortic (valve) stenosis; I10 Essential (primary) hypertension; I25.2 Old myocardial infarction; R74.8 Abnormal levels of other serum enzymes; Z79.01 Long term (current) use of anticoagulants; Z20.822 Contact with and (suspected) exposure to COVID-19; Z79.4 Long term (current) use of insulin; W18.39XA Other fall on same level, initial encounter; I25.10 Atherosclerotic heart disease of native coronary artery without angina pectoris; Z86.711 Personal history of pulmonary embolism; Z95.1 Presence of aortocoronary bypass graft; R53.1 Weakness; Z85.46 Personal history of malignant neoplasm of prostate; Z96.641 Presence of right artificial hip joint; F17.210 Nicotine dependence, cigarettes, uncomplicated; N40.0 Benign prostatic hyperplasia without lower urinary tract symptoms; E78.5 Hyperlipidemia, unspecified; N39.41 Urge incontinence; I65.23 Occlusion and stenosis of bilateral carotid arteries; E11.40 Type 2 diabetes mellitus with diabetic neuropathy, unspecified
CPT/HCPCS: 36415; 80048; 80053; 84145; 87040; 87635; 93005; 94640; 96361; 96372; 96374; 96376; 99291; 70450; 71046; 72125; 81003; 81015; 83605; 83735; 83880; 84484; 85025; 85610; 93010; 99217; 99219; G0378; J1941; J2930; J7512; J7613; J7620

== ENCOUNTER 2022-10-15 13:08 | Outpatient (CLI) | payer MEDICARE, SELFPAY ==
--- NOTE | 2022-10-15 12:54 | DI.RAD_ITS ---
Exam(s) XR CHEST 2V PA LATERAL EXAM: XR CHEST 2V PA LATERAL CLINICAL HISTORY: continued productive cough and wheeze, R05.8 TECHNIQUE: 2D digital imaging was performed of the chest. Two images were obtained. PA and lateral views were obtained. COMPARISON: CR XR CHEST 2V PA LATERAL from 06/27/2022 FINDINGS: MEDIASTINUM: Normal. HEART: Normal. Status post CABG. PULMONARY VASCULATURE: Normal. LUNGS: The lungs are hyperinflated with flattened diaphragms suggesting underlying COPD. No focal con solidating infiltrates are seen. PLEURAL SPACE: No pleural effusion or pneumothorax. BONE:Within normal limits for the patient's age. OTHER FINDINGS:Normal. IMPRESSION: No acute pulmonary findings. DATA REPOSITORY: RADIATION DOSE DELIVERED:
== END 2022-10-15 13:28 ==
LOC: DI 13:09
PROVIDERS: PCP Family Medicine; Visit Provider Nurse Practitioner Family
DX: R05.8 Other specified cough (principal)
CPT/HCPCS: 71046

== ENCOUNTER 2022-10-29 14:38 | Emergency (ER) | payer OTHER, SELFPAY ==
[2022-10-29] VITALS (52 sets, daily range): BP systolic 112–178; BP diastolic 38–154; PULSE 55–80; RESP 8–23; TEMP 36.8; O2SAT 91–97
--- NOTE | 2022-10-29 14:30 | RT.EKG_ITS ---
APPROVED REPORT Exam: Resting ECG Reason for Exam: sob Patient Location: E HR:66 bpm ECG Measurements Heart Rate 66 AXIS UT 324 P 72 QRSd 121 QRS 13 QT 350 T 85 QTc 366 Conclusion Sinus rhythm...normal P axis, V-rate 60- 99 Prolonged UT interval...UT >220, V-rate 50- 90 Nonspecific intraventricular conduction delay...QRSd >115mS, not LBBB/RBBB Inferior infarct, old...Q >35mS, II III aVF. Sinus. Normal axis. No STEMI. I have reviewed and interpreted ECG and agree with software generated interpretation.
--- NOTE | 2022-10-29 15:15 | DI.RAD_ITS ---
Exam(s) XR CHEST 2V PA LATERAL EXAM: XR CHEST 2V PA LATERAL CLINICAL HISTORY: fatigue, r/o pneumonia TECHNIQUE: 2D digital imaging was performed of the chest. Two images were obtained. PA and lateral views were obtained. COMPARISON: CR XR CHEST 2V PA LATERAL from 10/15/2022 FINDINGS: MEDIASTINUM: Normal. HEART: Normal. PULMONARY VASCULATURE: Normal. LUNGS: COPD. No focal consolidating infiltrates. PLEURAL SPACE: No pleural effusion or pneumothorax. BONE:Within normal limits for the patient's age. Sternal wires are in place. OTHER FINDINGS:Normal. IMPRESSION: No acute pulmonary findings. DATA REPOSITORY: RADIATION DOSE DELIVERED:
--- NOTE | 2022-10-29 15:20 | ED.GENADUL_ITS ---
Discharge Plan Disposition Patient Disposition: Home Discharge Details Clinical Impression: Abnormal vital signs Primary Care Provider: Gianni Gannon ED Provider: Nahid Balbuena Home Meds and New Rx's Prescriptions: No Action (DME) blood-glucose meter [FreeStyle Lite Meter] Kit See Rx Instructions .ROUTE .MEDSUPPLY Qty: 1 0RF Rx Instructions: test once/day warfarin 2.5 mg tablet 2.5 mg PO DAILY Qty: 90 3RF Protocol: Dose Management Condition: Thursday Dose/Route: 10 mg Instruction: 2 x 5 mg tablets Condition: Thursday Dose/Route: 10 mg Instruction: 2 x 5 mg tablets Condition: Thursday Dose/Route: 10 mg Instruction: 2 x 5 mg tablets Condition: Thursday Dose/Route: 10 mg Instruction: 2 x 5 mg tablets Condition: Dose/Route: 10 mg Instruction: 2 x 5 mg tablets Condition: Thursday Dose/Route: 10 mg Instruction: 2 x 5 mg tablets Condition: Thursday Dose/Route: 10 mg Instruction: 2 x 5 mg tablets Protocol Text: Adjustment Start Date: Thursday10/29/22 INR Value: 3.9 INR Date: 10/29/22 Recheck Date: 11/05/22 Rx Instructions: take as directed based on INR mirabegron 25 mg tablet extended release 24 hr 25 mg PO DAILY Qty: 30 0RF (DME) FreeStyle Lite Strips Strip 1 ea Miscellaneous BID Qty: 180 3RF Rx Instructions: DX:E11.9 test twice/daily nitroglycerin [Nitrostat] 0.4 mg tablet, sublingual 0.4 mg Sublingual DIRECTED Qty: 7 0RF insulin glargine [Lantus Solostar U-100 Insulin] 100 unit/mL (3 mL) insulin pen 10 unit subcut HS albuterol sulfate 2.5 mg /3 mL (0.083 %) solution for nebulization 2.5 mg Inhalation Q4H PRN (Reason: bronchospasm) Qty: 50 5RF albuterol sulfate [ProAir HFA] 90 mcg/actuation HFA aerosol inhaler 1 - 2 puff Inhalation Q6H PRN Qty: 2 2RF amoxicillin-pot clavulanate 875-125 mg tablet 1 tab PO Q12H Qty: 14 0RF Patient Comments: not taking Rx Instructions: Take 1 tablet twice a day for 7 days prednisone 20 mg tablet 40 mg PO DAILY 5 Days Qty: 10 0RF Patient Comments: not taking Rx Instructions: 2 tablets by mouth once a day for 5 days azithromycin 250 mg tablet 250 mg PO DAILY 5 Days Qty: 6 0RF Patient Comments: not taking Rx Instructions: Take 2 tablets on day one and then 1 tablet once a day for the next 4 days (DME) Space Chamber Plus 1 EACH spacer 1 ea Miscellaneous PRN Qty: 1 Patient Comments: not using (DME) lancets [FreeStyle Lancets] 1 EACH misc 1 ea Sub-Q BID Qty: 100 Rx Instructions: DX:250. (DME) nebulizers [Aeroeclipse Reusable BAN] 1 EACH misc 1 ea Miscellaneous DAILY Qty: 1 (DME) C-pap Qty: 1 (DME) pen needle, diabetic 31 gauge x 1/3 needle 1 ea Sub-Q DIRECTED Qty: 300 4RF Rx Instructions: inject TID fluticasone propion-salmeterol [Advair Diskus] 500-50 mcg/dose blister with device 1 inh Inhalation BID Qty: 60 11RF metformin 850 mg tablet 850 mg PO BID Qty: 270 3RF Patient Comments: 1700 mg in am and 850 mg in the saray--05/06/18 er Rx Instructions: dose reduced to BID due to diarrhea 11/16/19 metoprolol succinate 25 mg tablet extended release 24 hr 25 mg PO DAILY Qty: 90 2RF pantoprazole 20 mg tablet,delayed release (DR/EC) 20 mg PO DAILY@0730 Qty: 90 2RF rosuvastatin [Crestor] 10 mg tablet 10 mg PO DAILY Qty: 90 3RF Stiolto Respimat 2.5-2.5 mcg/actuation mist 2 puff IH DAILY Qty: 4 11RF terazosin 1 mg capsule 1 mg PO .QHS Qty: 90 1RF tamsulosin 0.4 mg capsule 0.4 mg PO DAILY Qty: 90 3RF Rx Instructions: Per [facility] Oncology ferrous sulfate 325 mg (65 mg iron) tablet 325 mg PO BID Qty: 180 3RF Rx Instructions: start with one/day for first week, then increase to BID magnesium oxide 400 mg (241.3 mg magnesium) tablet 400 mg PO DAILY Qty: 90 3RF warfarin 5 mg tablet 10 mg PO as directed Qty: 180 3RF Protocol: Dose Management Condition: Thursday Dose/Route: 10 mg Instruction: 2 x 5 mg tablets Condition: Thursday Dose/Route: 10 mg Instruction: 2 x 5 mg tablets Condition: Thursday Dose/Route: 10 mg Instruction: 2 x 5 mg tablets Condition: Thursday Dose/Route: 10 mg Instruction: 2 x 5 mg tablets Condition: Dose/Route: 10 mg Instruction: 2 x 5 mg tablets Condition: Thursday Dose/Route: 10 mg Instruction: 2 x 5 mg tablets Condition: Thursday Dose/Route: 10 mg Instruction: 2 x 5 mg tablets Protocol Text: Adjustment Start Date: Thursday10/29/22 INR Value: 3.9 INR Date: 10/29/22 Recheck Date: 11/05/22 Rx Instructions: 10mg Thursday thru Thursday 5mg on Sundays lisinopril 20 mg tablet 20 mg PO DAILY Qty: 90 1RF furosemide 20 mg tablet 20 mg PO DAILY Qty: 30 0RF Discharge Instructions Additional Instructions: Please follow-up with your primary care physician. Please return to the emergency department for any worsening symptoms. Discharge Data Discharge Date/Time-TO BE ENTERED AT DEPARTURE: 10/29/22 19:42 Medical Decision Making <Vickie Sharp DO - Last Filed: 11/01/22 14:17> 1500 -- 77-year-old male with a history of COPD, chronic tobacco smoker, history of pulmonary embolism on Coumadin, coronary artery disease with history of CABG x4 in 2016, hypertension, hyperlipidemia, diabetes, sleep apnea and chronic nightmares who presents from [facility] for hypotension and hypoxia after there for a routine lab draw of his INR. [facility] reported saturation in the low 80s and blood pressure 80s/40s. EMS reported his oxygen saturation was 97% on 2 L and blood pressure of 144/80. On arrival to the ED patient appears pleasant, awake and alert and easily ambulatory to the stretcher. His blood pressure is 147/61 with normal heart rate, respiratory rate and oxygen saturation 96% on room air. He is afebrile. He has no report of chest pain, tearing or ripping sensation to suggest ACS or dissection. He has been taking his Coumadin as directed and INR today at [facility] is 3.9 so low suspicion for PE. He has been eating normally without vomiting, diarrhea, abdominal pain or tenderness with no evidence of pulsatile masses or peritoneal signs to suggest an acute gastrointestinal etiology such as ruptured aneurysm. He has no focal deficits, complaint of headache, blurry vision or dizziness to suggest CVA. Considering his age and history, will obtain screening labs, urinalysis, fluid and chest x-ray to rule out possible electrolyte abnormality, dehydration, UTI, pneumonia or other viral illness. We will give a small fluid bolus. EKG notes a rate of 66, sinus, normal axis and no acute ischemic findings. 1600 --Labs reviewed. White blood cell count 11.95. Hemoglobin stable at 12.5. Sodium 130 which is lower than his usual baseline. Magnesium 1.4, will replete. Troponin negative. Urinalysis negative for infection. FLUVID pending. Chest x-ray not yet completed. Case endorsed to Dr. Balbuena to follow-up on remainder of labs and imaging and final disposition. Unclear if his vital signs were spurious at [facility], but considering his medical history, will plan for repeat troponin. 19: 31 patient resting comfortably asymptomatic. Vital signs of been stable to troponin negative. Medical Records Medical records reviewed: Yes I reviewed the patient's medical records. Imaging Data Radiologic Study: Radiologist's impression: XR CHEST 2V PA ? LATERAL CLINICAL HISTORY:? fatigue, r/o pneumonia TECHNIQUE:? 2D digital imaging was performed of the chest.? Two images were obtained.? PA and lateral views were obtained. COMPARISON:? CR XR CHEST 2V PA ? LATERAL from 10/15/2022 FINDINGS: MEDIASTINUM: Normal.? HEART: Normal. PULMONARY VASCULATURE: Normal. LUNGS: COPD.? No focal consolidating infiltrates. ? PLEURAL SPACE: No pleural effusion or pneumothorax. BONE:Within normal limits for the patient's age.? Sternal wires are in place. OTHER FINDINGS:Normal.? IMPRESSION: No acute pulmonary findings. Lab Data Lab results reviewed: Yes I reviewed the patient's lab results. Labs: Laboratory Tests Range/Units 10/29/22 10/29/22 10/29/22 14:48 14:48 15:28 WBC (4.4-10.8) 10^3/uL 11.95 H RBC (4.36-5.78) 10^6/uL 4.81 Hgb (13.5-17.5) g/dL 12.5 L Hct (40.0-50.0) % 37.0 L MCV (80-95) fL 77 L MCH (27.0-33.0) pg 26.0 L MCHC (32.0-36.0) % 33.8 RDW (11.8-14.1) % 14.4 H Plt Count (130-400) 10^3/uL 239 MPV (8.0-11.0) fL 9.2 Immature Gran % 0.3 Neutrophils % 64.5 Lymphocytes % 22.8 Monocytes % 9.9 Eosinophils % 2.2 Basophils % 0.3 Nucleated RBC % (0.0-0.3) % 0.0 Absolute Neutrophils (1.2-6.7) 10^3/uL 7.71 H Absolute Lymphocytes (1.2-3.4) 10^3/uL 2.72 Absolute Monocytes (0.1-0.8) 10^3/uL 1.18 H Absolute Eosinophils (0.0-0.7) 10^3/uL 0.26 Absolute Basophils (0.0-0.2) 10^3/uL 0.04 Sodium (136-145) mmol/L 130 L Potassium (3.5-5.1) mmol/L 4.5 Chloride (98-107) mmol/L 97 L Carbon Dioxide (21.0-32.0) mmol/L 23.2 Anion Gap (3-11) mmol/L 9.8 BUN (7-18) mg/dL 12 Creatinine (0.70-1.30) mg/dL 0.9 Est GFR (CKD-EPI 2020) (mL/min/1.73m2) 86.88 Glucose (74-106) mg/dL 108 H Calcium (8.5-10.1) mg/dL 8.8 Magnesium (1.8-2.4) mg/dL 1.4 L Total Bilirubin (0.2-1.0) mg/dL 0.4 AST (15-37) U/L 12 L ALT (16-63) U/L 10 L Alkaline Phosphatase (46-116) U/L 85 Troponin I (<or=60) ng/L < 50 Total Protein (6.4-8.2) g/dL 6.8 Albumin (3.4-5.0) g/dL 3.3 L Urine Color (Yellow) Urine Clarity (Clear) Urine pH (5-8) Ur Specific [place] (1.005-1.025) Urine Protein (Negative) mg/dL Urine Ketones (Negative) mg/dL Urine Blood (Negative) Urine Nitrite (Negative) Urine Bilirubin (Negative) Urine Urobilinogen (Up to 0.2) mg/dL Ur Leukocyte Esterase (Negative) Urine RBC (0-2) HPF Urine WBC (0-5) HPF Ur Epithelial Cells (Negative) HPF Urine Crystals (Negative) HPF Urine Bacteria (Negative) HPF Urine Casts (Negative) LPF Urine Mucus (Negative) Ur Culture Indicated? Urine Glucose (Negative) mg/dL COVID-19 Source Nasopharynx SARS-CoV-2 (PCR) (Negative) Negative Influenza Type A (PCR) (Negative) Negative Influenza Type B (PCR) (Negative) Negative RSV (PCR) (Negative) Negative Range/Units 10/29/22 10/29/22 15:28 16:22 WBC (4.4-10.8) 10^3/uL RBC (4.36-5.78) 10^6/uL Hgb (13.5-17.5) g/dL Hct (40.0-50.0) % MCV (80-95) fL MCH (27.0-33.0) pg MCHC (32.0-36.0) % RDW (11.8-14.1) % Plt Count (130-400) 10^3/uL MPV (8.0-11.0) fL Immature Gran % Neutrophils % Lymphocytes % Monocytes % Eosinophils % Basophils % Nucleated RBC % (0.0-0.3) % Absolute Neutrophils (1.2-6.7) 10^3/uL Absolute Lymphocytes (1.2-3.4) 10^3/uL Absolute Monocytes (0.1-0.8) 10^3/uL Absolute Eosinophils (0.0-0.7) 10^3/uL Absolute Basophils (0.0-0.2) 10^3/uL Sodium (136-145) mmol/L Potassium (3.5-5.1) mmol/L Chloride (98-107) mmol/L Carbon Dioxide (21.0-32.0) mmol/L Anion Gap (3-11) mmol/L BUN (7-18) mg/dL Creatinine (0.70-1.30) mg/dL Est GFR (CKD-EPI 2020) (mL/min/1.73m2) Glucose (74-106) mg/dL Calcium (8.5-10.1) mg/dL Magnesium (1.8-2.4) mg/dL Total Bilirubin (0.2-1.0) mg/dL AST (15-37) U/L ALT (16-63) U/L Alkaline Phosphatase (46-116) U/L Troponin I (<or=60) ng/L < 50 Total Protein (6.4-8.2) g/dL Albumin (3.4-5.0) g/dL Urine Color (Yellow) Yellow Urine Clarity (Clear) Clear Urine pH (5-8) 6.0 Ur Specific [place] (1.005-1.025) 1.015 Urine Protein (Negative) mg/dL Negative Urine Ketones (Negative) mg/dL Negative Urine Blood (Negative) Trace-intact H Urine Nitrite (Negative) Negative Urine Bilirubin (Negative) Negative Urine Urobilinogen (Up to 0.2) mg/dL 1.0 H Ur Leukocyte Esterase (Negative) Negative Urine RBC (0-2) HPF 0-2 Urine WBC (0-5) HPF Negative Ur Epithelial Cells (Negative) HPF Rare Urine Crystals (Negative) HPF Negative Urine Bacteria (Negative) HPF Rare Urine Casts (Negative) LPF Negative Urine Mucus (Negative) Negative Ur Culture Indicated? No Urine Glucose (Negative) mg/dL Negative COVID-19 Source SARS-CoV-2 (PCR) (Negative) Influenza Type A (PCR) (Negative) Influenza Type B (PCR) (Negative) RSV (PCR) (Negative) ECG Data Attestation: I personally reviewed and interpreted this ECG (s) as follows: Interpretation: Rate of 66, sinus, normal axis, intraventricular conduction delay, prolonged NH, no acute ischemic findings. <Nahid Balbuena MD - Last Filed: 10/29/22 19:33> 1500 -- 77-year-old male with a history of COPD, chronic tobacco smoker, history of pulmonary embolism on Coumadin, coronary artery disease with history of CABG x4 in 2016, hypertension, hyperlipidemia, diabetes, sleep apnea and chronic nightmares who presents from [facility] for hypotension and hypoxia after there for a routine lab draw of his INR. [facility] reported saturation in the low 80s and blood pressure 80s/40s. EMS reported his oxygen saturation was 97% on 2 L and blood pressure of 144/80. On arrival to the ED patient appears pleasant, awake and alert and easily ambulatory to the stretcher. His blood pressure is 147/61 with normal heart rate, respiratory rate and oxygen saturation 96% on room air. He is afebrile. He has no report of chest pain, tearing or ripping sensation to suggest ACS or dissection. He has been taking his Coumadin as directed and INR today at [facility] is 3.9 so low suspicion for PE. He has been eating normally without vomiting, diarrhea, abdominal pain or tenderness with no evidence of pulsatile masses or peritoneal signs to suggest an acute gastrointestinal etiology such as ruptured aneurysm. He has no focal deficits, complaint of headache, blurry vision or dizziness to suggest CVA. Considering his age and history, will obtain screening labs, urinalysis, fluid and chest x-ray to rule out possible electrolyte abnormality, dehydration, UTI, pneumonia or other viral illness. We will give a small fluid bolus. EKG notes a rate of 66, sinus, normal axis and no acute ischemic findings. 1600 --Labs reviewed. White blood cell count 11.95. Hemoglobin stable at 12.5. Sodium 130 which is lower than his usual baseline. Magnesium 1.4, will replete. Troponin negative. Urinalysis negative for infection. FLUVID pending. Chest x-ray not yet completed. Case endorsed to Dr. Hoyos to follow-up on remainder of labs and imaging and final disposition. Unclear if his vital signs were spurious at [facility], but considering his medical history, will plan for repeat troponin. 19: 31 patient resting comfortably asymptomatic. Vital signs of been stable to troponin negative. HPI <Vickie Sharp DO - Last Filed: 11/01/22 14:17> General Mode of arrival: EMS . Date/Time Provider Initiated Documentation: 10/29/22 15:04 . Limitations to Documentation: no limitations . Information obtained by: patient . HPI Narrative: Patient is a 77-year-old male with a history of COPD, chronic tobacco smoker, history of pulmonary embolism on Coumadin, coronary artery disease with history of CABG x4 in 2016, hypertension, hyperlipidemia, diabetes, sleep apnea and chronic nightmares who presents from [facility] for hypotension and hypoxia after there for a routine lab draw of his INR. Patient states he was at [facility] today for routine lab draw of his INR and had reported to them that he has felt sluggish and tired for the past few days. They called the ED to report that patient had oxygen saturation in the low 80s on room air with blood pressure of 80s/40s. EMS reported that patient's oxygen saturation was 97% on 2 L nasal cannula. Patient reports that for the past 3 days he has felt more sluggish and tired. He states he chronically has difficulty sleeping at night due to nightmares and having to wake up to urinate. He states he drinks 8 to 10 cups of coffee a day and drinks about a quart of water in the middle the night when he gets up to urinate. He states he usually gets up every 90 minutes to either urinate or to wake himself up out of a nightmare. Patient states this has been worse with getting himself up in the night over the past few days. He otherwise reports that he has been eating well without fever, sore throat, cough, chest pain, shortness of breath, abdominal pain, nausea, vomiting, diarrhea or urinary symptoms. Related Data Home Medications Medication Instructions Recorded Confirmed inhalational spacing device (Space ##1 03/13/14 10/29/22 Chamber Plus) lancets 28 gauge (FreeStyle #100 ea 04/03/14 10/29/22 Lancets) nebulizers (Aeroeclipse Reusable #1 ea 04/09/16 10/29/22 Breath Actuated Nebulizer) C-pap #1 ea 04/05/19 10/29/22 blood sugar diagnostic (FreeStyle #180 strips 04/06/19 10/29/22 Lite Strips) pen needle, diabetic 31 gauge x #300 ea 05/30/20 10/29/2207/01 blood-glucose meter (FreeStyle #1 ea 06/06/20 10/29/22 Lite Meter kit) fluticasone 500 mcg-salmeterol 50 1 inh inhalation BID #60 ea 02/10/22 10/29/22 mcg/dose blistr powdr for inhalation (Advair Diskus) metformin 850 mg tablet 850 mg PO BID #270 tab-caps 02/10/22 10/29/22 metoprolol succinate 25 mg 25 mg PO DAILY #90 tabs 02/10/22 10/29/22 tablet,extended release 24 hr pantoprazole 20 mg tablet,delayed 20 mg PO DAILY@0730 ##90 02/10/22 10/29/22 release rosuvastatin 10 mg tablet (Crestor) 10 mg PO DAILY #90 tab-caps 02/10/22 10/29/22 tamsulosin 0.4 mg capsule 0.4 mg PO DAILY #90 caps 02/10/22 10/29/22 terazosin 1 mg capsule 1 mg PO .QHS #90 caps 02/10/22 10/29/22 tiotropium 2.5 mcg-olodaterol 2.5 2 puff inhalation DAILY #4 grams 02/10/22 10/29/22 mcg/actuation mist for inhalation (Stiolto Respimat) nitroglycerin 0.4 mg sublingual 0.4 mg sublingual DIRECTED #7 03/07/22 10/29/22 tablet (Nitrostat) tabs albuterol sulfate 2.5 mg/3 mL 2.5 mg (3 mL) inhalation Q4H PRN 03/14/22 10/29/22 (0.083 %) solution for nebulization bronchospasm #50 vials ferrous sulfate 325 mg (65 mg 325 mg PO BID #180 tabs 03/19/22 10/29/22 iron) tablet warfarin 2.5 mg tablet 2.5 mg PO DAILY #90 tabs 04/11/22 10/29/22 insulin glargine 100 unit/mL (3 10 unit subcut HS 05/09/22 10/29/22 mL) subcutaneous pen (Lantus Solostar U-100 Insulin) magnesium oxide 400 mg (241.3 mg 400 mg PO DAILY #90 tabs 06/09/22 10/29/22 magnesium) tablet warfarin 5 mg tablet 10 mg PO as directed #180 tab-caps 06/09/22 10/29/22 furosemide 20 mg tablet 20 mg PO DAILY #30 tabs 06/28/22 10/29/22 mirabegron 25 mg tablet,extended 25 mg PO DAILY #30 tabs 07/24/22 10/29/22 release 24 hr lisinopril 20 mg tablet 20 mg PO DAILY #90 tab-caps 09/29/22 10/29/22 albuterol sulfate 90 mcg/actuation 1 - 2 puff inhalation Q6H PRN ##2 10/15/22 10/29/22 aerosol inhaler (ProAir HFA) amoxicillin 875 mg-potassium 1 tab PO Q12H #14 tabs 10/29/22 10/29/22 clavulanate 125 mg tablet azithromycin 250 mg tablet 250 mg PO DAILY 5 days #6 tabs 10/29/22 10/29/22 prednisone 20 mg tablet 40 mg PO DAILY 5 days #10 tabs 10/29/22 10/29/22 Previous Rx's Medication Instructions Recorded blood sugar diagnostic (FreeStyle #180 strips 04/06/19 Lite Strips) pen needle, diabetic 31 gauge x #300 ea 05/30/2007/01 blood-glucose meter (FreeStyle #1 ea 06/06/20 Lite Meter kit) fluticasone 500 mcg-salmeterol 50 1 inh inhalation BID #60 ea 02/10/22 mcg/dose blistr powdr for inhalation (Advair Diskus) metformin 850 mg tablet 850 mg PO BID #270 tab-caps 02/10/22 metoprolol succinate 25 mg 25 mg PO DAILY #90 tabs 02/10/22 tablet,extended release 24 hr pantoprazole 20 mg tablet,delayed 20 mg PO DAILY@0730 ##90 02/10/22 release rosuvastatin 10 mg tablet (Crestor) 10 mg PO DAILY #90 tab-caps 02/10/22 tamsulosin 0.4 mg capsule 0.4 mg PO DAILY #90 caps 02/10/22 terazosin 1 mg capsule 1 mg PO .QHS #90 caps 02/10/22 tiotropium 2.5 mcg-olodaterol 2.5 2 puff inhalation DAILY #4 grams 02/10/22 mcg/actuation mist for inhalation (Stiolto Respimat) nitroglycerin 0.4 mg sublingual 0.4 mg sublingual DIRECTED #7 03/07/22 tablet (Nitrostat) tabs albuterol sulfate 2.5 mg/3 mL 2.5 mg (3 mL) inhalation Q4H PRN 03/14/22 (0.083 %) solution for nebulization bronchospasm #50 vials ferrous sulfate 325 mg (65 mg 325 mg PO BID #180 tabs 03/19/22 iron) tablet warfarin 2.5 mg tablet 2.5 mg PO DAILY #90 tabs 04/11/22 magnesium oxide 400 mg (241.3 mg 400 mg PO DAILY #90 tabs 06/09/22 magnesium) tablet warfarin 5 mg tablet 10 mg PO as directed #180 tab-caps 06/09/22 furosemide 20 mg tablet 20 mg PO DAILY #30 tabs 06/28/22 mirabegron 25 mg tablet,extended 25 mg PO DAILY #30 tabs 07/24/22 release 24 hr lisinopril 20 mg tablet 20 mg PO DAILY #90 tab-caps 09/29/22 albuterol sulfate 90 mcg/actuation 1 - 2 puff inhalation Q6H PRN ##2 10/15/22 aerosol inhaler (ProAir HFA) amoxicillin 875 mg-potassium 1 tab PO Q12H #14 tabs 10/29/22 clavulanate 125 mg tablet azithromycin 250 mg tablet 250 mg PO DAILY 5 days #6 tabs 10/29/22 prednisone 20 mg tablet 40 mg PO DAILY 5 days #10 tabs 10/29/22 Allergies Allergy/AdvReac Type Severity Reaction Status Date / Time venom-honey bee Allergy Severe Swelling/Ed Verified 10/29/22 14:46 [bee venom (honey bee)] lida General Stated Complaint: RespSymp ODESSA: 3 PFSH <Vickie Sharp, - Last Filed: 11/01/22 14:17> All Active Problems (Updated 10/29/22 @ 19:32 by Nahid Balbuena MD) CAD (coronary artery disease) (Chronic) a. 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 Valve mobility was restricted. Transvalvular velocity was increased. There was moderate to severe stenosis. There was mild regurgitation. Peak velocity (S): 4m/sec. VTI ratio of LVOT to aortic valve: 0.41. Valve area (VTI): 1.2cm^2. 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) Influenza A (Acute) Weakness (Acute) Lower urinary tract symptoms (LUTS) (Acute) Nightmares (Acute) Productive cough (Acute) Sleep apnea (Acute) Abnormal vital signs (Acute) Medical History Acute CHF (congestive heart failure) HCAP (healthcare-associated pneumonia) (04/17/17) History of tobacco use quit in 2001 but now continues to smoke 5 a day-2013 Osteoarthritis of right hip (03/12/17) WINTER February, [facility] 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 colonoscopy 05/2015 History of cataract removal with insertion of prosthetic lens History of prostate biopsy S/P total right hip arthroplasty Status post inguinal hernia repair Social History Smoking/Tobacco Use Status: Current every day Tobacco Type: cigarettes Smoking packs per day: 0.5 Smoking cigarettes per day: 10.0 Tobacco: How many years used: 63 Quit status: not considering quitting Second Hand Exposure: No Smoking risk assessment performed?: Yes Alcohol Intake: never Details: History of heavy alcohol use Drug use: Never Substance use type: does not use Household members: spouse and children Do you feel safe at home: Yes Do you feel safe in your relationship?: Yes Additional Social history: , lives on [place] farm in [place]. His youngest son lives with him as well as 2 grandchildren. 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 Exam <Vickie Sharp DO - Last Filed: 11/01/22 14:17> Const General: cooperative and no acute distress Orientation: alert, awake and oriented x3 HENMT Head: normal to inspection Face and sinus: normal facial exam Teeth and gingiva: dentures Throat: posterior oropharynx normal Eyes General: appearance normal, both eyes and all related structures Pupils: PERRL EOM: EOM intact bilaterally Neck Neck: normal visual inspection and No submandibular swelling Lymphatic: no lymphadenopathy noted Chest Chest: normal inspection of the chest and no tenderness Resp Effort & Inspection: normal respiratory effort and able to speak in complete sentences Auscultation: clear to auscultation bilaterally Cardio Rate: regular rate Rhythm: regular rhythm GI Inspection: normal to inspection Palpation: soft, not firm, not rigid and nontender Auscultation: hypoactive bowel sounds Skin General skin exam: no rashes or lesions noted Neuro General: patient alert, patient awake and patient oriented x3 Cognition: normal cognition Speech: speech normal Motor: muscle tone normal throughout Sensory Exam: no sensory deficits noted Extrem General: normal to inspection, full ROM, capillary refill normal, no calf tenderness bilaterally and no edema Psych Appearance: grossly normal Mental Status: mental status grossly normal Speech and Movement: speech and movement normal Affect: normal affect Course <DO Aline Torrez Last Filed: 11/01/22 14:17> Vital Signs Vital signs: Vital Signs Pulse 71 10/29/22 14:47 Blood Pressure 147/61 H 10/29/22 14:47 Pulse Oximetry 96 10/29/22 14:47 Temperature 98.2 F 10/29/22 14:48 Pulse 80 10/29/22 14:48 Pulse 67 10/29/22 15:00 Respiratory Rate 22 10/29/22 15:00 Respiratory Effort Normal, Non-Labored 10/29/22 15:06 Respiratory Depth Normal 10/29/22 15:06 Blood Pressure 147/61 H 10/29/22 14:48 Blood Pressure Mean 84 10/29/22 14:47 Pulse Oximetry 96 10/29/22 15:00 Oxygen Delivery Method Room Air 10/29/22 14:48 Oxygen Flow Rate 0 10/29/22 14:48 Sign Out <Vickie Sharp DO - Last Filed: 11/01/22 14:17> Sign Out Data: Sign Out Comment: Sent from [facility] for hypotension with blood pressure 80s/40s and hypoxia with saturations 80s on room air. EMS blood pressure 144/80 and oxygen saturation 97% on 2 L. His blood pressure is stable at 140s/80s and oxygen saturation 96% on room air in the ED. Follow-up on labs and x-ray. If repeat troponin negative and vital signs remain within normal limits, can discharge to home after repletion of IV magnesium. Last updated by Vickie Sharp DO at 10/29/22 16:06
[2022-10-29 15:34] LABS: Abs Immature Grans 0.04 10^3/uL (0.0-0.06); Absolute Basophil Count 0.04 10^3/uL (0.0-0.2); Absolute Eosinophil Count 0.26 10^3/uL (0.0-0.7); Absolute Monocyte Count 1.18 10^3/uL (0.1-0.8); Basophils % 0.3; Eosinophils % 2.2; HGB 12.5 g/dL (13.5-17.5); Immature Grans % 0.3; Lymphocytes % 22.8; MCHC 33.8 % (32.0-36.0); MCV 77 fL (80-95); MPV 9.2 fL (8.0-11.0); Monocytes % 9.9; Neutrophils % 64.5; Platelet Count 239 10^3/uL (130-400); RBC 4.81 10^6/uL (4.36-5.78); RDW 14.4 % (11.8-14.1); RDW-SD 40.2 fL; WBC 11.95 10^3/uL (4.4-10.8)
[2022-10-29 15:35] LABS: Absolute Lymphocyte Count 2.72 10^3/uL (1.2-3.4); Absolute Neutrophil Count 7.71 10^3/uL (1.2-6.7)
[2022-10-29] MEDS: Normal Saline 250 ML IV (15:39)
[2022-10-29 15:42] LABS: Bilirubin Negative (Negative); Blood Trace-intact (Negative); Clarity Clear (Clear); Glucose Negative (Negative); Ketones Negative (Negative); Leukocyte Esterase Negative (Negative); Nitrite Negative (Negative); Specific Gravity 1.015 (1.005-1.025)
[2022-10-29 15:59] LABS: ALT 10 U/L (16-63); AST 12 U/L (15-37); Albumin 3.3 g/dL (3.4-5.0); Alkaline Phosphatase 85 U/L (46-116); Anion Gap 9.8 mmol/L (3-11); BUN 12 mg/dL (7-18); Bilirubin, Total 0.4 mg/dL (0.2-1.0); CO2 23.2 mmol/L (21.0-32.0); CREATININE 0.9 mg/dL (0.70-1.30); Calcium 8.8 mg/dL (8.5-10.1); Chloride 97 mmol/L (98-107); Estimated GFR 86.88 (mL/min/1.73m2); Glucose 108 mg/dL (74-106); Magnesium 1.4 mg/dL (1.8-2.4); Potassium 4.5 mmol/L (3.5-5.1); Sodium 130 mmol/L (136-145); Total Protein 6.8 g/dL (6.4-8.2); Troponin I < 50 ng/L (<or=60)
[2022-10-29 16:05] LABS: Bacteria Rare HPF (Negative); C & S Indicated? No; Casts Negative LPF (Negative); Crystals Negative HPF (Negative); Epithelial Cells Rare HPF (Negative); Mucus Negative (Negative); RBC 0-2 HPF (0-2); WBC Negative HPF (0-5)
[2022-10-29 16:17] LABS: COVID-19 PCR Negative (Negative); Influenza A PCR Negative (Negative); Influenza B PCR Negative (Negative); RSV PCR Negative (Negative)
[2022-10-29 16:19] LABS: Source Nasopharynx
[2022-10-29] MEDS: MAGNESIUM SULFATE 2 GM/50 ML BAG IVPB (16:39)
[2022-10-29 18:53] LABS: Troponin I < 50 ng/L (<or=60)
== END 2022-10-29 19:42 | disposition home or self-care (01) ==
PROVIDERS: Physician Assistant; Emergency Provider Emergency Medicine; PCP Family Medicine
DX: I95.9 Hypotension, unspecified (principal); J44.9 Chronic obstructive pulmonary disease, unspecified; E11.9 Type 2 diabetes mellitus without complications; Z79.899 Other long term (current) drug therapy; R09.02 Hypoxemia; Z79.01 Long term (current) use of anticoagulants; Z86.711 Personal history of pulmonary embolism; E83.42 Hypomagnesemia; F17.210 Nicotine dependence, cigarettes, uncomplicated
CPT/HCPCS: 36415; 80053; 87637; 93005; 96361; 96365; 96366; 99283; 99284; 71046; 81003; 81015; 83735; 84484; 85025; 93010; 99282

== ENCOUNTER 2023-01-07 14:59 | Outpatient (CLI) | payer MEDICARE, SELFPAY ==
[2023-01-08 18:22] LABS: PSA, Ultrasensitive 0.05 ng/mL (<= 6.5)
[2023-01-12 15:34] LABS: Testosterone, Total 557 ng/dL (240-950)
== END 2023-01-07 15:00 | disposition home or self-care (01) ==
LOC: LBO 15:01
PROVIDERS: PCP Family Medicine; Visit Provider Nurse Practitioner Family
DX: C61 Malignant neoplasm of prostate (principal)
CPT/HCPCS: 36415; 84153; 84403

== ENCOUNTER 2023-01-16 10:51 | Outpatient (CLI) | payer MEDICARE, SELFPAY ==
[2023-01-16 12:35] LABS: Anion Gap 9.1 mmol/L (3-11); BUN 13 mg/dL (7-18); CO2 25.9 mmol/L (21.0-32.0); COMMENT (LAB VIEW ONLY) 49.94 mg/dL; Calcium 8.7 mg/dL (8.5-10.1); Chloride 103 mmol/L (98-107); Estimated GFR 76.56 (mL/min/1.73m2); Glucose 215 mg/dL (74-106); Microalb ug/mg Crea 54.9 ug/mg Cr; Potassium 4.4 mmol/L (3.5-5.1); Sodium 138 mmol/L (136-145)
[2023-01-16 12:58] LABS: Hemoglobin A1C 6.8 % (<5.7)
== END 2023-01-16 10:52 | disposition home or self-care (01) ==
LOC: LOS 10:52
PROVIDERS: PCP Family Medicine; Referring Provider Family Medicine; Visit Provider Family Medicine
DX: E11.40 Type 2 diabetes mellitus with diabetic neuropathy, unspecified (principal)
CPT/HCPCS: 36415; 80048; 82043; 82570; 83036

== ENCOUNTER → 2023-02-18 03:39 | Outpatient (CLI) | payer MEDICARE, SELFPAY ==
--- NOTE | 2023-02-18 07:30 | DI.RAD_ITS ---
Exam(s) XR KNEE LT 3V AP,LAT,JEAN CLAUDE EXAM: XR KNEE LT 3V AP,LAT,JEAN CLAUDE CLINICAL HISTORY: left knee pain,[id number]. TECHNIQUE: 2D digital imaging was performed of the left knee. Three images were obtained. AP, late ral and PA tunnel views were obtained. COMPARISON: There are no priors for comparison. FINDINGS: BONES: No acute fracture is present. No bony destructive lesion is seen. JOINTS: There is narrowing of the medial femoral tibial joint. Chondrocalcinosis is seen in the femo ral tibial joint. Small osteophytes are seen at the posterior patella. There is a small joint effus ion. No loose body. SOFT TISSUE: Atherosclerosis is present. IMPRESSION: Osteoarthritis of the knee. DATA REPOSITORY: RADIATION DOSE DELIVERED:
== END ==
PROVIDERS: PCP Family Medicine; Visit Provider Nurse Practitioner Family
DX: M17.11 Unilateral primary osteoarthritis, right knee (principal)
CPT/HCPCS: 73562

== ENCOUNTER 2023-09-02 12:56 | Inpatient (IN) | payer OTHER, SELFPAY ==
[2023-09-02] VITALS (10 sets, daily range): BP systolic 108–149; BP diastolic 36–75; PULSE 58–104; RESP 2–24; TEMP 37.5–38.3; O2SAT 90–96
--- NOTE | 2023-09-02 13:00 | RT.EKG_ITS ---
APPROVED REPORT Exam: Resting ECG Reason for Exam: SOB Patient Location: E HR:95 bpm ECG Measurements Heart Rate 95 AXIS OH 271 P 39 QRSd 105 QRS 30 QT 352 T 7 QTc 444 Conclusion Sinus rhythm...normal P axis, V-rate 60- 99 Prolonged OH interval...OH >215, V-rate 91-120 Inferior infarct, old...Q >35mS, II III aVF Borderline ST elevation, anterior leads...ST >0.15mV in V1-V4
--- NOTE | 2023-09-02 13:15 | DI.RAD_ITS ---
Exam(s) XR CHEST 2V PA LATERAL EXAM: XR CHEST 2V PA LATERAL CLINICAL HISTORY: cough fever, weak TECHNIQUE: 2D digital imaging was performed. Two views. COMPARISON: CR XR CHEST 2V PA LATERAL from 10/29/2022 FINDINGS: Leads overlie the chest on the PA view. HEART: Normal size. Status post CABG. Aorta: Not dilated. PULMONARY VASCULATURE: Normal. LUNGS: Improvement in densities seen at left lung base on the prior exam. PLEURAL SPACE: No pleural effusion or pneumothorax. BONE:Sternal wires. Soft tissues: Unremarkable. IMPRESSION: No acute abnormality. DATA REPOSITORY: RADIATION DOSE DELIVERED:
[2023-09-02 13:41] LABS: Lactate 1.9 mmol/L (0.6-1.4)
[2023-09-02 13:43] LABS: Abs Immature Grans 0.09 10^3/uL (0.0-0.06); Absolute Basophil Count 0.03 10^3/uL (0.0-0.2); Absolute Eosinophil Count 0.05 10^3/uL (0.0-0.7); Absolute Lymphocyte Count 1.05 10^3/uL (1.2-3.4); Absolute Monocyte Count 1.32 10^3/uL (0.1-0.8); Basophils % 0.2; Eosinophils % 0.4; HCT 36.5 % (40.0-50.0); HGB 12.8 g/dL (13.5-17.5); Immature Grans % 0.7; Lymphocytes % 8.3; MCH 28.7 pg (27.0-33.0); MCHC 35.1 % (32.0-36.0); MCV 82 fL (80-95); MPV 9.4 fL (8.0-11.0); Monocytes % 10.4; Platelet Count 185 10^3/uL (130-400); RBC 4.46 10^6/uL (4.36-5.78); RDW-SD 41.6 fL; WBC 12.67 10^3/uL (4.4-10.8)
[2023-09-02 13:44] LABS: Absolute Neutrophil Count 10.14 10^3/uL (1.2-6.7)
[2023-09-02 14:03] LABS: INR 2.6 (0.9-1.1); Prothrombin Time 23.8 sec (9.1-11.1)
[2023-09-02 14:20] LABS: COVID-19 PCR Negative (Negative); Influenza A PCR Negative (Negative); Influenza B PCR Negative (Negative); RSV PCR Negative (Negative)
[2023-09-02 14:30] LABS: Source Nasopharynx
[2023-09-02 14:40] LABS: ALT 12 U/L (16-63); AST 10 U/L (15-37); Albumin 3.2 g/dL (3.4-5.0); Alkaline Phosphatase 89 U/L (46-116); Anion Gap 9.5 mmol/L (3-11); BUN 14 mg/dL (7-18); Bilirubin, Total 0.8 mg/dL (0.2-1.0); CO2 23.5 mmol/L (21.0-32.0); CREATININE 1.2 mg/dL (0.70-1.30); Calcium 8.3 mg/dL (8.5-10.1); Chloride 93 mmol/L (98-107); Estimated GFR 61.13 (mL/min/1.73m2); Glucose 146 mg/dL (74-106); Potassium 4.3 mmol/L (3.5-5.1); Sodium 126 mmol/L (136-145); Total Protein 6.5 g/dL (6.4-8.2); Troponin I < 50 ng/L (< or =60)
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
[2023-09-02] MEDS: DOXYCYCLINE 100 MG in Normal Saline 100 ML IVPB (15:16)
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
[2023-09-02] MEDS: cefTRIAXone 2 GM/50 ML BAG IVPB (15:24)
[2023-09-02] MEDS: Normal Saline 500 ML IV (15:24)
[2023-09-02] MEDS: Normal Saline 250 ML IV (16:17)
[2023-09-02 18:35] LABS: Anion Gap 6.9 mmol/L (3-11); BUN 13 mg/dL (7-18); CO2 24.1 mmol/L (21.0-32.0); Calcium 7.8 mg/dL (8.5-10.1); Chloride 96 mmol/L (98-107); Estimated GFR 76.08 (mL/min/1.73m2); Glucose 171 mg/dL (74-106); Sodium 127 mmol/L (136-145)
[2023-09-02 18:43] LABS: Troponin I < 50 ng/L (< or =60)
[2023-09-02] MEDS: Albuterol/Ipratropium 3 ML UPD VIAL UPD ×2 (19:36→23:50)
--- NOTE | 2023-09-02 19:47 | RESPIRATORY ---
RT seen pt. for GREGORY diagnosis. Pt. states use CPAP machine with no O2 but did not bring it here. Pt. refused to use the one hospital provides. Pt. advised RT that he will be okay without it for straight couple nights. DME is unknown per pt. Pt. states family member will bring it if he is going to stay more nights in hospital.
[2023-09-02 20:55] LABS: Bilirubin Negative (Negative); Blood Trace-intact (Negative); Clarity Clear (Clear); Glucose Negative (Negative); Ketones Negative (Negative); Leukocyte Esterase Negative (Negative); Nitrite Negative (Negative); Specific Gravity 1.015 (1.005-1.025); Urobilinogen 0.2 mg/dL (Up to 0.2)
[2023-09-02] MEDS: Normal Saline Flush 10 ML SYR IVP (21:00)
[2023-09-02 21:03] LABS: Bacteria Rare HPF (Negative); C & S Indicated? No; Casts 0-2 Coarse Granular LPF (Negative); Crystals Negative HPF (Negative); Epithelial Cells Rare HPF (Negative); Mucus Negative (Negative); WBC 0-2 HPF (0-5)
[2023-09-02 21:05] LABS: Procalcitonin < 0.1 ng/mL
[2023-09-03] VITALS (7 sets, daily range): BP systolic 95–120; BP diastolic 49–57; PULSE 67–75; RESP 2–18; TEMP 36.1–38.1; O2SAT 93–97
[2023-09-03] MEDS: Acetaminophen 325 MG TAB PO (03:48)
[2023-09-03] MEDS: Albuterol/Ipratropium 3 ML UPD VIAL UPD (06:24)
[2023-09-03 06:42] LABS: HCT 32.6 % (40.0-50.0); HGB 11.3 g/dL (13.5-17.5); MCHC 34.7 % (32.0-36.0); MCV 81 fL (80-95); MPV 9.3 fL (8.0-11.0); Platelet Count 172 10^3/uL (130-400); RBC 4.03 10^6/uL (4.36-5.78); RDW 13.7 % (11.8-14.1); RDW-SD 40.3 fL; WBC 9.25 10^3/uL (4.4-10.8)
[2023-09-03 06:55] LABS: Anion Gap 8.5 mmol/L (3-11); BUN 11 mg/dL (7-18); CO2 23.5 mmol/L (21.0-32.0); CREATININE 0.9 mg/dL (0.70-1.30); Calcium 8.2 mg/dL (8.5-10.1); Chloride 98 mmol/L (98-107); Estimated GFR 86.34 (mL/min/1.73m2); Glucose 108 mg/dL (74-106); Magnesium 1.4 mg/dL (1.8-2.4); Potassium 3.8 mmol/L (3.5-5.1); Sodium 130 mmol/L (136-145)
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
--- NOTE | 2023-09-04 15:32 | NUR.NOTE ---
Pt called CM with concerns on how to take medications he was prescribed at d/c yesterday. Regulated Program Manager in chart to read d/c note and contact patient on proper medication administration.Nursing Note:
== END 2023-09-03 12:41 | disposition home or self-care (01) | DRG 871 ==
LOC: ER 15:37 → MS 16:38
PROVIDERS: Admitting Provider Family Medicine; Emergency Provider Physician Assistant; PCP Family Medicine; Visit Provider Family Medicine
DX: A41.9 Sepsis, unspecified organism (principal); J18.9 Pneumonia, unspecified organism; E87.1 Hypo-osmolality and hyponatremia; I25.10 Atherosclerotic heart disease of native coronary artery without angina pectoris; Z79.01 Long term (current) use of anticoagulants; J43.9 Emphysema, unspecified; I10 Essential (primary) hypertension; E11.40 Type 2 diabetes mellitus with diabetic neuropathy, unspecified; G47.30 Sleep apnea, unspecified; Z95.1 Presence of aortocoronary bypass graft; I35.0 Nonrheumatic aortic (valve) stenosis; I65.23 Occlusion and stenosis of bilateral carotid arteries; Z86.711 Personal history of pulmonary embolism; F17.210 Nicotine dependence, cigarettes, uncomplicated; Z96.641 Presence of right artificial hip joint; Z79.4 Long term (current) use of insulin; Z79.84 Long term (current) use of oral hypoglycemic drugs
CPT/HCPCS: 00123; 36415; 80048; 80053; 84145; 85027; 87040; 87637; 93005; 96365; 96368; 99285; 71046; 81003; 81015; 83605; 83735; 84484; 85025; 85610; 93010; 94640; 94760; 99223; 99238; J0696; J1815; J7620

== ENCOUNTER 2023-09-09 12:58 | Outpatient (CLI) | payer MEDICARE, SELFPAY ==
[2023-09-09 13:02] LABS: Prothrombin Time 38.6 sec (9.1-11.1)
[2023-09-09 13:19] LABS: INR 4.4 (0.9-1.1)
== END 2023-09-09 12:59 | disposition home or self-care (01) ==
LOC: LBO 12:58
PROVIDERS: PCP Family Medicine; Visit Provider Nurse Practitioner Family
DX: R79.1 Abnormal coagulation profile (principal)
CPT/HCPCS: 36415; 85610

== ENCOUNTER 2023-09-14 05:49 | Outpatient (CLI) | payer MEDICARE, SELFPAY ==
[2023-09-14] MEDS: Inhaler, Assist Device 1 EACH MC (14:40)
[2023-09-14] MEDS: Levalbuterol HFA 15 GM INH 4 PUFF IH (14:40)
--- NOTE | 2023-09-14 14:59 | W.PFT ---
Date of service: 09/14/23 Time of Service: 13:13 Pulmonary Function Test Result Indications: COPD Interpretation Spirometry: There is moderate airflow limitation. No bronchodilator response. Lung Volumes: There is air trapping Diffusion Capacity: Decreased diffusion Airway Pressure: Increased airways resistance Impression Moderate airflow obstruction with air trapping and a decreased diffusion. Clinical Correlation therefore is recommended.
== END 2023-09-14 05:50 | disposition home or self-care (01) ==
LOC: RT 05:49
PROVIDERS: PCP Family Medicine; Visit Provider Family Medicine
DX: J44.9 Chronic obstructive pulmonary disease, unspecified (principal)
CPT/HCPCS: 94060; 94726; 94729

== ENCOUNTER → 2023-09-15 13:07 | Outpatient (BNVA) | payer MEDICARE, SELFPAY | PROVIDERS: PCP Family Medicine; Referring Provider Family Medicine; Visit Provider Physician Assistant Surgical | DX: J43.9 Emphysema, unspecified (principal); G47.30 Sleep apnea, unspecified | CPT/HCPCS: 99215 ==

== ENCOUNTER 2023-12-03 13:29 | Outpatient (CLI) | payer MEDICARE, SELFPAY ==
--- NOTE | 2023-12-03 13:15 | RT.EKG_ITS ---
APPROVED REPORT Exam: Resting ECG Reason for Exam: INR f/u Patient Location: O HR:68 bpm ECG Measurements Heart Rate 68 AXIS OR 331 P 69 QRSd 121 QRS 30 QT 422 T 71 QTc 449 Conclusion Sinus rhythm...normal P axis, V-rate 50- 99 Prolonged OR interval...OR >220, V-rate 50- 90 Nonspecific intraventricular conduction delay...QRSd >115mS, not LBBB/RBBB Inferior infarct, old...Q >35mS, II III aVF Minimal ST elevation, anterior leads...ST >0.10mV, V1-V4 Lateral leads are also involved...lat Q or ST-T abnormalities
== END 2023-12-03 13:30 | disposition home or self-care (01) ==
PROVIDERS: PCP Family Medicine; Visit Provider Nurse Practitioner Family
DX: R07.9 Chest pain, unspecified (principal)
CPT/HCPCS: 93010

== ENCOUNTER 2023-12-03 14:10 | Observation (INO) | payer MEDICARE, SELFPAY ==
[2023-12-03] VITALS (22 sets, daily range): BP systolic 117–176; BP diastolic 37–64; PULSE 48–74; RESP 13–24; TEMP 36.9; O2SAT 94–99
--- NOTE | 2023-12-03 14:00 | RT.EKG_ITS ---
APPROVED REPORT Exam: Resting ECG Reason for Exam: Chest pain Patient Location: E HR:69 bpm ECG Measurements Heart Rate 69 AXIS WI 341 P 58 QRSd 123 QRS 30 QT 412 T 71 QTc 442 Conclusion Sinus rhythm [address] specific ST changes
[2023-12-03 14:29] LABS: Abs Immature Grans 0.03 10^3/uL (0.0-0.06); Absolute Basophil Count 0.09 10^3/uL (0.0-0.2); Absolute Eosinophil Count 0.31 10^3/uL (0.0-0.7); Absolute Lymphocyte Count 3.18 10^3/uL (1.2-3.4); Absolute Monocyte Count 0.99 10^3/uL (0.1-0.8); Absolute Neutrophil Count 4.75 10^3/uL (1.2-6.7); Eosinophils % 3.3 %; HGB 12.5 g/dL (13.5-17.5); Immature Grans % 0.3 %; MCHC 32.9 % (32.0-36.0); MCV 82 fL (80-95); MPV 8.7 fL (8.0-11.0); Monocytes % 10.6 %; Neutrophils % 50.8 %; Platelet Count 250 10^3/uL (130-400); RBC 4.63 10^6/uL (4.36-5.78); RDW 13.6 % (11.8-14.1); RDW-SD 41.1 fL; WBC 9.35 10^3/uL (4.4-10.8)
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
[2023-12-03 14:40] LABS: INR 3.1 (0.9-1.1); PTT Activated 41.6 sec (23.6-32.8); Prothrombin Time 27.9 sec (9.1-11.1)
--- NOTE | 2023-12-03 14:41 | DI.RAD_ITS ---
Exam(s) XR PORTABLE CHEST AP EXAM: XR PORTABLE CHEST AP CLINICAL HISTORY: chest pain. TECHNIQUE: 2D digital imaging was performed. COMPARISON: CR XR CHEST 2V PA LATERAL from 09/02/2023 FINDINGS: Single AP portable view. Sternotomy wires are again noted as well as evidence of CABG Heart size is upper normal. The mediastinum is not widened. Calcified aortic arch again noted. No infiltrates nor pleural effusions. No pulmonary edema. No fractures. IMPRESSION: No acute pulmonary findings on this single AP portable view of the chest. Sternotomy and CABG again noted. Heart size remains unchanged. DATA REPOSITORY: RADIATION DOSE DELIVERED:
[2023-12-03 14:52] LABS: ALT 14 U/L (16-63); AST 9 U/L (15-37); Albumin 3.4 g/dL (3.4-5.0); Alkaline Phosphatase 85 U/L (46-116); Anion Gap 8.3 mmol/L (3-11); BUN 13 mg/dL (7-18); Bilirubin, Total 0.4 mg/dL (0.2-1.0); CO2 26.7 mmol/L (21.0-32.0); CREATININE 0.8 mg/dL (0.70-1.30); Calcium 8.5 mg/dL (8.5-10.1); Chloride 100 mmol/L (98-107); Estimated GFR 89.47 (mL/min/1.73m2); Glucose 110 mg/dL (74-106); Magnesium 1.5 mg/dL (1.8-2.4); NT-proBNP 988 pg/mL (<300); Potassium 4.2 mmol/L (3.5-5.1); Sodium 135 mmol/L (136-145); Total Protein 6.4 g/dL (6.4-8.2); Troponin I < 50 ng/L (< or =60)
[2023-12-03] MEDS: MAGNESIUM SULFATE 2 GM/50 ML BAG IVINF (15:10)
[2023-12-03 17:06] LABS: Troponin I < 50 ng/L (< or =60)
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
[2023-12-03 20:51] LABS: Troponin I < 50 ng/L (< or =60)
[2023-12-03] MEDS: Normal Saline Flush 10 ML SYR IVP (21:53)
[2023-12-03] MEDS: Ferrous Sulfate 325 MG TAB PO (21:53)
[2023-12-03] MEDS: Warfarin 5 MG TAB 10 MG PO (21:53)
[2023-12-03] MEDS: metFORMIN 850 MG TAB PO (23:42)
[2023-12-03] MEDS: Insulin Glargine 300 UNITS/3 ML PEN 10 UNITS SC (23:43)
[2023-12-04] VITALS (9 sets, daily range): BP systolic 132–160; BP diastolic 63–85; PULSE 53–75; RESP 8–24; TEMP 36.2–36.9; O2SAT 94–97
[2023-12-04 06:55] LABS: HCT 41.8 % (40.0-50.0); HGB 13.8 g/dL (13.5-17.5); MCH 27.1 pg (27.0-33.0); MCV 82 fL (80-95); MPV 9.2 fL (8.0-11.0); Platelet Count 258 10^3/uL (130-400); RBC 5.09 10^6/uL (4.36-5.78); RDW 13.7 % (11.8-14.1); RDW-SD 40.9 fL; WBC 8.54 10^3/uL (4.4-10.8)
[2023-12-04 07:06] LABS: INR 3.1 (0.9-1.1); Prothrombin Time 27.9 sec (9.1-11.1)
[2023-12-04 07:18] LABS: BUN 11 mg/dL (7-18); CREATININE 0.8 mg/dL (0.70-1.30); Calcium 8.9 mg/dL (8.5-10.1); Chloride 103 mmol/L (98-107); Estimated GFR 89.47 (mL/min/1.73m2); Glucose 95 mg/dL (74-106); Magnesium 1.8 mg/dL (1.8-2.4); Potassium 4.3 mmol/L (3.5-5.1); Sodium 139 mmol/L (136-145); Troponin I < 50 ng/L (< or =60)
[2023-12-04] MEDS: Albuterol 2.5 MG/3 ML INH SOLN VIAL IH (07:24)
--- NOTE | 2023-12-04 09:30 | DI.US_ITS ---
APPROVED REPORT EXAM: Comprehensive 2D, Doppler, and color-flow Echocardiogram Patient Location: In-Patient Cyber Software Engineer: Heidy Martin RT (R) (CT) [facility] Rhythm: NSR Indications: Severe aortic stenosis. Chest pain. Other Information Study Quality: Good Conclusion Moderate concentric left ventricular hypertrophy. Ejection fraction is 65 to 70%. Wall motion is no rmal Normal right ventricular size and function Normal left atrial size. Right atrium is mildly enlarged Aortic valve is calcified and trileaflet. There is severe aortic stenosis. Peak gradient is 107, me an 54 mmHg. Calculated aortic valve area 0.7 cm??. There is mild to moderate aortic regurgitation Thickened mitral leaflets, trace regurgitation Wall motion Left Ventricle The left ventricle is normal size. The left ventricular systolic function is hyperdynamic. Moderate c oncentric left ventricular hypertrophy. There is No evidence of LVOT obstruction. There is normal LV segmental wall motion. Diastolic indices are indeterminate. There is no ventricular septal defect vis ualized. LVEF is 65-70%. Prior echo, 03/18/2019, Ef = 55-60% with no wall motion abnormalities. Right Ventricle The right ventricle is normal size. RV function is preserved with mild basilar hypokinesia. There is normal right ventricular wall thickness. Atria The left atrium size is normal. Right atrium is mildly dilated. Lipomatous hypertrophy of the interat rial septum is noted. Aortic Valve Aortic valve is trileaflet. Aortic valve leaflets are severely thickened with annular calcification. Severe aortic stenosis- paradoxical low flow low gradient . Calculated CARLOS by the continuity equati on is __0.7__cm2. Highest mean aortic valve gradient is 54.1mmHg. Peak aortic valve gradient is 86.1 mmHg. AV Peak velocity is 5.18 m/s. Prior echo, AV peak velocity = 4 m/s, CARLOS = 1.2 cm2. Mild to mode rate aortic regurgitation. Mitral Valve The mitral valve leaflets are mildly thickened . No evidence of mitral valve stenosis. Trace mitral r egurgitation. Tricuspid Valve The tricuspid valve is normal in structure. There is no tricuspid valve stenosis. Trace tricuspid reg urgitation. No apparent pulmonary hypertension. Pulmonic Valve The pulmonary valve is normal in structure. There is no pulmonic valvular stenosis. There is no pulmo jennifer valvular regurgitation. Great Vessels The aortic root is normal in size. The pulmonary artery is normal. The ascending aorta is normal in s ize. The IVC is dilated with > 50% collapse with inspiration. Pericardium There is no pericardial effusion. 2D Dimensions IVSD d PLAX 1.79 cm M: 0.6-1.2 Ao Root d 3.00 cm M: 3.1 - 3.7 LVPW d PLAX 1.81 cm M: 0.6 - 1.2 Ao Asc Diam d 3.33 cm M: 2.6 - 3.4 LVID d PLAX 4.24 cm M: 4.2 - 5.8 IVC Diam exp d SLAX 1.4 cm LVDs 2.31 cm M: 2.5 - 4.0 LV EF Teichholz 77.2 % FS 45.49 % LV EDV (Teich) 80.1 mL LV ESV (Teich) 18.3 mL M-Mode TAPSE 1.30 cm (M/F) >1.7 LV Volumes - Method of Disks (Iqbal's) Single Plane 2D LV Volumes Biplane 2D LV Volumes LV EDV A4C 106.7 mL LV EDV BP 87.85 mL M: 62 - 150 LV ESV A4C 37.6 mL LV ESV BP 22.6 mL LVEF(%) A4C 64.7 % LVEF(%) BP 74.23 % M: 52 - 72 LV EDV A2C 69.5 mL LV EDV BP Index 42.85 mL/m2 M: 34 - 74 LV ESV A2C 12.5 mL SV BP LVEF(%) A2C 82.0 % SV Index LV Strain Long Pk Overal Avg (s) 11.93 LA Volume LA Length A4C 5.5 cm LA Length A2C 4.8 cm LA Area A4C s 18.75 cm2 LA Area A2C s 19.16 cm2 LA Vol A4C A-L 53.93 mL LA Vol A2C A-L 64.51 mL LA Vol Biplane A-L 63.1 mL LA Vol/BSA A4C A-L LA Vol/BSA A2C A-L LA Vol/BSA BP A-L 30.8 mL/m2 LA Vol A4C MOD 52.4 mL LA Vol A2C MOD 63.1 mL LA Vol BP MOD 60.4 mL LV Diastology MV E' medial 0.059 (>0.07 m/s) MV E Vmax 0.86 (0.4-1.3 m/s) MV E/E' MED 14.66 (<14) MV A Vmax 0.95 (0.4-1.3 m/s) MV E' lateral 0.066 (>0.1 m/s) E/A Ratio 0.9 MV E/E' LAT 13.00 (<14) MV E' Average 0.062 m/s MV E/E'(average) 13.78 Aortic Valve AoV Vmax 5.18 m/s LVOT Vmax 1.51 m/s AoV Peak Grad 86.1 mmHg LVOT Peak Grad 9.1 mmHg AoV Area (Vmax) 0.74 cm2 LVOT VTI 0.334 m AoV VTI 1.082 m LVOT Mean Grad 4.7 mmHg AoV Mean Logan. 3.42 m/s LVOT SV 84.76 mL AoV Mean Grad 54.1 mmHg LVOT Diam s 1.75 cm AoV Area (VTI) 0.78 cm2 AV Regurg Peak Gr. 64.65 mmHg Velocity Ratio 0.29 AR Decel [place] 2.4m/sec2 AR DT 1780 msec AR PHT 516 msec AR Vmax 4.02 m/s Mitral Valve MV DT 166 (160-240 msec) MV Vmax TIPS 1.14 m/s MV Mean Grad 2.2 (<2mmHg) MV VTI 0.348 m Pulmonary Valve RVOT Vmax 0.81 m/s RVOT Peak Gr. 2.6 mmHg RVOT VTI 0.154 m RVOT Mean Gr. 1.3 mmHg Tricuspid Valve TV S' 0.09 m/s TR Vmax 1.25 m/s TR Peak Grad 6.2 mmHg
[2023-12-04] MEDS: Furosemide 20 MG TAB PO (10:52)
[2023-12-04] MEDS: Rosuvastatin 10 MG TAB PO (10:53)
[2023-12-04] MEDS: Ferrous Sulfate 325 MG TAB PO ×2 (10:53→19:51)
[2023-12-04] MEDS: Mirabegron 25 MG TABCR PO (10:54)
[2023-12-04] MEDS: Pantoprazole 20 MG TABCR PO (10:54)
[2023-12-04] MEDS: Magnesium Oxide 400 MG TAB PO (10:54)
[2023-12-04] MEDS: Normal Saline Flush 10 ML SYR IVP ×2 (10:54→19:50)
[2023-12-04] MEDS: metFORMIN 850 MG TAB PO ×2 (10:55→17:06)
[2023-12-04] MEDS: Lisinopril 20 MG TAB 40 MG PO (10:56)
[2023-12-04] MEDS: Tamsulosin 0.4 MG CAPCR PO (10:56)
[2023-12-04] MEDS: Normal Saline 10 ML VIAL IJ (11:02)
--- NOTE | 2023-12-04 12:14 | NUR.NOTE ---
Nursing Note: Nurse notified of change in heart rate by ICU. Patient noted to have a sustained heart rate in the 30's. Patient had been out of bed voiding and retured to sitting on bedside. Patient denied chest pain or discomfort, no shortness of breath or discomfort. MD notified of change, patient will not discharge today, see new orders. Nurse update , per patient is scheduled to see cardiology related to valve replacement.
--- NOTE | 2023-12-04 12:20 | W.PM.PROGNOT ---
Date of Service Date of service: 12/04/23 Time of Service: 12:20 Assessment and Plan Assessment and plan (1) Stable angina: Status: Acute Assessment and plan: - Patient presents with history of coronary artery disease and persistent chest pain over the last 4 days that resolved with sublingual nitro and the ambulance -Status post 324mg ASA and ambulance, will continue daily 81 mg aspirin -2 troponins negative, EKG unchanged -Will continue as needed sublingual nitro for chest pain -Monitor on telemetry -Of note, patient states that his job placement officer at the [facility] told him he has a valve problem, and he has been scheduled for the end of the month to have an echocardiogram for possible evaluation of the valve replacement -TTE showed sevre aortic stenosis with peak gradient of 107, mean 55mmHg, aortic valve area estimated to be ~0.7cm, and mild to moderate aortic regurg -TTE findings in combination with 3x negative troponins (most recently AM 6/7) suggest chest pain was likely due to worsening valvular disease (2) Bradycardia: Status: Acute Assessment and plan: -patient was not given his AM toprol XL and was subsequently found to have a period of asymptomatic bradycardia with HR down the to mid 30's that spontaneously resolved -toprol XL has been discontinued -will continue to monitor patient overnight, and if additional episoides of bradycardia occur, will discuss with [facility] (3) CAD (coronary artery disease): Status: Chronic Assessment and plan: - As noted above -Will continue home (4) Chronic obstructive lung disease: Status: Chronic Assessment and plan: - Without acute exacerbation -Continue home inhaler regimen Qualifiers: COPD type: emphysema Emphysema type: unspecified Qualified Code(s): J43.9 - Emphysema, unspecified (5) Essential hypertension: Status: Chronic Assessment and plan: - Continue home antihypertensive regimen (6) Hyperlipidemia: Status: Chronic Assessment and plan: - Continue home statin (7) Aortic stenosis: Status: Chronic Assessment and plan: -as noted above Qualifiers: Cardiac valve disease etiology: etiology unspecified Qualified Code(s): I35.0 - Nonrheumatic aortic (valve) stenosis (8) Type 2 diabetes mellitus with diabetic neuropathy: Status: Chronic Assessment and plan: - Continue home insulin regimen (9) Sleep apnea: Status: Chronic Assessment and plan: - Continue home BiPAP Subjective Subjective Interval history since last seen: Patient states that he feels well today. He understands that his preceding symptoms of chest pain resulting in his hospitalization was likely due to worsening of his aortic valve which was seen on echocardiogram. He also understands he will remain hospitalized for an additional night, as he was given his a.m. metoprolol and was seen on telemetry to have an asymptomatic episode of heart rate in the mid 30s. Otherwise he has no other complaints or concerns at this time. Exam Narrative Exam Narrative: Elderly gentleman laying in bed in no acute distress, ANO x 4, 2L NC in place, heart regular rate rhythm, lungs clear to auscultation bilaterally, abdomen soft, nontender, nondistended Objective Last Vital Signs Temp 97.2 F L 12/04/23 07:44 Pulse 74 12/04/23 07:44 Resp 19 12/04/23 07:44 BP 133/85 12/04/23 07:44 Pulse Ox 97 12/04/23 07:44 Laboratory Results - last 24 hr 12/03/23 12/03/23 12/03/23 14:20 16:31 20:26 WBC 9.35 RBC 4.63 Hgb 12.5 L Hct 38.0 L MCV 82 MCH 27.0 MCHC 32.9 RDW 13.6 Plt Count 250 MPV 8.7 Immature Gran % 0.3 Neutrophils % 50.8 Lymphocytes % 34.0 Monocytes % 10.6 Eosinophils % 3.3 Basophils % 1.0 Nucleated RBC % 0.0 Absolute Neutrophils 4.75 Absolute Lymphocytes 3.18 Absolute Monocytes 0.99 H Absolute Eosinophils 0.31 Absolute Basophils 0.09 PT 27.9 H INR 3.1 H APTT 41.6 H Sodium 135 L Potassium 4.2 Chloride 100 Carbon Dioxide 26.7 Anion Gap 8.3 BUN 13 Creatinine 0.8 Est GFR (CKD-EPI 2020) 89.47 Glucose 110 H Calcium 8.5 Magnesium 1.5 L Total Bilirubin 0.4 AST 9 L ALT 14 L Alkaline Phosphatase 85 Troponin I < 50 < 50 < 50 NT-Pro-B Natriuret Pep 988 H Total Protein 6.4 Albumin 3.4 12/04/23 06:03 WBC 8.54 RBC 5.09 Hgb 13.8 Hct 41.8 MCV 82 MCH 27.1 MCHC 33.0 RDW 13.7 Plt Count 258 MPV 9.2 Immature Gran % Neutrophils % Lymphocytes % Monocytes % Eosinophils % Basophils % Nucleated RBC % Absolute Neutrophils Absolute Lymphocytes Absolute Monocytes Absolute Eosinophils Absolute Basophils PT 27.9 H INR 3.1 H APTT Sodium 139 Potassium 4.3 Chloride 103 Carbon Dioxide 28.0 Anion Gap 8.0 BUN 11 Creatinine 0.8 Est GFR (CKD-EPI 2020) 89.47 Glucose 95 Calcium 8.9 Magnesium 1.8 Total Bilirubin AST ALT Alkaline Phosphatase Troponin I < 50 NT-Pro-B Natriuret Pep Total Protein Albumin Time Spent with Patient Time Spent with Patient: >50 minutes Time was spent: preparing to see the patient(eg.review tests), obtaining and/or reviewing separately otained hiistory, ordering medications,tests, procedures, referring, communicating with other health career manager, indepentently interpreting results, counseling the patient and care coordination
--- NOTE | 2023-12-04 15:36 | PDOC.CMIN ---
Date of service: 12/04/23 Time of Service: 15:37 Care Management Initial Assmt Initial Assessment Reason for Hospitalization: stable angina Functional Status/Living Situation Patient Presentation: Rufino was sitting uop in bed when CM met with him. he was very pleasant and willing to engage in conversation. Rufino stated that he is feeling a bit better. He was admitted with chest pain which has been determined to be heart valve related rather that ischemic injury. He had an Echocardiogram which confirmed that. He has been told by his cardiac surgeon that his heart valve will need to be addressed. Rufino talked about his experiences during his service and the fcat that he is not eligible for any VA benefits due to the classified nature of his service. 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 Town of Residence: [place] in a single family home Resides with: Child (Rufino's youngest son and his girlfriend and their 2 children live with Rufino and his ) and Spouse Significant Other/Family: Local Natural Supports: family Employment Status: Retired Instrumental Activities of Daily Living (ADLs): Independent Medications Medication Management: No Issues/Barriers identified Physical Functioning/Mobility Assistive Device: none Advance Directives Advance Directives: Do you have an Advance Directive: Y 07/23/15 15:52 AD On File at [facility]: Y 06/27/18 11:58 Date Asked 12/03/23 12/03/23 14:14 AD Date Reviewed 12/03/23 12/03/23 19:56 COLST On File at [facility] COLST Date Scanned Code Status Resuscitation Status DNR/DNI Portal Pt does not currently have a portal and education provided: No Insurance Coverage/Financial Issues Insurance: Medicare [facility] Medicare supplement ACO Member: No Care Team Visit Care Team Role Provider Type Gianni Gannon MD Primary Care Provider [facility] STAFF PHYSICIAN Fredy Ugarte MD Emergency Provider [facility] STAFF PHYSICIAN Yovanny Frazier MD Admit Provider [facility] STAFF PHYSICIAN Attending Provider Discharge Potential Discharge Needs: Consult Consult Services Needed: Cardiology and PCP F/U Appt Anticipated Barriers to Discharge: None Identified Patient/Family Education Needs: Review discharge instructions, discuss Ask Me Three Transportation: Private vehicle Plan: Rufino will be discharged home with no new services. He will follow up with his PCP and cardiac surgeon and plan of care and will transport with family.CM will follow. PFSH All Active Problems (Updated 12/04/23 @ 12:24 by Yovanny Frazier MD) Bradycardia (Acute) Stable angina (Acute) Chest pain (Acute) CAD (coronary artery disease) (Chronic) a. 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 Valve mobility was restricted. Transvalvular velocity was increased. There was moderate to severe stenosis. There was mild regurgitation. Peak velocity (S): 4m/sec. VTI ratio of LVOT to aortic valve: 0.41. Valve area (VTI): 1.2cm^2. 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 colonoscopy 05/2015 Family History Mother Diabetes Father Cancer Diabetes Hypertension Sister Diabetes Brother Diabetes Social History Smoking/Tobacco Use Status: Current every day Tobacco Type: cigarettes Smoking packs per day: 0.5 Smoking cigarettes per day: 10.0 Tobacco: How many years used: 65 Quit status: not considering quitting Second Hand Exposure: Yes Smoking risk assessment performed?: Yes Alcohol Intake: former Details: History of heavy alcohol use Drug use: Never Substance use type: does not use Adopted: No Caregiver/Support person: No Foster care: No Household members: spouse and children Housing: house Number of Children: 5 number of grandchildren: 8 Communication Needs: Hard of Hearing Education Level: high school Do you need help understanding health information?: Rarely 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 Pets and animals: Yes Pets and animals: dog(s) Sexually active: Yes Do you think of yourself as: straight/heterosexual Current gender identity: male What is your relationship status?: How often do you get together with friends or relatives?: three or more times per week How often do you attend rastafari or sikhism services?: decline to answer Do you belong to any clubs or organized social groups?: no Panel score (0-1 are the most socially isolated patients): 2 What type of physical activity do you participate in: other Details: work Duration: 60-90 minutes/day Frequency: daily Josefina/Jain: [employer] Special josefina needs: No Agree to transfusion: Yes Seatbelt use: sometimes Helmet use: No Drive intox or ride w/intox patient transportation driver: No Working smoke detector in home: Yes Carbon monox detector in home: Yes Firearms in home: Yes Firearms unloaded and locked: Yes In current or past relationships, have you been: threatened Do you feel safe at home: Yes Do you feel safe in your relationship?: Yes Victim of physical abuse: No Victim of emotional abuse: No Victim of sexual abuse: No Additional Social history: , lives on a farm in [place]. His youngest son lives with him as well as 2 grandchildren. 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 SDOH(Care Management) Screening Will the Patient Participate in the Screening?: Yes Do you worry about having a steady place to live?: no In the past 12 months, have you had to go without electric, gas, oil or water in your home?: no Have you or anyone in your house had to go without enough food to eat?: no Has lack of transportation kept you from medical appointments or from doing things needed for daily living?: no Has anyone in your support network made you feel unsafe for any reason?: no
[2023-12-04] MEDS: Insulin Glargine 300 UNITS/3 ML PEN 10 UNITS SC (19:50)
[2023-12-04] MEDS: Warfarin 5 MG TAB 10 MG PO (19:51)
[2023-12-05 02:47] VITALS: BP 137/63; PULSE 63; RESP 18; TEMP 36.3; O2SAT 97
[2023-12-05 06:34] LABS: INR 2.8 (0.9-1.1); Prothrombin Time 25.6 sec (9.1-11.1)
[2023-12-05 07:31] VITALS: BP 137/67; PULSE 63; RESP 18; TEMP 36.2; O2SAT 94
[2023-12-05] MEDS: Furosemide 20 MG TAB PO (07:43)
[2023-12-05] MEDS: Mirabegron 25 MG TABCR PO (07:43)
[2023-12-05] MEDS: Pantoprazole 20 MG TABCR PO (07:43)
[2023-12-05] MEDS: Tamsulosin 0.4 MG CAPCR PO (07:43)
[2023-12-05] MEDS: Lisinopril 20 MG TAB 40 MG PO (07:43)
[2023-12-05] MEDS: Ferrous Sulfate 325 MG TAB PO (07:44)
[2023-12-05] MEDS: Magnesium Oxide 400 MG TAB PO (07:44)
[2023-12-05] MEDS: metFORMIN 850 MG TAB PO (07:44)
[2023-12-05] MEDS: Normal Saline Flush 10 ML SYR IVP (07:44)
[2023-12-05] MEDS: Rosuvastatin 10 MG TAB PO (07:44)
[2023-12-05 10:42] VITALS: BP 131/59; PULSE 77; RESP 16; TEMP 36.4; O2SAT 95
--- NOTE | 2023-12-05 10:43 | W.PM.DS.N ---
Date of service: 12/05/23 Time of Service: 10:43 DS: Diagnosis Discharge Diagnosis (1) Stable angina: Status: Acute Asessment and Plan: - Patient presents with history of coronary artery disease and persistent chest pain over the last 4 days that resolved with sublingual nitro and the ambulance -Status post 324mg ASA and ambulance, will continue daily 81 mg aspirin -2 troponins negative, EKG unchanged -Of note, patient states that his director of billing at the [facility] told him he has a valve problem, and he has been scheduled for the end of the month to have an echocardiogram for possible evaluation of the valve replacement -TTE showed sevre aortic stenosis with peak gradient of 107, mean 55mmHg, aortic valve area estimated to be ~0.7cm, and mild to moderate aortic regurg -TTE findings in combination with 3x negative troponins (most recently AM 12/03) suggest chest pain was likely due to worsening valvular disease -recommend maintaining close follow-up with [facility] (2) Bradycardia: Status: Acute Asessment and Plan: -patient was not given his AM toprol XL on 12/03 and was subsequently found to have a period of asymptomatic bradycardia with HR down the to mid 30's that spontaneously resolved -toprol XL has been discontinued (3) CAD (coronary artery disease): Status: Chronic (4) Chronic obstructive lung disease: Status: Chronic (5) Essential hypertension: Status: Chronic (6) Hyperlipidemia: Status: Chronic (7) Aortic stenosis: Status: Chronic (8) Type 2 diabetes mellitus with diabetic neuropathy: Status: Chronic (9) Sleep apnea: Status: Chronic Discharge Plan Disposition Patient Disposition: Home Condition: Good Discharge Details Reason For Visit: stable angina Admit Date/Time: 12/03/23 17:22 Admit Provider: Yovanny Frazier Attending Provider: Yovanny Frazier Primary Care Provider: Gianni Gannon Hospital Course Hospital Course: Patient initially presented with chest pain that had been thought to be due to stable angina given that he had normal EKG and 3 times negative troponins. However, patient also had known aortic valve stenosis and reportedly was to begin the process of being worked up for potential aortic valve replacement with the [facility]. Echocardiogram here showed severe aortic stenosis with mild to moderate regurg which may have explained the patient's symptoms. Additionally, on the morning of 12/04/2023 patient had period of bradycardia which was asymptomatic down to the mid 30s. This was prior to him taking his home dose of Toprol XL which was held, and no additional episodes of bradycardia or noted. Therefore, it is recommended the patient stop taking his Toprol XL and continue close [facility] with [facility]. Home Meds and New Rx's Prescriptions: Continued warfarin 2.5 mg tablet 2.5 mg PO DAILY Qty: 90 3RF Protocol: Dose Management Condition: Thursday Dose/Route: 7.5 mg Instruction: 1 x 2.5 mg tablet, 1 x 5 mg tablet Condition: Thursday Dose/Route: 7.5 mg Instruction: 1 x 2.5 mg tablet, 1 x 5 mg tablet Condition: Thursday Dose/Route: 10 mg Instruction: 2 x 5 mg tablets Condition: Thursday Dose/Route: 7.5 mg Instruction: 1 x 2.5 mg tablet, 1 x 5 mg tablet Condition: Dose/Route: 10 mg Instruction: 2 x 5 mg tablets Condition: Thursday Dose/Route: 7.5 mg Instruction: 1 x 2.5 mg tablet, 1 x 5 mg tablet Condition: Thursday Dose/Route: 7.5 mg Instruction: 1 x 2.5 mg tablet, 1 x 5 mg tablet Protocol Text: Adjustment Start Date: 12/03/23 INR Value: 2.4 INR Date: 12/03/23 Recheck Date: 12/10/23 Rx Instructions: take as directed based on INR mirabegron 25 mg tablet extended release 24 hr 25 mg PO DAILY Qty: 30 0RF lisinopril 40 mg tablet 40 mg PO DAILY Qty: 90 3RF Breztri Aerosphere 160-9-4.8 mcg/actuation HFA aerosol inhaler 2 inh inhalation BID Qty: 10.7 12RF mupirocin 2 % ointment 1 applic topical TID Qty: 15 0RF nitroglycerin [Nitrostat] 0.4 mg tablet, sublingual 0.4 mg Sublingual DIRECTED Qty: 7 0RF Patient Comments: given by EMT GRAPE PRUNER on 12/02 albuterol sulfate 2.5 mg /3 mL (0.083 %) solution for nebulization 2.5 mg Inhalation Q4H PRN (Reason: bronchospasm) Qty: 50 5RF magnesium oxide 400 mg (241.3 mg magnesium) tablet 400 mg PO DAILY Qty: 90 3RF ferrous sulfate 325 mg (65 mg iron) tablet 325 mg PO BID Qty: 180 3RF Rx Instructions: start with one/day for first week, then increase to BID terazosin 1 mg capsule 1 mg PO .QHS Qty: 90 3RF rosuvastatin [Crestor] 10 mg tablet 10 mg PO DAILY Qty: 90 3RF tamsulosin 0.4 mg capsule 0.4 mg PO DAILY Qty: 90 3RF Rx Instructions: Per [facility] Oncology metformin 850 mg tablet 850 mg PO BID Qty: 270 3RF Patient Comments: 1700 mg in am and 850 mg in the saray--05/06/18 er Rx Instructions: dose reduced to BID due to diarrhea 11/16/19 insulin glargine [Lantus Solostar U-100 Insulin] 100 unit/mL (3 mL) insulin pen 10 unit subcut HS Qty: 15 3RF warfarin 5 mg tablet 10 mg PO as directed Qty: 180 3RF Protocol: Dose Management Condition: Thursday Dose/Route: 7.5 mg Instruction: 1 x 2.5 mg tablet, 1 x 5 mg tablet Condition: Thursday Dose/Route: 7.5 mg Instruction: 1 x 2.5 mg tablet, 1 x 5 mg tablet Condition: Thursday Dose/Route: 10 mg Instruction: 2 x 5 mg tablets Condition: Thursday Dose/Route: 7.5 mg Instruction: 1 x 2.5 mg tablet, 1 x 5 mg tablet Condition: Dose/Route: 10 mg Instruction: 2 x 5 mg tablets Condition: Thursday Dose/Route: 7.5 mg Instruction: 1 x 2.5 mg tablet, 1 x 5 mg tablet Condition: Thursday Dose/Route: 7.5 mg Instruction: 1 x 2.5 mg tablet, 1 x 5 mg tablet Protocol Text: Adjustment Start Date: 12/03/23 INR Value: 2.4 INR Date: 12/03/23 Recheck Date: 12/10/23 Rx Instructions: 10mg Thursday thru Thursday 5mg on Sundays albuterol sulfate [ProAir HFA] 90 mcg/actuation HFA aerosol inhaler 1 - 2 puff Inhalation Q6H PRN Qty: 2 2RF pantoprazole 20 mg tablet,delayed release (DR/EC) 20 mg PO DAILY@0730 Qty: 90 2RF furosemide 20 mg tablet 20 mg PO DAILY Qty: 30 0RF Discontinued metoprolol succinate 25 mg tablet extended release 24 hr 25 mg PO DAILY Qty: 90 3RF No Action (DME) blood-glucose meter [FreeStyle Lite Meter] Kit See Rx Instructions .ROUTE .MEDSUPPLY Qty: 1 0RF Rx Instructions: test once/day (DME) FreeStyle Lite Strips Strip 1 ea Miscellaneous BID Qty: 180 3RF Rx Instructions: DX:E11.9 test twice/daily (DME) Space Chamber Plus 1 EACH spacer 1 ea Miscellaneous PRN Qty: 1 Patient Comments: not using (DME) lancets [FreeStyle Lancets] 1 EACH misc 1 ea Sub-Q BID Qty: 100 Rx Instructions: DX:250. (DME) nebulizers [Aeroeclipse Reusable BAN] 1 EACH misc 1 ea Miscellaneous DAILY Qty: 1 (DME) C-pap Qty: 1 (DME) pen needle, diabetic 31 gauge x 1/3 needle 1 ea Sub-Q DIRECTED Qty: 300 4RF Rx Instructions: inject TID Discharge Instructions Activity:: Activity as Tolerated Equipment/Supplies:: No Equipment Needed Diet:: As Tolerated Discharge Orders Discharge Orders: Discharge Order (Routine); Ordered 12/05/23 Ordered By: Yovanny Frazier DS: Summary Time Spent with Patient providing and/or coordinating discharge services: Greater than 30 minutes Status at Discharge Functional status at discharge: independent ambulation Overall status at discharge: patient is back to baseline Mental Status: mental status grossly normal Speech and Movement: speech and movement normal Mood: congruent mood Affect: normal affect Quality:SDOH Health Related Social Needs: No Data to Display Exam Narrative Exam Narrative: Elderly gentleman laying in bed in no acute distress, ANO x 4, 2L NC in place, heart regular rate rhythm, lungs clear to auscultation bilaterally, abdomen soft, nontender, nondistended Psych Mental Status: mental status grossly normal Speech and Movement: speech and movement normal Mood: congruent mood Affect: normal affect DS: Data Vitals/I&O Vitals and I&O: Vital Signs Temperature 97.5 F L 12/05/23 10:42 Temperature Source Temporal Artery Scan 12/05/23 10:42 Pulse 77 12/05/23 10:42 Pulse Rhythm Regular 12/05/23 09:16 Pulse 55 L 12/03/23 18:31 Respiratory Rate 16 12/05/23 10:42 Respiratory Effort Normal, Non-Labored 12/05/23 09:16 Respiratory Depth Normal 12/05/23 09:16 Respiratory Pattern Normal 12/05/23 09:16 Blood Pressure 131/59 L 12/05/23 10:42 Blood Pressure Mean 87 12/03/23 18:31 Blood Pressure Position Sitting 12/03/23 14:10 Pulse Oximetry 95 12/05/23 10:42 Oxygen Delivery Method Room Air 12/05/23 10:42 Oxygen Flow Rate 0 12/05/23 10:42 Fraction of Inspired Oxygen (FIO2) 21 12/05/23 00:48 Pain Level 0 12/05/23 07:31 Comment RN Notified 12/04/23 19:42 Intake & Output 12/04/23 12/05/23 12/05/23 17:59 05:59 17:59 Intake Total 1000 / 1000 240 / 240 Output Total 775 / 775 1575 / 2350 725 / 725 Balance -775 / -775 -575 / -1350 -485 / -485 Intake: Oral 1000 / 1000 240 / 240 Output: Urine 775 / 775 1575 / 2350 725 / 725 Other: Urine Color Yellow Yellow Yellow Urine Appearance Clear Clear Clear Urine Odor None Strong Strong Comment pt also states he went to the bathroom an hour ago also in urinal Voiding Methods Urinal Urinal Urinal Data Completed and Pending Labs on day of discharge: Labs from last 24 hours 12/05/23 05:43 PT 25.6 H INR 2.8 H PFSH All Active Problems (Updated 12/05/23 @ 10:43 by Yovanny Frazier MD) Bradycardia (Acute) Stable angina (Acute) Chest pain (Acute) CAD (coronary artery disease) (Chronic) a. 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 Valve mobility was restricted. Transvalvular velocity was increased. There was moderate to severe stenosis. There was mild regurgitation. Peak velocity (S): 4m/sec. VTI ratio of LVOT to aortic valve: 0.41. Valve area (VTI): 1.2cm^2. 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 colonoscopy 05/2015 Family History Mother Diabetes Father Cancer Diabetes Hypertension Sister Diabetes Brother Diabetes Social History Smoking/Tobacco Use Status: Current every day Tobacco Type: cigarettes Smoking packs per day: 0.5 Smoking cigarettes per day: 10.0 Tobacco: How many years used: 65 Quit status: not considering quitting Second Hand Exposure: Yes Smoking risk assessment performed?: Yes Alcohol Intake: former Details: History of heavy alcohol use Drug use: Never Substance use type: does not use Adopted: No Caregiver/Support person: No Foster care: No Household members: spouse and children Housing: house Number of Children: 5 number of grandchildren: 8 Communication Needs: Hard of Hearing Education Level: high school Do you need help understanding health information?: Rarely 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 Pets and animals: Yes Pets and animals: dog(s) Sexually active: Yes Do you think of yourself as: straight/heterosexual Current gender identity: male What is your relationship status?: How often do you get together with friends or relatives?: three or more times per week How often do you attend jewish or baptist services?: decline to answer Do you belong to any clubs or organized social groups?: no Panel score (0-1 are the most socially isolated patients): 2 What type of physical activity do you participate in: other Details: work Duration: 60-90 minutes/day Frequency: daily Josefina/Yarsani: [employer] Special josefina needs: No Agree to transfusion: Yes Seatbelt use: sometimes Helmet use: No Drive intox or ride w/intox 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 His youngest son lives with him as well as 2 grandchildren. 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 Time Spent with Patient Time Spent with Patient: <45 minutes Time was spent: preparing to see the patient(eg.review tests), obtaining and/or reviewing separately otained hiistory, ordering medications,tests, procedures, referring, communicating with other health patient care technician instructor, indepentently interpreting results, counseling the patient and care coordination
--- NOTE | 2023-12-05 12:20 | CMDISCH_ITS ---
Date of service: 12/05/23 Time of Service: 12:21 LACE Index Scoring Tool Questions: Length of Stay (in days): 2 Was the patient admitted via the E.D.?: Yes Comorbidities: Diabetes w/o Complication, Congestive Heart Failure, Chronic Pulmonary Disease and Any Tumor (prostate cancer) E.D. Visits: 2 Answers: Total Score: 12 Risk of Readmission: High Risk Care Management Discharge Plan Reason for Hospitalization: stable angina Discharge Plan: Rufino will be discharged home with no new services. He will follow up with his PCP, Cardiology and plan of care and transport with family. Patient/Family Education Needs: Review discharge instructions, activity, limitations, follow up plan and discuss Ask Me Three [facility] Health Related Social Needs: No Data to Display
== END 2023-12-05 12:25 | disposition home or self-care (01) ==
LOC: ER 17:31 → MS 19:30
PROVIDERS: Admitting Provider Family Medicine; Emergency Provider Emergency Medicine; PCP Family Medicine; Visit Provider Family Medicine
DX: I25.118 Atherosclerotic heart disease of native coronary artery with other forms of angina pectoris (principal); J43.9 Emphysema, unspecified; E78.5 Hyperlipidemia, unspecified; I10 Essential (primary) hypertension; I35.0 Nonrheumatic aortic (valve) stenosis; E11.40 Type 2 diabetes mellitus with diabetic neuropathy, unspecified; G47.30 Sleep apnea, unspecified; Z79.01 Long term (current) use of anticoagulants; N40.0 Benign prostatic hyperplasia without lower urinary tract symptoms; Z95.1 Presence of aortocoronary bypass graft; F17.210 Nicotine dependence, cigarettes, uncomplicated; I65.23 Occlusion and stenosis of bilateral carotid arteries; F51.5 Nightmare disorder; G47.8 Other sleep disorders; Z86.711 Personal history of pulmonary embolism; Z96.641 Presence of right artificial hip joint; Z85.46 Personal history of malignant neoplasm of prostate; Z79.4 Long term (current) use of insulin; R00.1 Bradycardia, unspecified
CPT/HCPCS: 00123; 36415; 80048; 80053; 85027; 93005; 93306; 96365; 96366; 99285; 71045; 83735; 83880; 84484; 85025; 85610; 85730; 93010; 94640; 94660; 94760; 99223; 99233; 99238; G0378; J1815; J3475; J7613

== ENCOUNTER → 2023-12-17 15:08 | Outpatient (BNVA) | payer MEDICARE, SELFPAY | PROVIDERS: PCP Family Medicine; Referring Provider Family Medicine; Visit Provider Physician Assistant Surgical | DX: J43.9 Emphysema, unspecified (principal); G47.30 Sleep apnea, unspecified; F17.200 Nicotine dependence, unspecified, uncomplicated | CPT/HCPCS: 99214 ==

== ENCOUNTER 2024-01-19 09:08 | Outpatient (CLI) | payer MEDICARE, SELFPAY ==
[2024-01-20 18:54] LABS: PSA, Ultrasensitive 0.04 ng/mL (<= 7.2)
== END 2024-01-19 09:09 | disposition home or self-care (01) ==
LOC: LBO 09:09
PROVIDERS: PCP Family Medicine; Visit Provider Colon & Rectal Surgery
DX: C61 Malignant neoplasm of prostate (principal)
CPT/HCPCS: 36415; 84153

== ENCOUNTER 2024-03-28 20:28 | Emergency (ER) | payer MEDICARE, SELFPAY ==
[2024-03-28] VITALS (16 sets, daily range): BP systolic 115–175; BP diastolic 54–82; PULSE 57–98; RESP 18–23; TEMP 36.6; O2SAT 92–95
--- NOTE | 2024-03-28 20:30 | RT.EKG_ITS ---
APPROVED REPORT Exam: Resting ECG Reason for Exam: short of breath Patient Location: E HR:90 bpm ECG Measurements Heart Rate 90 AXIS AZ 279 P 80 QRSd 111 QRS 50 QT 366 T 263 QTc 449 Conclusion Sinus rhythm...normal P axis, V-rate 60- 99 Prolonged AZ interval...AZ >220, V-rate 50- 90 Inferior infarct, age indeterminate...Q>35mS, T neg, II III aVF Physician: no stemi
--- NOTE | 2024-03-28 21:00 | DI.CT_ITS ---
Exam(s) CT HEAD WO EXAM: CT HEAD WO CLINICAL HISTORY: fall, hit left chest head, on coumad, recentTAVR. TECHNIQUE: Imaging Protocol: Axial computed tomography images with coronal and sagittal reformatted images were created and reviewed COMPARISON: CT CT HEAD CERVICAL SPINE WO from 06/27/2022 FINDINGS: Ventricles and Extra axial spaces: Normal in size and morphology for the patient's age. Hemorrhage: None. Cerebral parenchyma: No evidence of acute infarct or mass. Mild white matter changes of small vesse l disease. Mild atrophy. Midline shift: None. Brainstem/Cerebellum: Normal. Calvarium: Normal. Visualized Paranasal sinuses:Clear. Mastoids: Clear. Soft Tissues: Unremarkable. ORBITS: Unremarkable. PITUITARY: Not enlarged. IMPRESSION: No acute intracranial process. RADIATION DOSE DELIVERED: 818.18mGy.cm Total DLP DATA REPOSITORY: All CT scans at this facility are submitted to the National Radiology Data Registry (NRDR) Dose Index Registry (DIR) with the [employer] (ACR). RADIATION OPTIMIZATION: All CT scans at this facility use at least one of these dose optimization te chniques: automated exposure control; mA and/or kV adjustment per patient size (includes targeted exa ms where dose is matched to clinical indication); or iterative reconstruction.
--- NOTE | 2024-03-28 21:00 | DI.CT_ITS ---
Exam(s) CT CHEST/ABD/PEL W EXAM: CT CHEST/ABD/PEL W CLINICAL HISTORY: fall, hit left chest head, on coumad, recentTAVR. TECHNIQUE: Imaging Protocol: Axial computed tomography images with coronal and sagittal reformatted images were created and reviewed CONTRAST MATERIAL: Intravenous: Omnipaque 350 Contrast volume:100 ml Oral: / no COMPARISON: CT CT BRAIN NECK CTA from 03/18/[address] CHEST LUNG CANCER SCREEN from 06/05/2020 FINDINGS: CHEST: Tracheobronchial tree: Patent. Pulmonary parenchyma: Mild paraseptal emphysematous changes. Stable areas of nodularity at the poste rior right upper lobe. Increased linear opacities at the bilateral lung bases could represent atelec tasis/dependent changes.. Pleura: No effusion or pneumothorax. Mediastinum: Within normal limits. Aorta: Thoracic portion non-dilated. Atherosclerotic changes. TAVR noted. No surrounding fluid. Pulmonary arteries: No visible emboli. Heart: Status post CABG. Coronary artery calcifications. Mitral annular calcifications. No peric ardial effusion. Bones: Sternal wires. No lytic or blastic lesions.No compression fractures. Slight deformities at t he distal aspect of the left 9th and 10th ribs likely representing nondisplaced fractures. Severe de generative changes of the left shoulder. Old left humeral fracture. Soft tissues: Unremarkable. ABDOMEN and PELVIS: Liver: Normal density. No measurable mass. Gallbladder and biliary tract: 10 millimeter gallstone. No wall thickening. No biliary dilatation. Pancreas: Normal density, no abnormal calcifications or inflammatory process. Spleen: Area of low density at the inferior spleen could indicate splenic contusion. No evidence of perisplenic collection. Spleen is normal in size. Kidneys: Normal size, contour and axis. No radiodense stones. No obstructive uropathy. Bilateral re nal cysts. No follow-up recommended. No evidence of renal contusion. No suspicious masses seen. Adrenal glands: No masses seen. Aorta: Atherosclerotic changes. Mild dilatation to 3 cm. Lymph nodes: Within normal limits. Soft tissues: Bilateral inguinal hernia repair. No recurrence hernia. Bladder: Unremarkable. Bowel: No obstruction or bowel wall thickening. Diverticulosis. No evidence of diverticulitis. No e vidence of bowel injury. Peritoneal cavity: No ascites. No focal collection. No mesenteric inflammatory response. No free ai r. Bones: Right hip prosthesis. Degenerative changes present in the lumbar spine and left hip. Reproductive organs: Metallic seeds in prostate bed. IMPRESSION: Nondisplaced fractures of the distal ends of the left 9th and 10th ribs. Increased densities at the lung bases may represent atelectasis, infectious process or possibly contusion. No pneumothorax or e ffusion. 3.8 x 2.2 centimeter contusion at the inferior aspect of the spleen. RADIATION DOSE DELIVERED: 641.7mGy.cm Total DLP DATA REPOSITORY: All CT scans at this facility are submitted to the National Radiology Data Registry (NRDR) Dose Index Registry (DIR) with the [employer] ([employer]). RADIATION OPTIMIZATION: All CT scans at this facility use at least one of these dose optimization te chniques: automated exposure control; mA and/or kV adjustment per patient size (includes targeted exa ms where dose is matched to clinical indication); or iterative reconstruction.
[2024-03-28 21:46] LABS: Absolute Basophil Count 0.07 10^3/uL (0.0-0.2); Absolute Eosinophil Count 0.32 10^3/uL (0.0-0.7); Absolute Lymphocyte Count 1.97 10^3/uL (1.2-3.4); Absolute Monocyte Count 1.15 10^3/uL (0.1-0.8); Absolute Neutrophil Count 6.54 10^3/uL (1.2-6.7); Basophils % 0.7 %; Eosinophils % 3.1 %; HGB 10.9 g/dL (13.5-17.5); Lymphocytes % 19.2 %; MCH 26.8 pg (27.0-33.0); MCV 81 fL (80-95); MPV 8.8 fL (8.0-11.0); Monocytes % 11.2 %; Neutrophils % 63.8 %; Platelet Count 218 10^3/uL (130-400); RBC 4.06 10^6/uL (4.36-5.78); RDW 14.4 % (11.8-14.1); WBC 10.25 10^3/uL (4.4-10.8)
[2024-03-28] MEDS: Normal Saline 500 ML IV (21:51)
[2024-03-28 22:01] LABS: INR 1.5 (0.9-1.1); PTT Activated 31.9 sec (23.6-32.8); Prothrombin Time 14.9 sec (9.1-11.1)
[2024-03-28 22:03] LABS: ALT 13 U/L (16-63); AST 18 U/L (15-37); Alkaline Phosphatase 95 U/L (46-116); Anion Gap 8.6 mmol/L (3-11); BUN 12 mg/dL (7-18); Bilirubin, Total 0.31 mg/dL (0.2-1.0); CO2 27.4 mmol/L (21.0-32.0); Calcium 8.5 mg/dL (8.5-10.1); Chloride 95 mmol/L (98-107); Estimated GFR 75.61 (mL/min/1.73m2); Glucose 153 mg/dL (74-106); Lipase 36 U/L (16-77); Potassium 4.5 mmol/L (3.5-5.1); Sodium 131 mmol/L (136-145); Total Protein 6.5 g/dL (6.4-8.2)
[2024-03-28] MEDS: Omnipaque 350 MG/ML 100 ML BTL IJ (22:15)
[2024-03-28] MEDS: Normal Saline - Diluent 50 ML VIAL IJ (22:16)
[2024-03-28] MEDS: Normal Saline Flush 10 ML SYR IVP (22:16)
--- NOTE | 2024-03-28 22:25 | ED.GENADUL_ITS ---
Discharge Plan Disposition Patient Disposition: Home Condition: Good Discharge Details Clinical Impression: Fall, Rib pain on left side, Contusion of spleen, Closed rib fracture Primary Care Provider: Gianni Gannon ED Provider: Geovanny Sales Home Meds and New Rx's Prescriptions: No Action (DME) blood-glucose meter [FreeStyle Lite Meter] Kit See Rx Instructions .ROUTE .MEDSUPPLY Qty: 1 0RF Rx Instructions: test once/day warfarin 2.5 mg tablet 2.5 mg PO DAILY Qty: 90 3RF Protocol: Dose Management Condition: Thursday Dose/Route: Hold Instruction: No doses Condition: Thursday Dose/Route: Hold Instruction: No doses Condition: Thursday Dose/Route: 7.5 mg Instruction: 1 x 2.5 mg tablet, 1 x 5 mg tablet Condition: Thursday Dose/Route: Hold Instruction: No doses Condition: Dose/Route: Hold Instruction: No doses Condition: Thursday Dose/Route: Hold Instruction: No doses Condition: Thursday Dose/Route: Hold Instruction: No doses Protocol Text: Adjustment Start Date: Thursday03/15/24 INR Value: 2.4 INR Date: 03/15/24 Recheck Date: 03/29/24 Rx Instructions: take as directed based on INR mirabegron 25 mg tablet extended release 24 hr 25 mg PO DAILY Qty: 30 0RF lisinopril 40 mg tablet 40 mg PO DAILY Qty: 90 3RF (DME) FreeStyle Lite Strips Strip 1 ea Miscellaneous BID Qty: 180 3RF Rx Instructions: DX:E11.9 test twice/daily nitroglycerin [Nitrostat] 0.4 mg tablet, sublingual 0.4 mg Sublingual DIRECTED Qty: 7 0RF Patient Comments: given by EMT [employer] on 12/02 albuterol sulfate 2.5 mg /3 mL (0.083 %) solution for nebulization 2.5 mg Inhalation Q4H PRN (Reason: bronchospasm) Qty: 50 5RF fluticasone propion-salmeterol [Advair HFA] 230-21 mcg/actuation HFA aerosol inhaler 2 puff inhalation BID Qty: 12 12RF Spiriva Respimat 2.5 mcg/actuation mist 2 puff inhalation DAILY 30 Days Qty: 4 12RF Spiriva Respimat 2.5 mcg/actuation mist 2 puff inhalation DAILY prednisone 20 mg tablet 40 mg PO DAILY Qty: 10 0RF albuterol sulfate [ProAir HFA] 90 mcg/actuation HFA aerosol inhaler 1 - 2 puff Inhalation Q6H PRN Qty: 2 2RF (DME) Space Chamber Plus 1 EACH spacer 1 ea Miscellaneous PRN Qty: 1 Patient Comments: not using (DME) lancets [FreeStyle Lancets] 1 EACH misc 1 ea Sub-Q BID Qty: 100 Rx Instructions: DX:250. (DME) nebulizers [Aeroeclipse Reusable BAN] 1 EACH misc 1 ea Miscellaneous DAILY Qty: 1 (DME) C-pap Qty: 1 (DME) pen needle, diabetic 31 gauge x 1/3 needle 1 ea Sub-Q DIRECTED Qty: 300 4RF Rx Instructions: inject TID magnesium oxide 400 mg (241.3 mg magnesium) tablet 400 mg PO DAILY Qty: 90 3RF ferrous sulfate 325 mg (65 mg iron) tablet 325 mg PO BID Qty: 180 3RF Rx Instructions: start with one/day for first week, then increase to BID metformin 850 mg tablet 850 mg PO BID Qty: 270 3RF Patient Comments: 1700 mg in am and 850 mg in the saray--05/06/18 er Rx Instructions: dose reduced to BID due to diarrhea 11/16/19 insulin glargine [Lantus Solostar U-100 Insulin] 100 unit/mL (3 mL) insulin pen 10 unit subcut HS Qty: 15 3RF pantoprazole 20 mg tablet,delayed release (DR/EC) 20 mg PO DAILY@0730 Qty: 90 2RF terazosin 1 mg capsule 1 mg PO .QHS Qty: 90 3RF mupirocin 2 % ointment 1 applic topical TID Qty: 15 2RF tamsulosin 0.4 mg capsule 0.4 mg PO DAILY Qty: 90 3RF Rx Instructions: Per [facility] rosuvastatin 10 mg tablet 10 mg PO DAILY Qty: 90 3RF furosemide 20 mg tablet 20 mg PO DAILY Qty: 30 0RF warfarin 5 mg tablet 10 mg PO as directed Qty: 180 3RF Protocol: Dose Management Condition: Thursday Dose/Route: Hold Instruction: No doses Condition: Thursday Dose/Route: Hold Instruction: No doses Condition: Thursday Dose/Route: 7.5 mg Instruction: 1 x 2.5 mg tablet, 1 x 5 mg tablet Condition: Thursday Dose/Route: Hold Instruction: No doses Condition: Dose/Route: Hold Instruction: No doses Condition: Thursday Dose/Route: Hold Instruction: No doses Condition: Thursday Dose/Route: Hold Instruction: No doses Protocol Text: Adjustment Start Date: Thursday03/15/24 INR Value: 2.4 INR Date: 03/15/24 Recheck Date: 03/29/24 Discharge Instructions Instructions: Blunt Chest Trauma ED Additional Instructions: At this time your x-ray is negative for any evidence of fracture, or significant trauma. There is no bleed in your brain, rib fracture or other significant abnormality. Please take Tylenol as needed for pain. If you notice any worsening of your symptoms, or any new symptoms such as vomiting, diarrhea, fever, chills, shortness of breath, chest pain, numbness, weakness, or fainting , please return immediately to the emergency department for reevaluation. Please follow up with your primary care provider as soon as possible for reassessment and reevaluation. As always, it was a pleasure participating in your medical care today. Referrals: Gianni Gannon MD [Primary Care Provider] - [facility] General Date/Time Provider Initiated Documentation: 03/28/24 20:55 . [facility] Narrative: 79-year-old male who is [facility] with a past medical history of coronary artery disease, type 2 diabetes, anticoagulated with warfarin, BPH, COPD, hypertension, who recently just had a TAVR on 03/24/2024. He was discharged on the . While there he did get some cellulitis in the left wrist from where access was being established. He was given oral cephalosporin for home use. He states that occasionally he will have moments where he feels slightly lightheaded and nauseous while at home. This morning he did have an episode where he tripped, fell and hit his left chest on his stool. He had some mild to moderate pain at that time. Later in the evening an hour or 2 before arrival he felt weak nauseous had an episode of drooling and vomited. Symptoms have resolved on their own since then. However because of his recent procedures and risks, he did come in for further evaluation. Patient states that he very gently touched his head to the wall when he fell the first time at 9 AM. He denies any headache or neck pain. He does admit to mild left-sided chest achiness after the fall. He denies any significant difficulty breathing at this time. He denies any numbness tingling or weakness otherwise. No abdominal pain at this time. No blood in his vomit when he did vomit. No other complaints. Related Data Home Medications ?Medication ?Instructions ?Recorded ?Confirmed inhalational spacing device (Space ##1 03/13/14 03/28/24 Chamber Plus) lancets 28 gauge (FreeStyle #100 ea 04/03/14 03/28/24 Lancets) nebulizers (Aeroeclipse Reusable #1 ea 04/09/16 03/28/24 Breath Actuated Nebulizer) C-pap #1 ea 04/05/19 03/28/24 blood sugar diagnostic (FreeStyle #180 strips 04/06/19 03/28/24 Lite Strips) pen needle, diabetic 31 gauge x #300 ea 05/30/20 03/28/2407/01 blood-glucose meter (FreeStyle #1 ea 06/06/20 03/28/24 Lite Meter kit) nitroglycerin 0.4 mg sublingual 0.4 mg sublingual DIRECTED #7 03/07/22 03/28/24 tablet (Nitrostat) tabs albuterol sulfate 2.5 mg/3 mL 2.5 mg (3 mL) inhalation Q4H PRN 03/14/22 03/28/24 (0.083 %) solution for nebulization bronchospasm #50 vials warfarin 2.5 mg tablet 2.5 mg PO DAILY #90 tabs 04/11/22 03/28/24 magnesium oxide 400 mg (241.3 mg 400 mg PO DAILY #90 tabs 06/09/22 03/28/24 magnesium) tablet furosemide 20 mg tablet 20 mg PO DAILY #30 tabs 06/28/22 03/28/24 mirabegron 25 mg tablet,extended 25 mg PO DAILY #30 tabs 07/24/22 03/28/24 release 24 hr ferrous sulfate 325 mg (65 mg 325 mg PO BID #180 tabs 11/04/22 03/28/24 iron) tablet lisinopril 40 mg tablet 40 mg PO DAILY #90 tabs 04/24/23 03/28/24 metformin 850 mg tablet 850 mg PO BID #270 tab-caps 05/11/23 03/28/24 insulin glargine 100 unit/mL (3 10 unit (0.1 mL) subcut HS #15 mL 05/19/23 03/28/24 mL) subcutaneous pen (Lantus Solostar U-100 Insulin) pantoprazole 20 mg tablet,delayed 20 mg PO DAILY@0730 ##90 10/23/23 03/28/24 release warfarin 5 mg tablet 10 mg PO as directed #180 tab-caps 12/05/23 03/28/24 mupirocin 2 % topical ointment 1 applic topical TID #15 grams 12/10/23 03/28/24 terazosin 1 mg capsule 1 mg PO .QHS #90 caps 12/10/23 03/28/24 fluticasone propionate 230 2 puff inhalation BID #12 grams 12/17/23 03/28/24 mcg-salmeterol 21 mcg/actuation HFA inhaler (Advair HFA) tiotropium bromide 2.5 2 puff inhalation DAILY 30 days #4 12/17/23 03/28/24 mcg/actuation mist for inhalation grams (Spiriva Respimat) tiotropium bromide 2.5 2 puff inhalation DAILY 12/30/23 03/28/24 mcg/actuation mist for inhalation (Spiriva Respimat) albuterol sulfate 90 mcg/actuation 1 - 2 puff inhalation Q6H PRN ##2 01/13/24 03/28/24 aerosol inhaler (ProAir HFA) prednisone 20 mg tablet 40 mg (2 x 20 mg) PO DAILY #10 tabs 01/13/24 03/28/24 rosuvastatin 10 mg tablet 10 mg PO DAILY #90 tab-caps 01/23/24 03/28/24 tamsulosin 0.4 mg capsule 0.4 mg PO DAILY #90 caps 01/23/24 03/28/24 Previous Rx's ?Medication ?Instructions ?Recorded blood sugar diagnostic (FreeStyle #180 strips 04/06/19 Lite Strips) pen needle, diabetic 31 gauge x #300 ea 12/02/20 1/3 blood-glucose meter (FreeStyle #1 ea 06/06/20 Lite Meter kit) nitroglycerin 0.4 mg sublingual 0.4 mg sublingual DIRECTED #7 03/07/22 tablet (Nitrostat) tabs albuterol sulfate 2.5 mg/3 mL 2.5 mg (3 mL) inhalation Q4H PRN 03/14/22 (0.083 %) solution for nebulization bronchospasm #50 vials warfarin 2.5 mg tablet 2.5 mg PO DAILY #90 tabs 04/11/22 magnesium oxide 400 mg (241.3 mg 400 mg PO DAILY #90 tabs 06/09/22 magnesium) tablet furosemide 20 mg tablet 20 mg PO DAILY #30 tabs 06/28/22 mirabegron 25 mg tablet,extended 25 mg PO DAILY #30 tabs 07/24/22 release 24 hr ferrous sulfate 325 mg (65 mg 325 mg PO BID #180 tabs 11/04/22 iron) tablet lisinopril 40 mg tablet 40 mg PO DAILY #90 tabs 04/24/23 metformin 850 mg tablet 850 mg PO BID #270 tab-caps 05/11/23 insulin glargine 100 unit/mL (3 10 unit (0.1 mL) subcut HS #15 mL 05/19/23 mL) subcutaneous pen (Lantus Solostar U-100 Insulin) pantoprazole 20 mg tablet,delayed 20 mg PO DAILY@0730 ##90 10/23/23 release warfarin 5 mg tablet 10 mg PO as directed #180 tab-caps 12/05/23 mupirocin 2 % topical ointment 1 applic topical TID #15 grams 12/10/23 terazosin 1 mg capsule 1 mg PO .QHS #90 caps 12/10/23 fluticasone propionate 230 2 puff inhalation BID #12 grams 12/17/23 mcg-salmeterol 21 mcg/actuation HFA inhaler (Advair HFA) tiotropium bromide 2.5 2 puff inhalation DAILY 30 days #4 12/17/23 mcg/actuation mist for inhalation grams (Spiriva Respimat) albuterol sulfate 90 mcg/actuation 1 - 2 puff inhalation Q6H PRN ##2 01/13/24 aerosol inhaler (ProAir HFA) prednisone 20 mg tablet 40 mg (2 x 20 mg) PO DAILY #10 tabs 01/13/24 rosuvastatin 10 mg tablet 10 mg PO DAILY #90 tab-caps 01/23/24 tamsulosin 0.4 mg capsule 0.4 mg PO DAILY #90 caps 01/23/24 Allergies Allergy/AdvReac Type Severity Reaction Status Date / Time venom-honey bee (bee venom Allergy Severe Swelling/Ed Verified 03/07/24 09:52 (honey bee)) lida General Stated Complaint: Chest/Rib ODESSA: 3 Review of Systems All systems reviewed & are unremarkable except as noted in HPI and below Exam Narrative Exam Narrative: 1.Const: Well-nourished, Well-developed, appearing stated age 2.Eyes: PERRL, no conjunctival injection, and symmetrical lids. 3.ENT: Atraumatic external nose and ears. Moist MM. Neck: Symmetric, trachea midline, No thyromegaly. 4.CVS: +S1/S2, No murmurs or gallops. Peripheral pulses 2+ and equal in all extremities. Brisk capillary refill in all extremities. 5.RESP: Unlabored respiratory effort. Clear to auscultation bilaterally. No wheezes rales or rhonchi. Minimal left-sided chest wall tenderness. 6.GI: Soft, Nontender/Nondistended, No hepatosplenomegaly. No guarding or rebound. 7.MSK: Normocephalic/Atraumatic, Extremities w/o deformity or ttp No cyanosis or clubbing, Normal movement of all extremities. Minimal redness over the left wrist. No midline cervical thoracic or lumbar spine tenderness. 8.Skin: Warm, Dry. No rashes or lesions. Please see musculoskeletal 9.Neuro: termination clerk II-XII grossly intact. Sensation grossly intact, no focal neurologic deficits. 10.Psych: (AAO) x3. Appropriate mood and affect Course Vital Signs Vital signs: Vital Signs Temperature 36.6 C 03/28/24 20:32 Pulse 98 H 03/28/24 20:32 Respiratory Rate 20 03/28/24 20:32 Blood Pressure 175/82 H 03/28/24 20:32 Pulse Oximetry 93 03/28/24 20:32 Temperature 36.6 C 03/28/24 20:32 Temperature Source Tympanic 03/28/24 20:32 Pulse 80 03/28/24 21:27 Pulse 57 L 03/28/24 22:00 Respiratory Rate 20 03/28/24 22:00 Respiratory Effort Normal, Non-Labored 03/28/24 21:41 Respiratory Depth Normal 03/28/24 21:41 Respiratory Pattern Normal 03/28/24 21:41 Blood Pressure 115/54 L 03/28/24 21:27 Blood Pressure Mean 73 03/28/24 21:27 Blood Pressure Position Sitting 03/28/24 20:32 Pulse Oximetry 95 03/28/24 22:00 Oxygen Delivery Method Room Air 03/28/24 20:32 Oxygen Flow Rate 0 03/28/24 20:32 Pain Level 7 03/28/24 21:41 Lab/Test Results Lab/Test Results: Laboratory Tests Range/Units 03/28/24 21:37 WBC (4.4-10.8) 10^3/uL 10.25 RBC (4.36-5.78) 10^6/uL 4.06 L Hgb (13.5-17.5) g/dL 10.9 L Hct (40.0-50.0) % 33.0 L MCV (80-95) fL 81 MCH (27.0-33.0) pg 26.8 L MCHC (32.0-36.0) % 33.0 RDW (11.8-14.1) % 14.4 H Plt Count (130-400) 10^3/uL 218 MPV (8.0-11.0) fL 8.8 Immature Gran % % 2.0 Neutrophils % % 63.8 Lymphocytes % % 19.2 Monocytes % % 11.2 Eosinophils % % 3.1 Basophils % % 0.7 Nucleated RBC % (0.0-0.3) % 0.0 Absolute Neutrophils (1.2-6.7) 10^3/uL 6.54 Absolute Lymphocytes (1.2-3.4) 10^3/uL 1.97 Absolute Monocytes (0.1-0.8) 10^3/uL 1.15 H Absolute Eosinophils (0.0-0.7) 10^3/uL 0.32 Absolute Basophils (0.0-0.2) 10^3/uL 0.07 PT (9.1-11.1) sec 14.9 H INR (0.9-1.1) 1.5 H APTT (23.6-32.8) sec 31.9 Sodium (136-145) mmol/L 131 L Potassium (3.5-5.1) mmol/L 4.5 Chloride (98-107) mmol/L 95 L Carbon Dioxide (21.0-32.0) mmol/L 27.4 Anion Gap (3-11) mmol/L 8.6 BUN (7-18) mg/dL 12 Creatinine (0.70-1.30) mg/dL 1.0 Est GFR (CKD-EPI 2020) (mL/min/1.73m2) 75.61 Glucose (74-106) mg/dL 153 H Calcium (8.5-10.1) mg/dL 8.5 Total Bilirubin (0.2-1.0) mg/dL 0.31 AST (15-37) U/L 18 ALT (16-63) U/L 13 L Alkaline Phosphatase (46-116) U/L 95 Total Protein (6.4-8.2) g/dL 6.5 Albumin (3.4-5.0) g/dL 3.0 L Lipase (16-77) U/L 36 Medical Decision Making 79-year-old male who is a [facility] patient with a past medical history of co ronary artery disease, type 2 diabetes, anticoagulated with warfarin, BPH, COPD, hypertension, who recently just had a TAVR on 03/24/2024. He was discharged on the . While there he did get some cellulitis in the left wrist from where access was being established. He was given oral cephalosporin for home use. He states that occasionally he will have moments where he feels slightly lightheade d and nauseous while at home. This morning he did have an episode where he tripped, fell and hit his left chest on his stool. He had some mild to moderate pain at that time. Later in the evening an hour or 2 before arrival he felt weak nauseous had an episode of drooling and vomited. Symptoms have resolved on their own since then. However because of his recent procedures and risks, he did come in for further evaluation. Patient states that he very gently touched his head to the wall when he fell the first time at 9 AM. He denies any headache or neck pain. He does admit to mild left-sided chest achiness after the fall. He denies any significant difficulty breathing at this time. He denies any numbness tingling or weakness otherwise. No abdominal pain at this time. No blood in his vomit when he did vomit. No other complaints. Exam demonstrates well-appearing male, minimal left-sided chest wall tenderness. Mild erythema on his left wrist where his cellulitis was. No other signs of significant trauma. Vital signs notably stable. No hypoxemia or tachypnea. Differential includes rib contusion, fracture less likely. Pneumothorax less likely given no hypoxemia or tachypnea. Will check the patient's INR. Because of his Coumadin use and falling and hitting his head, albeit gently we will also check CT scan of the head. Will monitor closely and reassess. 12:[address] scan of the head negative for acute process. CT scan of the abdomen shows evidence of splenic contusion grade 2. No evidence of rupture though. Laboratory workup shows hemoglobin of 10.9, INR of 1.5. Electrolytes stable. We did reach out to [facility], pending callback. Case will be signed out to my colleague Dr. De León for follow-up with trauma. FINDINGS: Brain: No hemorrhage. Moderate subcortical white matter disease. Cortical ribbon and central fel[place] structures are preserved. Cerebral ventricles: No significant hydrocephalus. Basal cisterns are patent. Paranasal sinuses: No mucosal thickening or fluid levels. Mastoid air cells: No mastoid effusion. Bones: Unremarkable. No acute fracture. Soft tissues: Unremarkable. IMPRESSION: No intracerebral bleed. Thank you for allowing us to participate in the care of your patient Dictated and Authenticated by: Jaime Elliott MD 03/28/2024 11:45 PM Eastern Time ([place] & [place]) FINDINGS: Lungs: Multiple subcentimeter pulmonary nodules present within the lungs bilaterally ranging from 2 through 6.8 mm.For patients at low risk (minimal or absent history of smoking and of other known risk factors), recommend CT Chest at 3-6 months, then consider CT Chest at 18-24 months. For patients at high risk (history of smoking or of other known risk factors), recommend CT Chest at 3-6 months, then CT Chest at 18-24 months. (Reference: Malena). There are mild paraseptal emphysematous changes present within both lungs. Patchy consolidative changes atelectatic changes and groundglass opacities within the lung bases bilaterally greater on the left than the right. Pulmonary contusions are not excluded. Pleural spaces: There is no evidence of pneumothorax. There are no pleural effusions present. No evidence of pneumothorax or pleural effusions Heart: There has been a transcatheter aortic valve replacement (TAVR). There is calcification of the cardiac mitral valve annulus. The right ventricular to left ventricular ratio is normal measuring 0.9. Coronary arteries: There is severe atherosclerotic calcification of the coronary arteries. Lymph nodes: Mild mediastinal adenopathy present. Vasculature: The pulmonary arteries are not enlarged. The aorta demonstrates moderate atherosclerotic calcification. No evidence of aneurysmal dilatation or dissection. Intraperitoneal space: Please see CT of the abdomen and pelvis. Bones/joints: Sternotomy wires and mediastinal surgical clips are present, consistent with previous coronary arterial bypass grafting. Possible mild deformity of the anterolateral left 10th rib. This may represent a nondisplaced rib fracture. Soft tissues: Mild soft tissue swelling within the lateral inferior thoracic region IMPRESSION: 1. Patchy consolidative changes atelectatic changes and ground-glass opacities within the lung bases bilaterally greater on the left than the right. Pulmonary contusions are not excluded. 2. Multiple subcentimeter pulmonary nodules present within the lungs bilaterally ranging from 2 through 6.8 mm.For patients at low risk (minimal or absent history of smoking and of other known risk factors), recommend CT Chest at 3-6 months, then consider CT Chest at 18-24 months. For patients at high risk (history of smoking or of other known risk factors), recommend CT Chest at 3-6 months, then CT Chest at 18-24 months. (Reference: Malena). 3. There are mild paraseptal emphysematous changes present within both lungs. 4. Possible mild deformity of the anterolateral left 10th rib. This may represent a nondisplaced rib fracture. FINDINGS: Lungs: Please see CT of the lungs and thorax. Liver: Focal fatty change at the falciform ligament. Gallbladder and biliary ducts: High attenuation area within the gallbladder lumen at the neck measuring 10.7 mm consistent with cholelithiasis. . There is no wall thickening or pericholecystic fluid. Findings consistant with cholelitiasis without cholecystitis. Pancreas: The pancreas is normal. Spleen: There is an avascular nonenhancing area present within the inferior aspect of the spleen measuring 3.8 x 2.2 cm . This likely represents an intra splenic contusion/hematoma consistent with Grade II injury to the spleen. Adrenal glands: The adrenal glands are normal. Kidneys and ureters: Simple appearing cysts present within the right kidney the largest measuring 4.2 cm in diameter. Intraparenchymal cortical cysts present within the left kidney the largest measuring 8.5 mm. No follow-up indicated. Stomach and bowel: No evidence of duodenal hematoma. There is no evidence of intestinal obstruction. Moderate diverticulosis is present in the sigmoid and descending colon. There is no evidence of diverticulitis. Appendix: A normal appendix is identified. There is no evidence of distention or periappendiceal inflammation to suggest appendicitis. Intraperitoneal space: There is no free intraperitoneal air. There is no evidence of free intraperitoneal or pelvic fluid. Vasculature: Mild aneurysmal dilatation of the infrarenal abdominal aorta measuring 3 cm. Mild-tomoderate atherosclerotic changes of the aorta and iliofemoral arterial system without focal stenosis or dissection. Inferior vena cava is normal. The portal venous system is normal. Lymph nodes: There is no evidence of lymphadenopathy. Urinary bladder: The bladder is normal. Reproductive: The prostate gland demonstrates calcification and moderate nonspecific enlargement. The seminal vesicles are normal. Bones/joints: Possible mild deformity of the anterolateral left 10th rib. This may represent a nondisplaced rib fracture. There has been a total right hip replacement. The prosthesis and proximal right femur lie in good alignment and position. Odon-[id number]-[id number] degenerative changes of the left hip. Mild degenerative changes sacroiliac joints bilaterally. The lumbar spine demonstrates moderate degenerative changes. The skeletal structures and soft tissues show no evidence of fracture or other acute processes. Soft tissues: Moderate to severe degenerative changes sacroiliac joints with ankylosis of the right SI joint. Moderate to severe degenerative changes of the lumbosacral spine.The thoracolumbar spine demonstrates moderate degenerative changes at multiple levels.There are sternal wires consistent with previous sternotomy incision. IMPRESSION: 1. There is an avascular nonenhancing area present within the inferior aspect of the spleen measuring 3.8 x 2.2 cm . This likely represents an intra splenic contusion/hematoma consistent with Grade II injury to the spleen. 2. Findings consistant with cholelitiasis without cholecystitis. 3. Possible mild deformity of the anterolateral left 10th rib. This may represent a nondisplaced rib fracture. Thank you for allowing us to participate in the care of your patient. Dictated and Authenticated by: Gilberto Tavares MD 03/29/2024 12:02 AM Eastern Time ([place] & [place] Quality:SDOH Health Related Social Needs: No Data to Display PFSH All Active Problems (Updated 03/29/24 @ 00:10 by Geovanny Sales DO) Closed rib fracture (Acute) Contusion of spleen (Acute) Rib pain on left side (Acute) Fall (Acute) Smoking (Acute) Bradycardia (Acute) CAD (coronary artery disease) (Chronic) a. 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 Valve mobility was restricted. Transvalvular velocity was increased. There was moderate to severe stenosis. There was mild regurgitation. Peak velocity (S): 4m/sec. VTI ratio of LVOT to aortic valve: 0.41. Valve area (VTI): 1.2cm^2. 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
--- NOTE | 2024-03-28 23:45 | DI.VRAD_ITS ---
PROCEDURE INFORMATION: Exam: CT Head Without Contrast Exam date and time: 03/28/2024 10:31 PM Age: 79 years old Clinical indication: Injury or trauma; Blunt trauma (contusions or hematomas); Consciousness not specified; Injury date: 03/28/24; Injury details: Fall, hit had, recent tavr TECHNIQUE: Imaging protocol: Computed tomography of the head without contrast. Total images: 538 Radiation optimization: All CT scans at this facility use at least one of these dose optimization techniques: automated exposure control; mA and/or kV adjustment per patient size (includes targeted exams where dose is matched to clinical indication); or iterative reconstruction. COMPARISON: CT HEAD CERVICAL SPINE WO 06/27/2022 11:25 AM FINDINGS: Brain: No hemorrhage. Moderate subcortical white matter disease. Cortical ribbon and central feliciano structures are preserved. Cerebral ventricles: No significant hydrocephalus. Basal cisterns are patent. Paranasal sinuses: No mucosal thickening or fluid levels. Mastoid air cells: No mastoid effusion. Bones: Unremarkable. No acute fracture. Soft tissues: Unremarkable. IMPRESSION: No intracerebral bleed. Dictated and Authenticated by: Jaime Elliott MD. Ordering:AJ Small MD
[2024-03-29] VITALS (7 sets, daily range): BP systolic 122–149; BP diastolic 70–104; PULSE 72–88; RESP 14–24; O2SAT 91–95
--- NOTE | 2024-03-29 00:03 | DI.VRAD_ITS ---
Addendum created by Gilberto Tavares MD on 03/29/2024 12:23:01 AM EDT: THIS REPORT CONTAINS FINDINGS THAT MAY BE CRITICAL TO PATIENT CARE. The findings were verbally communicated via telephone conference with EDWIGE PIERRE at 12:22 AM EDT on 03/29/2024. The findings were acknowledged and understood. Initial report created on 03/29/2024 12:02:54 AM EDT: PROCEDURE INFORMATION: Exam: CT Chest With Contrast; Diagnostic Exam date and time: 03/28/2024 10:33 PM Age: 79 years old Clinical indication: Injury or trauma; Luq; Blunt trauma (contusions or hematomas); Injury date: 03/28/24; Injury details: Fall, left sided chest/rib pain, recent tavr; Prior surgery; Surgery date: <1 month; Surgery type: Recent tavr, R hip, hernia repair TECHNIQUE: Imaging protocol: Diagnostic computed tomography of the chest with contrast. 3D rendering (Not supervised by radiologist): MIP and/or 3D reconstructed images were created by the technologist. Radiation optimization: All CT scans at this facility use at least one of these dose optimization techniques: automated exposure control; mA and/or kV adjustment per patient size (includes targeted exams where dose is matched to clinical indication); or iterative reconstruction. Contrast material: OMNIPAQUE 350; Contrast volume: 100 ml; Contrast route: INTRAVENOUS (IV); COMPARISON: CT CHEST LUNG CANCER SCREEN 06/05/2020 1:47 PM FINDINGS: Lungs: Multiple subcentimeter pulmonary nodules present within the lungs bilaterally ranging from 2 through 6.8 mm.For patients at low risk (minimal or absent history of smoking and of other known risk factors), recommend CT Chest at 3-6 months, then consider CT Chest at 18-24 months. For patients at high risk (history of smoking or of other known risk factors), recommend CT Chest at 3-6 months, then CT Chest at 18-24 months. (Reference: Malena). There are mild paraseptal emphysematous changes present within both lungs. Patchy consolidative changes atelectatic changes and ground-glass opacities within the lung bases bilaterally greater on the left than the right. Pulmonary contusions are not excluded. Pleural spaces: There is no evidence of pneumothorax. There are no pleural effusions present. No evidence of pneumothorax or pleural effusions. Heart: There has been a transcatheter aortic valve replacement (TAVR). There is calcification of the cardiac mitral valve annulus. The right ventricular to left ventricular ratio is normal measuring 0.9. Coronary arteries: There is severe atherosclerotic calcification of the coronary arteries. Lymph nodes: Mild mediastinal adenopathy present. Vasculature: The pulmonary arteries are not enlarged. The aorta demonstrates moderate atherosclerotic calcification. No evidence of aneurysmal dilatation or dissection. Intraperitoneal space: Please see CT of the abdomen and pelvis. Bones/joints: Sternotomy wires and mediastinal surgical clips are present, consistent with previous coronary arterial bypass grafting. Possible mild deformity of the anterolateral left 10th rib. This may represent a nondisplaced rib fracture. Soft tissues: Mild soft tissue swelling within the lateral inferior thoracic region IMPRESSION: 1. Patchy consolidative changes atelectatic changes and ground-glass opacities within the lung bases bilaterally greater on the left than the right. Pulmonary contusions are not excluded. 2. Multiple subcentimeter pulmonary nodules present within the lungs bilaterally ranging from 2 through 6.8 mm.For patients at low risk (minimal or absent history of smoking and of other known risk factors), recommend CT Chest at 3-6 months, then consider CT Chest at 18-24 months. For patients at high risk (history of smoking or of other known risk factors), recommend CT Chest at 3-6 months, then CT Chest at 18-24 months. (Reference: Malena). 3. There are mild paraseptal emphysematous changes present within both lungs. 4. Possible mild deformity of the anterolateral left 10th rib. This may represent a nondisplaced rib fracture. REFERENCES: Malena Fernando, et al. Guidelines for Management of Incidental Pulmonary Nodules Detected on CT Images: From the Fleischner Society 2017. Radiology. 2017;284(1):228-243. PROCEDURE INFORMATION: Exam: CT Abdomen And Pelvis With Contrast Exam date and time: 03/28/2024 10:33 PM Age: 79 years old Clinical indication: Injury or trauma; Luq; Blunt trauma (contusions or hematomas); Injury date: 03/28/24; Injury details: Fall, left sided chest/rib pain, recent tavr; Prior surgery; Surgery date: <1 month; Surgery type: Recent tavr, R hip, hernia repair TECHNIQUE: Imaging protocol: Computed tomography of the abdomen and pelvis with contrast. 3D rendering (Not supervised by radiologist): MIP and/or 3D reconstructed images were created by the technologist. Radiation optimization: All CT scans at this facility use at least one of these dose optimization techniques: automated exposure control; mA and/or kV adjustment per patient size (includes targeted exams where dose is matched to clinical indication); or iterative reconstruction. Contrast material: OMNIPAQUE 350; Contrast volume: 100 ml; Contrast route: INTRAVENOUS (IV); COMPARISON: CT CHEST LUNG CANCER SCREEN 06/05/2020 1:47 PM FINDINGS: Lungs: Please see CT of the lungs and thorax. Liver: Focal fatty change at the falciform ligament. Gallbladder and biliary ducts: High attenuation area within the gallbladder lumen at the neck measuring 10.7 mm consistent with cholelithiasis. . There is no wall thickening or pericholecystic fluid. Findings consistant with cholelitiasis without cholecystitis. Pancreas: The pancreas is normal. Spleen: There is an avascular nonenhancing area present within the inferior aspect of the spleen measuring 3.8 x 2.2 cm . This likely represents an intra splenic contusion/hematoma consistent with Grade II injury to the spleen. Adrenal glands: The adrenal glands are normal. Kidneys and ureters: Simple appearing cysts present within the right kidney the largest measuring 4.2 cm in diameter. Intraparenchymal cortical cysts present within the left kidney the largest measuring 8.5 mm. No follow-up indicated. Stomach and bowel: No evidence of duodenal hematoma. There is no evidence of intestinal obstruction. Moderate diverticulosis is present in the sigmoid and descending colon. There is no evidence of diverticulitis. Appendix: A normal appendix is identified. There is no evidence of distention or periappendiceal inflammation to suggest appendicitis. Intraperitoneal space: There is no free intraperitoneal air. There is no evidence of free intraperitoneal or pelvic fluid. Vasculature: Mild aneurysmal dilatation of the infrarenal abdominal aorta measuring 3 cm. Rdja-mi-juuwnhuk atherosclerotic changes of the aorta and iliofemoral arterial system without focal stenosis or dissection. Inferior vena cava is normal. The portal venous system is normal. Lymph nodes: There is no evidence of lymphadenopathy. Urinary bladder: The bladder is normal. Reproductive: The prostate gland demonstrates calcification and moderate nonspecific enlargement. The seminal vesicles are normal. Bones/joints: Possible mild deformity of the anterolateral left 10th rib. This may represent a nondisplaced rib fracture. There has been a total right hip replacement. The prosthesis and proximal right femur lie in good alignment and position. Vgqj-qc-fxfuuerf degenerative changes of the left hip. Mild degenerative changes sacroiliac joints bilaterally. The lumbar spine demonstrates moderate degenerative changes. The skeletal structures and soft tissues show no evidence of fracture or other acute processes. Soft tissues: Moderate to severe degenerative changes sacroiliac joints with ankylosis of the right SI joint. Moderate to severe degenerative changes of the lumbosacral spine.The thoracolumbar spine demonstrates moderate degenerative changes at multiple levels.There are sternal wires consistent with previous sternotomy incision. IMPRESSION: 1. There is an avascular nonenhancing area present within the inferior aspect of the spleen measuring 3.8 x 2.2 cm . This likely represents an intra splenic contusion/hematoma consistent with Grade II injury to the spleen. 2. Findings consistant with cholelitiasis without cholecystitis. 3. Possible mild deformity of the anterolateral left 10th rib. This may represent a nondisplaced rib fracture. Dictated and Authenticated by: Gilberto Tavares MD. Ordering:AJ Small MD
--- NOTE | 2024-03-29 00:23 | ED.PROG_ITS ---
Date of service: 03/29/24 Time of Service: 00:24 Medical Decision Making This patient was signed out to me. Please see previous notes for H&P and initial eval. In brief, 79yo M s/p recent TAVR, today at 0900 felt nausated and lighttheaded and fell striking his left side. No LOC. Initial workup reassuring, however CT abd/pelvis shows G2 splenic hematoma/contusion and possible 10th rib fracture. INR 1.5 (on warfarin) and Hg 10.9 (last here 13.8 in November). Hemodynamically stable with minimal pain while in the ED. Signed out pending [facility] [place]. Spoke with [facility] trauma [place]. Barrera; advised repeat CBC in the morning and if Hg stable, appropriate for 2 week followup with PCP. Regarding anticoagulation, he would advise holding warfarin for 1 week if AC was for afib or hx thromboembolism. 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 He is followed by his PCP for this issue who prescribes the coumadin. He has an appointment scheduled with his PCP for this Thursday (tomorrow). Given unclear nature of reason for AC, will defer this decision to his PCP. Repeat CBC with unchanged Hg. On reassessment patient is well appearing and denies pain, including pain with deep breathing. Vital signs remain reassuring. Appropriate for close PCP followup. Discharged home; discharge instructions and return precautions were reviewed with patient who verbalized understanding. All questions were answered and he is in full agreement with the plan. Lab Data Lab results reviewed: Yes I reviewed the patient's lab results. Labs: Laboratory Tests Range/Units 03/28/24 03/29/24 21:37 05:00 WBC (4.4-10.8) 10^3/uL 10.25 9.60 RBC (4.36-5.78) 10^6/uL 4.06 L 4.01 L Hgb (13.5-17.5) g/dL 10.9 L 10.9 L Hct (40.0-50.0) % 33.0 L 32.6 L MCV (80-95) fL 81 81 MCH (27.0-33.0) pg 26.8 L 27.2 MCHC (32.0-36.0) % 33.0 33.4 RDW (11.8-14.1) % 14.4 H 14.2 H Plt Count (130-400) 10^3/uL 218 216 MPV (8.0-11.0) fL 8.8 8.8 Immature Gran % % 2.0 Neutrophils % % 63.8 Lymphocytes % % 19.2 Monocytes % % 11.2 Eosinophils % % 3.1 Basophils % % 0.7 Nucleated RBC % (0.0-0.3) % 0.0 Absolute Neutrophils (1.2-6.7) 10^3/uL 6.54 Absolute Lymphocytes (1.2-3.4) 10^3/uL 1.97 Absolute Monocytes (0.1-0.8) 10^3/uL 1.15 H Absolute Eosinophils (0.0-0.7) 10^3/uL 0.32 Absolute Basophils (0.0-0.2) 10^3/uL 0.07 PT (9.1-11.1) sec 14.9 H INR (0.9-1.1) 1.5 H APTT (23.6-32.8) sec 31.9 Sodium (136-145) mmol/L 131 L Potassium (3.5-5.1) mmol/L 4.5 Chloride (98-107) mmol/L 95 L Carbon Dioxide (21.0-32.0) mmol/L 27.4 Anion Gap (3-11) mmol/L 8.6 BUN (7-18) mg/dL 12 Creatinine (0.70-1.30) mg/dL 1.0 Est GFR (CKD-EPI 2020) (mL/min/1.73m2) 75.61 Glucose (74-106) mg/dL 153 H Calcium (8.5-10.1) mg/dL 8.5 Total Bilirubin (0.2-1.0) mg/dL 0.31 AST (15-37) U/L 18 ALT (16-63) U/L 13 L Alkaline Phosphatase (46-116) U/L 95 Total Protein (6.4-8.2) g/dL 6.5 Albumin (3.4-5.0) g/dL 3.0 L Lipase (16-77) U/L 36 Quality:[facility] Health Related Social Needs: No Data to Display Sign Out Sign Out Data: Sign Out Comment: Fall, recent TAVR, on warfarin. Hit left flank, has splenic contusion. Pending [facility] call back Last updated by Geovanny Sales DO at 03/29/24 00:15 Discharge Plan Disposition Patient Disposition: Home Condition: Good Discharge Details Clinical Impression: Fall, Rib pain on left side, Contusion of spleen, Closed rib fracture Primary Care Provider: Gianni Gannon ED Provider: Irlanda Bryant Home Meds and New Rx's Prescriptions: Continued (DME) blood-glucose meter [FreeStyle Lite Meter] Kit See Rx Instructions .ROUTE .MEDSUPPLY Qty: 1 0RF Rx Instructions: test once/day mirabegron 25 mg tablet extended release 24 hr 25 mg PO DAILY Qty: 30 0RF lisinopril 40 mg tablet 40 mg PO DAILY Qty: 90 3RF (DME) FreeStyle Lite Strips Strip 1 ea Miscellaneous BID Qty: 180 3RF Rx Instructions: DX:E11.9 test twice/daily nitroglycerin [Nitrostat] 0.4 mg tablet, sublingual 0.4 mg Sublingual DIRECTED Qty: 7 0RF Patient Comments: given by EMT [employer] on 12/02 albuterol sulfate 2.5 mg /3 mL (0.083 %) solution for nebulization 2.5 mg Inhalation Q4H PRN (Reason: bronchospasm) Qty: 50 5RF fluticasone propion-salmeterol [Advair HFA] 230-21 mcg/actuation HFA aerosol inhaler 2 puff inhalation BID Qty: 12 12RF Spiriva Respimat 2.5 mcg/actuation mist 2 puff inhalation DAILY 30 Days Qty: 4 12RF Spiriva Respimat 2.5 mcg/actuation mist 2 puff inhalation DAILY prednisone 20 mg tablet 40 mg PO DAILY Qty: 10 0RF albuterol sulfate [ProAir HFA] 90 mcg/actuation HFA aerosol inhaler 1 - 2 puff Inhalation Q6H PRN Qty: 2 2RF (DME) Space Chamber Plus 1 EACH spacer 1 ea Miscellaneous PRN Qty: 1 Patient Comments: not using (DME) lancets [FreeStyle Lancets] 1 EACH misc 1 ea Sub-Q BID Qty: 100 Rx Instructions: DX:250. (DME) nebulizers [Aeroeclipse Reusable BAN] 1 EACH misc 1 ea Miscellaneous DAILY Qty: 1 (DME) C-pap Qty: 1 (DME) pen needle, diabetic 31 gauge x 1/3 needle 1 ea Sub-Q DIRECTED Qty: 300 4RF Rx Instructions: inject TID magnesium oxide 400 mg (241.3 mg magnesium) tablet 400 mg PO DAILY Qty: 90 3RF ferrous sulfate 325 mg (65 mg iron) tablet 325 mg PO BID Qty: 180 3RF Rx Instructions: start with one/day for first week, then increase to BID metformin 850 mg tablet 850 mg PO BID Qty: 270 3RF Patient Comments: 1700 mg in am and 850 mg in the saray--05/06/18 er Rx Instructions: dose reduced to BID due to diarrhea 11/16/19 insulin glargine [Lantus Solostar U-100 Insulin] 100 unit/mL (3 mL) insulin pen 10 unit subcut HS Qty: 15 3RF pantoprazole 20 mg tablet,delayed release (DR/EC) 20 mg PO DAILY@0730 Qty: 90 2RF terazosin 1 mg capsule 1 mg PO .QHS Qty: 90 3RF mupirocin 2 % ointment 1 applic topical TID Qty: 15 2RF tamsulosin 0.4 mg capsule 0.4 mg PO DAILY Qty: 90 3RF Rx Instructions: Per [facility] [place]cology rosuvastatin 10 mg tablet 10 mg PO DAILY Qty: 90 3RF furosemide 20 mg tablet 20 mg PO DAILY Qty: 30 0RF Held warfarin 2.5 mg tablet 2.5 mg PO DAILY Qty: 90 3RF Hold Instructions: Resume on 03/30/24. Discuss with your primary care doctor Protocol: Dose Management Condition: Thursday Dose/Route: Hold Instruction: No doses Condition: Thursday Dose/Route: Hold Instruction: No doses Condition: Thursday Dose/Route: 7.5 mg Instruction: 1 x 2.5 mg tablet, 1 x 5 mg tablet Condition: Thursday Dose/Route: Hold Instruction: No doses Condition: Dose/Route: Hold Instruction: No doses Condition: Thursday Dose/Route: Hold Instruction: No doses Condition: Thursday Dose/Route: Hold Instruction: No doses Protocol Text: Adjustment Start Date: Thursday03/15/24 INR Value: 2.4 INR Date: 03/15/24 Recheck Date: 03/29/24 Rx Instructions: take as directed based on INR warfarin 5 mg tablet 10 mg PO as directed Qty: 180 3RF Hold Instructions: Resume on 03/30/24. Discuss with your primary care doctor Protocol: Dose Management Condition: Thursday Dose/Route: Hold Instruction: No doses Condition: Thursday Dose/Route: Hold Instruction: No doses Condition: Thursday Dose/Route: 7.5 mg Instruction: 1 x 2.5 mg tablet, 1 x 5 mg tablet Condition: Thursday Dose/Route: Hold Instruction: No doses Condition: Dose/Route: Hold Instruction: No doses Condition: Thursday Dose/Route: Hold Instruction: No doses Condition: Thursday Dose/Route: Hold Instruction: No doses Protocol Text: Adjustment Start Date: Thursday03/15/24 INR Value: 2.4 INR Date: 03/15/24 Recheck Date: 03/29/24 Discharge Instructions Instructions: Spleen Injury (DC), Blunt Chest Trauma ED Additional Instructions: Do not take your warfarin this morning. Call your primary care doctor today to discuss whether you should continue to take this medication, or if you should stop for a week. You should also schedule an appointment for two weeks from now for a re-check to followup on your visit here. If you are not able to talk to your primary care doctor today, at your visit tomorrow make sure to discuss whether or not to continue your warfarin this w unga. Return to the emergency department for new or worsening symptoms including new/different/worse pain, feeling lightheaded, passing out, chest pain, shortness of breath, or if you have any other concerns. Referrals: Gianni Gannon MD [Primary Care Provider] -
[2024-03-29 05:05] LABS: HCT 32.6 % (40.0-50.0); HGB 10.9 g/dL (13.5-17.5); MCH 27.2 pg (27.0-33.0); MCHC 33.4 % (32.0-36.0); MCV 81 fL (80-95); MPV 8.8 fL (8.0-11.0); Platelet Count 216 10^3/uL (130-400); RBC 4.01 10^6/uL (4.36-5.78); RDW 14.2 % (11.8-14.1); RDW-SD 42.7 fL
== END 2024-03-29 06:35 | disposition home or self-care (01) ==
PROVIDERS: Student in an Organized Health Care Education/Training Program; Emergency Provider Student in an Organized Health Care Education/Training Program; PCP Family Medicine
DX: S36.029A Unspecified contusion of spleen, initial encounter; S22.32XA Fracture of one rib, left side, initial encounter for closed fracture; R07.81 Pleurodynia; R11.10 Vomiting, unspecified; W01.190A Fall on same level from slipping, tripping and stumbling with subsequent striking against furniture, initial encounter; Z79.01 Long term (current) use of anticoagulants
CPT/HCPCS: 00123; 74177; 80053; 83690; 85027; 93005; 96360; 99284; 70450; 71260; 85025; 85610; 85730; 93010; 99283; J3490

== ENCOUNTER → 2024-03-31 13:36 | Outpatient (BNVA) | payer MEDICARE, SELFPAY | PROVIDERS: PCP Family Medicine; Referring Provider Family Medicine; Visit Provider Physician Assistant Surgical | DX: J43.9 Emphysema, unspecified (principal); G47.30 Sleep apnea, unspecified; F17.210 Nicotine dependence, cigarettes, uncomplicated | CPT/HCPCS: 99214 ==

== ENCOUNTER 2024-03-31 15:05 | Outpatient (CLI) | payer MEDICARE, SELFPAY ==
--- NOTE | 2024-03-31 15:06 | DI.RAD_ITS ---
Exam(s) XR KNEE LT 3V AP,LAT,JEAN CLAUDE EXAM: XR KNEE LT 3V AP,LAT,JEAN CLAUDE CLINICAL HISTORY: traumatic fall M25.469 EFFUSION, EDEMA OF KNEE. TECHNIQUE: 2D digital imaging was performed. Three views. COMPARISON: CR XR KNEE LT 3V AP,LAT,JEAN CLAUDE from 02/18/2023 FINDINGS: BONES: No acute fracture is present. No bony destructive lesion is seen. Small enthesophyte at the upper pole of the patella and tibial tubercle.. JOINTS: Moderate narrowing of the medial femoral tibial joint. Mild periarticular spurring throughou t. No joint effusion is seen. Chondrocalcinosis. SOFT TISSUE: Vascular calcifications. IMPRESSION: Stable moderate degenerative changes of the medial femoral tibial joint. DATA REPOSITORY: RADIATION DOSE DELIVERED:
== END 2024-03-31 15:25 ==
LOC: DI 15:08
PROVIDERS: PCP Family Medicine; Visit Provider Physician Assistant Surgical
DX: M25.462 Effusion, left knee (principal)
CPT/HCPCS: 73562; 99214

== ENCOUNTER 2024-05-25 11:19 | Outpatient (CLI) | payer MEDICARE, SELFPAY ==
[2024-05-25 12:49] LABS: AST 14 U/L (15-37); Albumin 3.7 g/dL (3.4-5.0); Alkaline Phosphatase 105 U/L (46-116); Anion Gap 9.7 mmol/L (3-11); BUN 15 mg/dL (7-18); Bilirubin, Total 0.46 mg/dL (0.2-1.0); CO2 24.3 mmol/L (21.0-32.0); Calcium 8.9 mg/dL (8.5-10.1); Chloride 98 mmol/L (98-107); Estimated GFR 75.61 (mL/min/1.73m2); Glucose 240 mg/dL (74-106); Potassium 4.2 mmol/L (3.5-5.1); Sodium 132 mmol/L (136-145); Total Protein 6.8 g/dL (6.4-8.2)
[2024-05-25 12:59] LABS: ALT 12 U/L (16-63)
[2024-05-25 13:00] LABS: COMMENT (LAB VIEW ONLY) 48.48 mg/dL
== END 2024-05-25 11:20 | disposition home or self-care (01) ==
LOC: LOS 11:20
PROVIDERS: PCP Family Medicine; Referring Provider Family Medicine; Visit Provider Family Medicine
DX: E11.40 Type 2 diabetes mellitus with diabetic neuropathy, unspecified
CPT/HCPCS: 36415; 80053; 82043; 82570; 83036

== ENCOUNTER → 2024-06-30 14:09 | Outpatient (BNVA) | payer MEDICARE, SELFPAY | PROVIDERS: PCP Family Medicine; Referring Provider Family Medicine; Visit Provider Physician Assistant Surgical | DX: J43.9 Emphysema, unspecified (principal); G47.30 Sleep apnea, unspecified; F17.210 Nicotine dependence, cigarettes, uncomplicated | CPT/HCPCS: 99214 ==

== ENCOUNTER 2024-07-06 11:24 | Outpatient (RCR) | payer MEDICARE, SELFPAY ==
--- NOTE | 2024-07-06 11:45 | RT.EKG_ITS ---
APPROVED REPORT Exam: Resting ECG Reason for Exam: Baseline Patient Location: O HR:85 bpm ECG Measurements Heart Rate 85 AXIS DE 310 P 72 QRSd 125 QRS 51 QT 479 T 66 QTc 570 Conclusion Sinus rhythm...normal P axis, V-rate 50- 99 Prolonged DE interval...DE >220, V-rate 50- 90 IVCD, consider atypical RBBB...QRSd>120mS, terminal axis(90,270) Inferior infarct, old...Q >35mS, II III aVF
== END 2024-07-29 23:59 | disposition home or self-care (01) ==
LOC: CR 11:24
PROVIDERS: PCP Family Medicine; Visit Provider Internal Medicine Cardiovascular Disease
DX: Z95.2 Presence of prosthetic heart valve (principal); Z51.89 Encounter for other specified aftercare
CPT/HCPCS: S9472

== ENCOUNTER 2024-07-29 14:13 | Outpatient (RCR) | payer MEDICARE, SELFPAY | END 2024-07-29 23:59 | disposition home or self-care (01) | LOC: CR 14:13 | PROVIDERS: PCP Family Medicine; Visit Provider Internal Medicine Cardiovascular Disease | DX: Z95.2 Presence of prosthetic heart valve (principal); Z51.89 Encounter for other specified aftercare | CPT/HCPCS: S9472 ==

== ENCOUNTER 2024-08-26 13:19 | Outpatient (RCR) | payer MEDICARE, SELFPAY | END 2024-08-26 23:59 | disposition home or self-care (01) | LOC: CR 13:19 | PROVIDERS: PCP Family Medicine; Visit Provider Internal Medicine Cardiovascular Disease | DX: I25.118 Atherosclerotic heart disease of native coronary artery with other forms of angina pectoris (principal); Z95.2 Presence of prosthetic heart valve; Z51.89 Encounter for other specified aftercare | CPT/HCPCS: S9472 ==

== ENCOUNTER 2024-09-23 13:27 | Outpatient (RCR) | payer MEDICARE, SELFPAY | END 2024-09-26 23:59 | disposition home or self-care (01) | LOC: CR 13:27 | PROVIDERS: PCP Family Medicine; Visit Provider Internal Medicine Cardiovascular Disease | DX: Z95.5 Presence of coronary angioplasty implant and graft (principal); Z51.89 Encounter for other specified aftercare | CPT/HCPCS: S9472 ==

== ENCOUNTER → 2024-09-28 11:39 | Outpatient (BNVA) | payer MEDICARE, SELFPAY | PROVIDERS: PCP Family Medicine; Referring Provider Family Medicine; Visit Provider Physician Assistant Surgical | DX: J43.9 Emphysema, unspecified (principal); G47.30 Sleep apnea, unspecified; F17.200 Nicotine dependence, unspecified, uncomplicated | CPT/HCPCS: 99214 ==

== ENCOUNTER 2024-10-25 10:10 | Outpatient (CLI) | payer MEDICARE, SELFPAY ==
[2024-10-25 12:53] LABS: HGB 10.3 g/dL (13.5-17.5); MCH 24.6 pg (27.0-33.0); MCHC 31.2 % (32.0-36.0); MCV 79 fL (80-95); MPV 9.5 fL (8.0-11.0); Platelet Count 258 10^3/uL (130-400); RBC 4.18 10^6/uL (4.36-5.78); RDW 15.7 % (11.8-14.1); WBC 8.72 10^3/uL (4.4-10.8)
[2024-10-25 13:17] LABS: ALT 17 U/L (16-63); AST 10 U/L (15-37); Albumin 3.6 g/dL (3.4-5.0); Alkaline Phosphatase 98 U/L (46-116); Anion Gap 10.6 mmol/L (3-11); BUN 12 mg/dL (7-18); Bilirubin, Total 0.4 mg/dL (0.2-1.0); CO2 24.4 mmol/L (21.0-32.0); CREATININE 0.8 mg/dL (0.70-1.30); Calcium 8.8 mg/dL (8.5-10.1); Chloride 98 mmol/L (98-107); Estimated GFR 88.91 (mL/min/1.73m2); Glucose 161 mg/dL (74-106); Potassium 4.8 mmol/L (3.5-5.1); Sodium 133 mmol/L (136-145); Total Protein 6.9 g/dL (6.4-8.2)
[2024-10-25 20:19] LABS: Lab Add On Test DONE
[2024-10-25 20:25] LABS: Iron 65 ug/dL (65-175)
[2024-10-25 20:44] LABS: Ferritin 25 ng/mL (26-388); Vitamin B12 285 pg/mL (193-986)
== END 2024-10-25 10:11 | disposition home or self-care (01) ==
LOC: LOS 10:10 → LBN 16:56
PROVIDERS: PCP Family Medicine; Referring Provider Family Medicine; Visit Provider Family Medicine
DX: R10.9 Unspecified abdominal pain (principal); R53.83 Other fatigue; D64.9 Anemia, unspecified
CPT/HCPCS: 36415; 80053; 85027; 82607; 82728; 83540

== ENCOUNTER 2024-11-15 10:44 | Outpatient (CLI) | payer MEDICARE, SELFPAY ==
--- NOTE | 2024-11-15 11:00 | RT.EKG_ITS ---
APPROVED REPORT Exam: Resting ECG Reason for Exam: see above- bradycardia and frequent falls Patient Location: O HR:84 bpm ECG Measurements Heart Rate 84 AXIS ID 283 P 83 QRSd 105 QRS 36 QT 368 T 20 QTc 436 Conclusion Sinus rhythm...normal P axis, V-rate 50- 99 Ventricular premature complex...V complex w/ short R-R interval Prolonged ID interval...ID >220, V-rate 50- 90 Possible inferior infarct, old...Q >35mS, II III aVF
== END 2024-11-15 10:45 | disposition home or self-care (01) ==
PROVIDERS: PCP Family Medicine; Visit Provider Nurse Practitioner Family
DX: R00.1 Bradycardia, unspecified (principal); R29.6 Repeated falls
CPT/HCPCS: 93010

== ENCOUNTER → 2024-12-28 10:11 | Outpatient (BNVA) | payer MEDICARE, SELFPAY | PROVIDERS: PCP Family Medicine; Referring Provider Family Medicine; Visit Provider Physician Assistant Surgical | DX: J43.9 Emphysema, unspecified (principal); G47.30 Sleep apnea, unspecified; F17.210 Nicotine dependence, cigarettes, uncomplicated | CPT/HCPCS: 99214 ==

== ENCOUNTER 2025-01-04 14:32 | Outpatient (CLI) | payer MEDICARE, SELFPAY | END 2025-01-04 14:33 | disposition home or self-care (01) | LOC: LBO 14:32 | PROVIDERS: PCP Family Medicine; Visit Provider Colon & Rectal Surgery | DX: C61 Malignant neoplasm of prostate (principal) | CPT/HCPCS: 36415; 84153 ==

== ENCOUNTER 2025-03-07 11:44 | Outpatient (CLI) | payer MEDICARE, SELFPAY ==
--- NOTE | 2025-03-07 11:30 | DI.RAD_ITS ---
Exam(s) XR CHEST 2V PA LATERAL EXAM: XR CHEST 2V PA LATERAL CLINICAL HISTORY: cough, COPD, productive cough, R05.8. TECHNIQUE: 2D digital imaging was performed. COMPARISON: CR XR PORTABLE CHEST AP from 12/03/2023 FINDINGS: 2 views: Again noted are sternotomy wires and evidence of previous CABG. There is also an aortic valve TAVR noted. Heart size remains normal mediastinum is not widened. Lungs are clear with no infiltrates nor pleural effusions. No pulmonary edema. Lungs are clear. No infiltrates nor pleural effusions. No evidence of pulmonary edema. IMPRESSION: No acute pulmonary findings.Cardiac findings as above. DATA REPOSITORY: RADIATION DOSE DELIVERED:
== END 2025-03-07 12:04 ==
LOC: DI 11:44
PROVIDERS: PCP Family Medicine; Visit Provider Family Medicine
DX: R05.8 Other specified cough (principal)
CPT/HCPCS: 71046

== ENCOUNTER → 2025-04-05 10:14 | Outpatient (BNVA) | payer MEDICARE, SELFPAY | PROVIDERS: PCP Family Medicine; Referring Provider Family Medicine; Visit Provider Physician Assistant Surgical | DX: J43.9 Emphysema, unspecified (principal); G47.30 Sleep apnea, unspecified; F17.210 Nicotine dependence, cigarettes, uncomplicated | CPT/HCPCS: 99214 ==

== ENCOUNTER 2025-05-19 10:33 | Outpatient (CLI) | payer MEDICARE, SELFPAY ==
[2025-05-19 12:16] LABS: INR 2.7 (0.9-1.1); Prothrombin Time 25.5 sec (9.1-11.1)
== END 2025-05-19 10:34 | disposition home or self-care (01) ==
PROVIDERS: PCP Family Medicine; Visit Provider Nurse Practitioner Family
DX: Z79.01 Long term (current) use of anticoagulants (principal)
CPT/HCPCS: 36415; 85610

== ENCOUNTER 2025-05-26 11:37 | Outpatient (CLI) | payer MEDICARE, SELFPAY ==
[2025-05-26 09:30] LABS: INR 2.3 (0.9-1.1); Prothrombin Time 21.5 sec (9.1-11.1)
== END 2025-05-26 11:38 | disposition home or self-care (01) ==
LOC: LBO 11:37
PROVIDERS: PCP Family Medicine; Visit Provider Nurse Practitioner Family
DX: I26.99 Other pulmonary embolism without acute cor pulmonale (principal)
CPT/HCPCS: 36415; 85610